=== PATIENT | female | born 1975 | race African-American/Black ===

== ENCOUNTER 2019-07-12 19:22 | Inpatient (IN) | payer SELFPAY ==
[~2019-07-12] VITALS: Ht 172.7 cm; Wt 76.9 kg
[2019-07-12 19:59] LABS: BILIRUBIN,URINE SMALL (NEG); CLARITY,URINE CLOUDY; COLOR,URINE YELLOW; NITRITE,URINE NEGATIVE (NEG); PROTEIN,URINE 30 mg/dL (NEG-TRACE); UROBILINOGEN,URINE 0.2 mg/dL (0.2 mg/dL)
[2019-07-12] MEDS ORDERED: IV NORMAL SALINE 1000ML BAG 1,000 ML IV ONE ×3 (20:00→23:30)
[2019-07-12] MEDS ORDERED: CONTRAST GIVEN. MC PRN (20:00)
[2019-07-12 20:04] LABS: SQUAMOUS EPITHELIAL CELL,UR MOD /LPF
[2019-07-12 20:05] LABS: AMORPHOUS SEDIMENT,UR PRESENT /HPF; BACTERIA,URINE MOD /HPF (0-FEW); HYALINE CASTS, URINE FEW /HPF; RBC,URINE 0 /HPF (0-2)
[2019-07-12 20:11] LABS: BARBITURATES NEG (NEG); BENZODIAZEPINES NEG (NEG); CANNABINOIDS POS (NEG); COCAINE NEG (NEG); METHADONE NEG (NEG); OPIATES NEG (NEG); PHENCYCLIDINE NEG (NEG)
[2019-07-12] MEDS ORDERED: HALOPERIDOL LACTATE 5 MG/ML VIAL. IVP ONE (20:15)
[2019-07-12] MEDS ORDERED: PROCHLORPERAZINE 10 MG/2 ML VIAL. IV ONE (20:15)
[2019-07-12] MEDS ORDERED: DICYCLOMINE HCL 10 MG CAPSULE PO ONE (20:15)
[2019-07-12 20:20] LABS: AMPHETAMINE/METHAMPHETAMINE NEG (NEG)
[2019-07-12] MEDS ORDERED: DICYCLOMINE 20 MG/2 ML AMPUL. IM ONE (20:30)
[2019-07-12] MEDS ORDERED: IOHEXOL 300 MG/ML 100ML VIAL. IV ONE (20:30)
[2019-07-12 20:37] LABS: BASO % 0 % (0-3); EOS % 0 % (0-3); HEMATOCRIT 45.3 % (36.0-47.0); HEMOGLOBIN 14.4 g/dL (12.0-15.5); LYMPH # 0.9 x10^3/uL (1.0-4.8); LYMPH % 9 % (24-48); MEAN CORPUSCULAR HEMOGLOBIN 23 pg (25-35); MEAN CORPUSCULAR HGB CONC 32 g/dL (31-37); MEAN CORPUSCULAR VOLUME 73 fL (79-100); MONO # 0.4 x10^3/uL (0.0-1.1); MONO % 4 % (0-9); NEUT # 8.8 x10^3/uL (1.8-7.7); NEUT % 87 % (31-73); PLATELET COUNT 322 x10^3/uL (140-400); RED BLOOD COUNT 6.18 x10^6/uL (3.50-5.40); RED CELL DISTRIBUTION WIDTH 16.1 % (11.5-14.5); WHITE BLOOD COUNT 10.1 x10^3/uL (4.0-11.0)
[2019-07-12 20:45] LABS: CALCIUM 11.2 mg/dL (8.5-10.1); CREATININE 2.9 mg/dL (0.6-1.0); GFR 17.8; POTASSIUM 3.7 mmol/L (3.5-5.1)
[2019-07-12 20:53] LABS: ALBUMIN 5.4 g/dL (3.4-5.0); ALBUMIN/GLOBULIN RATIO 0.9 (1.0-1.7); TOTAL BILIRUBIN 0.4 mg/dL (0.2-1.0); TOTAL PROTEIN 11.2 g/dL (6.4-8.2)
[2019-07-12 21:27] LABS: % BANDS 3 % (0-9); % LYMPHS 13 % (24-48); % MONOS 1 % (0-10); % SEGS 83 % (35-66); ANISOCYTOSIS SLIGHT; HYPOCHROMIA SLIGHT; MICROCYTOSIS SLIGHT; PLT ESTIMATE ADEQUATE (ADEQUATE); TOXIC GRANULATION SLIGHT; TOXIC VACUOLATION SLIGHT
--- NOTE | 2019-07-12 21:29 | RAD ---
Exam: CT abdomen and pelvis without contrast INDICATION: Generalized abdominal pain TECHNIQUE: Sequential axial images through the abdomen and pelvis obtained without IV contrast. Sagittal and coronal reformatted images were reconstructed from the axial data and reviewed. Comparisons: None FINDINGS: Heart size is normal. No pericardial effusion. Visualized lung bases are clear. No pleural effusion. Evaluation of the solid organs is limited secondary to noncontrast technique. Liver, spleen, pancreas, gallbladder and adrenals are unremarkable. No perinephric inflammation or hydronephrosis. No renal or ureteral calculi are identified. Bladder is decompressed not well evaluated. Uterus is not enlarged. No abnormal adnexal mass. Large and small bowel are unremarkable. Appendix is normal. No obstruction. No free intra-abdominal air or fluid. Abdominal aorta has a normal course and caliber. No enlarged intra-abdominal lymph nodes are identified. No suspicious osseous lesions or acute fractures. IMPRESSION: No acute process identified within the abdomen or pelvis. Exposure: One or more of the following in the visualized dose reduction techniques were utilized for this examination: 1. Automated exposure control 2. Adjustment of the MA and/or KV according to patient size 3. Use of iterative of reconstructive technique Electronically signed by: Su Juarez MD (07/12/2019 9:27 PM) [facility]
[2019-07-12] MEDS ORDERED: ONDANSETRON PF 4 MG/2 ML VIAL. IV PRN (23:15)
[2019-07-12] MEDS ORDERED: MORPHINE SULFATE 4 MG/ML VIAL. IV PRN (23:15)
--- NOTE | 2019-07-12 23:29 | PHYS DOC ---
Past Medical History Past Medical History: Other Additional Past Medical Histor: NEUROPATHY Past Surgical History: Hysterectomy, Tonsillectomy, Other Additional Past Surgical Histo: HERNIA REPAIR Additional Information: 09/22-09/20 Alcohol Use: None Drug Use: Marijuana Adult General Chief Complaint Chief Complaint: ABDOMINAL PAIN HPI HPI Patient is a 43 year old female with hx of neuropathy, B12 deficiency, HPV who presents to the ED today complaining of 10 out of 10 abdominal pain with nausea vomiting and diarrhea that began 3 weeks ago. Patient states the pain feels like spasms in her abdomen. She states she was admitted at [facility] in [place] 2 weeks ago and was discharged 7 days later, she states they could not find any acute cause for her symptoms but they instructed her to stop using marijuana. She states the last time she used marijuana was yesterday. Patient states marijuana is the only thing that helps her eat. Denies any fever. Denies any hematemesis or melena. She resides in the ED screaming asking for pain medicine. Review of Systems Review of Systems Constitutional: Denies fever or chills [] Eyes: Denies change in visual acuity, redness, or eye pain [] HENT: Denies nasal congestion or sore throat [] Respiratory: Denies cough or shortness of breath [] Cardiovascular: No additional information not addressed in HPI [] GI: Reports abdominal pain, nausea vomiting and diarrhea : Denies dysuria or hematuria [] Musculoskeletal: Denies back pain or joint pain [] Integument: Denies rash or skin lesions [] Neurologic: Denies headache, focal weakness or sensory changes [] All other systems were reviewed and found to be within normal limits, except as documented in this note. Current Medications Current Medications Current Medications Medications (Trade) Dose Ordered Sig/Campos Start Time Stop Time Status Last Admin Dose Admin Dicyclomine HCl (Bentyl) 20 mg 1X ONCE 07/12/19 20:30 07/12/19 20:31 DC 07/12/19 20:22 20 MG Haloperidol Lactate (Haldol Inj) 5 mg 1X ONCE 07/12/19 20:15 07/12/19 20:16 DC 07/12/19 20:11 5 MG Info (CONTRAST GIVEN -- Rx MONITORING) 1 each PRN DAILY PRN 07/12/19 20:00 07/12/19 21:27 DC Iohexol (Omnipaque 300 Mg/ml) 75 ml 1X ONCE 07/12/19 20:30 07/12/19 21:27 DC Prochlorperazine Edisylate (Compazine) 10 mg 1X ONCE 07/12/19 20:15 07/12/19 20:16 DC 07/12/19 20:12 10 MG Sodium Chloride 1,000 ml @ 1,000 mls/hr 1X ONCE 07/12/19 20:00 07/12/19 20:59 DC 07/12/19 20:10 1,000 MLS/HR Allergies Allergies Allergies Coded Allergies Type Severity Reaction Last Updated Verified sulfamethoxazole Allergy Intermediate 07/12/19 Yes trimethoprim Allergy Intermediate 07/12/19 Yes Physical Exam Physical Exam Constitutional: Well developed, well nourished, no acute distress, non-toxic appearance. [] HENT: Normocephalic, atraumatic, bilateral external ears normal, oropharynx moist, no oral exudates, nose normal. [] Eyes: PERRLA, EOMI, conjunctiva normal, no discharge. [] Neck: Normal range of motion, no tenderness, supple, no stridor. [] Cardiovascular:Heart rate regular rhythm, no murmur [] Lungs & Thorax: Bilateral breath sounds clear to auscultation [] Abdomen: Bowel sounds normal, soft, diffuse abdominal tenderness, exam difficult, patient will not let anyone touch her abdomen no masses, no pulsatile masses. [] Skin: Warm, dry, no erythema, no rash. [] Back: No tenderness, no CVA tenderness. [] Extremities: No tenderness, no cyanosis, no clubbing, ROM intact, no edema. [] Neurologic: Alert and oriented X 3, normal motor function, normal sensory function, no focal deficits noted. [] Psychologic: Flat affect, screaming intermittently in pain and asking for pain medicine Current Patient Data Vital Signs Vital Signs Date Time Temp Pulse Resp B/P (MAP) Pulse Ox O2 Delivery O2 Flow Rate FiO2 07/12/19 22:00 109 113/76 (88) Room Air 07/12/19 21:00 18 98 07/12/19 19:45 98.0 98.0 Lab Values Laboratory Tests Test 07/12/19 19:30 07/12/19 19:35 07/12/19 20:20 Urine Collection Type Unknown Urine Color Yellow Urine Clarity Cloudy Urine pH 5.0 Urine Specific [place] 1.025 Urine Protein 30 mg/dL (NEG-TRACE) Urine Glucose (UA) 100 mg/dL (NEG) Urine Ketones (Stick) Trace mg/dL (NEG) Urine Blood Negative (NEG) Urine Nitrite Negative (NEG) Urine Bilirubin Small (NEG) Urine Urobilinogen Dipstick 0.2 mg/dL (0.2 mg/dL) Urine Leukocyte Esterase Small (NEG) Urine RBC 0 /HPF (0-2) Urine WBC 5-10 /HPF (0-4) Urine Squamous Epithelial Cells Mod /LPF Urine Amorphous Sediment Present /HPF Urine Bacteria Mod /HPF (0-FEW) Urine Hyaline Casts Few /HPF Urine Mucus Slight /LPF Urine Opiates Screen Neg (NEG) Urine Methadone Screen Neg (NEG) Urine Barbiturates Neg (NEG) Urine Phencyclidine Screen Neg (NEG) Urine Amphetamine/Methamphetamine Neg (NEG) Urine Benzodiazepines Screen Neg (NEG) Urine Cocaine Screen Neg (NEG) Urine Cannabinoids Screen Pos (NEG) Urine Ethyl Alcohol Neg (NEG) POC Urine HCG, Qualitative Hcg negative (Negative) White Blood Count 10.1 x10^3/uL (4.0-11.0) Red Blood Count 6.18 x10^6/uL (3.50-5.40) H Hemoglobin 14.4 g/dL (12.0-15.5) Hematocrit 45.3 % (36.0-47.0) Mean Corpuscular Volume 73 fL (79-100) L Mean Corpuscular Hemoglobin 23 pg (25-35) L Mean Corpuscular Hemoglobin Concent 32 g/dL (31-37) Red Cell Distribution Width 16.1 % (11.5-14.5) H Platelet Count 322 x10^3/uL (140-400) Neutrophils (%) (Auto) 87 % (31-73) H Lymphocytes (%) (Auto) 9 % (24-48) L Monocytes (%) (Auto) 4 % (0-9) Eosinophils (%) (Auto) 0 % (0-3) Basophils (%) (Auto) 0 % (0-3) Neutrophils # (Auto) 8.8 x10^3/uL (1.8-7.7) H Lymphocytes # (Auto) 0.9 x10^3/uL (1.0-4.8) L Monocytes # (Auto) 0.4 x10^3/uL (0.0-1.1) Eosinophils # (Auto) 0.0 x10^3/uL (0.0-0.7) Basophils # (Auto) 0.0 x10^3/uL (0.0-0.2) Segmented Neutrophils % 83 % (35-66) H Band Neutrophils % 3 % (0-9) Lymphocytes % 13 % (24-48) L Monocytes % 1 % (0-10) Toxic Granulation Slight Toxic Vacuolation Slight Platelet Estimate Adequate (ADEQUATE) Hypochromasia Slight Anisocytosis Slight Microcytosis Slight Sodium Level 147 mmol/L (136-145) H Potassium Level 3.7 mmol/L (3.5-5.1) Chloride Level 101 mmol/L (98-107) Carbon Dioxide Level 24 mmol/L (21-32) Anion Gap 22 (6-14) H Blood Urea Nitrogen 30 mg/dL (7-20) H Creatinine 2.9 mg/dL (0.6-1.0) H Estimated GFR (Cockcroft-Gault) 17.8 BUN/Creatinine Ratio 10 (6-20) Glucose Level 167 mg/dL (70-99) H Calcium Level 11.2 mg/dL (8.5-10.1) H Total Bilirubin 0.4 mg/dL (0.2-1.0) Aspartate Amino Transferase (AST) 15 U/L (15-37) Alanine Aminotransferase (ALT) 28 U/L (14-59) Alkaline Phosphatase 126 U/L (46-116) H Total Protein 11.2 g/dL (6.4-8.2) H Albumin 5.4 g/dL (3.4-5.0) H Albumin/Globulin Ratio 0.9 (1.0-1.7) L Lipase 104 U/L (73-393) Ethyl Alcohol Level < 10 mg/dL (0-10) Laboratory Tests 07/12/19 20:20 Laboratory Tests 07/12/19 20:20 EKG EKG [] Radiology/Procedures Radiology/Procedures []PROCEDURE: CT ABDOMEN PELVIS WO CONTRAST Exam: CT abdomen and pelvis without contrast INDICATION: Generalized abdominal pain TECHNIQUE: Sequential axial images through the abdomen and pelvis obtained without IV contrast. Sagittal and coronal reformatted images were reconstructed from the axial data and reviewed. Comparisons: None FINDINGS: Heart size is normal. No pericardial effusion. Visualized lung bases are clear. No pleural effusion. Evaluation of the solid organs is limited secondary to noncontrast technique. Liver, spleen, pancreas, gallbladder and adrenals are unremarkable. No perinephric inflammation or hydronephrosis. No renal or ureteral calculi are identified. Bladder is decompressed not well evaluated. Uterus is not enlarged. No abnormal adnexal mass. Large and small bowel are unremarkable. Appendix is normal. No obstruction. No free intra-abdominal air or fluid. Abdominal aorta has a normal course and caliber. No enlarged intra-abdominal lymph nodes are identified. No suspicious osseous lesions or acute fractures. IMPRESSION: No acute process identified within the abdomen or pelvis. Exposure: One or more of the following in the visualized dose reduction techniques were utilized for this examination: 1. Automated exposure control 2. Adjustment of the MA and/or KV according to patient size 3. Use of iterative of reconstructive technique Electronically signed by: Pankaj Nicholson MD (07/12/2019 9:27 PM) [facility] DICTATED and SIGNED BY: PANKAJ NICHOLSON MD DATE: 07/12/192126 Course & Med Decision Making Course & Med Decision Making Pertinent Labs and Imaging studies reviewed. (See chart for details) This is a 43-year-old female patient presenting to the ED today complaining of abdominal pain with nausea vomiting and diarrhea that began 3 weeks ago. Patient was admitted at [facility] 2 weeks ago for some complaints for 7 days. She arrives in the ED crying and asking for pain medicine. We did order records from [facility]. CBC with normal WBC, normal hemoglobin and hematocrit, CMP with creatinine of 2.9 and BUN of 30. Records from [facility] shows creatinine on 06/13/2019 was 1.4 with BUN of 26 Urine analysis appears contaminated. Patient was given a bolus of IV fluids in the ED and started on normal saline continuous information. Renal duplex was ordered Spoke with - who will follow-up with the patient Spoke with Dr. Mchugh who accepted patient for admission Dragon Disclaimer Dragon Disclaimer This electronic medical record was generated, in whole or in part, using a voice recognition dictation system. Departure Departure Impression: Primary Impression: Acute renal failure Additional Impressions: Intractable nausea and vomiting Intractable abdominal pain Diarrhea Disposition: ADMITTED INPATIENT Condition: STABLE Referrals: NO PCP (PCP) Problem Qualifiers Primary Impression: Acute renal failure Acute renal failure type: unspecified Qualified Codes: N17.9 - Acute kidney failure, unspecified Additional Impressions: Diarrhea Diarrhea type: unspecified type Qualified Codes: R19.7 - Diarrhea, unspecified LINDSEY SILVER RESPOOLER Jul 12, 2019 23:29
--- NOTE | 2019-07-12 23:32 | RAD ---
Indication:Elevated creatinine. TECHNIQUE: Grayscale, color Doppler and spectral waveform is of the kidneys and bladder obtained. COMPARISON:None FINDINGS: Right kidney measures 9.3 x 3.6 x 3.3 cm without hydronephrosis. IVC and aorta are within normal limits. Left kidney measures 9.7 x 5.2 x 3.0 cm without hydronephrosis. There is a partially exophytic hypoechoic lesion in the left kidney measuring 2.5 x 2.4 x 3.2 cm without internal vascularity without corresponding abnormality seen on the CT. Single focus of echogenicity seen in the center of this lesion. Urinary bladder is decompressed limiting evaluation. IMPRESSION: 1. No hydronephrosis. 2. 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 Although underlying mass not ruled out. Follow-up ultrasound in 3 months recommended. Electronically signed by: Mirza Mcfarland DO (07/12/2019 11:28 PM) [facility]
[2019-07-12 23:45] VITALS: BP 121/88
[2019-07-13 03:00] VITALS: BP 109/68
[2019-07-13] MEDS ORDERED: CHOL10003 PO (03:41)
[2019-07-13] MEDS ORDERED: PREG150C PO (03:41)
[2019-07-13] MEDS ORDERED: NORT25CA3 PO (03:41)
[2019-07-13 05:47] LABS: BASO % 0 % (0-3); EOS % 0 % (0-3); HEMATOCRIT 37.5 % (36.0-47.0); HEMOGLOBIN 11.9 g/dL (12.0-15.5); LYMPH # 1.4 x10^3/uL (1.0-4.8); LYMPH % 15 % (24-48); MEAN CORPUSCULAR HEMOGLOBIN 23 pg (25-35); MEAN CORPUSCULAR HGB CONC 32 g/dL (31-37); MEAN CORPUSCULAR VOLUME 72 fL (79-100); MONO # 0.8 x10^3/uL (0.0-1.1); MONO % 8 % (0-9); NEUT # 7.4 x10^3/uL (1.8-7.7); NEUT % 77 % (31-73); PLATELET COUNT 308 x10^3/uL (140-400); RED BLOOD COUNT 5.18 x10^6/uL (3.50-5.40); RED CELL DISTRIBUTION WIDTH 15.7 % (11.5-14.5); WHITE BLOOD COUNT 9.6 x10^3/uL (4.0-11.0)
[2019-07-13 06:21] LABS: CALCIUM 9.6 mg/dL (8.5-10.1); CREATININE 1.6 mg/dL (0.6-1.0); GFR 42.8; POTASSIUM 3.4 mmol/L (3.5-5.1)
[2019-07-13 07:00] VITALS: BP 112/72
[2019-07-13] MEDS ORDERED: ONDANSETRON PF 4 MG/2 ML VIAL. IVP PRN (09:15)
[2019-07-13] MEDS ORDERED: PANTOPRAZOLE IV PUSH 40 MG VIAL. IVP ONE (09:15)
--- NOTE | 2019-07-13 09:26 | PDOC2 ---
GI CONSULT Reason For Consult: n/v/d/abd pain HPI: HPI: 43 y/o female admitted through ER. Reports 3 days of n/v, diffuse abd pain "like a jamel horse" that radiates around to her back sometimes, diarrhea (which has resolved). Feeling better this morning. Records from [facility] (admitted 06/14 - 06/23/19): 2 - 4 weeks of n/v/d, daily marijuana use. Labs unrevealing - iron profile WNL, A1c 5.3. CT A/P unremarkable. RUQ US unremarkable. EGD 06/13/[address] Red: mildly severe reflux esophagitis (biopsy w/ reflux esophagitis and possible fungal organisms), normal stomach, normal duodenum. DC dx: cannabis hyperemesis, UTI, chest discomfort (stress test negative for ischemia), QUITA, hyperglycemia, hypokalemia, constipation, "functional issues/gastroparesis." GI-bullock, treated w/ PP, Nystatin, fiber, and Colace. She says she stopped marijuana and didn't have recurrence of n/v or abd pain but was unable to sleep and her appetite was poor, so she restarted and symptoms recurred. No h/o these symptoms prior to admission at [facility]. Denies heartburn/reflux, early satiety, bloating, dysphagia, hematemesis, constipation, hematochezia, and melena. Has gained weight. No previous colonoscopy, HIDA, or GES. Was told she had a liver cyst once. No pancreas or PUD history. No NSAIDs. Stopped PPI because she ran out. Says she has health insurance and is on disability due to neuropathy. PMH: PMH: B12 deficiency, peripheral neuropathy, HPV, GERD umbilical hernia repair, tonsillectomy, right lumpectomy (benign), hysterectomy FH: Family History: No pertinent hx (denies GI cancers, IBD, and GB disease) Social History: Smoke: No ALCOHOL: none Drugs: Marijuana ROS: GEN: Denies fevers, chills, sweats HEENT: Denies blurred vision, sore throat CV: Denies chest pain RESP: Denies shortness of air, cough GI: Per HPI : Denies hematuria, dysuria ENDO: +weight gain NEURO: +neuropathy MSK: Denies weakness, joint pain/swelling SKIN: Denies jaundice, pruritus Vitals: Vitals: Vital Signs Date Time Temp Pulse Resp B/P (MAP) Pulse Ox O2 Delivery O2 Flow Rate FiO2 07/13/19 07:00 98.1 87 14 112/72 (85) 96 Room Air 98.1 Labs: Labs: Laboratory Tests Test 07/12/19 19:30 07/12/19 19:35 07/12/19 20:20 07/13/19 04:32 Urine Collection Type Unknown Urine Color Yellow Urine Clarity Cloudy Urine pH 5.0 Urine Specific [place] 1.025 Urine Protein 30 mg/dL (NEG-TRACE) Urine Glucose (UA) 100 mg/dL (NEG) Urine Ketones (Stick) Trace mg/dL (NEG) Urine Blood Negative (NEG) Urine Nitrite Negative (NEG) Urine Bilirubin Small (NEG) Urine Urobilinogen Dipstick 0.2 mg/dL (0.2 mg/dL) Urine Leukocyte Esterase Small (NEG) Urine RBC 0 /HPF (0-2) Urine WBC 5-10 /HPF (0-4) Urine Squamous Epithelial Cells Mod /LPF Urine Amorphous Sediment Present /HPF Urine Bacteria Mod /HPF (0-FEW) Urine Hyaline Casts Few /HPF Urine Mucus Slight /LPF Urine Opiates Screen Neg (NEG) Urine Methadone Screen Neg (NEG) Urine Barbiturates Neg (NEG) Urine Phencyclidine Screen Neg (NEG) Urine Amphetamine/Methamphetamine Neg (NEG) Urine Benzodiazepines Screen Neg (NEG) Urine Cocaine Screen Neg (NEG) Urine Cannabinoids Screen Pos (NEG) Urine Ethyl Alcohol Neg (NEG) Bedside Urine HCG, Qualitative Hcg negative (Negative) White Blood Count 10.1 x10^3/uL (4.0-11.0) 9.6 x10^3/uL (4.0-11.0) Red Blood Count 6.18 x10^6/uL (3.50-5.40) 5.18 x10^6/uL (3.50-5.40) Hemoglobin 14.4 g/dL (12.0-15.5) 11.9 g/dL (12.0-15.5) Hematocrit 45.3 % (36.0-47.0) 37.5 % (36.0-47.0) Mean Corpuscular Volume 73 fL (79-100) 72 fL (79-100) Mean Corpuscular Hemoglobin 23 pg (25-35) 23 pg (25-35) Mean Corpuscular Hemoglobin Concent 32 g/dL (31-37) 32 g/dL (31-37) Red Cell Distribution Width 16.1 % (11.5-14.5) 15.7 % (11.5-14.5) Platelet Count 322 x10^3/uL (140-400) 308 x10^3/uL (140-400) Neutrophils (%) (Auto) 87 % (31-73) 77 % (31-73) Lymphocytes (%) (Auto) 9 % (24-48) 15 % (24-48) Monocytes (%) (Auto) 4 % (0-9) 8 % (0-9) Eosinophils (%) (Auto) 0 % (0-3) 0 % (0-3) Basophils (%) (Auto) 0 % (0-3) 0 % (0-3) Neutrophils # (Auto) 8.8 x10^3/uL (1.8-7.7) 7.4 x10^3/uL (1.8-7.7) Lymphocytes # (Auto) 0.9 x10^3/uL (1.0-4.8) 1.4 x10^3/uL (1.0-4.8) Monocytes # (Auto) 0.4 x10^3/uL (0.0-1.1) 0.8 x10^3/uL (0.0-1.1) Eosinophils # (Auto) 0.0 x10^3/uL (0.0-0.7) 0.0 x10^3/uL (0.0-0.7) Basophils # (Auto) 0.0 x10^3/uL (0.0-0.2) 0.0 x10^3/uL (0.0-0.2) Segmented Neutrophils % 83 % (35-66) Band Neutrophils % 3 % (0-9) Lymphocytes % 13 % (24-48) Monocytes % 1 % (0-10) Toxic Granulation Slight Toxic Vacuolation Slight Platelet Estimate Adequate (ADEQUATE) Hypochromasia Slight Anisocytosis Slight Microcytosis Slight Sodium Level 147 mmol/L (136-145) 148 mmol/L (136-145) Potassium Level 3.7 mmol/L (3.5-5.1) 3.4 mmol/L (3.5-5.1) Chloride Level 101 mmol/L (98-107) 107 mmol/L (98-107) Carbon Dioxide Level 24 mmol/L (21-32) 28 mmol/L (21-32) Anion Gap 22 (6-14) 13 (6-14) Blood Urea Nitrogen 30 mg/dL (7-20) 33 mg/dL (7-20) Creatinine 2.9 mg/dL (0.6-1.0) 1.6 mg/dL (0.6-1.0) Estimated GFR (Cockcroft-Gault) 17.8 42.8 BUN/Creatinine Ratio 10 (6-20) Glucose Level 167 mg/dL (70-99) 106 mg/dL (70-99) Calcium Level 11.2 mg/dL (8.5-10.1) 9.6 mg/dL (8.5-10.1) Total Bilirubin 0.4 mg/dL (0.2-1.0) Aspartate Amino Transf (AST/SGOT) 15 U/L (15-37) Alanine Aminotransferase (ALT/SGPT) 28 U/L (14-59) Alkaline Phosphatase 126 U/L (46-116) Total Protein 11.2 g/dL (6.4-8.2) Albumin 5.4 g/dL (3.4-5.0) Albumin/Globulin Ratio 0.9 (1.0-1.7) Lipase 104 U/L (73-393) Ethyl Alcohol Level < 10 mg/dL (0-10) Allergies: Coded Allergies: sulfamethoxazole (Verified Allergy, Intermediate, 07/12/19) trimethoprim (Verified Allergy, Intermediate, 07/12/19) Medications: Current Medications Medications (Trade) Dose Ordered Sig/Campos Route PRN Reason Start Time Stop Time Status Last Admin Dose Admin Haloperidol Lactate (Haldol Inj) 5 mg 1X ONCE IVP 07/12/19 20:15 07/12/19 20:16 DC 07/12/19 20:11 Prochlorperazine Edisylate (Compazine) 10 mg 1X ONCE IV 07/12/19 20:15 07/12/19 20:16 DC 07/12/19 20:12 Sodium Chloride 1,000 ml @ 1,000 mls/hr 1X ONCE IV 07/12/19 20:00 07/12/19 20:59 DC 07/12/19 20:10 Dicyclomine HCl (Bentyl) 20 mg 1X ONCE IM 07/12/19 20:30 07/12/19 20:31 DC 07/12/19 20:22 Sodium Chloride 1,000 ml @ 100 mls/hr 1X ONCE IV 07/12/19 23:00 07/13/19 08:59 DC 07/12/19 22:32 Imaging: Imaging: CT A/P 07/12 IMPRESSION: No acute process identified within the abdomen or pelvis. Renal US 07/12 IMPRESSION: 1. No hydronephrosis. 2. 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 Although underlying mass not ruled out. Follow-up ultrasound in 3 months recommended. PE: GEN: NAD HEENT: Atraumatic, PERRL LUNGS: CTAB HEART: RRR ABD: NABS, S/ND/NT EXTREMITY: No edema SKIN: No rashes, no jaundice NEURO/PSYCH: A & O 3 A/P: A/P: Recurrent n/v, abd pain, diarrhea QUITA, dysproteinemia GERD - recent EGD, stopped PPI Microcytic anemia - iron studies WNL @ [facility] CRC screen - average risk +marijuana -- Check HIDA. If unrevealing, consider GES. Add PPI - IV for now, change to PO when tolerating diet. If diarrhea recurs, check stool studies. Abnormal protein studies - recheck tomorrow w/ hydration, consider SPEP. Try clears, ADAT after HIDA. HAILY ALBERTS Jul 13, 2019 09:25
[2019-07-13] MEDS ORDERED: POTASSIUM CL 30MEQ D5-0.45NACL 1,000 ML IV SCH (09:30)
[2019-07-13] MEDS ORDERED: SINCALIDE 1.5 MCG in IV NORMAL SALINE 50ML 30 ML IV ONE (10:45)
[2019-07-13 11:00] VITALS: BP 115/66
--- NOTE | 2019-07-13 11:53 | PDOC1 ---
History and Physical Date of Admission Date of Admission DATE: 07/13/19 TIME: 11:49 Identification/Chief Complaint Chief Complaint diffuse abd pain x 3 weeks with emesis Source Source: Caregiver, Chart review History of Present Illness History of Present Illness 43 female, she came in for the above CC namely, diffuse abd pain and emesis x 3 weeks, no fevers, maybe some diarrhea? She was actually at [facility] x 7 days for the same, COmes to our er with reassuring US and CT abd, GI consulted, HIDA scan ordered and she is there now LAbs some mild hypokalemia3.4, hypernatremia 148, CREat 1,6. LActate now normalized after IVF and ER mx,. TAkes only 3 meds at home, ssri, lexapro and vit D 3 UDS positive for marijuana Past Medical History Cardiovascular: Hyperlipidemia Psych: Anxiety Past Surgical History Past Surgical History: No pertinent history Family History Family History: Family History Unknown Social History Smoke: No ALCOHOL: none Drugs: Marijuana Current Problem List Problem List Problems Medical Problems: (1) Acute renal failure Status: Acute (2) Diarrhea Status: Acute (3) Intractable nausea and vomiting Status: Acute Current Medications Current Medications Current Medications Haloperidol Lactate (Haldol Inj) 5 mg 1X ONCE IVP Last administered on 07/12/19at 20:11; Start 07/12/19 at 20:15; Stop 07/12/19 at 20:16; Status DC Dicyclomine HCl (Bentyl) 20 mg 1X ONCE PO ; Start 07/12/19 at 20:15; Stop 07/12/19 at 20:16; Status Cancel Prochlorperazine Edisylate (Compazine) 10 mg 1X ONCE IV Last administered on 07/12/19at 20:12; Start 07/12/19 at 20:15; Stop 07/12/19 at 20:16; Status DC Sodium Chloride 1,000 ml @ 1,000 mls/hr 1X ONCE IV Last administered on 07/12/19at 20:10; Start 07/12/19 at 20:00; Stop 07/12/19 at 20:59; Status DC Iohexol (Omnipaque 300 Mg/ml) 75 ml 1X ONCE IV ; Start 07/12/19 at 20:30; Stop 07/12/19 at 21:27; Status DC Info (CONTRAST GIVEN -- Rx MONITORING) 1 each PRN DAILY PRN MC SEE COMMENTS; Start 07/12/19 at 20:00; Stop 07/12/19 at 21:27; Status DC Dicyclomine HCl (Bentyl) 20 mg 1X ONCE IM Last administered on 07/12/19at 20:22; Start 07/12/19 at 20:30; Stop 07/12/19 at 20:31; Status DC Sodium Chloride 1,000 ml @ 100 mls/hr 1X ONCE IV Last administered on 07/12/19at 22:32; Start 07/12/19 at 23:00; Stop 07/13/19 at 08:59; Status DC Ondansetron HCl (Zofran) 4 mg PRN Q8HRS PRN IV NAUSEA/VOMITING 1ST CHOICE; Start 07/12/19 at 23:15; Stop 07/13/19 at 23:14 Morphine Sulfate (Morphine Sulfate) 4 mg PRN Q2HR PRN IV SEVERE PAIN 7-10; Start 07/12/19 at 23:15; Stop 07/13/19 at 23:14 Sodium Chloride 1,000 ml @ 100 mls/hr 1X ONCE IV ; Start 07/12/19 at 23:30; Stop 07/13/19 at 07:48; Status DC Ondansetron HCl (Zofran) 4 mg PRN Q6HRS PRN IVP NAUSEA/VOMITING; Start 07/13/19 at 09:15 Potassium Chloride/Dextrose/ Sod Cl 1,000 ml @ 80 mls/hr [id number] IV ; Start 07/13/19 at 09:30 Pantoprazole Sodium (PROTONIX VIAL for IV PUSH) 40 mg DAILYAC IVP ; Start 07/14/19 at 07:30 Pantoprazole Sodium (PROTONIX VIAL for IV PUSH) 40 mg 1X ONCE IVP ; Start 07/13/19 at 09:15; Stop 07/13/19 at 09:24; Status DC Oxycodone/ Acetaminophen (Percocet 5/325) 1 tab PRN Q4HRS PRN PO PAIN; Start 07/13/19 at 09:15 Vitamin D (Vitamin D3) 1,000 unit DAILY PO ; Start 07/14/19 at 09:00 Nortriptyline HCl (Pamelor) 20 mg QHS PO ; Start 07/13/19 at 21:00 Pregabalin (Lyrica) 150 mg TID PO ; Start 07/13/19 at 10:00 Pantoprazole Sodium (PROTONIX VIAL for IV PUSH) 40 mg DAILYAC IVP ; Start 07/14/19 at 07:30; Status UNV Sincalide 1.5 mcg/ Sodium Chloride 30 ml @ 120 mls/hr 1X ONCE IV Last administered on 07/13/19at 11:38; Start 07/13/19 at 10:45; Stop 07/13/19 at 10:59; Status DC Active Scripts Active Reported Vitamin D3 (Cholecalciferol (Vitamin D3)) 1,000 Unit Tablet 1,000 Unit PO UD Pamelor (Nortriptyline Hcl) 25 Mg Capsule 20 Mg PO QHS Lyrica (Pregabalin) 150 Mg Capsule 1 Cap PO TID Allergies Allergies: Coded Allergies: sulfamethoxazole (Verified Allergy, Intermediate, 07/12/19) trimethoprim (Verified Allergy, Intermediate, 07/12/19) ROS Review of System as per HPI, rest 14 pt neg Physical Exam General: Alert, Oriented X3, Cooperative, No acute distress HEENT: Atraumatic, PERRLA Lungs: Clear to auscultation, Normal air movement Heart: S1S2, RRR, no thrills, no rubs Cardiovascular: S1, S2 Breasts: Normal, Rt breast nml w/o mass, Lt breast nml w/o mass, Nipples normal Abdomen: Normal bowel sounds, Soft, No tenderness, No hepatosplenomegaly, No masses Rectal Exam: not examined PELVIC: Nml ext genitalia Extremities: No clubbing, No cyanosis, No edema, Normal pulses, No tenderness/swelling Skin: No rashes, No breakdown, No significant lesion Neuro: Normal gait, Normal speech, Strength at 5/5 X4 ext, Normal tone, Sensation intact, Cranial nerves 3-12 NL, Reflexes 2+ Psych/Mental Status: Mental status NL, Mood NL Vitals Vitals Vital Signs Date Time Temp Pulse Resp B/P (MAP) Pulse Ox O2 Delivery O2 Flow Rate FiO2 07/13/19 08:00 Room Air 07/13/19 07:00 98.1 87 14 112/72 (85) 96 98.1 Labs Labs Laboratory Tests Test 07/12/19 19:30 07/12/19 19:35 07/12/19 20:20 07/13/19 04:32 Urine Collection Type Unknown Urine Color Yellow Urine Clarity Cloudy Urine pH 5.0 Urine Specific [place] 1.025 Urine Protein 30 mg/dL (NEG-TRACE) Urine Glucose (UA) 100 mg/dL (NEG) Urine Ketones (Stick) Trace mg/dL (NEG) Urine Blood Negative (NEG) Urine Nitrite Negative (NEG) Urine Bilirubin Small (NEG) Urine Urobilinogen Dipstick 0.2 mg/dL (0.2 mg/dL) Urine Leukocyte Esterase Small (NEG) Urine RBC 0 /HPF (0-2) Urine WBC 5-10 /HPF (0-4) Urine Squamous Epithelial Cells Mod /LPF Urine Amorphous Sediment Present /HPF Urine Bacteria Mod /HPF (0-FEW) Urine Hyaline Casts Few /HPF Urine Mucus Slight /LPF Urine Opiates Screen Neg (NEG) Urine Methadone Screen Neg (NEG) Urine Barbiturates Neg (NEG) Urine Phencyclidine Screen Neg (NEG) Urine Amphetamine/Methamphetamine Neg (NEG) Urine Benzodiazepines Screen Neg (NEG) Urine Cocaine Screen Neg (NEG) Urine Cannabinoids Screen Pos (NEG) Urine Ethyl Alcohol Neg (NEG) Bedside Urine HCG, Qualitative Hcg negative (Negative) White Blood Count 10.1 x10^3/uL (4.0-11.0) 9.6 x10^3/uL (4.0-11.0) Red Blood Count 6.18 x10^6/uL (3.50-5.40) 5.18 x10^6/uL (3.50-5.40) Hemoglobin 14.4 g/dL (12.0-15.5) 11.9 g/dL (12.0-15.5) Hematocrit 45.3 % (36.0-47.0) 37.5 % (36.0-47.0) Mean Corpuscular Volume 73 fL (79-100) 72 fL (79-100) Mean Corpuscular Hemoglobin 23 pg (25-35) 23 pg (25-35) Mean Corpuscular Hemoglobin Concent 32 g/dL (31-37) 32 g/dL (31-37) Red Cell Distribution Width 16.1 % (11.5-14.5) 15.7 % (11.5-14.5) Platelet Count 322 x10^3/uL (140-400) 308 x10^3/uL (140-400) Neutrophils (%) (Auto) 87 % (31-73) 77 % (31-73) Lymphocytes (%) (Auto) 9 % (24-48) 15 % (24-48) Monocytes (%) (Auto) 4 % (0-9) 8 % (0-9) Eosinophils (%) (Auto) 0 % (0-3) 0 % (0-3) Basophils (%) (Auto) 0 % (0-3) 0 % (0-3) Neutrophils # (Auto) 8.8 x10^3/uL (1.8-7.7) 7.4 x10^3/uL (1.8-7.7) Lymphocytes # (Auto) 0.9 x10^3/uL (1.0-4.8) 1.4 x10^3/uL (1.0-4.8) Monocytes # (Auto) 0.4 x10^3/uL (0.0-1.1) 0.8 x10^3/uL (0.0-1.1) Eosinophils # (Auto) 0.0 x10^3/uL (0.0-0.7) 0.0 x10^3/uL (0.0-0.7) Basophils # (Auto) 0.0 x10^3/uL (0.0-0.2) 0.0 x10^3/uL (0.0-0.2) Segmented Neutrophils % 83 % (35-66) Band Neutrophils % 3 % (0-9) Lymphocytes % 13 % (24-48) Monocytes % 1 % (0-10) Toxic Granulation Slight Toxic Vacuolation Slight Platelet Estimate Adequate (ADEQUATE) Hypochromasia Slight Anisocytosis Slight Microcytosis Slight Sodium Level 147 mmol/L (136-145) 148 mmol/L (136-145) Potassium Level 3.7 mmol/L (3.5-5.1) 3.4 mmol/L (3.5-5.1) Chloride Level 101 mmol/L (98-107) 107 mmol/L (98-107) Carbon Dioxide Level 24 mmol/L (21-32) 28 mmol/L (21-32) Anion Gap 22 (6-14) 13 (6-14) Blood Urea Nitrogen 30 mg/dL (7-20) 33 mg/dL (7-20) Creatinine 2.9 mg/dL (0.6-1.0) 1.6 mg/dL (0.6-1.0) Estimated GFR (Cockcroft-Gault) 17.8 42.8 BUN/Creatinine Ratio 10 (6-20) Glucose Level 167 mg/dL (70-99) 106 mg/dL (70-99) Calcium Level 11.2 mg/dL (8.5-10.1) 9.6 mg/dL (8.5-10.1) Total Bilirubin 0.4 mg/dL (0.2-1.0) Aspartate Amino Transf (AST/SGOT) 15 U/L (15-37) Alanine Aminotransferase (ALT/SGPT) 28 U/L (14-59) Alkaline Phosphatase 126 U/L (46-116) Total Protein 11.2 g/dL (6.4-8.2) Albumin 5.4 g/dL (3.4-5.0) Albumin/Globulin Ratio 0.9 (1.0-1.7) Lipase 104 U/L (73-393) Ethyl Alcohol Level < 10 mg/dL (0-10) Laboratory Tests Test 07/12/19 19:30 07/12/19 19:35 07/12/19 20:20 07/13/19 04:32 Urine Collection Type Unknown Urine Color Yellow Urine Clarity Cloudy Urine pH 5.0 Urine Specific [place] 1.025 Urine Protein 30 mg/dL (NEG-TRACE) Urine Glucose (UA) 100 mg/dL (NEG) Urine Ketones (Stick) Trace mg/dL (NEG) Urine Blood Negative (NEG) Urine Nitrite Negative (NEG) Urine Bilirubin Small (NEG) Urine Urobilinogen Dipstick 0.2 mg/dL (0.2 mg/dL) Urine Leukocyte Esterase Small (NEG) Urine RBC 0 /HPF (0-2) Urine WBC 5-10 /HPF (0-4) Urine Squamous Epithelial Cells Mod /LPF Urine Amorphous Sediment Present /HPF Urine Bacteria Mod /HPF (0-FEW) Urine Hyaline Casts Few /HPF Urine Mucus Slight /LPF Urine Opiates Screen Neg (NEG) Urine Methadone Screen Neg (NEG) Urine Barbiturates Neg (NEG) Urine Phencyclidine Screen Neg (NEG) Urine Amphetamine/Methamphetamine Neg (NEG) Urine Benzodiazepines Screen Neg (NEG) Urine Cocaine Screen Neg (NEG) Urine Cannabinoids Screen Pos (NEG) Urine Ethyl Alcohol Neg (NEG) Bedside Urine HCG, Qualitative Hcg negative (Negative) White Blood Count 10.1 x10^3/uL (4.0-11.0) 9.6 x10^3/uL (4.0-11.0) Red Blood Count 6.18 x10^6/uL (3.50-5.40) 5.18 x10^6/uL (3.50-5.40) Hemoglobin 14.4 g/dL (12.0-15.5) 11.9 g/dL (12.0-15.5) Hematocrit 45.3 % (36.0-47.0) 37.5 % (36.0-47.0) Mean Corpuscular Volume 73 fL (79-100) 72 fL (79-100) Mean Corpuscular Hemoglobin 23 pg (25-35) 23 pg (25-35) Mean Corpuscular Hemoglobin Concent 32 g/dL (31-37) 32 g/dL (31-37) Red Cell Distribution Width 16.1 % (11.5-14.5) 15.7 % (11.5-14.5) Platelet Count 322 x10^3/uL (140-400) 308 x10^3/uL (140-400) Neutrophils (%) (Auto) 87 % (31-73) 77 % (31-73) Lymphocytes (%) (Auto) 9 % (24-48) 15 % (24-48) Monocytes (%) (Auto) 4 % (0-9) 8 % (0-9) Eosinophils (%) (Auto) 0 % (0-3) 0 % (0-3) Basophils (%) (Auto) 0 % (0-3) 0 % (0-3) Neutrophils # (Auto) 8.8 x10^3/uL (1.8-7.7) 7.4 x10^3/uL (1.8-7.7) Lymphocytes # (Auto) 0.9 x10^3/uL (1.0-4.8) 1.4 x10^3/uL (1.0-4.8) Monocytes # (Auto) 0.4 x10^3/uL (0.0-1.1) 0.8 x10^3/uL (0.0-1.1) Eosinophils # (Auto) 0.0 x10^3/uL (0.0-0.7) 0.0 x10^3/uL (0.0-0.7) Basophils # (Auto) 0.0 x10^3/uL (0.0-0.2) 0.0 x10^3/uL (0.0-0.2) Segmented Neutrophils % 83 % (35-66) Band Neutrophils % 3 % (0-9) Lymphocytes % 13 % (24-48) Monocytes % 1 % (0-10) Toxic Granulation Slight Toxic Vacuolation Slight Platelet Estimate Adequate (ADEQUATE) Hypochromasia Slight Anisocytosis Slight Microcytosis Slight Sodium Level 147 mmol/L (136-145) 148 mmol/L (136-145) Potassium Level 3.7 mmol/L (3.5-5.1) 3.4 mmol/L (3.5-5.1) Chloride Level 101 mmol/L (98-107) 107 mmol/L (98-107) Carbon Dioxide Level 24 mmol/L (21-32) 28 mmol/L (21-32) Anion Gap 22 (6-14) 13 (6-14) Blood Urea Nitrogen 30 mg/dL (7-20) 33 mg/dL (7-20) Creatinine 2.9 mg/dL (0.6-1.0) 1.6 mg/dL (0.6-1.0) Estimated GFR (Cockcroft-Gault) 17.8 42.8 BUN/Creatinine Ratio 10 (6-20) Glucose Level 167 mg/dL (70-99) 106 mg/dL (70-99) Calcium Level 11.2 mg/dL (8.5-10.1) 9.6 mg/dL (8.5-10.1) Total Bilirubin 0.4 mg/dL (0.2-1.0) Aspartate Amino Transf (AST/SGOT) 15 U/L (15-37) Alanine Aminotransferase (ALT/SGPT) 28 U/L (14-59) Alkaline Phosphatase 126 U/L (46-116) Total Protein 11.2 g/dL (6.4-8.2) Albumin 5.4 g/dL (3.4-5.0) Albumin/Globulin Ratio 0.9 (1.0-1.7) Lipase 104 U/L (73-393) Ethyl Alcohol Level < 10 mg/dL (0-10) VTE Prophylaxis Ordered VTE Prophylaxis Devices: Yes VTE Pharmacological Prophylaxi: Yes Assessment/Plan Assessment/Plan Diffuse abd pain and emesis x 3 weeks Anxiety NOS on meds Vit D insuff on meds REcent CEnterhowes admission x 7 days for the same PLAN: NPO per GI Await HIDA IVF while NPO, PPI IV, pain control MAy get records from [place] I have reconciled home meds, can take sips meds since US and CT reassuring FULL CODE NICOLE MEDINA MD Jul 13, 2019 11:53
[2019-07-13] MEDS: PREGABALIN 75 MG CAPSULE PO SCH ×3 (12:06→21:49)
--- NOTE | 2019-07-13 12:14 | RAD ---
EXAM: Nuclear hepatobiliary scan. HISTORY: Nausea and vomiting. TECHNIQUE: Following intravenous administration of 5.5 mCi Tc 99m Choletec, anterior images of the abdomen were obtained at five minute intervals through one hour. Subsequently, 1.5 mcg CCK was administered and additional images to assess gallbladder ejection fraction were obtained. FINDINGS: There is prompt radiotracer uptake by the liver. No focal defect is seen. There is normal excretion into the biliary tree. The gallbladder is visualized within 15 minutes and there is free flow into the duodenum. The gallbladder ejection fraction is 16%. IMPRESSION: Decrease in gallbladder ejection fraction of 16%. Electronically signed by: Ivania Perez MD (07/13/2019 12:11 PM) [id number]
--- NOTE | 2019-07-13 12:38 | NUR ---
SW following for discharge planning. Discussed with RN, pt is from home with . Pt is listed as self pay, will be seen by TITO Calvo. Diet advancing today, pt had a HIDA scan. RN advised no SW needs at this time. SW will continue to follow.
--- NOTE | 2019-07-13 13:21 | PDOC2 ---
CONSULT Date of Consult Date of Consult DATE: 07/13/19 TIME: 13:03 Reason for Consult Reason for Consult: QUITA Identification/Chief Complaint Chief Complaint Denies any complaints at present Source Source: Chart review, Patient History of Present Illness Reason for Visit: Pt is 43 AA female, she came in for diffuse abd pain and emesis x 3 weeks, no fevers, maybe some diarrhea? She was at [facility] x 7 days for the same, No Hx of HTN , DM . Denies any urinary complaints . She denies any NSAID use, takes on Lyrica and Vit D (?500 Units ) Denies any Hx of Renal issues in the past Past Medical History Past Medical History Cardiovascular: Hyperlipidemia Psych: Anxiety Cardiovascular: Hyperlipidemia Psych: Anxiety Past Surgical History Past Surgical History: No pertinent history Family History Family History Family History: Family History Unknown Family History: Family History Unknown Social History Social History Smoke: No ALCOHOL: none Drugs: Marijuana No ALCOHOL: none Drugs: Marijuana Current Problem List Problem List Problems Medical Problems: (1) Acute renal failure Status: Acute (2) Diarrhea Status: Acute (3) Intractable nausea and vomiting Status: Acute Current Medications Current Medications Current Medications Haloperidol Lactate (Haldol Inj) 5 mg 1X ONCE IVP Last administered on 07/12/19at 20:11; Start 07/12/19 at 20:15; Stop 07/12/19 at 20:16; Status DC Dicyclomine HCl (Bentyl) 20 mg 1X ONCE PO ; Start 07/12/19 at 20:15; Stop 07/12/19 at 20:16; Status Cancel Prochlorperazine Edisylate (Compazine) 10 mg 1X ONCE IV Last administered on 07/12/19at 20:12; Start 07/12/19 at 20:15; Stop 07/12/19 at 20:16; Status DC Sodium Chloride 1,000 ml @ 1,000 mls/hr 1X ONCE IV Last administered on 07/12/19at 20:10; Start 07/12/19 at 20:00; Stop 07/12/19 at 20:59; Status DC Iohexol (Omnipaque 300 Mg/ml) 75 ml 1X ONCE IV ; Start 07/12/19 at 20:30; Stop 07/12/19 at 21:27; Status DC Info (CONTRAST GIVEN -- Rx MONITORING) 1 each PRN DAILY PRN MC SEE COMMENTS; Start 07/12/19 at 20:00; Stop 07/12/19 at 21:27; Status DC Dicyclomine HCl (Bentyl) 20 mg 1X ONCE IM Last administered on 07/12/19at 20:22; Start 07/12/19 at 20:30; Stop 07/12/19 at 20:31; Status DC Sodium Chloride 1,000 ml @ 100 mls/hr 1X ONCE IV Last administered on 07/12/19at 22:32; Start 07/12/19 at 23:00; Stop 07/13/19 at 08:59; Status DC Ondansetron HCl (Zofran) 4 mg PRN Q8HRS PRN IV NAUSEA/VOMITING 1ST CHOICE; Start 07/12/19 at 23:15; Stop 07/13/19 at 23:14 Morphine Sulfate (Morphine Sulfate) 4 mg PRN Q2HR PRN IV SEVERE PAIN 7-10; Start 07/12/19 at 23:15; Stop 07/13/19 at 23:14 Sodium Chloride 1,000 ml @ 100 mls/hr 1X ONCE IV ; Start 07/12/19 at 23:30; Stop 07/13/19 at 07:48; Status DC Ondansetron HCl (Zofran) 4 mg PRN Q6HRS PRN IVP NAUSEA/VOMITING; Start 07/13/19 at 09:15 Potassium Chloride/Dextrose/ Sod Cl 1,000 ml @ 80 mls/hr [id number] IV Last ad ministered on 07/13/19at 12:05; Start 07/13/19 at 09:30 Pantoprazole Sodium (PROTONIX VIAL for IV PUSH) 40 mg DAILYAC IVP ; Start 07/14/19 at 07:30; Stop 07/13/19 at 11:55; Status DC Pantoprazole Sodium (PROTONIX VIAL for IV PUSH) 40 mg 1X ONCE IVP Last administered on 07/13/19at 12:06; Start 07/13/19 at 09:15; Stop 07/13/19 at 09:24; Status DC Oxycodone/ Acetaminophen (Percocet 5/325) 1 tab PRN Q4HRS PRN PO PAIN; Start 07/13/19 at 09:15 Vitamin D (Vitamin D3) 1,000 unit DAILY PO ; Start 10/26/19 at 09:00 Nortriptyline HCl (Pamelor) 20 mg QHS PO ; Start 07/13/19 at 21:00 Pregabalin (Lyrica) 150 mg TID PO Last administered on 07/13/19at 12:06; Start 07/13/19 at 10:00 Pantoprazole Sodium (PROTONIX VIAL for IV PUSH) 40 mg DAILYAC IVP ; Start at 07:30; Status UNV Sincalide 1.5 mcg/ Sodium Chloride 30 ml @ 120 mls/hr 1X ONCE IV Last administered on 07/13/19at 11:38; Start 07/13/19 at 10:45; Stop 07/13/19 at 10:59; Status DC Pantoprazole Sodium (Protonix) 40 mg DAILYAC PO ; Start 07/14/19 at 07:30 Active Scripts Active Reported Vitamin D3 (Cholecalciferol (Vitamin D3)) 1,000 Unit Tablet 1,000 Unit PO UD Pamelor (Nortriptyline Hcl) 25 Mg Capsule 20 Mg PO QHS Lyrica (Pregabalin) 150 Mg Capsule 1 Cap PO TID Allergies Allergies: Coded Allergies: sulfamethoxazole (Verified Allergy, Intermediate, 07/12/19) trimethoprim (Verified Allergy, Intermediate, 07/12/19) ROS Review of System Per HPI Physical Exam Physical Exam General: No acute distress HEENT:OM moist Neck Supple Lungs: Clear to auscultation, Heart: S1S2, RRR, no thrills, no rubs Cardiovascular: S1, S2 Abdomen: Normal bowel sounds, Soft, No tenderness, Extremities: No clubbing, No cyanosis, No edema, Skin: No rashes, Neuro: Normal gait, Normal speech, Strength at 5/5 X4 ext, Normal tone, Sensation intact, Cranial nerves 3-12 NL, Reflexes 2+ Psych/Mental Status: Mental status NL, Mood NL NO wallace Vital Signs Vital Signs Date Time Temp Pulse Resp B/P (MAP) Pulse Ox O2 Delivery O2 Flow Rate FiO2 07/13/19 11:00 98.3 95 16 115/66 (82) 96 Room Air 98.3 Assessment & Plan QUITA Vasomotor/Pre-renal US and CT unremarkable ,Baseline unknown No micr hematuria , E-Lytes acid base stable Supportive care, I/O, Monitor, avoid nephrotoxins Hypercalcemia- resolved with IVF On Vit D at home Hypernatremia- monitor HypoKalemia- On replacement UA- some WBC's, Small LE, defer to primary Diffuse abd pain and emesis x 3 weeks GI consulted, HIDA pending UDS positive for Cannabinoids Labs Labs Laboratory Tests Test 07/12/19 19:30 07/12/19 19:35 07/12/19 20:20 07/13/19 04:32 Urine Collection Type Unknown Urine Color Yellow Urine Clarity Cloudy Urine pH 5.0 Urine Specific [place]gett 1.025 Urine Protein 30 mg/dL (NEG-TRACE) Urine Glucose (UA) 100 mg/dL (NEG) Urine Ketones (Stick) Trace mg/dL (NEG) Urine Blood Negative (NEG) Urine Nitrite Negative (NEG) Urine Bilirubin Small (NEG) Urine Urobilinogen Dipstick 0.2 mg/dL (0.2 mg/dL) Urine Leukocyte Esterase Small (NEG) Urine RBC 0 /HPF (0-2) Urine WBC 5-10 /HPF (0-4) Urine Squamous Epithelial Cells Mod /LPF Urine Amorphous Sediment Present /HPF Urine Bacteria Mod /HPF (0-FEW) Urine Hyaline Casts Few /HPF Urine Mucus Slight /LPF Urine Opiates Screen Neg (NEG) Urine Methadone Screen Neg (NEG) Urine Barbiturates Neg (NEG) Urine Phencyclidine Screen Neg (NEG) Urine Amphetamine/Methamphetamine Neg (NEG) Urine Benzodiazepines Screen Neg (NEG) Urine Cocaine Screen Neg (NEG) Urine Cannabinoids Screen Pos (NEG) Urine Ethyl Alcohol Neg (NEG) Bedside Urine HCG, Qualitative Hcg negative (Negative) White Blood Count 10.1 x10^3/uL (4.0-11.0) 9.6 x10^3/uL (4.0-11.0) Red Blood Count 6.18 x10^6/uL (3.50-5.40) 5.18 x10^6/uL (3.50-5.40) Hemoglobin 14.4 g/dL (12.0-15.5) 11.9 g/dL (12.0-15.5) Hematocrit 45.3 % (36.0-47.0) 37.5 % (36.0-47.0) Mean Corpuscular Volume 73 fL (79-100) 72 fL (79-100) Mean Corpuscular Hemoglobin 23 pg (25-35) 23 pg (25-35) Mean Corpuscular Hemoglobin Concent 32 g/dL (31-37) 32 g/dL (31-37) Red Cell Distribution Width 16.1 % (11.5-14.5) 15.7 % (11.5-14.5) Platelet Count 322 x10^3/uL (140-400) 308 x10^3/uL (140-400) Neutrophils (%) (Auto) 87 % (31-73) 77 % (31-73) Lymphocytes (%) (Auto) 9 % (24-48) 15 % (24-48) Monocytes (%) (Auto) 4 % (0-9) 8 % (0-9) Eosinophils (%) (Auto) 0 % (0-3) 0 % (0-3) Basophils (%) (Auto) 0 % (0-3) 0 % (0-3) Neutrophils # (Auto) 8.8 x10^3/uL (1.8-7.7) 7.4 x10^3/uL (1.8-7.7) Lymphocytes # (Auto) 0.9 x10^3/uL (1.0-4.8) 1.4 x10^3/uL (1.0-4.8) Monocytes # (Auto) 0.4 x10^3/uL (0.0-1.1) 0.8 x10^3/uL (0.0-1.1) Eosinophils # (Auto) 0.0 x10^3/uL (0.0-0.7) 0.0 x10^3/uL (0.0-0.7) Basophils # (Auto) 0.0 x10^3/uL (0.0-0.2) 0.0 x10^3/uL (0.0-0.2) Segmented Neutrophils % 83 % (35-66) Band Neutrophils % 3 % (0-9) Lymphocytes % 13 % (24-48) Monocytes % 1 % (0-10) Toxic Granulation Slight Toxic Vacuolation Slight Platelet Estimate Adequate (ADEQUATE) Hypochromasia Slight Anisocytosis Slight Microcytosis Slight Sodium Level 147 mmol/L (136-145) 148 mmol/L (136-145) Potassium Level 3.7 mmol/L (3.5-5.1) 3.4 mmol/L (3.5-5.1) Chloride Level 101 mmol/L (98-107) 107 mmol/L (98-107) Carbon Dioxide Level 24 mmol/L (21-32) 28 mmol/L (21-32) Anion Gap 22 (6-14) 13 (6-14) Blood Urea Nitrogen 30 mg/dL (7-20) 33 mg/dL (7-20) Creatinine 2.9 mg/dL (0.6-1.0) 1.6 mg/dL (0.6-1.0) Estimated GFR (Cockcroft-Gault) 17.8 42.8 BUN/Creatinine Ratio 10 (6-20) Glucose Level 167 mg/dL (70-99) 106 mg/dL (70-99) Calcium Level 11.2 mg/dL (8.5-10.1) 9.6 mg/dL (8.5-10.1) Total Bilirubin 0.4 mg/dL (0.2-1.0) Aspartate Amino Transf (AST/SGOT) 15 U/L (15-37) Alanine Aminotransferase (ALT/SGPT) 28 U/L (14-59) Alkaline Phosphatase 126 U/L (46-116) Total Protein 11.2 g/dL (6.4-8.2) Albumin 5.4 g/dL (3.4-5.0) Albumin/Globulin Ratio 0.9 (1.0-1.7) Lipase 104 U/L (73-393) Ethyl Alcohol Level < 10 mg/dL (0-10) Laboratory Tests Test 07/12/19 19:30 07/12/19 19:35 07/12/19 20:20 07/13/19 04:32 Urine Collection Type Unknown Urine Color Yellow Urine Clarity Cloudy Urine pH 5.0 Urine Specific [place]gett 1.025 Urine Protein 30 mg/dL (NEG-TRACE) Urine Glucose (UA) 100 mg/dL (NEG) Urine Ketones (Stick) Trace mg/dL (NEG) Urine Blood Negative (NEG) Urine Nitrite Negative (NEG) Urine Bilirubin Small (NEG) Urine Urobilinogen Dipstick 0.2 mg/dL (0.2 mg/dL) Urine Leukocyte Esterase Small (NEG) Urine RBC 0 /HPF (0-2) Urine WBC 5-10 /HPF (0-4) Urine Squamous Epithelial Cells Mod /LPF Urine Amorphous Sediment Present /HPF Urine Bacteria Mod /HPF (0-FEW) Urine Hyaline Casts Few /HPF Urine Mucus Slight /LPF Urine Opiates Screen Neg (NEG) Urine Methadone Screen Neg (NEG) Urine Barbiturates Neg (NEG) Urine Phencyclidine Screen Neg (NEG) Urine Amphetamine/Methamphetamine Neg (NEG) Urine Benzodiazepines Screen Neg (NEG) Urine Cocaine Screen Neg (NEG) Urine Cannabinoids Screen Pos (NEG) Urine Ethyl Alcohol Neg (NEG) Bedside Urine HCG, Qualitative Hcg negative (Negative) White Blood Count 10.1 x10^3/uL (4.0-11.0) 9.6 x10^3/uL (4.0-11.0) Red Blood Count 6.18 x10^6/uL (3.50-5.40) 5.18 x10^6/uL (3.50-5.40) Hemoglobin 14.4 g/dL (12.0-15.5) 11.9 g/dL (12.0-15.5) Hematocrit 45.3 % (36.0-47.0) 37.5 % (36.0-47.0) Mean Corpuscular Volume 73 fL (79-100) 72 fL (79-100) Mean Corpuscular Hemoglobin 23 pg (25-35) 23 pg (25-35) Mean Corpuscular Hemoglobin Concent 32 g/dL (31-37) 32 g/dL (31-37) Red Cell Distribution Width 16.1 % (11.5-14.5) 15.7 % (11.5-14.5) Platelet Count 322 x10^3/uL (140-400) 308 x10^3/uL (140-400) Neutrophils (%) (Auto) 87 % (31-73) 77 % (31-73) Lymphocytes (%) (Auto) 9 % (24-48) 15 % (24-48) Monocytes (%) (Auto) 4 % (0-9) 8 % (0-9) Eosinophils (%) (Auto) 0 % (0-3) 0 % (0-3) Basophils (%) (Auto) 0 % (0-3) 0 % (0-3) Neutrophils # (Auto) 8.8 x10^3/uL (1.8-7.7) 7.4 x10^3/uL (1.8-7.7) Lymphocytes # (Auto) 0.9 x10^3/uL (1.0-4.8) 1.4 x10^3/uL (1.0-4.8) Monocytes # (Auto) 0.4 x10^3/uL (0.0-1.1) 0.8 x10^3/uL (0.0-1.1) Eosinophils # (Auto) 0.0 x10^3/uL (0.0-0.7) 0.0 x10^3/uL (0.0-0.7) Basophils # (Auto) 0.0 x10^3/uL (0.0-0.2) 0.0 x10^3/uL (0.0-0.2) Segmented Neutrophils % 83 % (35-66) Band Neutrophils % 3 % (0-9) Lymphocytes % 13 % (24-48) Monocytes % 1 % (0-10) Toxic Granulation Slight Toxic Vacuolation Slight Platelet Estimate Adequate (ADEQUATE) Hypochromasia Slight Anisocytosis Slight Microcytosis Slight Sodium Level 147 mmol/L (136-145) 148 mmol/L (136-145) Potassium Level 3.7 mmol/L (3.5-5.1) 3.4 mmol/L (3.5-5.1) Chloride Level 101 mmol/L (98-107) 107 mmol/L (98-107) Carbon Dioxide Level 24 mmol/L (21-32) 28 mmol/L (21-32) Anion Gap 22 (6-14) 13 (6-14) Blood Urea Nitrogen 30 mg/dL (7-20) 33 mg/dL (7-20) Creatinine 2.9 mg/dL (0.6-1.0) 1.6 mg/dL (0.6-1.0) Estimated GFR (Cockcroft-Gault) 17.8 42.8 BUN/Creatinine Ratio 10 (6-20) Glucose Level 167 mg/dL (70-99) 106 mg/dL (70-99) Calcium Level 11.2 mg/dL (8.5-10.1) 9.6 mg/dL (8.5-10.1) Total Bilirubin 0.4 mg/dL (0.2-1.0) Aspartate Amino Transf (AST/SGOT) 15 U/L (15-37) Alanine Aminotransferase (ALT/SGPT) 28 U/L (14-59) Alkaline Phosphatase 126 U/L (46-116) Total Protein 11.2 g/dL (6.4-8.2) Albumin 5.4 g/dL (3.4-5.0) Albumin/Globulin Ratio 0.9 (1.0-1.7) Lipase 104 U/L (73-393) Ethyl Alcohol Level < 10 mg/dL (0-10) Review All relevant outside records, renal labs, imaging studies, telemetry/EKG's were reviewed. Images Images Renal US- 1. No hydronephrosis. 2. 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 Although underlying mass not ruled out. Follow-up ultrasound in [address] abdomen w/o Liver, spleen, pancreas, gallbladder and adrenals are unremarkable. No perinephric inflammation or hydronephrosis. No renal or ureteral calculi are identified. Bladder is decompressed not well evaluated. Uterus is not enlarged. No abnormal adnexal mass. Large and small bowel are unremarkable. Appendix is normal. No obstruction. No free intra-abdominal air or fluid. Abdominal aorta has a normal course and caliber. No enlarged intra-abdominal lymph nodes are identified. No suspicious osseous lesions or acute fractures. IMPRESSION: No acute process identified within the abdomen or pelvis. TYREL MATTHEWS MD Jul 13, 2019 13:21
[2019-07-13 15:00] VITALS: BP 114/67
--- NOTE | 2019-07-13 16:15 | PDOC2 ---
CONSULT Date of Consult Date of Consult DATE: 07/13/19 TIME: 16:10 Reason for Consult Reason for Consult: biliary dyskinesia Referring Physician Referring Physician: Dr. Rizzo Identification/Chief Complaint Chief Complaint RUQ pain Source Source: Chart review, Patient History of Present Illness Reason for Visit: 43 yo F with several day history of diffuse abd pain. Pt with recent admission at [place] with similar c/o. Imaging unremarkable, however PIPPDA with evidence of low ejection fraction. Past Medical History Cardiovascular: Hyperlipidemia Psych: Anxiety Past Surgical History Past Surgical History: No pertinent history Family History Family History: Family History Unknown Social History No ALCOHOL: none Drugs: Marijuana Current Problem List Problem List Problems Medical Problems: (1) Acute renal failure Status: Acute (2) Diarrhea Status: Acute (3) Intractable nausea and vomiting Status: Acute Current Medications Current Medications Current Medications Haloperidol Lactate (Haldol Inj) 5 mg 1X ONCE IVP Last administered on 07/12/19at 20:11; Start 07/12/19 at 20:15; Stop 07/12/19 at 20:16; Status DC Dicyclomine HCl (Bentyl) 20 mg 1X ONCE PO ; Start 07/12/19 at 20:15; Stop 07/12/19 at 20:16; Status Cancel Prochlorperazine Edisylate (Compazine) 10 mg 1X ONCE IV Last administered on 07/12/19at 20:12; Start 07/12/19 at 20:15; Stop 07/12/19 at 20:16; Status DC Sodium Chloride 1,000 ml @ 1,000 mls/hr 1X ONCE IV Last administered on 07/12/19at 20:10; Start 07/12/19 at 20:00; Stop 07/12/19 at 20:59; Status DC Iohexol (Omnipaque 300 Mg/ml) 75 ml 1X ONCE IV ; Start 07/12/19 at 20:30; Stop 07/12/19 at 21:27; Status DC Info (CONTRAST GIVEN -- Rx MONITORING) 1 each PRN DAILY PRN MC SEE COMMENTS; Start 07/12/19 at 20:00; Stop 07/12/19 at 21:27; Status DC Dicyclomine HCl (Bentyl) 20 mg 1X ONCE IM Last administered on 07/12/19at 20:22; Start 07/12/19 at 20:30; Stop 07/12/19 at 20:31; Status DC Sodium Chloride 1,000 ml @ 100 mls/hr 1X ONCE IV Last administered on at 22:32; Start 07/12/19 at 23:00; Stop 07/13/19 at 08:59; Status DC Ondansetron HCl (Zofran) 4 mg PRN Q8HRS PRN IV NAUSEA/VOMITING 1ST CHOICE; Start 07/12/19 at 23:15; Stop 07/13/19 at 23:14 Morphine Sulfate (Morphine Sulfate) 4 mg PRN Q2HR PRN IV SEVERE PAIN 7-10; Start 07/12/19 at 23:15; Stop 07/13/19 at 23:14 Sodium Chloride 1,000 ml @ 100 mls/hr 1X ONCE IV ; Start 07/12/19 at 23:30; Stop 07/13/19 at 07:48; Status DC Ondansetron HCl (Zofran) 4 mg PRN Q6HRS PRN IVP NAUSEA/VOMITING; Start 07/13/19 at 09:15 Potassium Chloride/Dextrose/ Sod Cl 1,000 ml @ 80 mls/hr [id number] IV Last administered on 07/13/19at 12:05; Start 07/13/19 at 09:30 Pantoprazole Sodium (PROTONIX VIAL for IV PUSH) 40 mg DAILYAC IVP ; Start 07/14/19 at 07:30; Stop 07/13/19 at 11:55; Status DC Pantoprazole Sodium (PROTONIX VIAL for IV PUSH) 40 mg 1X ONCE IVP Last administered on 07/13/19at 12:06; Start 07/13/19 at 09:15; Stop 07/13/19 at 09:24; Status DC Oxycodone/ Acetaminophen (Percocet 5/325) 1 tab PRN Q4HRS PRN PO PAIN; Start 07/13/19 at 09:15 Vitamin D (Vitamin D3) 1,000 unit DAILY PO ; Start 07/14/19 at 09:00 Nortriptyline HCl (Pamelor) 20 mg QHS PO ; Start 07/13/19 at 21:00 Pregabalin (Lyrica) 150 mg TID PO Last administered on 07/13/19at 15:06; Start 07/13/19 at 10:00 Pantoprazole Sodium (PROTONIX VIAL for IV PUSH) 40 mg DAILYAC IVP ; Start 07/14/19 at 07:30; Status UNV Sincalide 1.5 mcg/ Sodium Chloride 30 ml @ 120 mls/hr 1X ONCE IV Last administered on 07/13/19at 11:38; Start 07/13/19 at 10:45; Stop 07/13/19 at 10:59; Status DC Pantoprazole Sodium (Protonix) 40 mg DAILYAC PO ; Start 07/14/19 at 07:30 Cefazolin Sodium/ Dextrose 50 ml @ 100 mls/hr ONCE ONCE IV ; Start 07/13/19 at 15:15; Stop 07/13/19 at 15:44; Status DC Ondansetron HCl (Zofran) 4 mg PRN Q6HRS PRN IV NAUSEA/VOMITING; Start 07/14/19 at 07:00; Stop 07/15/19 at 06:59 Fentanyl Citrate (Fentanyl 2ml Vial) 25 mcg PRN Q5MIN PRN IV MILD PAIN 1-3; Start 07/14/19 at 07:00; Stop 07/15/19 at 06:59 Fentanyl Citrate (Fentanyl 2ml Vial) 50 mcg PRN Q5MIN PRN IV MODERATE TO SEVERE PAIN; Start 07/14/19 at 07:00; Stop 07/15/19 at 06:59 Morphine Sulfate (Morphine Sulfate) 1 mg PRN Q10MIN PRN IV SEVERE PAIN 7-10; Start 07/14/19 at 07:00; Stop 07/15/19 at 06:59 Ringer's Solution 1,000 ml @ 30 mls/hr Q24H IV ; Start 07/14/19 at 07:00; Stop 07/14/19 at 18:59 Lidocaine HCl (Xylocaine-Mpf 1% 2ml Vial) 2 ml PRN 1X PRN ID PRIOR TO IV START; Start 07/14/19 at 07:00; Stop 07/15/19 at 06:59 Hydromorphone HCl (Dilaudid) 0.5 mg PRN Q10MIN PRN IV SEV PAIN, Second choice; Start 07/14/19 at 07:00; Stop 07/15/19 at 06:59 Prochlorperazine Edisylate (Compazine) 5 mg PACU PRN PRN IV NAUSEA, MRX1; Start 07/14/19 at 07:00; Stop 07/15/19 at 06:59 Active Scripts Active Reported Vitamin D3 (Cholecalciferol (Vitamin D3)) 1,000 Unit Tablet 1,000 Unit PO UD Pamelor (Nortriptyline Hcl) 25 Mg Capsule 20 Mg PO QHS Lyrica (Pregabalin) 150 Mg Capsule 1 Cap PO TID Allergies Allergies: Coded Allergies: sulfamethoxazole (Verified Allergy, Intermediate, 07/12/19) trimethoprim (Verified Allergy, Intermediate, 07/12/19) ROS Gastrointestinal: Yes Nausea, Yes Vomiting, Yes Abdominal Pain, Yes Diarrhea Physical Exam General: Alert, Oriented X3, Cooperative, mild distress HEENT: Atraumatic Lungs: Normal air movement Abdomen: Soft, Other (diffuse TTP, mild) Extremities: No clubbing, No cyanosis Skin: No rashes, No breakdown Neuro: Normal speech, Sensation intact Psych/Mental Status: Mental status NL, Mood NL Vitals VITALS Vital Signs Date Time Temp Pulse Resp B/P (MAP) Pulse Ox O2 Delivery O2 Flow Rate FiO2 07/13/19 15:00 98.3 103 16 114/67 (83) 95 Room Air 98.3 Labs Labs Laboratory Tests Test 07/12/19 19:30 07/12/19 19:35 07/12/19 20:20 07/13/19 04:32 Urine Collection Type Unknown Urine Color Yellow Urine Clarity Cloudy Urine pH 5.0 Urine Specific [place] 1.025 Urine Protein 30 mg/dL (NEG-TRACE) Urine Glucose (UA) 100 mg/dL (NEG) Urine Ketones (Stick) Trace mg/dL (NEG) Urine Blood Negative (NEG) Urine Nitrite Negative (NEG) Urine Bilirubin Small (NEG) Urine Urobilinogen Dipstick 0.2 mg/dL (0.2 mg/dL) Urine Leukocyte Esterase Small (NEG) Urine RBC 0 /HPF (0-2) Urine WBC 5-10 /HPF (0-4) Urine Squamous Epithelial Cells Mod /LPF Urine Amorphous Sediment Present /HPF Urine Bacteria Mod /HPF (0-FEW) Urine Hyaline Casts Few /HPF Urine Mucus Slight /LPF Urine Opiates Screen Neg (NEG) Urine Methadone Screen Neg (NEG) Urine Barbiturates Neg (NEG) Urine Phencyclidine Screen Neg (NEG) Urine Amphetamine/Methamphetamine Neg (NEG) Urine Benzodiazepines Screen Neg (NEG) Urine Cocaine Screen Neg (NEG) Urine Cannabinoids Screen Pos (NEG) Urine Ethyl Alcohol Neg (NEG) Bedside Urine HCG, Qualitative Hcg negative (Negative) White Blood Count 10.1 x10^3/uL (4.0-11.0) 9.6 x10^3/uL (4.0-11.0) Red Blood Count 6.18 x10^6/uL (3.50-5.40) 5.18 x10^6/uL (3.50-5.40) Hemoglobin 14.4 g/dL (12.0-15.5) 11.9 g/dL (12.0-15.5) Hematocrit 45.3 % (36.0-47.0) 37.5 % (36.0-47.0) Mean Corpuscular Volume 73 fL (79-100) 72 fL (79-100) Mean Corpuscular Hemoglobin 23 pg (25-35) 23 pg (25-35) Mean Corpuscular Hemoglobin Concent 32 g/dL (31-37) 32 g/dL (31-37) Red Cell Distribution Width 16.1 % (11.5-14.5) 15.7 % (11.5-14.5) Platelet Count 322 x10^3/uL (140-400) 308 x10^3/uL (140-400) Neutrophils (%) (Auto) 87 % (31-73) 77 % (31-73) Lymphocytes (%) (Auto) 9 % (24-48) 15 % (24-48) Monocytes (%) (Auto) 4 % (0-9) 8 % (0-9) Eosinophils (%) (Auto) 0 % (0-3) 0 % (0-3) Basophils (%) (Auto) 0 % (0-3) 0 % (0-3) Neutrophils # (Auto) 8.8 x10^3/uL (1.8-7.7) 7.4 x10^3/uL (1.8-7.7) Lymphocytes # (Auto) 0.9 x10^3/uL (1.0-4.8) 1.4 x10^3/uL (1.0-4.8) Monocytes # (Auto) 0.4 x10^3/uL (0.0-1.1) 0.8 x10^3/uL (0.0-1.1) Eosinophils # (Auto) 0.0 x10^3/uL (0.0-0.7) 0.0 x10^3/uL (0.0-0.7) Basophils # (Auto) 0.0 x10^3/uL (0.0-0.2) 0.0 x10^3/uL (0.0-0.2) Segmented Neutrophils % 83 % (35-66) Band Neutrophils % 3 % (0-9) Lymphocytes % 13 % (24-48) Monocytes % 1 % (0-10) Toxic Granulation Slight Toxic Vacuolation Slight Platelet Estimate Adequate (ADEQUATE) Hypochromasia Slight Anisocytosis Slight Microcytosis Slight Sodium Level 147 mmol/L (136-145) 148 mmol/L (136-145) Potassium Level 3.7 mmol/L (3.5-5.1) 3.4 mmol/L (3.5-5.1) Chloride Level 101 mmol/L (98-107) 107 mmol/L (98-107) Carbon Dioxide Level 24 mmol/L (21-32) 28 mmol/L (21-32) Anion Gap 22 (6-14) 13 (6-14) Blood Urea Nitrogen 30 mg/dL (7-20) 33 mg/dL (7-20) Creatinine 2.9 mg/dL (0.6-1.0) 1.6 mg/dL (0.6-1.0) Estimated GFR (Cockcroft-Gault) 17.8 42.8 BUN/Creatinine Ratio 10 (6-20) Glucose Level 167 mg/dL (70-99) 106 mg/dL (70-99) Calcium Level 11.2 mg/dL (8.5-10.1) 9.6 mg/dL (8.5-10.1) Total Bilirubin 0.4 mg/dL (0.2-1.0) Aspartate Amino Transf (AST/SGOT) 15 U/L (15-37) Alanine Aminotransferase (ALT/SGPT) 28 U/L (14-59) Alkaline Phosphatase 126 U/L (46-116) Total Protein 11.2 g/dL (6.4-8.2) Albumin 5.4 g/dL (3.4-5.0) Albumin/Globulin Ratio 0.9 (1.0-1.7) Lipase 104 U/L (73-393) Ethyl Alcohol Level < 10 mg/dL (0-10) Laboratory Tests Test 07/12/19 19:30 07/12/19 19:35 07/12/19 20:20 07/13/19 04:32 Urine Collection Type Unknown Urine Color Yellow Urine Clarity Cloudy Urine pH 5.0 Urine Specific [place] 1.025 Urine Protein 30 mg/dL (NEG-TRACE) Urine Glucose (UA) 100 mg/dL (NEG) Urine Ketones (Stick) Trace mg/dL (NEG) Urine Blood Negative (NEG) Urine Nitrite Negative (NEG) Urine Bilirubin Small (NEG) Urine Urobilinogen Dipstick 0.2 mg/dL (0.2 mg/dL) Urine Leukocyte Esterase Small (NEG) Urine RBC 0 /HPF (0-2) Urine WBC 5-10 /HPF (0-4) Urine Squamous Epithelial Cells Mod /LPF Urine Amorphous Sediment Present /HPF Urine Bacteria Mod /HPF (0-FEW) Urine Hyaline Casts Few /HPF Urine Mucus Slight /LPF Urine Opiates Screen Neg (NEG) Urine Methadone Screen Neg (NEG) Urine Barbiturates Neg (NEG) Urine Phencyclidine Screen Neg (NEG) Urine Amphetamine/Methamphetamine Neg (NEG) Urine Benzodiazepines Screen Neg (NEG) Urine Cocaine Screen Neg (NEG) Urine Cannabinoids Screen Pos (NEG) Urine Ethyl Alcohol Neg (NEG) Bedside Urine HCG, Qualitative Hcg negative (Negative) White Blood Count 10.1 x10^3/uL (4.0-11.0) 9.6 x10^3/uL (4.0-11.0) Red Blood Count 6.18 x10^6/uL (3.50-5.40) 5.18 x10^6/uL (3.50-5.40) Hemoglobin 14.4 g/dL (12.0-15.5) 11.9 g/dL (12.0-15.5) Hematocrit 45.3 % (36.0-47.0) 37.5 % (36.0-47.0) Mean Corpuscular Volume 73 fL (79-100) 72 fL (79-100) Mean Corpuscular Hemoglobin 23 pg (25-35) 23 pg (25-35) Mean Corpuscular Hemoglobin Concent 32 g/dL (31-37) 32 g/dL (31-37) Red Cell Distribution Width 16.1 % (11.5-14.5) 15.7 % (11.5-14.5) Platelet Count 322 x10^3/uL (140-400) 308 x10^3/uL (140-400) Neutrophils (%) (Auto) 87 % (31-73) 77 % (31-73) Lymphocytes (%) (Auto) 9 % (24-48) 15 % (24-48) Monocytes (%) (Auto) 4 % (0-9) 8 % (0-9) Eosinophils (%) (Auto) 0 % (0-3) 0 % (0-3) Basophils (%) (Auto) 0 % (0-3) 0 % (0-3) Neutrophils # (Auto) 8.8 x10^3/uL (1.8-7.7) 7.4 x10^3/uL (1.8-7.7) Lymphocytes # (Auto) 0.9 x10^3/uL (1.0-4.8) 1.4 x10^3/uL (1.0-4.8) Monocytes # (Auto) 0.4 x10^3/uL (0.0-1.1) 0.8 x10^3/uL (0.0-1.1) Eosinophils # (Auto) 0.0 x10^3/uL (0.0-0.7) 0.0 x10^3/uL (0.0-0.7) Basophils # (Auto) 0.0 x10^3/uL (0.0-0.2) 0.0 x10^3/uL (0.0-0.2) Segmented Neutrophils % 83 % (35-66) Band Neutrophils % 3 % (0-9) Lymphocytes % 13 % (24-48) Monocytes % 1 % (0-10) Toxic Granulation Slight Toxic Vacuolation Slight Platelet Estimate Adequate (ADEQUATE) Hypochromasia Slight Anisocytosis Slight Microcytosis Slight Sodium Level 147 mmol/L (136-145) 148 mmol/L (136-145) Potassium Level 3.7 mmol/L (3.5-5.1) 3.4 mmol/L (3.5-5.1) Chloride Level 101 mmol/L (98-107) 107 mmol/L (98-107) Carbon Dioxide Level 24 mmol/L (21-32) 28 mmol/L (21-32) Anion Gap 22 (6-14) 13 (6-14) Blood Urea Nitrogen 30 mg/dL (7-20) 33 mg/dL (7-20) Creatinine 2.9 mg/dL (0.6-1.0) 1.6 mg/dL (0.6-1.0) Estimated GFR (Cockcroft-Gault) 17.8 42.8 BUN/Creatinine Ratio 10 (6-20) Glucose Level 167 mg/dL (70-99) 106 mg/dL (70-99) Calcium Level 11.2 mg/dL (8.5-10.1) 9.6 mg/dL (8.5-10.1) Total Bilirubin 0.4 mg/dL (0.2-1.0) Aspartate Amino Transf (AST/SGOT) 15 U/L (15-37) Alanine Aminotransferase (ALT/SGPT) 28 U/L (14-59) Alkaline Phosphatase 126 U/L (46-116) Total Protein 11.2 g/dL (6.4-8.2) Albumin 5.4 g/dL (3.4-5.0) Albumin/Globulin Ratio 0.9 (1.0-1.7) Lipase 104 U/L (73-393) Ethyl Alcohol Level < 10 mg/dL (0-10) Images Images PIPPDA with low ejection fraction of 15%, other imaging unremarkable Assessment/Plan Assessment/Plan Biliary dyskinesia Given LFTs abnormals and PIPPDA, biliary disease most likely TO OR for in AM for laparoscopic versus open cholecystectomy with cholangiogram. R/R/B/A d/w pt. Risks, including, but not limited to: bleeding, infection, damage to surrounding structures, risk of anesthesia, risk of open, risk of anesthesia, risk of and the risk that this would not resolve her pain. She appear to understand, her questions are answered and she elects to proceed. Thanks for consult! BARRETT DARDEN MD Jul 13, 2019 16:15
[2019-07-13 19:00] VITALS: BP 120/73
[2019-07-13] MEDS: NORTRIPTYLINE 10 MG CAPSULE PO SCH (21:49)
[2019-07-13] MEDS: oxyCODONE/APAP 5/325 1 TAB TABLET PO PRN (21:53)
[2019-07-13 23:00] VITALS: BP 117/68
[2019-07-14] VITALS (12 sets, daily range): BP systolic 97–150; BP diastolic 61–95
[2019-07-14 04:34] LABS: BASO % 1 % (0-3); EOS % 0 % (0-3); HEMOGLOBIN 10.7 g/dL (12.0-15.5); LYMPH # 2.1 x10^3/uL (1.0-4.8); LYMPH % 42 % (24-48); MEAN CORPUSCULAR HEMOGLOBIN 23 pg (25-35); MEAN CORPUSCULAR HGB CONC 31 g/dL (31-37); MEAN CORPUSCULAR VOLUME 73 fL (79-100); MONO # 0.3 x10^3/uL (0.0-1.1); MONO % 7 % (0-9); NEUT # 2.5 x10^3/uL (1.8-7.7); NEUT % 51 % (31-73); PLATELET COUNT 231 x10^3/uL (140-400); RED BLOOD COUNT 4.66 x10^6/uL (3.50-5.40); RED CELL DISTRIBUTION WIDTH 15.4 % (11.5-14.5); WHITE BLOOD COUNT 4.9 x10^3/uL (4.0-11.0)
[2019-07-14 05:02] LABS: ALBUMIN 3.5 g/dL (3.4-5.0); ALBUMIN/GLOBULIN RATIO 0.9 (1.0-1.7); CALCIUM 8.9 mg/dL (8.5-10.1); GFR 73.6; POTASSIUM 3.4 mmol/L (3.5-5.1); TOTAL BILIRUBIN 0.6 mg/dL (0.2-1.0); TOTAL PROTEIN 7.3 g/dL (6.4-8.2)
[2019-07-14] MEDS ORDERED: PROPOFOL 20 ML IV ONE (05:41)
[2019-07-14] MEDS ORDERED: LIDOCAINE 2% PF 5 ML VIAL. ONE (05:41)
[2019-07-14] MEDS ORDERED: ROCURONIUM 50 MG/5 ML VIAL. ONE (05:41)
[2019-07-14] MEDS ORDERED: ONDANSETRON PF 4 MG/2 ML VIAL. IV PRN ×2 (07:00→12:45)
[2019-07-14] MEDS ORDERED: PROCHLORPERAZINE 10 MG/2 ML VIAL. IV PRN (07:00)
[2019-07-14] MEDS ORDERED: fentaNYL PF VIAL 100 MCG/2 ML VIAL IV PRN (07:00)
[2019-07-14] MEDS ORDERED: LIDOCAINE 1% PF 2 ML VIAL. ID PRN (07:00)
[2019-07-14] MEDS ORDERED: MORPHINE SULFATE 2 MG/ML VIAL. IV PRN (07:00)
[2019-07-14] MEDS ORDERED: HYDROmorphone 2 MG/ML VIAL IV PRN (07:00)
[2019-07-14] MEDS ORDERED: IV RINGERS,LACTATED 1000ML 1,000 ML IV SCH (07:00)
[2019-07-14] MEDS ORDERED: PANTOPRAZOLE IV PUSH 40 MG VIAL. IVP SCH ×2 (07:30)
[2019-07-14] MEDS: PANTOPRAZOLE 40 MG TABLET.DR. PO SCH (07:30)
[2019-07-14] MEDS: CHOLECALCIFEROL (VITAMIN D3) 1,000 UNIT TABLET PO SCH (09:00)
[2019-07-14] MEDS: PREGABALIN 75 MG CAPSULE PO SCH ×3 (09:00→21:10)
[2019-07-14] MEDS ORDERED: ONDANSETRON PF 4 MG/2 ML VIAL. ONE (10:38)
[2019-07-14] MEDS ORDERED: DEXAMETHASONE SOD PHOS 4 MG/ML VIAL ONE (10:38)
[2019-07-14] MEDS ORDERED: MIDAZOLAM HCL/PF 2 MG/2 ML VIAL. ONE (10:39)
[2019-07-14] MEDS ORDERED: fentaNYL PF VIAL 100 MCG/2 ML VIAL ONE ×2 (10:39→11:51)
[2019-07-14] MEDS ORDERED: SURGICEL HEMOSTAT 4X8 EACH. ONE (10:44)
[2019-07-14] MEDS ORDERED: IOHEXOL 300 MG/ML 50 ML VIAL. ONE (10:44)
[2019-07-14] MEDS ORDERED: BISACODYL 10 MG SUPP.RECT. ONE (10:44)
[2019-07-14] MEDS ORDERED: HEPARIN for IV BOLUS 10,000 UNIT/10 ML VIAL. ONE (10:44)
[2019-07-14] MEDS ORDERED: BUPIVACAINE MPF 0.5% 30 ML VIAL. ONE (10:45)
--- NOTE | 2019-07-14 11:33 | PDOC ---
SURGICAL PROGRESS NOTE Subjective 43 yo F with biliary dyskinesia TO OR for laparoscopic versus open cholecystectomy with cholangiogram R/R/B/A d/w pt and pt's supportive . Risks, including, but not limited to: bleeding, infection, damage to surrounding structures, risk of anesthesia, risk of open, risk of , risk of not resolving her pain. They appear to understand, their questions are answered and they elect to proceed. Vital Signs Vital Signs Date Time Temp Pulse Resp B/P (MAP) Pulse Ox O2 Delivery O2 Flow Rate FiO2 07/14/19 10:16 97.3 84 20 116/77 98 Room Air 97.3 I&O Intake and Output 07/14/19 07:00 Intake Total 2480 ml Balance 2480 ml Intake Oral 480 ml IV Total 2000 ml # Voids 1 Labs Laboratory Tests Test 07/12/19 19:30 07/12/19 19:35 07/12/19 20:20 07/13/19 04:32 Urine Collection Type Unknown Urine Color Yellow Urine Clarity Cloudy Urine pH 5.0 Urine Specific [place] 1.025 Urine Protein 30 mg/dL (NEG-TRACE) Urine Glucose (UA) 100 mg/dL (NEG) Urine Ketones (Stick) Trace mg/dL (NEG) Urine Blood Negative (NEG) Urine Nitrite Negative (NEG) Urine Bilirubin Small (NEG) Urine Urobilinogen Dipstick 0.2 mg/dL (0.2 mg/dL) Urine Leukocyte Esterase Small (NEG) Urine RBC 0 /HPF (0-2) Urine WBC 5-10 /HPF (0-4) Urine Squamous Epithelial Cells Mod /LPF Urine Amorphous Sediment Present /HPF Urine Bacteria Mod /HPF (0-FEW) Urine Hyaline Casts Few /HPF Urine Mucus Slight /LPF Urine Opiates Screen Neg (NEG) Urine Methadone Screen Neg (NEG) Urine Barbiturates Neg (NEG) Urine Phencyclidine Screen Neg (NEG) Urine Amphetamine/Methamphetamine Neg (NEG) Urine Benzodiazepines Screen Neg (NEG) Urine Cocaine Screen Neg (NEG) Urine Cannabinoids Screen Pos (NEG) Urine Ethyl Alcohol Neg (NEG) Bedside Urine HCG, Qualitative Hcg negative (Negative) White Blood Count 10.1 x10^3/uL (4.0-11.0) 9.6 x10^3/uL (4.0-11.0) Red Blood Count 6.18 x10^6/uL (3.50-5.40) 5.18 x10^6/uL (3.50-5.40) Hemoglobin 14.4 g/dL (12.0-15.5) 11.9 g/dL (12.0-15.5) Hematocrit 45.3 % (36.0-47.0) 37.5 % (36.0-47.0) Mean Corpuscular Volume 73 fL (79-100) 72 fL (79-100) Mean Corpuscular Hemoglobin 23 pg (25-35) 23 pg (25-35) Mean Corpuscular Hemoglobin Concent 32 g/dL (31-37) 32 g/dL (31-37) Red Cell Distribution Width 16.1 % (11.5-14.5) 15.7 % (11.5-14.5) Platelet Count 322 x10^3/uL (140-400) 308 x10^3/uL (140-400) Neutrophils (%) (Auto) 87 % (31-73) 77 % (31-73) Lymphocytes (%) (Auto) 9 % (24-48) 15 % (24-48) Monocytes (%) (Auto) 4 % (0-9) 8 % (0-9) Eosinophils (%) (Auto) 0 % (0-3) 0 % (0-3) Basophils (%) (Auto) 0 % (0-3) 0 % (0-3) Neutrophils # (Auto) 8.8 x10^3/uL (1.8-7.7) 7.4 x10^3/uL (1.8-7.7) Lymphocytes # (Auto) 0.9 x10^3/uL (1.0-4.8) 1.4 x10^3/uL (1.0-4.8) Monocytes # (Auto) 0.4 x10^3/uL (0.0-1.1) 0.8 x10^3/uL (0.0-1.1) Eosinophils # (Auto) 0.0 x10^3/uL (0.0-0.7) 0.0 x10^3/uL (0.0-0.7) Basophils # (Auto) 0.0 x10^3/uL (0.0-0.2) 0.0 x10^3/uL (0.0-0.2) Segmented Neutrophils % 83 % (35-66) Band Neutrophils % 3 % (0-9) Lymphocytes % 13 % (24-48) Monocytes % 1 % (0-10) Toxic Granulation Slight Toxic Vacuolation Slight Platelet Estimate Adequate (ADEQUATE) Hypochromasia Slight Anisocytosis Slight Microcytosis Slight Sodium Level 147 mmol/L (136-145) 148 mmol/L (136-145) Potassium Level 3.7 mmol/L (3.5-5.1) 3.4 mmol/L (3.5-5.1) Chloride Level 101 mmol/L (98-107) 107 mmol/L (98-107) Carbon Dioxide Level 24 mmol/L (21-32) 28 mmol/L (21-32) Anion Gap 22 (6-14) 13 (6-14) Blood Urea Nitrogen 30 mg/dL (7-20) 33 mg/dL (7-20) Creatinine 2.9 mg/dL (0.6-1.0) 1.6 mg/dL (0.6-1.0) Estimated GFR (Cockcroft-Gault) 17.8 42.8 BUN/Creatinine Ratio 10 (6-20) Glucose Level 167 mg/dL (70-99) 106 mg/dL (70-99) Calcium Level 11.2 mg/dL (8.5-10.1) 9.6 mg/dL (8.5-10.1) Total Bilirubin 0.4 mg/dL (0.2-1.0) Aspartate Amino Transf (AST/SGOT) 15 U/L (15-37) Alanine Aminotransferase (ALT/SGPT) 28 U/L (14-59) Alkaline Phosphatase 126 U/L (46-116) Total Protein 11.2 g/dL (6.4-8.2) Albumin 5.4 g/dL (3.4-5.0) Albumin/Globulin Ratio 0.9 (1.0-1.7) Lipase 104 U/L (73-393) Ethyl Alcohol Level < 10 mg/dL (0-10) Test 07/14/19 03:30 White Blood Count 4.9 x10^3/uL (4.0-11.0) Red Blood Count 4.66 x10^6/uL (3.50-5.40) Hemoglobin 10.7 g/dL (12.0-15.5) Hematocrit 34.0 % (36.0-47.0) Mean Corpuscular Volume 73 fL (79-100) Mean Corpuscular Hemoglobin 23 pg (25-35) Mean Corpuscular Hemoglobin Concent 31 g/dL (31-37) Red Cell Distribution Width 15.4 % (11.5-14.5) Platelet Count 231 x10^3/uL (140-400) Neutrophils (%) (Auto) 51 % (31-73) Lymphocytes (%) (Auto) 42 % (24-48) Monocytes (%) (Auto) 7 % (0-9) Eosinophils (%) (Auto) 0 % (0-3) Basophils (%) (Auto) 1 % (0-3) Neutrophils # (Auto) 2.5 x10^3/uL (1.8-7.7) Lymphocytes # (Auto) 2.1 x10^3/uL (1.0-4.8) Monocytes # (Auto) 0.3 x10^3/uL (0.0-1.1) Eosinophils # (Auto) 0.0 x10^3/uL (0.0-0.7) Basophils # (Auto) 0.0 x10^3/uL (0.0-0.2) Sodium Level 144 mmol/L (136-145) Potassium Level 3.4 mmol/L (3.5-5.1) Chloride Level 106 mmol/L (98-107) Carbon Dioxide Level 29 mmol/L (21-32) Anion Gap 9 (6-14) Blood Urea Nitrogen 19 mg/dL (7-20) Creatinine 1.0 mg/dL (0.6-1.0) Estimated GFR (Cockcroft-Gault) 73.6 BUN/Creatinine Ratio 19 (6-20) Glucose Level 84 mg/dL (70-99) Calcium Level 8.9 mg/dL (8.5-10.1) Total Bilirubin 0.6 mg/dL (0.2-1.0) Aspartate Amino Transf (AST/SGOT) 71 U/L (15-37) Alanine Aminotransferase (ALT/SGPT) 44 U/L (14-59) Alkaline Phosphatase 76 U/L (46-116) Total Protein 7.3 g/dL (6.4-8.2) Albumin 3.5 g/dL (3.4-5.0) Albumin/Globulin Ratio 0.9 (1.0-1.7) Laboratory Tests Test 07/14/19 03:30 White Blood Count 4.9 x10^3/uL (4.0-11.0) Red Blood Count 4.66 x10^6/uL (3.50-5.40) Hemoglobin 10.7 g/dL (12.0-15.5) Hematocrit 34.0 % (36.0-47.0) Mean Corpuscular Volume 73 fL (79-100) Mean Corpuscular Hemoglobin 23 pg (25-35) Mean Corpuscular Hemoglobin Concent 31 g/dL (31-37) Red Cell Distribution Width 15.4 % (11.5-14.5) Platelet Count 231 x10^3/uL (140-400) Neutrophils (%) (Auto) 51 % (31-73) Lymphocytes (%) (Auto) 42 % (24-48) Monocytes (%) (Auto) 7 % (0-9) Eosinophils (%) (Auto) 0 % (0-3) Basophils (%) (Auto) 1 % (0-3) Neutrophils # (Auto) 2.5 x10^3/uL (1.8-7.7) Lymphocytes # (Auto) 2.1 x10^3/uL (1.0-4.8) Monocytes # (Auto) 0.3 x10^3/uL (0.0-1.1) Eosinophils # (Auto) 0.0 x10^3/uL (0.0-0.7) Basophils # (Auto) 0.0 x10^3/uL (0.0-0.2) Sodium Level 144 mmol/L (136-145) Potassium Level 3.4 mmol/L (3.5-5.1) Chloride Level 106 mmol/L (98-107) Carbon Dioxide Level 29 mmol/L (21-32) Anion Gap 9 (6-14) Blood Urea Nitrogen 19 mg/dL (7-20) Creatinine 1.0 mg/dL (0.6-1.0) Estimated GFR (Cockcroft-Gault) 73.6 BUN/Creatinine Ratio 19 (6-20) Glucose Level 84 mg/dL (70-99) Calcium Level 8.9 mg/dL (8.5-10.1) Total Bilirubin 0.6 mg/dL (0.2-1.0) Aspartate Amino Transf (AST/SGOT) 71 U/L (15-37) Alanine Aminotransferase (ALT/SGPT) 44 U/L (14-59) Alkaline Phosphatase 76 U/L (46-116) Total Protein 7.3 g/dL (6.4-8.2) Albumin 3.5 g/dL (3.4-5.0) Albumin/Globulin Ratio 0.9 (1.0-1.7) Problem List Problems Medical Problems: (1) Acute renal failure Status: Acute (2) Diarrhea Status: Acute (3) Intractable nausea and vomiting Status: Acute BARRETT DARDEN MD Jul 14, 2019 11:33
[2019-07-14] MEDS ORDERED: KETOROLAC 30 MG/ML VIAL. ONE (11:43)
[2019-07-14] MEDS ORDERED: SEVOFLURANE 31 TO 60 MINUTES. IH ONE (11:44)
[2019-07-14] MEDS ORDERED: NEOSTIGMINE METHYLSULFATE 5 MG/5 ML SYRINGE. ONE (12:03)
[2019-07-14] MEDS ORDERED: GLYCOPYRROLATE 1 MG/5 ML VIAL. ONE (12:04)
--- NOTE | 2019-07-14 12:40 | PDOC4 ---
OPERATIVE NOTE Date: Date: Jul 14, 2019 Pre-Op Diagnosis: Biliary dyskinesia Post-Op Diagnosis: same Procedure Performed: laparoscopic cholecystectomy with cholangiogram Surgeon: aCrroll Darden Anesthesia Type: GETA plus local Blood Loss: 50 Specimans Obtained: gallbladder Findings: normal anatomy, normal cholangiogram Complications: none Operative Note: After obtaining informed consent, patient was taken to OR, induced under GETA and prepped in the usual fashion. 5 mm port placed umbilical and RUQ, 11 port placed epigastric, all under laparoscopic guidance. Abdominal cavity was explored and essentially unremarkable. Omentum adherent to umbilicus, but no obvious hernia, wide shallow umbilicus. Liver normal. Gallbladder was somewhat flaccid. Gallbladder taken off fossa sharply in dome down fashion using cautery. Cystic artery ligated with clips. Cholangiogram obtained via cystic duct and was normal. Cystic duct ligated with clips and hemolok. Gallbladder placed in bag, delivered and sent to pathology for evaluation. Copious irrigation. No evidence of bleeding or other pathology. Ports removed without bleeding. Fascia repaired with 0 vicryl. Skin repaired with 4 0 monocryl. Dressing placed. Patient tolerated procedure well and sent to PACU in stable condition. All counts correct. Wound class is 2. BARRETT DARDEN MD Jul 14, 2019 12:40
[2019-07-14] MEDS ORDERED: NALOXONE 0.4 MG/ML VIAL. IV PRN (12:45)
[2019-07-14] MEDS ORDERED: DEXTROSE 50% 25 GM / 50ML DISP.SYRIN. IV PRN (12:45)
[2019-07-14] MEDS ORDERED: 0.9 % SODIUM CHLORIDE 10 ML DISP.SYRIN. IV PRN (12:45)
--- NOTE | 2019-07-14 12:47 | RAD ---
EXAM: INTRAOPERATIVE CHOLANGIOGRAM. HISTORY: Intraoperative cholangiogram with cholecystectomy. COMPARISON: None. FINDINGS: One fluoroscopic image is obtained intraoperatively during injection of the cystic duct remnant after cholecystectomy. There are no filling defects to suggest retained stones. The common duct is not dilated. Fluoroscopy time 0.2 minutes. IMPRESSION: 1. No evidence of retained stones. Electronically signed by: Aldair Lyman MD (07/14/2019 12:44 PM) [facility]
[2019-07-14] MEDS ORDERED: IV NORMAL SALINE 1000ML BAG 1,000 ML IV SCH (13:00)
[2019-07-14] MEDS: fentaNYL PF VIAL 100 MCG/2 ML VIAL IV PRN ×2 (13:10→13:27)
[2019-07-14] MEDS: IV RINGERS,LACTATED 1000ML 1,000 ML IV SCH (14:00)
[2019-07-14] MEDS: HYDROcodone/APAP 5/325MG 1 TAB TABLET PO PRN (16:56)
[2019-07-14] MEDS: NORTRIPTYLINE 10 MG CAPSULE PO SCH (21:10)
[2019-07-14] MEDS: oxyCODONE/APAP 5/325 1 TAB TABLET PO PRN (21:10)
[2019-07-14] MEDS: DOCUSATE SODIUM 100 MG CAPSULE. PO SCH (21:10)
[2019-07-15] MEDS: IV RINGERS,LACTATED 1000ML 1,000 ML IV SCH ×4 (00:12→23:47)
[2019-07-15 03:00] VITALS: BP 102/56
[2019-07-15] MEDS: oxyCODONE/APAP 5/325 1 TAB TABLET PO PRN ×4 (03:05→18:01)
[2019-07-15 04:40] LABS: BASO % 0 % (0-3); EOS % 0 % (0-3); HEMATOCRIT 31.2 % (36.0-47.0); HEMOGLOBIN 9.9 g/dL (12.0-15.5); LYMPH # 0.8 x10^3/uL (1.0-4.8); LYMPH % 17 % (24-48); MEAN CORPUSCULAR HEMOGLOBIN 23 pg (25-35); MEAN CORPUSCULAR HGB CONC 32 g/dL (31-37); MEAN CORPUSCULAR VOLUME 73 fL (79-100); MONO # 0.3 x10^3/uL (0.0-1.1); MONO % 6 % (0-9); NEUT # 3.8 x10^3/uL (1.8-7.7); NEUT % 77 % (31-73); PLATELET COUNT 217 x10^3/uL (140-400); RED BLOOD COUNT 4.26 x10^6/uL (3.50-5.40); RED CELL DISTRIBUTION WIDTH 15.1 % (11.5-14.5)
[2019-07-15 05:11] LABS: ALBUMIN 3.2 g/dL (3.4-5.0); ALBUMIN/GLOBULIN RATIO 0.9 (1.0-1.7); CALCIUM 8.9 mg/dL (8.5-10.1); GFR 73.6; POTASSIUM 4.1 mmol/L (3.5-5.1); TOTAL BILIRUBIN 0.7 mg/dL (0.2-1.0); TOTAL PROTEIN 6.9 g/dL (6.4-8.2)
[2019-07-15] MEDS ORDERED: fentaNYL PF VIAL 100 MCG/2 ML VIAL IVP PRN (07:45)
[2019-07-15 07:59] VITALS: BP 101/56
[2019-07-15] MEDS: CHOLECALCIFEROL (VITAMIN D3) 1,000 UNIT TABLET PO SCH (08:02)
[2019-07-15] MEDS: PANTOPRAZOLE 40 MG TABLET.DR. PO SCH (08:02)
[2019-07-15] MEDS: PREGABALIN 75 MG CAPSULE PO SCH ×3 (08:03→20:53)
[2019-07-15] MEDS: DOCUSATE SODIUM 100 MG CAPSULE. PO SCH ×2 (08:03→20:53)
--- NOTE | 2019-07-15 08:50 | PDOC ---
PROGRESS NOTES Chief Complaint Chief Complaint s/p lap jace 07/14 Anxiety NOS on meds Vit D insuff on meds History of Present Illness History of Present Illness HEr HIDA was < 16% so underwent lap jace tuesday And she is doing very well post op Flatulence , ambulating, eating reg tray with no probs Post op labs UR PLAN: CPM, likely dc tuesday Dw RN at bedside CUrrent IVF to consume Await GS rounds post jace Vitals Vitals Vital Signs Date Time Temp Pulse Resp B/P (MAP) Pulse Ox O2 Delivery O2 Flow Rate FiO2 07/15/19 08:04 16 Room Air 07/15/19 03:00 98.5 71 102/56 (71) 98 98.5 07/14/19 13:10 10.0 Physical Exam General: Alert, Oriented X3, Cooperative, mild distress Abdomen: Soft, Other (diffuse TTP, mild) Extremities: No clubbing, No cyanosis Skin: No rashes, No breakdown Labs LABS Laboratory Tests Test 07/15/19 03:58 White Blood Count 5.0 x10^3/uL (4.0-11.0) Red Blood Count 4.26 x10^6/uL (3.50-5.40) Hemoglobin 9.9 g/dL (12.0-15.5) Hematocrit 31.2 % (36.0-47.0) Mean Corpuscular Volume 73 fL (79-100) Mean Corpuscular Hemoglobin 23 pg (25-35) Mean Corpuscular Hemoglobin Concent 32 g/dL (31-37) Red Cell Distribution Width 15.1 % (11.5-14.5) Platelet Count 217 x10^3/uL (140-400) Neutrophils (%) (Auto) 77 % (31-73) Lymphocytes (%) (Auto) 17 % (24-48) Monocytes (%) (Auto) 6 % (0-9) Eosinophils (%) (Auto) 0 % (0-3) Basophils (%) (Auto) 0 % (0-3) Neutrophils # (Auto) 3.8 x10^3/uL (1.8-7.7) Lymphocytes # (Auto) 0.8 x10^3/uL (1.0-4.8) Monocytes # (Auto) 0.3 x10^3/uL (0.0-1.1) Eosinophils # (Auto) 0.0 x10^3/uL (0.0-0.7) Basophils # (Auto) 0.0 x10^3/uL (0.0-0.2) Sodium Level 142 mmol/L (136-145) Potassium Level 4.1 mmol/L (3.5-5.1) Chloride Level 105 mmol/L (98-107) Carbon Dioxide Level 28 mmol/L (21-32) Anion Gap 9 (6-14) Blood Urea Nitrogen 12 mg/dL (7-20) Creatinine 1.0 mg/dL (0.6-1.0) Estimated GFR (Cockcroft-Gault) 73.6 BUN/Creatinine Ratio 12 (6-20) Glucose Level 109 mg/dL (70-99) Calcium Level 8.9 mg/dL (8.5-10.1) Total Bilirubin 0.7 mg/dL (0.2-1.0) Aspartate Amino Transf (AST/SGOT) 166 U/L (15-37) Alanine Aminotransferase (ALT/SGPT) 133 U/L (14-59) Alkaline Phosphatase 78 U/L (46-116) Total Protein 6.9 g/dL (6.4-8.2) Albumin 3.2 g/dL (3.4-5.0) Albumin/Globulin Ratio 0.9 (1.0-1.7) Review of Systems Review of Systems post op soreness, all else 14 pt neg Assessment and Plan Assessmemt and Plan Problems Medical Problems: (1) Acute renal failure Status: Acute (2) Diarrhea Status: Acute (3) Intractable nausea and vomiting Status: Acute Comment Review of Relevant I have reviewed the following items leroy (where applicable) has been applied. Labs Laboratory Tests Test 07/14/19 03:30 07/15/19 03:58 White Blood Count 4.9 x10^3/uL (4.0-11.0) 5.0 x10^3/uL (4.0-11.0) Red Blood Count 4.66 x10^6/uL (3.50-5.40) 4.26 x10^6/uL (3.50-5.40) Hemoglobin 10.7 g/dL (12.0-15.5) 9.9 g/dL (12.0-15.5) Hematocrit 34.0 % (36.0-47.0) 31.2 % (36.0-47.0) Mean Corpuscular Volume 73 fL (79-100) 73 fL (79-100) Mean Corpuscular Hemoglobin 23 pg (25-35) 23 pg (25-35) Mean Corpuscular Hemoglobin Concent 31 g/dL (31-37) 32 g/dL (31-37) Red Cell Distribution Width 15.4 % (11.5-14.5) 15.1 % (11.5-14.5) Platelet Count 231 x10^3/uL (140-400) 217 x10^3/uL (140-400) Neutrophils (%) (Auto) 51 % (31-73) 77 % (31-73) Lymphocytes (%) (Auto) 42 % (24-48) 17 % (24-48) Monocytes (%) (Auto) 7 % (0-9) 6 % (0-9) Eosinophils (%) (Auto) 0 % (0-3) 0 % (0-3) Basophils (%) (Auto) 1 % (0-3) 0 % (0-3) Neutrophils # (Auto) 2.5 x10^3/uL (1.8-7.7) 3.8 x10^3/uL (1.8-7.7) Lymphocytes # (Auto) 2.1 x10^3/uL (1.0-4.8) 0.8 x10^3/uL (1.0-4.8) Monocytes # (Auto) 0.3 x10^3/uL (0.0-1.1) 0.3 x10^3/uL (0.0-1.1) Eosinophils # (Auto) 0.0 x10^3/uL (0.0-0.7) 0.0 x10^3/uL (0.0-0.7) Basophils # (Auto) 0.0 x10^3/uL (0.0-0.2) 0.0 x10^3/uL (0.0-0.2) Sodium Level 144 mmol/L (136-145) 142 mmol/L (136-145) Potassium Level 3.4 mmol/L (3.5-5.1) 4.1 mmol/L (3.5-5.1) Chloride Level 106 mmol/L (98-107) 105 mmol/L (98-107) Carbon Dioxide Level 29 mmol/L (21-32) 28 mmol/L (21-32) Anion Gap 9 (6-14) 9 (6-14) Blood Urea Nitrogen 19 mg/dL (7-20) 12 mg/dL (7-20) Creatinine 1.0 mg/dL (0.6-1.0) 1.0 mg/dL (0.6-1.0) Estimated GFR (Cockcroft-Gault) 73.6 73.6 BUN/Creatinine Ratio 19 (6-20) 12 (6-20) Glucose Level 84 mg/dL (70-99) 109 mg/dL (70-99) Calcium Level 8.9 mg/dL (8.5-10.1) 8.9 mg/dL (8.5-10.1) Total Bilirubin 0.6 mg/dL (0.2-1.0) 0.7 mg/dL (0.2-1.0) Aspartate Amino Transf (AST/SGOT) 71 U/L (15-37) 166 U/L (15-37) Alanine Aminotransferase (ALT/SGPT) 44 U/L (14-59) 133 U/L (14-59) Alkaline Phosphatase 76 U/L (46-116) 78 U/L (46-116) Total Protein 7.3 g/dL (6.4-8.2) 6.9 g/dL (6.4-8.2) Albumin 3.5 g/dL (3.4-5.0) 3.2 g/dL (3.4-5.0) Albumin/Globulin Ratio 0.9 (1.0-1.7) 0.9 (1.0-1.7) Laboratory Tests Test 07/15/19 03:58 White Blood Count 5.0 x10^3/uL (4.0-11.0) Red Blood Count 4.26 x10^6/uL (3.50-5.40) Hemoglobin 9.9 g/dL (12.0-15.5) Hematocrit 31.2 % (36.0-47.0) Mean Corpuscular Volume 73 fL (79-100) Mean Corpuscular Hemoglobin 23 pg (25-35) Mean Corpuscular Hemoglobin Concent 32 g/dL (31-37) Red Cell Distribution Width 15.1 % (11.5-14.5) Platelet Count 217 x10^3/uL (140-400) Neutrophils (%) (Auto) 77 % (31-73) Lymphocytes (%) (Auto) 17 % (24-48) Monocytes (%) (Auto) 6 % (0-9) Eosinophils (%) (Auto) 0 % (0-3) Basophils (%) (Auto) 0 % (0-3) Neutrophils # (Auto) 3.8 x10^3/uL (1.8-7.7) Lymphocytes # (Auto) 0.8 x10^3/uL (1.0-4.8) Monocytes # (Auto) 0.3 x10^3/uL (0.0-1.1) Eosinophils # (Auto) 0.0 x10^3/uL (0.0-0.7) Basophils # (Auto) 0.0 x10^3/uL (0.0-0.2) Sodium Level 142 mmol/L (136-145) Potassium Level 4.1 mmol/L (3.5-5.1) Chloride Level 105 mmol/L (98-107) Carbon Dioxide Level 28 mmol/L (21-32) Anion Gap 9 (6-14) Blood Urea Nitrogen 12 mg/dL (7-20) Creatinine 1.0 mg/dL (0.6-1.0) Estimated GFR (Cockcroft-Gault) 73.6 BUN/Creatinine Ratio 12 (6-20) Glucose Level 109 mg/dL (70-99) Calcium Level 8.9 mg/dL (8.5-10.1) Total Bilirubin 0.7 mg/dL (0.2-1.0) Aspartate Amino Transf (AST/SGOT) 166 U/L (15-37) Alanine Aminotransferase (ALT/SGPT) 133 U/L (14-59) Alkaline Phosphatase 78 U/L (46-116) Total Protein 6.9 g/dL (6.4-8.2) Albumin 3.2 g/dL (3.4-5.0) Albumin/Globulin Ratio 0.9 (1.0-1.7) Medications Current Medications Haloperidol Lactate (Haldol Inj) 5 mg 1X ONCE IVP Last administered on 07/12/19at 20:11; Start 07/12/19 at 20:15; Stop 07/12/19 at 20:16; Status DC Dicyclomine HCl (Bentyl) 20 mg 1X ONCE PO ; Start 07/12/19 at 20:15; Stop 07/12/19 at 20:16; Status Cancel Prochlorperazine Edisylate (Compazine) 10 mg 1X ONCE IV Last administered on 07/12/19at 20:12; Start 07/12/19 at 20:15; Stop 07/12/19 at 20:16; Status DC Sodium Chloride 1,000 ml @ 1,000 mls/hr 1X ONCE IV Last administered on 07/12/19at 20:10; Start 07/12/19 at 20:00; Stop 07/12/19 at 20:59; Status DC Iohexol (Omnipaque 300 Mg/ml) 75 ml 1X ONCE IV ; Start 07/12/19 at 20:30; Stop 07/12/19 at 21:27; Status DC Info (CONTRAST GIVEN -- Rx MONITORING) 1 each PRN DAILY PRN MC SEE COMMENTS; Start 07/12/19 at 20:00; Stop 07/12/19 at 21:27; Status DC Dicyclomine HCl (Bentyl) 20 mg 1X ONCE IM Last administered on 07/12/19at 20:22; Start 07/12/19 at 20:30; Stop 07/12/19 at 20:31; Status DC Sodium Chloride 1,000 ml @ 100 mls/hr 1X ONCE IV Last administered on 07/12/19at 22:32; Start 07/12/19 at 23:00; Stop 07/13/19 at 08:59; Status DC Ondansetron HCl (Zofran) 4 mg PRN Q8HRS PRN IV NAUSEA/VOMITING 1ST CHOICE; Start 07/12/19 at 23:15; Stop 07/13/19 at 16:17; Status DC Morphine Sulfate (Morphine Sulfate) 4 mg PRN Q2HR PRN IV SEVERE PAIN 7-10; Start 07/12/19 at 23:15; Stop 07/13/19 at 23:14; Status DC Sodium Chloride 1,000 ml @ 100 mls/hr 1X ONCE IV ; Start 07/12/19 at 23:30; Stop 07/13/19 at 07:48; Status DC Ondansetron HCl (Zofran) 4 mg PRN Q6HRS PRN IVP NAUSEA/VOMITING; Start 07/13/19 at 09:15 Potassium Chloride/Dextrose/ Sod Cl 1,000 ml @ 80 mls/hr [id number] IV Last administered on 07/13/19at 12:05; Start 07/13/19 at 09:30; Stop 07/14/19 at 13:56; Status DC Pantoprazole Sodium (PROTONIX VIAL for IV PUSH) 40 mg DAILYAC IVP ; Start 07/14/19 at 07:30; Stop 07/13/19 at 11:55; Status DC Pantoprazole Sodium (PROTONIX VIAL for IV PUSH) 40 mg 1X ONCE IVP Last administered on 07/13/19at 12:06; Start 07/13/19 at 09:15; Stop 07/13/19 at 09:24; Status DC Oxycodone/ Acetaminophen (Percocet 5/325) 1 tab PRN Q4HRS PRN PO MODERATE- SEVERE PAIN Last administered on 07/15/19 08:04; Start 07/13/19 at 09:15 Vitamin D (Vitamin D3) 1,000 unit DAILY PO Last administered on 07/15/19at 08:02; Start 07/14/19 at 09:00 Nortriptyline HCl (Pamelor) 20 mg QHS PO Last administered on 07/14/19at 21:10; Start 07/13/19 at 21:00 Pregabalin (Lyrica) 150 mg TID PO Last administered on 07/15/19at 08:03; Start 07/13/19 at 10:00 Pantoprazole Sodium (PROTONIX VIAL for IV PUSH) 40 mg DAILYAC IVP ; Start 07/14/19 at 07:30; Status UNV Sincalide 1.5 mcg/ Sodium Chloride 30 ml @ 120 mls/hr 1X ONCE IV Last administered on 07/13/19at 11:38; Start 07/13/19 at 10:45; Stop 07/13/19 at 10:59; Status DC Pantoprazole Sodium (Protonix) 40 mg DAILYAC PO Last administered on 07/15/19at 08:02; Start 07/14/19 at 07:30 Cefazolin Sodium/ Dextrose 50 ml @ 100 mls/hr ONCE ONCE IV ; Start 07/13/19 at 15:15; Stop 07/13/19 at 15:44; Status Cancel Ondansetron HCl (Zofran) 4 mg PRN Q6HRS PRN IV NAUSEA/VOMITING; Start 07/14/19 at 07:00; Stop 07/14/19 at 19:53; Status DC Fentanyl Citrate (Fentanyl 2ml Vial) 25 mcg PRN Q5MIN PRN IV MILD PAIN 1-3; Start 07/14/19 at 07:00; Stop 07/14/19 at 19:53; Status DC Fentanyl Citrate (Fentanyl 2ml Vial) 50 mcg PRN Q5MIN PRN IV MODERATE TO SEVERE PAIN Last administered on 07/14/19at 13:27; Start 07/14/19 at 07:00; Stop 07/14/19 at 19:53; Status DC Morphine Sulfate (Morphine Sulfate) 1 mg PRN Q10MIN PRN IV SEVERE PAIN 7-10; Start 07/14/19 at 07:00; Stop 07/14/19 at 19:53; Status DC Ringer's Solution 1,000 ml @ 30 mls/hr Q24H IV Last administered on 07/14/19at 10:14; Start 07/14/19 at 07:00; Stop 07/14/19 at 18:59; Status DC Lidocaine HCl (Xylocaine-Mpf 1% 2ml Vial) 2 ml PRN 1X PRN ID PRIOR TO IV START; Start 07/14/19 at 07:00; Stop 07/14/19 at 19:53; Status DC Hydromorphone HCl (Dilaudid) 0.5 mg PRN Q10MIN PRN IV SEV PAIN, Second choice; Start 07/14/19 at 07:00; Stop 07/14/19 at 19:53; Status DC Prochlorperazine Edisylate (Compazine) 5 mg PACU PRN PRN IV NAUSEA, MRX1; Star t 07/14/19 at 07:00; Stop 07/14/19 at 19:53; Status DC Cefazolin Sodium/ Dextrose 50 ml @ 100 mls/hr 1X PREOP PRN IV PRIOR TO PROCEDURE Last administered on 07/14/19at 11:23; Start 07/14/19 at 08:00 Propofol 20 ml @ As Directed STK-MED ONCE IV ; Start 07/14/19 at 05:41; Stop 07/14/19 at 05:42; Status DC Lidocaine HCl (Lidocaine Pf 2% Vial) 5 ml STK-MED ONCE .ROUTE ; Start 07/14/19 at 05:41; Stop 07/14/19 at 05:42; Status DC Rocuronium [place] (Zemuron) 50 mg STK-MED ONCE .ROUTE ; Start 07/14/19 at 05:41; Stop 07/14/19 at 05:42; Status DC Dexamethasone Sodium Phosphate (Decadron) 4 mg STK-MED ONCE .ROUTE ; Start 07/14/19 at 10:38; Stop 07/14/19 at 10:38; Status DC Ondansetron HCl (Zofran) 4 mg STK-MED ONCE .ROUTE ; Start 07/14/19 at 10:38; Stop 07/14/19 at 10:38; Status DC Midazolam HCl (Versed) 2 mg STK-MED ONCE .ROUTE ; Start 07/14/19 at 10:39; Stop 07/14/19 at 10:39; Status DC Fentanyl Citrate (Fentanyl 2ml Vial) 100 mcg STK-MED ONCE .ROUTE ; Start 07/14/19 at 10:39; Stop 07/14/19 at 10:40; Status DC Heparin Sodium (Porcine) (Heparin Sodium) 10,000 unit STK-MED ONCE .ROUTE Last administered on 07/14/19at 11:53; Start 07/14/19 at 10:44; Stop 07/14/19 at 10:45; Status DC Iohexol (Omnipaque 300 Mg/ml) 50 ml STK-MED ONCE .ROUTE Last administered on 07/14/19at 11:53; Start 07/14/19 at 10:44; Stop 07/14/19 at 10:45; Status DC Cellulose (Surgicel Hemostat 4x8) 1 each STK-MED ONCE .ROUTE ; Start 07/14/19 at 10:44; Stop 07/14/19 at 10:45; Status DC Bisacodyl (Dulcolax Supp) 10 mg STK-MED ONCE .ROUTE Last administered on 07/14/19at 11:53; Start 07/14/19 at 10:44; Stop 07/14/19 at 10:45; Status DC Bupivacaine HCl (Sensorcaine Mpf 0.5%) 30 ml STK-MED ONCE .ROUTE Last administered on 07/14/19at 11:53; Start 07/14/19 at 10:45; Stop 07/14/19 at 10:45; Status DC Ketorolac Tromethamine (Toradol 30mg Vial) 30 mg STK-MED ONCE .ROUTE ; Start 07/14/19 at 11:43; Stop 07/14/19 at 11:43; Status DC Sevoflurane (Ultane) 30 ml STK-MED ONCE IH ; Start 07/14/19 at 11:44; Stop 07/14/19 at 11:44; Status DC Fentanyl Citrate (Fentanyl 2ml Vial) 100 mcg STK-MED ONCE .ROUTE ; Start 07/14/19 at 11:51; Stop 07/14/19 at 11:52; Status DC Neostigmine Methylsulfate (Neostigmine Methylsulfate) 5 mg STK-MED ONCE .ROUTE ; Start 07/14/19 at 12:03; Stop 07/14/19 at 12:04; Status DC Glycopyrrolate (Robinul) 1 mg STK-MED ONCE .ROUTE ; Start 07/14/19 at 12:04; Stop 07/14/19 at 12:04; Status DC Sodium Chloride (Normal Saline Flush) 3 ml QSHIFT PRN IV AFTER MEDS AND BLOOD DRAWS; Start 07/14/19 at 12:45 Ringer's Solution 1,000 ml @ 100 mls/hr Q10H IV Last administered on 07/15/19at 00:12; Start 07/14/19 at 13:00 Dextrose (Dextrose 50%-Water Syringe) 12.5 gm PRN Q15MIN PRN IV SEE COMMENTS; Start 07/14/19 at 12:45 Acetaminophen/ Hydrocodone Bitart (Lortab 5/325) 1 tab PRN Q4HRS PRN PO MILD PAIN 1-3 Last administered on 07/14/19at 16:56; Start 07/14/19 at 12:45 Naloxone HCl (Narcan) 0.4 mg PRN Q2MIN PRN IV SEE INSTRUCTIONS; Start 07/14/19 at 12:45 Sodium Chloride 1,000 ml @ 25 mls/hr Q24H IV ; Start 07/14/19 at 13:00; Stop 07/14/19 at 15:37; Status DC Docusate Sodium (Colace) 100 mg BID PO Last administered on 07/15/19at 08:03; Start 07/14/19 at 21:00 Ondansetron HCl (Zofran) 4 mg PRN Q6HRS PRN IV NAUESA, 1ST CHOICE; Start 07/14/19 at 12:45; Status UNV Fentanyl Citrate (Fentanyl 2ml Vial) 50 mcg PRN Q2HR PRN IVP PAIN; Start 07/15/19 at 07:45 Active Scripts Active Reported Vitamin D3 (Cholecalciferol (Vitamin D3)) 1,000 Unit Tablet 1,000 Unit PO UD Pamelor (Nortriptyline Hcl) 25 Mg Capsule 20 Mg PO QHS Lyrica (Pregabalin) 150 Mg Capsule 1 Cap PO TID Vitals/I & O Vital Sign - Last 24 Hours 07/14/19 07/14/19 07/14/19 07/14/19 10:16 12:44 12:44 12:59 Temp 97.3 98.2 97.3 98.2 Pulse 84 75 Resp 20 20 20 B/P (MAP) 116/77 147/97 165/102 Pulse Ox 98 100 100 O2 Delivery Room Air Simple Mask Mask Simple Mask O2 Flow Rate 10 10 10 07/14/19 07/14/19 07/14/19 07/14/19 13:10 13:14 13:23 13:27 Temp 97.5 97.5 Pulse 84 Resp 18 20 20 B/P (MAP) 138/59 Pulse Ox 100 98 99 O2 Delivery Simple Mask Room Air Room Air Room Air O2 Flow Rate 10.0 07/14/19 07/14/19 07/14/19 07/14/19 13:45 14:00 14:15 14:30 Temp 97.9 98.1 98.1 97.8 97.9 98.1 98.1 97.8 Pulse 68 68 72 74 Resp 10 10 12 12 B/P (MAP) 150/91 (110) 142/94 (110) 131/92 (105) 126/95 (105) Pulse Ox 97 96 96 95 O2 Delivery Room Air Room Air Room Air Room Air 07/14/19 07/14/19 07/14/1919 15:00 15:30 16:30 16:56 Temp 98.0 98.2 98.4 98.0 98.2 98.4 Pulse 71 72 73 Resp 14 14 16 B/P (MAP) 133/91 (105) 123/85 (98) 120/87 (98) Pulse Ox 95 95 97 O2 Delivery Room Air Room Air Room Air Room Air 07/14/19 07/14/19 07/14/19 07/14/19 17:30 17:56 19:00 23:00 Temp 98.4 98.3 98.5 98.4 98.3 98.5 Pulse 74 72 72 Resp 16 18 18 B/P (MAP) 116/81 (93) 117/75 (89) 119/85 (96) Pulse Ox 100 99 100 O2 Delivery Room Air Room Air Room Air Room Air 07/15/19 07/15/19 03:00 08:04 Temp 98.5 98.5 Pulse 71 Resp 18 16 B/P (MAP) 102/56 (71) Pulse Ox 98 O2 Delivery Room Air Room Air Intake and Output 07/14/19 07/14/19 07/15/19 15:00 23:00 07:00 Intake Total 660 ml 440 ml 1480 ml Output Total 120 ml 1000 ml Balance 540 ml 440 ml 480 ml NICOLE MEDINA MD Jul 15, 2019 08:50
[2019-07-15] MEDS ORDERED: PANT40TA77 PO (08:51)
[2019-07-15] MEDS ORDERED: OXYC1TAB15 PO (08:51)
[2019-07-15 11:59] VITALS: BP 109/64
--- NOTE | 2019-07-15 13:49 | PDOC ---
SURGICAL PROGRESS NOTE Subjective Pt with c/o incisional soreness, but doing well otherwise Vital Signs Vital Signs Date Time Temp Pulse Resp B/P (MAP) Pulse Ox O2 Delivery O2 Flow Rate FiO2 07/15/19 13:01 18 Room Air 07/15/19 11:59 97.9 80 109/64 (79) 100 97.9 07/14/19 13:10 10.0 I&O Intake and Output 07/15/19 07:00 Intake Total 2580 ml Output Total 1120 ml Balance 1460 ml Intake Oral 930 ml IV Total 1650 ml Output Urine Total 1100 ml Estimated Blood Loss 20 ml # Voids 1 General: Alert, Oriented X3, Cooperative, No acute distress Abdomen: Soft, No tenderness Labs Laboratory Tests Test 07/14/19 03:30 07/15/19 03:58 White Blood Count 4.9 x10^3/uL (4.0-11.0) 5.0 x10^3/uL (4.0-11.0) Red Blood Count 4.66 x10^6/uL (3.50-5.40) 4.26 x10^6/uL (3.50-5.40) Hemoglobin 10.7 g/dL (12.0-15.5) 9.9 g/dL (12.0-15.5) Hematocrit 34.0 % (36.0-47.0) 31.2 % (36.0-47.0) Mean Corpuscular Volume 73 fL (79-100) 73 fL (79-100) Mean Corpuscular Hemoglobin 23 pg (25-35) 23 pg (25-35) Mean Corpuscular Hemoglobin Concent 31 g/dL (31-37) 32 g/dL (31-37) Red Cell Distribution Width 15.4 % (11.5-14.5) 15.1 % (11.5-14.5) Platelet Count 231 x10^3/uL (140-400) 217 x10^3/uL (140-400) Neutrophils (%) (Auto) 51 % (31-73) 77 % (31-73) Lymphocytes (%) (Auto) 42 % (24-48) 17 % (24-48) Monocytes (%) (Auto) 7 % (0-9) 6 % (0-9) Eosinophils (%) (Auto) 0 % (0-3) 0 % (0-3) Basophils (%) (Auto) 1 % (0-3) 0 % (0-3) Neutrophils # (Auto) 2.5 x10^3/uL (1.8-7.7) 3.8 x10^3/uL (1.8-7.7) Lymphocytes # (Auto) 2.1 x10^3/uL (1.0-4.8) 0.8 x10^3/uL (1.0-4.8) Monocytes # (Auto) 0.3 x10^3/uL (0.0-1.1) 0.3 x10^3/uL (0.0-1.1) Eosinophils # (Auto) 0.0 x10^3/uL (0.0-0.7) 0.0 x10^3/uL (0.0-0.7) Basophils # (Auto) 0.0 x10^3/uL (0.0-0.2) 0.0 x10^3/uL (0.0-0.2) Sodium Level 144 mmol/L (136-145) 142 mmol/L (136-145) Potassium Level 3.4 mmol/L (3.5-5.1) 4.1 mmol/L (3.5-5.1) Chloride Level 106 mmol/L (98-107) 105 mmol/L (98-107) Carbon Dioxide Level 29 mmol/L (21-32) 28 mmol/L (21-32) Anion Gap 9 (6-14) 9 (6-14) Blood Urea Nitrogen 19 mg/dL (7-20) 12 mg/dL (7-20) Creatinine 1.0 mg/dL (0.6-1.0) 1.0 mg/dL (0.6-1.0) Estimated GFR (Cockcroft-Gault) 73.6 73.6 BUN/Creatinine Ratio 19 (6-20) 12 (6-20) Glucose Level 84 mg/dL (70-99) 109 mg/dL (70-99) Calcium Level 8.9 mg/dL (8.5-10.1) 8.9 mg/dL (8.5-10.1) Total Bilirubin 0.6 mg/dL (0.2-1.0) 0.7 mg/dL (0.2-1.0) Aspartate Amino Transf (AST/SGOT) 71 U/L (15-37) 166 U/L (15-37) Alanine Aminotransferase (ALT/SGPT) 44 U/L (14-59) 133 U/L (14-59) Alkaline Phosphatase 76 U/L (46-116) 78 U/L (46-116) Total Protein 7.3 g/dL (6.4-8.2) 6.9 g/dL (6.4-8.2) Albumin 3.5 g/dL (3.4-5.0) 3.2 g/dL (3.4-5.0) Albumin/Globulin Ratio 0.9 (1.0-1.7) 0.9 (1.0-1.7) Laboratory Tests Test 07/15/19 03:58 White Blood Count 5.0 x10^3/uL (4.0-11.0) Red Blood Count 4.26 x10^6/uL (3.50-5.40) Hemoglobin 9.9 g/dL (12.0-15.5) Hematocrit 31.2 % (36.0-47.0) Mean Corpuscular Volume 73 fL (79-100) Mean Corpuscular Hemoglobin 23 pg (25-35) Mean Corpuscular Hemoglobin Concent 32 g/dL (31-37) Red Cell Distribution Width 15.1 % (11.5-14.5) Platelet Count 217 x10^3/uL (140-400) Neutrophils (%) (Auto) 77 % (31-73) Lymphocytes (%) (Auto) 17 % (24-48) Monocytes (%) (Auto) 6 % (0-9) Eosinophils (%) (Auto) 0 % (0-3) Basophils (%) (Auto) 0 % (0-3) Neutrophils # (Auto) 3.8 x10^3/uL (1.8-7.7) Lymphocytes # (Auto) 0.8 x10^3/uL (1.0-4.8) Monocytes # (Auto) 0.3 x10^3/uL (0.0-1.1) Eosinophils # (Auto) 0.0 x10^3/uL (0.0-0.7) Basophils # (Auto) 0.0 x10^3/uL (0.0-0.2) Sodium Level 142 mmol/L (136-145) Potassium Level 4.1 mmol/L (3.5-5.1) Chloride Level 105 mmol/L (98-107) Carbon Dioxide Level 28 mmol/L (21-32) Anion Gap 9 (6-14) Blood Urea Nitrogen 12 mg/dL (7-20) Creatinine 1.0 mg/dL (0.6-1.0) Estimated GFR (Cockcroft-Gault) 73.6 BUN/Creatinine Ratio 12 (6-20) Glucose Level 109 mg/dL (70-99) Calcium Level 8.9 mg/dL (8.5-10.1) Total Bilirubin 0.7 mg/dL (0.2-1.0) Aspartate Amino Transf (AST/SGOT) 166 U/L (15-37) Alanine Aminotransferase (ALT/SGPT) 133 U/L (14-59) Alkaline Phosphatase 78 U/L (46-116) Total Protein 6.9 g/dL (6.4-8.2) Albumin 3.2 g/dL (3.4-5.0) Albumin/Globulin Ratio 0.9 (1.0-1.7) Problem List Problems Medical Problems: (1) Acute renal failure Status: Acute (2) Diarrhea Status: Acute (3) Intractable nausea and vomiting Status: Acute Assessment/Plan s/p harsh jace doing well OK to d/c home when cleared by primary f/u in two weeks. BARRETT DARDEN MD Jul 15, 2019 13:49
[2019-07-15 15:00] VITALS: BP 98/66
[2019-07-15 19:00] VITALS: BP 108/68
[2019-07-15] MEDS: NORTRIPTYLINE 10 MG CAPSULE PO SCH (20:53)
[2019-07-15 23:02] VITALS: BP 111/76
[2019-07-16] MEDS: oxyCODONE/APAP 5/325 1 TAB TABLET PO PRN (00:53)
[2019-07-16 03:04] VITALS: BP 110/66
[2019-07-16 04:21] LABS: BASO % 0 % (0-3); EOS % 1 % (0-3); HEMATOCRIT 32.2 % (36.0-47.0); LYMPH # 1.8 x10^3/uL (1.0-4.8); LYMPH % 43 % (24-48); MEAN CORPUSCULAR HEMOGLOBIN 23 pg (25-35); MEAN CORPUSCULAR HGB CONC 31 g/dL (31-37); MEAN CORPUSCULAR VOLUME 73 fL (79-100); MONO # 0.2 x10^3/uL (0.0-1.1); MONO % 6 % (0-9); NEUT # 2.1 x10^3/uL (1.8-7.7); NEUT % 50 % (31-73); PLATELET COUNT 214 x10^3/uL (140-400); RED BLOOD COUNT 4.39 x10^6/uL (3.50-5.40); RED CELL DISTRIBUTION WIDTH 15.2 % (11.5-14.5); WHITE BLOOD COUNT 4.2 x10^3/uL (4.0-11.0)
[2019-07-16 05:08] LABS: ALBUMIN 3.3 g/dL (3.4-5.0); ALBUMIN/GLOBULIN RATIO 0.9 (1.0-1.7); CALCIUM 8.7 mg/dL (8.5-10.1); GFR 73.6; POTASSIUM 3.5 mmol/L (3.5-5.1); TOTAL BILIRUBIN 0.2 mg/dL (0.2-1.0); TOTAL PROTEIN 6.8 g/dL (6.4-8.2)
[2019-07-16 07:00] VITALS: BP 115/73
[2019-07-16] MEDS: PANTOPRAZOLE 40 MG TABLET.DR. PO SCH (07:58)
[2019-07-16] MEDS: CHOLECALCIFEROL (VITAMIN D3) 1,000 UNIT TABLET PO SCH (08:48)
[2019-07-16] MEDS: DOCUSATE SODIUM 100 MG CAPSULE. PO SCH (08:49)
[2019-07-16] MEDS: HYDROcodone/APAP 5/325MG 1 TAB TABLET PO PRN (08:50)
[2019-07-16] MEDS: PREGABALIN 75 MG CAPSULE PO SCH (08:50)
--- NOTE | 2019-07-16 08:57 | PDOC ---
SURGICAL PROGRESS NOTE Subjective tolerating diet walking improving pain Vital Signs Vital Signs Date Time Temp Pulse Resp B/P (MAP) Pulse Ox O2 Delivery O2 Flow Rate FiO2 07/16/19 07:00 97.8 68 16 115/73 (87) 95 Room Air 97.8 I&O Intake and Output 07/16/19 07:00 Intake Total 350 ml Balance 350 ml Intake Oral 350 ml # Voids 2 General: Alert, Oriented X3, Cooperative, No acute distress Abdomen: Soft, Other (lap dressings dry) Labs Laboratory Tests Test 07/15/19 03:58 07/16/19 03:40 White Blood Count 5.0 x10^3/uL (4.0-11.0) 4.2 x10^3/uL (4.0-11.0) Red Blood Count 4.26 x10^6/uL (3.50-5.40) 4.39 x10^6/uL (3.50-5.40) Hemoglobin 9.9 g/dL (12.0-15.5) 10.0 g/dL (12.0-15.5) Hematocrit 31.2 % (36.0-47.0) 32.2 % (36.0-47.0) Mean Corpuscular Volume 73 fL (79-100) 73 fL (79-100) Mean Corpuscular Hemoglobin 23 pg (25-35) 23 pg (25-35) Mean Corpuscular Hemoglobin Concent 32 g/dL (31-37) 31 g/dL (31-37) Red Cell Distribution Width 15.1 % (11.5-14.5) 15.2 % (11.5-14.5) Platelet Count 217 x10^3/uL (140-400) 214 x10^3/uL (140-400) Neutrophils (%) (Auto) 77 % (31-73) 50 % (31-73) Lymphocytes (%) (Auto) 17 % (24-48) 43 % (24-48) Monocytes (%) (Auto) 6 % (0-9) 6 % (0-9) Eosinophils (%) (Auto) 0 % (0-3) 1 % (0-3) Basophils (%) (Auto) 0 % (0-3) 0 % (0-3) Neutrophils # (Auto) 3.8 x10^3/uL (1.8-7.7) 2.1 x10^3/uL (1.8-7.7) Lymphocytes # (Auto) 0.8 x10^3/uL (1.0-4.8) 1.8 x10^3/uL (1.0-4.8) Monocytes # (Auto) 0.3 x10^3/uL (0.0-1.1) 0.2 x10^3/uL (0.0-1.1) Eosinophils # (Auto) 0.0 x10^3/uL (0.0-0.7) 0.0 x10^3/uL (0.0-0.7) Basophils # (Auto) 0.0 x10^3/uL (0.0-0.2) 0.0 x10^3/uL (0.0-0.2) Sodium Level 142 mmol/L (136-145) 145 mmol/L (136-145) Potassium Level 4.1 mmol/L (3.5-5.1) 3.5 mmol/L (3.5-5.1) Chloride Level 105 mmol/L (98-107) 107 mmol/L (98-107) Carbon Dioxide Level 28 mmol/L (21-32) 31 mmol/L (21-32) Anion Gap 9 (6-14) 7 (6-14) Blood Urea Nitrogen 12 mg/dL (7-20) 7 mg/dL (7-20) Creatinine 1.0 mg/dL (0.6-1.0) 1.0 mg/dL (0.6-1.0) Estimated GFR (Cockcroft-Gault) 73.6 73.6 BUN/Creatinine Ratio 12 (6-20) 7 (6-20) Glucose Level 109 mg/dL (70-99) 92 mg/dL (70-99) Calcium Level 8.9 mg/dL (8.5-10.1) 8.7 mg/dL (8.5-10.1) Total Bilirubin 0.7 mg/dL (0.2-1.0) 0.2 mg/dL (0.2-1.0) Aspartate Amino Transf (AST/SGOT) 166 U/L (15-37) 59 U/L (15-37) Alanine Aminotransferase (ALT/SGPT) 133 U/L (14-59) 90 U/L (14-59) Alkaline Phosphatase 78 U/L (46-116) 79 U/L (46-116) Total Protein 6.9 g/dL (6.4-8.2) 6.8 g/dL (6.4-8.2) Albumin 3.2 g/dL (3.4-5.0) 3.3 g/dL (3.4-5.0) Albumin/Globulin Ratio 0.9 (1.0-1.7) 0.9 (1.0-1.7) Laboratory Tests Test 07/16/19 03:40 White Blood Count 4.2 x10^3/uL (4.0-11.0) Red Blood Count 4.39 x10^6/uL (3.50-5.40) Hemoglobin 10.0 g/dL (12.0-15.5) Hematocrit 32.2 % (36.0-47.0) Mean Corpuscular Volume 73 fL (79-100) Mean Corpuscular Hemoglobin 23 pg (25-35) Mean Corpuscular Hemoglobin Concent 31 g/dL (31-37) Red Cell Distribution Width 15.2 % (11.5-14.5) Platelet Count 214 x10^3/uL (140-400) Neutrophils (%) (Auto) 50 % (31-73) Lymphocytes (%) (Auto) 43 % (24-48) Monocytes (%) (Auto) 6 % (0-9) Eosinophils (%) (Auto) 1 % (0-3) Basophils (%) (Auto) 0 % (0-3) Neutrophils # (Auto) 2.1 x10^3/uL (1.8-7.7) Lymphocytes # (Auto) 1.8 x10^3/uL (1.0-4.8) Monocytes # (Auto) 0.2 x10^3/uL (0.0-1.1) Eosinophils # (Auto) 0.0 x10^3/uL (0.0-0.7) Basophils # (Auto) 0.0 x10^3/uL (0.0-0.2) Sodium Level 145 mmol/L (136-145) Potassium Level 3.5 mmol/L (3.5-5.1) Chloride Level 107 mmol/L (98-107) Carbon Dioxide Level 31 mmol/L (21-32) Anion Gap 7 (6-14) Blood Urea Nitrogen 7 mg/dL (7-20) Creatinine 1.0 mg/dL (0.6-1.0) Estimated GFR (Cockcroft-Gault) 73.6 BUN/Creatinine Ratio 7 (6-20) Glucose Level 92 mg/dL (70-99) Calcium Level 8.7 mg/dL (8.5-10.1) Total Bilirubin 0.2 mg/dL (0.2-1.0) Aspartate Amino Transf (AST/SGOT) 59 U/L (15-37) Alanine Aminotransferase (ALT/SGPT) 90 U/L (14-59) Alkaline Phosphatase 79 U/L (46-116) Total Protein 6.8 g/dL (6.4-8.2) Albumin 3.3 g/dL (3.4-5.0) Albumin/Globulin Ratio 0.9 (1.0-1.7) Problem List Problems Medical Problems: (1) Acute renal failure Status: Acute (2) Diarrhea Status: Acute (3) Intractable nausea and vomiting Status: Acute Assessment/Plan s/p jace ok to [facility] STEF LANIER [employer] Jul 16, 2019 08:57
--- NOTE | 2019-07-16 09:17 | PDOC3 ---
Discharge Summary Visit Information Date of Admission: Jul 13, 2019 Date of Discharge: Jul 16, 2019 Admitting Diagnosis Comment: s/p lap jace 07/14 Anxiety NOS on meds Vit D insuff on meds Final Diagnosis Problems Medical Problems: (1) Acute renal failure Status: Acute (2) Diarrhea Status: Acute (3) Intractable nausea and vomiting Status: Acute Brief Hospital Course Allergies Allergies Coded Allergies Type Severity Reaction Last Updated Verified sulfamethoxazole Allergy Intermediate 07/14/19 Yes trimethoprim Allergy Intermediate 07/14/19 Yes Vital Signs Vital Signs Date Time Temp Pulse Resp B/P (MAP) Pulse Ox O2 Delivery O2 Flow Rate FiO2 07/16/19 07:00 97.8 68 16 115/73 (87) 95 Room Air 97.8 Lab Results Laboratory Tests Test 07/15/19 03:58 07/16/19 03:40 White Blood Count 5.0 x10^3/uL (4.0-11.0) 4.2 x10^3/uL (4.0-11.0) Red Blood Count 4.26 x10^6/uL (3.50-5.40) 4.39 x10^6/uL (3.50-5.40) Hemoglobin 9.9 g/dL (12.0-15.5) 10.0 g/dL (12.0-15.5) Hematocrit 31.2 % (36.0-47.0) 32.2 % (36.0-47.0) Mean Corpuscular Volume 73 fL (79-100) 73 fL (79-100) Mean Corpuscular Hemoglobin 23 pg (25-35) 23 pg (25-35) Mean Corpuscular Hemoglobin Concent 32 g/dL (31-37) 31 g/dL (31-37) Red Cell Distribution Width 15.1 % (11.5-14.5) 15.2 % (11.5-14.5) Platelet Count 217 x10^3/uL (140-400) 214 x10^3/uL (140-400) Neutrophils (%) (Auto) 77 % (31-73) 50 % (31-73) Lymphocytes (%) (Auto) 17 % (24-48) 43 % (24-48) Monocytes (%) (Auto) 6 % (0-9) 6 % (0-9) Eosinophils (%) (Auto) 0 % (0-3) 1 % (0-3) Basophils (%) (Auto) 0 % (0-3) 0 % (0-3) Neutrophils # (Auto) 3.8 x10^3/uL (1.8-7.7) 2.1 x10^3/uL (1.8-7.7) Lymphocytes # (Auto) 0.8 x10^3/uL (1.0-4.8) 1.8 x10^3/uL (1.0-4.8) Monocytes # (Auto) 0.3 x10^3/uL (0.0-1.1) 0.2 x10^3/uL (0.0-1.1) Eosinophils # (Auto) 0.0 x10^3/uL (0.0-0.7) 0.0 x10^3/uL (0.0-0.7) Basophils # (Auto) 0.0 x10^3/uL (0.0-0.2) 0.0 x10^3/uL (0.0-0.2) Sodium Level 142 mmol/L (136-145) 145 mmol/L (136-145) Potassium Level 4.1 mmol/L (3.5-5.1) 3.5 mmol/L (3.5-5.1) Chloride Level 105 mmol/L (98-107) 107 mmol/L (98-107) Carbon Dioxide Level 28 mmol/L (21-32) 31 mmol/L (21-32) Anion Gap 9 (6-14) 7 (6-14) Blood Urea Nitrogen 12 mg/dL (7-20) 7 mg/dL (7-20) Creatinine 1.0 mg/dL (0.6-1.0) 1.0 mg/dL (0.6-1.0) Estimated GFR (Cockcroft-Gault) 73.6 73.6 BUN/Creatinine Ratio 12 (6-20) 7 (6-20) Glucose Level 109 mg/dL (70-99) 92 mg/dL (70-99) Calcium Level 8.9 mg/dL (8.5-10.1) 8.7 mg/dL (8.5-10.1) Total Bilirubin 0.7 mg/dL (0.2-1.0) 0.2 mg/dL (0.2-1.0) Aspartate Amino Transf (AST/SGOT) 166 U/L (15-37) 59 U/L (15-37) Alanine Aminotransferase (ALT/SGPT) 133 U/L (14-59) 90 U/L (14-59) Alkaline Phosphatase 78 U/L (46-116) 79 U/L (46-116) Total Protein 6.9 g/dL (6.4-8.2) 6.8 g/dL (6.4-8.2) Albumin 3.2 g/dL (3.4-5.0) 3.3 g/dL (3.4-5.0) Albumin/Globulin Ratio 0.9 (1.0-1.7) 0.9 (1.0-1.7) Laboratory Tests Test 07/16/19 03:40 White Blood Count 4.2 x10^3/uL (4.0-11.0) Red Blood Count 4.39 x10^6/uL (3.50-5.40) Hemoglobin 10.0 g/dL (12.0-15.5) Hematocrit 32.2 % (36.0-47.0) Mean Corpuscular Volume 73 fL (79-100) Mean Corpuscular Hemoglobin 23 pg (25-35) Mean Corpuscular Hemoglobin Concent 31 g/dL (31-37) Red Cell Distribution Width 15.2 % (11.5-14.5) Platelet Count 214 x10^3/uL (140-400) Neutrophils (%) (Auto) 50 % (31-73) Lymphocytes (%) (Auto) 43 % (24-48) Monocytes (%) (Auto) 6 % (0-9) Eosinophils (%) (Auto) 1 % (0-3) Basophils (%) (Auto) 0 % (0-3) Neutrophils # (Auto) 2.1 x10^3/uL (1.8-7.7) Lymphocytes # (Auto) 1.8 x10^3/uL (1.0-4.8) Monocytes # (Auto) 0.2 x10^3/uL (0.0-1.1) Eosinophils # (Auto) 0.0 x10^3/uL (0.0-0.7) Basophils # (Auto) 0.0 x10^3/uL (0.0-0.2) Sodium Level 145 mmol/L (136-145) Potassium Level 3.5 mmol/L (3.5-5.1) Chloride Level 107 mmol/L (98-107) Carbon Dioxide Level 31 mmol/L (21-32) Anion Gap 7 (6-14) Blood Urea Nitrogen 7 mg/dL (7-20) Creatinine 1.0 mg/dL (0.6-1.0) Estimated GFR (Cockcroft-Gault) 73.6 BUN/Creatinine Ratio 7 (6-20) Glucose Level 92 mg/dL (70-99) Calcium Level 8.7 mg/dL (8.5-10.1) Total Bilirubin 0.2 mg/dL (0.2-1.0) Aspartate Amino Transf (AST/SGOT) 59 U/L (15-37) Alanine Aminotransferase (ALT/SGPT) 90 U/L (14-59) Alkaline Phosphatase 79 U/L (46-116) Total Protein 6.8 g/dL (6.4-8.2) Albumin 3.3 g/dL (3.4-5.0) Albumin/Globulin Ratio 0.9 (1.0-1.7) Brief Hospital Course Ms. Hernandez is a 43 old [sex] who presented with recurrent abd pain despite admission at [facility] for a week, THis time, we did a HIDA which showed EF < 16 so underwent lap jace and her abd pain is gone, No yana op complications, Home today with no PT needs, ff up GS 2 weeks COnsults: Proc: lap jace dc < 30 Discharge Information Condition at Discharge: Improved, Stable Follow Up: Weeks (2 weeks GS) Disposition/Orders: D/C to Home Scheduled Cholecalciferol (Vitamin D3) (Vitamin D3) 1,000 Unit Tablet, 1,000 UNIT PO UD for supplement, (Reported) Entered as Reported by: LISA SAMUELS RN on 07/13/19340 Last Action: Continued on 07/13/19911 by NICOLE MEDINA Nortriptyline Hcl (Pamelor) 25 Mg Capsule, 20 MG PO QHS for neuropathy, (Reported) Entered as Reported by: LISA SAMUELS RN on 07/13/19340 Last Action: Continued on 07/13/19911 by NICOLE MEDINA Pantoprazole Sodium (Pantoprazole Sodium ) 40 Mg Tablet.dr, 40 MG PO DAILYAC for gerd, #30 Prescribed by: NICOLE MEDINA on 07/15/19850 Pregabalin (Lyrica) 150 Mg Capsule, 1 CAP PO TID for neuropathy, #60 Ref 5 (Reported) Entered as Reported by: LISA SAMUELS RN on 07/13/19340 Last Action: Converted on 07/13/19911 by NICOLE MEDINA Scheduled PRN Oxycodone/Apap 5-325 (Percocet 5-325 Mg Tablet ) 1 Each Tablet, 1 TAB PO PRN Q4HRS PRN for MODERATE-SEVERE PAIN, #20 Prescribed by: NICOLE MEDINA on 07/15/19850 NICOLE MEDINA MD Jul 16, 2019 09:17
--- NOTE | 2019-07-16 10:01 | PDOC ---
Objective: Vital Signs: Vital Signs Date Time Temp Pulse Resp B/P (MAP) Pulse Ox O2 Delivery O2 Flow Rate FiO2 07/16/19 08:00 Room Air 07/16/19 07:00 97.8 68 16 115/73 (87) 95 97.8 Labs: Laboratory Tests Test 07/16/19 03:40 White Blood Count 4.2 x10^3/uL Red Blood Count 4.39 x10^6/uL Hemoglobin 10.0 g/dL Hematocrit 32.2 % Mean Corpuscular Volume 73 fL Mean Corpuscular Hemoglobin 23 pg Mean Corpuscular Hemoglobin Concent 31 g/dL Red Cell Distribution Width 15.2 % Platelet Count 214 x10^3/uL Neutrophils (%) (Auto) 50 % Lymphocytes (%) (Auto) 43 % Monocytes (%) (Auto) 6 % Eosinophils (%) (Auto) 1 % Basophils (%) (Auto) 0 % Neutrophils # (Auto) 2.1 x10^3/uL Lymphocytes # (Auto) 1.8 x10^3/uL Monocytes # (Auto) 0.2 x10^3/uL Eosinophils # (Auto) 0.0 x10^3/uL Basophils # (Auto) 0.0 x10^3/uL Sodium Level 145 mmol/L Potassium Level 3.5 mmol/L Chloride Level 107 mmol/L Carbon Dioxide Level 31 mmol/L Anion Gap 7 Blood Urea Nitrogen 7 mg/dL Creatinine 1.0 mg/dL Estimated GFR (Cockcroft-Gault) 73.6 BUN/Creatinine Ratio 7 Glucose Level 92 mg/dL Calcium Level 8.7 mg/dL Total Bilirubin 0.2 mg/dL Aspartate Amino Transf (AST/SGOT) 59 U/L Alanine Aminotransferase (ALT/SGPT) 90 U/L Alkaline Phosphatase 79 U/L Total Protein 6.8 g/dL Albumin 3.3 g/dL Albumin/Globulin Ratio 0.9 PE: GEN: in restroom just out of shower - says she feels better and is eating w/o issue and is ready to go home A/P: Recurrent n/v, abd pain - resolved Biliary dyskinesia s/p cholecystectomy w/ normal IOC Elevated AST and ALT - improved QUITA, dysproteinemia - resolved GERD - recent EGD, stopped PPI Microcytic anemia - iron studies WNL @ [facility] +marijuana -- DC per primary/surgery on PPI w/ GERD on recent EGD. HAILY ALBERTS Jul 16, 2019 10:01
[2019-07-16 10:50] VITALS: BP 121/83
--- NOTE | 2019-07-16 11:42 | NUR ---
Discharge Note: [facility] Discharge instructions and discharge home medications reviewed with Patient and a copy given. All questions have been answered and understanding verbalized. The following instructions and handouts were given: lap cholly Discontinued lines and drains: Peripheral IV intact. Patient discharged to Home or Self Care with Family Member via Wheelchair
--- NOTE | 2019-07-16 12:47 | NUR ---
SW following. Discussed with RN, pt discharged home with self care. RN advised no SW needs.
--- NOTE | 2019-07-16 14:52 | PDOC ---
SUBJECTIVE ROS No complaints, anticipating dc today OBJECTIVE Vital Signs Vital Signs Date Time Temp Pulse Resp B/P (MAP) Pulse Ox O2 Delivery O2 Flow Rate FiO2 07/16/19 10:50 97.8 81 16 121/83 (96) 97 Room Air 97.8 I & 0 Intake and Output0 07/16/19 07:00 Intake Total 350 ml Balance 350 ml Intake Oral 350 ml # Voids 2 PHYSICAL EXAM Physical Exam General: No acute distress HEENT:OM moist Neck Supple Lungs: Clear to auscultation, Heart: S1S2, RRR, no thrills, no rubs Cardiovascular: S1, S2 Abdomen: Normal bowel sounds, Soft, No tenderness, Extremities: No clubbing, No cyanosis, No edema, Skin: No rashes, Neuro: Normal gait, Normal speech, Strength at 5/5 X4 ext, Normal tone, Sensation intact, Cranial nerves 3-12 NL, Reflexes 2+ Psych/Mental Status: Mental status NL, Mood NL NO wallace DIAGNOSIS/ASSESSMENT Assessment & Plan QUITA Vasomotor/Pre-renal- resolved US and CT unremarkable ,Baseline unknown No micr hematuria , E-Lytes acid base stable Avoid Nephrotoxins and NSAID's Hypercalcemia- resolved with IVF Hypernatremia- resolved HypoKalemia- resolved Recurrent n/v, abd pain - resolved Biliary dyskinesia s/p cholecystectomy UDS positive for Cannabinoids COMMENT/RELEVANT DATA Meds Current Medications Medications (Trade) Dose Ordered Sig/Campos Start Time Stop Time Status Last Admin Dose Admin Acetaminophen/ Hydrocodone Bitart (Lortab 5/325) 1 tab PRN Q4HRS PRN 07/14/19 12:45 07/16/19 11:45 DC 07/16/19 08:50 1 TAB Bisacodyl (Dulcolax Supp) 10 mg STK-MED ONCE 07/14/19 10:44 07/14/19 10:45 DC 07/14/19 11:53 10 MG Bupivacaine HCl (Sensorcaine Mpf 0.5%) 30 ml STK-MED ONCE 07/14/19 10:45 07/14/19 10:45 DC 07/14/19 11:53 10 ML Cefazolin Sodium/ Dextrose 50 ml @ 100 mls/hr 1X PREOP PRN 07/14/19 08:00 07/16/19 11:45 DC 07/14/19 11:23 100 MLS/HR Cellulose (Surgicel Hemostat 4x8) 1 each STK-MED ONCE 07/14/19 10:44 07/14/19 10:45 DC Dexamethasone Sodium Phosphate (Decadron) 4 mg STK-MED ONCE 07/14/19 10:38 07/14/19 10:38 DC Dextrose (Dextrose 50%-Water Syringe) 12.5 gm PRN Q15MIN PRN 07/14/19 12:45 07/16/19 11:45 DC Dicyclomine HCl (Bentyl) 20 mg 1X ONCE 07/12/19 20:30 07/12/19 20:31 DC 07/12/19 20:22 20 MG Docusate Sodium (Colace) 100 mg BID 07/14/19 21:00 07/16/19 11:45 DC 07/16/19 08:49 100 MG Fentanyl Citrate (Fentanyl 2ml Vial) 50 mcg PRN Q2HR PRN 07/15/19 07:45 07/16/19 11:45 DC Glycopyrrolate (Robinul) 1 mg STK-MED ONCE 07/14/19 12:04 07/14/19 12:04 DC Haloperidol Lactate (Haldol Inj) 5 mg 1X ONCE 07/12/19 20:15 07/12/19 20:16 DC 07/12/19 20:11 5 MG Heparin Sodium (Porcine) (Heparin Sodium) 10,000 unit STK-MED ONCE 07/14/19 10:44 07/14/19 10:45 DC 07/14/19 11:53 1,000 UNIT Hydromorphone HCl (Dilaudid) 0.5 mg PRN Q10MIN PRN 07/14/19 07:00 07/14/19 19:53 DC Info (CONTRAST GIVEN -- Rx MONITORING) 1 each PRN DAILY PRN 07/12/19 20:00 07/12/19 21:27 DC Iohexol (Omnipaque 300 Mg/ml) 50 ml STK-MED ONCE 07/14/19 10:44 07/14/19 10:45 DC 07/14/19 11:53 10 ML Ketorolac Tromethamine (Toradol 30mg Vial) 30 mg STK-MED ONCE 07/14/19 11:43 07/14/19 11:43 DC Lidocaine HCl (Lidocaine Pf 2% Vial) 5 ml STK-MED ONCE 07/14/19 05:41 07/14/19 05:42 DC Lidocaine HCl (Xylocaine-Mpf 1% 2ml Vial) 2 ml PRN 1X PRN 07/14/19 07:00 07/14/19 19:53 DC Midazolam HCl (Versed) 2 mg STK-MED ONCE 07/14/19 10:39 07/14/19 10:39 DC Morphine Sulfate (Morphine Sulfate) 1 mg PRN Q10MIN PRN 07/14/19 07:00 07/14/19 19:53 DC Naloxone HCl (Narcan) 0.4 mg PRN Q2MIN PRN 07/14/19 12:45 07/16/19 11:45 DC Neostigmine Methylsulfate (Neostigmine Methylsulfate) 5 mg STK-MED ONCE 07/14/19 12:03 07/14/19 12:04 DC Nortriptyline HCl (Pamelor) 20 mg QHS 07/13/19 21:00 07/16/19 11:45 DC 07/15/19 20:53 20 MG Ondansetron HCl (Zofran) 4 mg PRN Q6HRS PRN 07/14/19 12:45 UNV Oxycodone/ Acetaminophen (Percocet 5/325) 1 tab PRN Q4HRS PRN 07/13/19 09:15 07/16/19 11:45 DC 07/16/19 00:53 1 TAB Pantoprazole Sodium (PROTONIX VIAL for IV PUSH) 40 mg DAILYAC 07/14/19 07:30 UNV Pantoprazole Sodium (Protonix) 40 mg DAILYAC 07/14/19 07:30 07/16/19 11:45 DC 07/16/19 07:58 40 MG Potassium Chloride/Dextrose/ Sod Cl 1,000 ml @ 80 mls/hr [id number] 07/13/19 09:30 07/14/19 13:56 DC 07/13/19 12:05 80 MLS/HR Pregabalin (Lyrica) 150 mg TID 07/13/19 10:00 07/16/19 11:45 DC 07/16/19 08:50 150 MG Prochlorperazine Edisylate (Compazine) 5 mg PACU PRN PRN 07/14/19 07:00 07/14/19 19:53 DC Propofol 20 ml @ As Directed STK-MED ONCE 07/14/19 05:41 07/14/19 05:42 DC Ringer's Solution 1,000 ml @ 100 mls/hr Q10H 07/14/19 13:00 07/16/19 11:45 DC 07/15/19 00:12 100 MLS/HR Rocuronium [place] (Zemuron) 50 mg STK-MED ONCE 07/14/19 05:41 07/14/19 05:42 DC Sevoflurane (Ultane) 30 ml STK-MED ONCE 07/14/19 11:44 07/14/19 11:44 DC Sincalide 1.5 mcg/ Sodium Chloride 30 ml @ 120 mls/hr 1X ONCE 07/13/19 10:45 07/13/19 10:59 DC 07/13/19 11:38 120 MLS/HR Sodium Chloride 1,000 ml @ 25 mls/hr Q24H 07/14/19 13:00 07/14/19 15:37 DC Sodium Chloride (Normal Saline Flush) 3 ml QSHIFT PRN 07/14/19 12:45 07/16/19 11:45 DC Vitamin D (Vitamin D3) 1,000 unit DAILY 07/14/19 09:00 07/16/19 11:45 DC 07/16/19 08:48 1,000 UNIT Lab Laboratory Tests Test 07/16/19 03:40 White Blood Count 4.2 x10^3/uL (4.0-11.0) Red Blood Count 4.39 x10^6/uL (3.50-5.40) Hemoglobin 10.0 g/dL (12.0-15.5) Hematocrit 32.2 % (36.0-47.0) Mean Corpuscular Volume 73 fL (79-100) Mean Corpuscular Hemoglobin 23 pg (25-35) Mean Corpuscular Hemoglobin Concent 31 g/dL (31-37) Red Cell Distribution Width 15.2 % (11.5-14.5) Platelet Count 214 x10^3/uL (140-400) Neutrophils (%) (Auto) 50 % (31-73) Lymphocytes (%) (Auto) 43 % (24-48) Monocytes (%) (Auto) 6 % (0-9) Eosinophils (%) (Auto) 1 % (0-3) Basophils (%) (Auto) 0 % (0-3) Neutrophils # (Auto) 2.1 x10^3/uL (1.8-7.7) Lymphocytes # (Auto) 1.8 x10^3/uL (1.0-4.8) Monocytes # (Auto) 0.2 x10^3/uL (0.0-1.1) Eosinophils # (Auto) 0.0 x10^3/uL (0.0-0.7) Basophils # (Auto) 0.0 x10^3/uL (0.0-0.2) Sodium Level 145 mmol/L (136-145) Potassium Level 3.5 mmol/L (3.5-5.1) Chloride Level 107 mmol/L (98-107) Carbon Dioxide Level 31 mmol/L (21-32) Anion Gap 7 (6-14) Blood Urea Nitrogen 7 mg/dL (7-20) Creatinine 1.0 mg/dL (0.6-1.0) Estimated GFR (Cockcroft-Gault) 73.6 BUN/Creatinine Ratio 7 (6-20) Glucose Level 92 mg/dL (70-99) Calcium Level 8.7 mg/dL (8.5-10.1) Total Bilirubin 0.2 mg/dL (0.2-1.0) Aspartate Amino Transf (AST/SGOT) 59 U/L (15-37) Alanine Aminotransferase (ALT/SGPT) 90 U/L (14-59) Alkaline Phosphatase 79 U/L (46-116) Total Protein 6.8 g/dL (6.4-8.2) Albumin 3.3 g/dL (3.4-5.0) Albumin/Globulin Ratio 0.9 (1.0-1.7) Results All relevant outside records, renal labs, imaging studies, telemetry/EKG's were reviewed. TYREL MATTHEWS MD Jul 16, 2019 14:52
--- NOTE | 2019-07-18 09:07 | PATHOLOGY ---
[facility] Accession Number: [id number] . 01 Material submitted: . gallbladder - GALLBLADDER . 02 Diagnosis: Gallbladder, laparoscopic cholecystectomy: - Chronic cholecystitis. . (JP:mm; 07/17/2019) FORMERLY [facility], 1928–1983 07/17/2019 1618 Local . 02 Comment: There are no calculi identified within the gallbladder lumen or specimen container. Sections of the gallbladder show patchy chronic inflammation. There is no evidence of malignancy. . (JPM:mm; 07/17/2019) . 02 Electronically signed: . Pritesh Quintanilla MD, Pathologist NPI- [id number] . 01 Gross description: . The specimen is received in formalin, labeled "Corine Hernandez, gallbladder", is intact, distended gallbladder measuring 8.7 cm in length and 2.4 cm in maximum diameter with a smooth, glistening and dark green serosa. The cystic duct is patent. The gallbladder lumen contains dark green, viscous bile and no discrete calculi. The mucosa is dark green and granular and with no recognizable cholesterolosis. The wall is 0.1 cm in average thickness. Representatively submitted in A1. ([facility]; 07/16/2019) [facility] 07/16/2019 1910 Local . 02 Pathologist provided ICD-10: K81.1 . 02 CPT . 189124 Specimen Comment: A courtesy copy of this report has been sent to [phone], [phone] Specimen Comment: [phone], Specimen Comment: Report sent to , and Performed at: 01 [facility] [address] [place] [id number] MD Daniele Bryan MD Phone: [phone] Performed at: [address] [id number] MD Pritesh Quintanilla MD Phone: [phone]
== END 2019-07-16 11:45 | disposition home or self-care (01) | DRG 418 ==
LOC: ER 19:22 → 5 SOUTH 22:59
PROVIDERS: ADMIT Family Medicine; ATTEND Family Medicine
PROC: BF101ZZ Fluoroscopy of Bile Ducts using Low Osmolar Contrast (ICD-10-PCS; 2019-07-14)
PROC: 0FT44ZZ Resection of Gallbladder, Percutaneous Endoscopic Approach (ICD-10-PCS; principal; 2019-07-14 08:00)
DX: K82.8 Other specified diseases of gallbladder (principal); E87.0 Hyperosmolality and hypernatremia; N17.9 Acute kidney failure, unspecified; K21.9 Gastro-esophageal reflux disease without esophagitis; R07.89 Other chest pain; G62.9 Polyneuropathy, unspecified; E78.5 Hyperlipidemia, unspecified; F41.9 Anxiety disorder, unspecified; F12.90 Cannabis use, unspecified, uncomplicated; D50.9 Iron deficiency anemia, unspecified; K76.89 Other specified diseases of liver; E87.6 Hypokalemia; E83.52 Hypercalcemia; Z90.710 Acquired absence of both cervix and uterus; Z88.2 Allergy status to sulfonamides; Z88.8 Allergy status to other drugs, medicaments and biological substances; Z79.899 Other long term (current) drug therapy
CPT/HCPCS: 36415; 74176; 74300; 76770; 78227; 80048; 80053; 80307; 81001; 81025; 83690; 85007; 85025; 88304; 96361; 96372; 96374; 96375; A7015; A9537; C9113; G0480; J0500; J0696; J0780; J1100; J1630; J1644; J1885; J2001; J2250; J2405; J2704; J2710; J2805; J3010; J3490; J7030; J7120; Q9967; 99285-25; G0378

== ENCOUNTER 2019-07-26 19:22 | Emergency (ER) | payer SELFPAY ==
[~2019-07-26] VITALS: Ht 172.7 cm; Wt 77.1 kg
[~2019-07-26 19:22] MED LIST: CHOL10003 PO; NORT25CA3 PO; OXYC1TAB15 PO; PANT40TA77 PO; PREG150C PO
[2019-07-26] MEDS ORDERED: fentaNYL PF VIAL 100 MCG/2 ML VIAL IVP ONE (19:45)
[2019-07-26] MEDS ORDERED: IV NORMAL SALINE 1000ML BAG 1,000 ML IV ONE (19:45)
[2019-07-26] MEDS ORDERED: ONDANSETRON PF 4 MG/2 ML VIAL. IV ONE (19:45)
--- NOTE | 2019-07-26 19:45 | PHYS DOC ---
Past Medical History Past Medical History: Other Additional Past Medical Histor: NEUROPATHY (MONIKA WILD APRN) Past Surgical History: Hysterectomy, Tonsillectomy, Other Additional Past Surgical Histo: HERNIA REPAIR (MONIKA WILD APRN) Alcohol Use: None Drug Use: Marijuana (MONIKA WILD APRN) Attending Signature I have participated in the care of this patient and I have reviewed and agree w ith all pertinent clinical information above including history, exam, and recommendations. (SANDRA COOPER MD) Adult General Chief Complaint Chief Complaint: ABDOMINAL PAIN HPI HPI Patient is a 43 year old female who presents with a cholecystectomy on July 14. Patient states also she began with generalized abdominal pain and cramping with nausea and vomiting this morning. Patient states that she had chicken noodle soup for dinner. Patient rates her pain a 9 out of 10. (MONIKA WILD APRN) Review of Systems Review of Systems GI: abdominal pain, nausea, vomiting, denies bloody stools or +diarrhea [] All other systems were reviewed and found to be within normal limits, except as documented in this note. (MONIKA WILD APRN) Current Medications Current Medications Current Medications Medications (Trade) Dose Ordered Sig/Campos Start Time Stop Time Status Last Admin Dose Admin Fentanyl Citrate (Fentanyl 2ml Vial) 50 mcg 1X ONCE 07/26/19 19:45 07/26/19 19:51 DC 07/26/19 19:59 50 MCG Info (CONTRAST GIVEN -- Rx MONITORING) 1 each PRN DAILY PRN 07/26/19 20:45 07/26/19 22:20 DC Iohexol (Omnipaque 300 Mg/ml) 75 ml 1X ONCE 07/26/19 20:45 07/26/19 20:46 DC Ondansetron HCl (Zofran) 4 mg 1X ONCE 07/26/19 19:45 07/26/19 19:51 DC 07/26/19 19:59 4 MG Sodium Chloride 1,000 ml @ 1,000 mls/hr 1X ONCE 07/26/19 19:45 07/26/19 20:44 DC 07/26/19 19:59 1,000 MLS/HR (SANDRA COOPER MD) Allergies Allergies Allergies Coded Allergies Type Severity Reaction Last Updated Verified sulfamethoxazole Allergy Intermediate 07/14/19 Yes trimethoprim Allergy Intermediate 07/14/19 Yes (SANDRA COOPER MD) Physical Exam Physical Exam Constitutional: Well developed, well nourished, no acute distress, non-toxic appearance. [] HENT: Normocephalic, atraumatic, bilateral external ears normal, oropharynx moist, no oral exudates, nose normal. [] Eyes: PERRLA, EOMI, conjunctiva normal, no discharge. [] Neck: Normal range of motion, no tenderness, supple, no stridor. [] Cardiovascular:Heart rate regular rhythm, no murmur [] Lungs & Thorax: Bilateral breath sounds clear to auscultation [] Abdomen: Bowel sounds normal, soft, generalized tenderness, no masses, no pulsatile masses. [] Skin: Warm, dry, no erythema, no rash. [] Back: No tenderness, no CVA tenderness. [] Extremities: No tenderness, no cyanosis, no clubbing, ROM intact, no edema. [] Neurologic: Alert and oriented X 3, normal motor function, normal sensory function, no focal deficits noted. [] Psychologic: Affect normal, judgement normal, mood normal. [] (MONIKA WILD APRN) Current Patient Data Vital Signs Vital Signs Date Time Temp Pulse Resp B/P (MAP) Pulse Ox O2 Delivery O2 Flow Rate FiO2 07/26/19 22:02 93 12 115/71 (86) 96 Room Air 07/26/19 19:32 98.6 98.6 (SANDRA COOPER MD) Lab Values Laboratory Tests Test 07/26/19 19:38 07/26/19 19:48 Urine Collection Type Void Urine Color Tatyana Urine Clarity Turbid Urine pH 6.0 Urine Specific Bussey 1.025 Urine Protein 30 mg/dL (NEG-TRACE) Urine Glucose (UA) Negative mg/dL (NEG) Urine Ketones (Stick) Negative mg/dL (NEG) Urine Blood Negative (NEG) Urine Nitrite Negative (NEG) Urine Bilirubin Small (NEG) Urine Urobilinogen Dipstick 0.2 mg/dL (0.2 mg/dL) Urine Leukocyte Esterase Small (NEG) Urine RBC 0 /HPF (0-2) Urine WBC Occ /HPF (0-4) Urine Squamous Epithelial Cells Mod /LPF Urine Amorphous Sediment Present /HPF Urine Bacteria 0 /HPF (0-FEW) Urine Mucus Mod /LPF Urine Opiates Screen Neg (NEG) Urine Methadone Screen Neg (NEG) Urine Barbiturates Neg (NEG) Urine Phencyclidine Screen Neg (NEG) Urine Amphetamine/Methamphetamine Neg (NEG) Urine Benzodiazepines Screen Neg (NEG) Urine Cocaine Screen Neg (NEG) Urine Cannabinoids Screen Pos (NEG) Urine Ethyl Alcohol Neg (NEG) White Blood Count 8.0 x10^3/uL (4.0-11.0) Red Blood Count 5.01 x10^6/uL (3.50-5.40) Hemoglobin 11.6 g/dL (12.0-15.5) L Hematocrit 35.9 % (36.0-47.0) L Mean Corpuscular Volume 72 fL (79-100) L Mean Corpuscular Hemoglobin 23 pg (25-35) L Mean Corpuscular Hemoglobin Concent 32 g/dL (31-37) Red Cell Distribution Width 14.8 % (11.5-14.5) H Platelet Count 348 x10^3/uL (140-400) Neutrophils (%) (Auto) 79 % (31-73) H Lymphocytes (%) (Auto) 16 % (24-48) L Monocytes (%) (Auto) 4 % (0-9) Eosinophils (%) (Auto) 0 % (0-3) Basophils (%) (Auto) 1 % (0-3) Neutrophils # (Auto) 6.3 x10^3/uL (1.8-7.7) Lymphocytes # (Auto) 1.3 x10^3/uL (1.0-4.8) Monocytes # (Auto) 0.3 x10^3/uL (0.0-1.1) Eosinophils # (Auto) 0.0 x10^3/uL (0.0-0.7) Basophils # (Auto) 0.1 x10^3/uL (0.0-0.2) Platelet Estimate Adequate (ADEQUATE) Hypochromasia Slight Anisocytosis Slight Microcytosis Mod Sodium Level 143 mmol/L (136-145) Potassium Level 3.6 mmol/L (3.5-5.1) Chloride Level 103 mmol/L (98-107) Carbon Dioxide Level 24 mmol/L (21-32) Anion Gap 16 (6-14) H Blood Urea Nitrogen 7 mg/dL (7-20) Creatinine 1.0 mg/dL (0.6-1.0) Estimated GFR (Cockcroft-Gault) 73.6 BUN/Creatinine Ratio 7 (6-20) Glucose Level 134 mg/dL (70-99) H Calcium Level 10.1 mg/dL (8.5-10.1) Total Bilirubin 0.4 mg/dL (0.2-1.0) Aspartate Amino Transferase (AST) 15 U/L (15-37) Alanine Aminotransferase (ALT) 24 U/L (14-59) Alkaline Phosphatase 127 U/L (46-116) H Total Protein 9.0 g/dL (6.4-8.2) H Albumin 4.2 g/dL (3.4-5.0) Albumin/Globulin Ratio 0.9 (1.0-1.7) L Lipase 227 U/L (73-393) Laboratory Tests 07/26/19 19:48 Laboratory Tests 07/26/19 19:48 (SANDRA COOPER MD) Lab Values Laboratory Tests Test 07/26/19 19:38 07/26/19 19:48 Urine Collection Type Void Urine Color Tatyana Urine Clarity Turbid Urine pH 6.0 Urine Specific Bussey 1.025 Urine Protein 30 mg/dL (NEG-TRACE) Urine Glucose (UA) Negative mg/dL (NEG) Urine Ketones (Stick) Negative mg/dL (NEG) Urine Blood Negative (NEG) Urine Nitrite Negative (NEG) Urine Bilirubin Small (NEG) Urine Urobilinogen Dipstick 0.2 mg/dL (0.2 mg/dL) Urine Leukocyte Esterase Small (NEG) Urine RBC 0 /HPF (0-2) Urine WBC Occ /HPF (0-4) Urine Squamous Epithelial Cells Mod /LPF Urine Amorphous Sediment Present /HPF Urine Bacteria 0 /HPF (0-FEW) Urine Mucus Mod /LPF Urine Opiates Screen Neg (NEG) Urine Methadone Screen Neg (NEG) Urine Barbiturates Neg (NEG) Urine Phencyclidine Screen Neg (NEG) Urine Amphetamine/Methamphetamine Neg (NEG) Urine Benzodiazepines Screen Neg (NEG) Urine Cocaine Screen Neg (NEG) Urine Cannabinoids Screen Pos (NEG) Urine Ethyl Alcohol Neg (NEG) White Blood Count 8.0 x10^3/uL (4.0-11.0) Red Blood Count 5.01 x10^6/uL (3.50-5.40) Hemoglobin 11.6 g/dL (12.0-15.5) L Hematocrit 35.9 % (36.0-47.0) L Mean Corpuscular Volume 72 fL (79-100) L Mean Corpuscular Hemoglobin 23 pg (25-35) L Mean Corpuscular Hemoglobin Concent 32 g/dL (31-37) Red Cell Distribution Width 14.8 % (11.5-14.5) H Platelet Count 348 x10^3/uL (140-400) Neutrophils (%) (Auto) 79 % (31-73) H Lymphocytes (%) (Auto) 16 % (24-48) L Monocytes (%) (Auto) 4 % (0-9) Eosinophils (%) (Auto) 0 % (0-3) Basophils (%) (Auto) 1 % (0-3) Neutrophils # (Auto) 6.3 x10^3/uL (1.8-7.7) Lymphocytes # (Auto) 1.3 x10^3/uL (1.0-4.8) Monocytes # (Auto) 0.3 x10^3/uL (0.0-1.1) Eosinophils # (Auto) 0.0 x10^3/uL (0.0-0.7) Basophils # (Auto) 0.1 x10^3/uL (0.0-0.2) Platelet Estimate Adequate (ADEQUATE) Hypochromasia Slight Anisocytosis Slight Microcytosis Mod Sodium Level 143 mmol/L (136-145) Potassium Level 3.6 mmol/L (3.5-5.1) Chloride Level 103 mmol/L (98-107) Carbon Dioxide Level 24 mmol/L (21-32) Anion Gap 16 (6-14) H Blood Urea Nitrogen 7 mg/dL (7-20) Creatinine 1.0 mg/dL (0.6-1.0) Estimated GFR (Cockcroft-Gault) 73.6 BUN/Creatinine Ratio 7 (6-20) Glucose Level 134 mg/dL (70-99) H Calcium Level 10.1 mg/dL (8.5-10.1) Total Bilirubin 0.4 mg/dL (0.2-1.0) Aspartate Amino Transferase (AST) 15 U/L (15-37) Alanine Aminotransferase (ALT) 24 U/L (14-59) Alkaline Phosphatase 127 U/L (46-116) H Total Protein 9.0 g/dL (6.4-8.2) H Albumin 4.2 g/dL (3.4-5.0) Albumin/Globulin Ratio 0.9 (1.0-1.7) L Lipase 227 U/L (73-393) Laboratory Tests 07/26/19 19:48 Laboratory Tests 07/26/19 19:48 (MONIKA WILD APRN) EKG EKG [] (MONIKA WILD APRN) Radiology/Procedures Radiology/Procedures [] (MONIKA WILD APRN) Impressions: [facility] [address] [place] [address] IMAGING REPORT Signed PATIENT: SACHA ARMENTA ACCOUNT: [id number] : 1975 LOCATION: ER AGE: 43 SEX: F EXAM STATUS: REG ER ORD. PHYSICIAN: MONIKA WILD APRN REASON: abd pain, vomiting post op jace PROCEDURE: CT ABDOMEN PELVIS WO CONTRAST CT abdomen pelvis with contrast dated 07/26/2019. Comparison made to 07/12/2019. CLINICAL INDICATION: Abdominal pain and vomiting postop cholecystectomy. TECHNIQUE: Contiguous axial imaging the abdomen and pelvis performed without the administration of intravenous contrast. One or more of the following individualized dose reduction techniques were utilized for this examination: 1. Automated exposure control 2. Adjustment of the mA and/or kV according to patient size 3. Use of iterative reconstruction technique. FINDINGS: Limited images of the lung bases show patchy increased density in the left lower lobe, likely atelectasis. Heart size upper limits of normal. No pleural or pericardial effusion. Gallbladder surgically absent. No fluid collection at the gallbladder fossa. There is a small low-density focus within the medial segment left lobe liver anteriorly on image 18 that measures 1.3 cm in size. Liver is otherwise homogeneous. Spleen is normal in size. Pancreas, adrenal glands and kidneys are unremarkable. There is contrast material in the bilateral renal collecting systems. No hydronephrosis. Unopacified GI tract normal in caliber and contour. No focal bowel wall thickening. No inflammatory stranding in the mesentery. The appendix is normal in caliber. No ascites or lymphadenopathy. Abdominal aorta normal in caliber. Images of pelvis show nondistended urinary bladder. There is a small amount of contrast material in the lumen. Uterus is surgically absent. No free fluid or pelvic lymphadenopathy. Windows show no acute findings. IMPRESSION: 1. No acute abnormality of abdomen or pelvis. Normal appendix. 2. Interval cholecystectomy. No acute complication. 3. Low-density lesion within the anterior left lobe liver, nonspecific but unchanged from prior exam. Electronically signed by: Marty Franks MD (07/26/2019 9:45 PM) [facility] DICTATED and SIGNED BY: MARTY FRANKS MD DATE: 07/26/192144 (MONIKA WILD APRN) Course & Med Decision Making Course & Med Decision Making Alert and oriented. Speaks in full sentences. Ambulatory with steady gait. Skin pink warm and dry. Vital signs within normal limits. Abdomen has generalized tenderness. Laparoscopic surgical sites are healed and there is no signs of infection. Lungs are clear to auscultation in all lobes. Patient denies blood in her vomit or diarrhea. PERRLA. Patient denies chest pain, shortness of air, fever, dizziness, headache or visual changes, weakness, numbness or tingling. No CVA tenderness and denies back pain. No extremity swelling. 2100: CT called and states that the IV blew. SIENA Oleary is trying to start another IV. If she is unable to start another IV after several tries, the patient is a hard stick, the CT will have to be done without contrast. CT ABD PELV shows no acute findings. Patient states she just feels sore and rates her pain at a 6/10. The patient has not vomited. Patient is given nausea medication and pain medications. She is to follow up with the surgeon next week as scheduled. Patient is told to slowly advance her diet. Patient is to return to the ED if she is unable to keep any fluids down. Patient agrees to this plan. I have discussed the care plan of this patient with Dr Cooper. (MONIKA WILD APRN) Dragon Disclaimer Dragon Disclaimer This electronic medical record was generated, in whole or in part, using a voice recognition dictation system. (MONIKA WILD APRN) Departure Departure Impression: Primary Impression: Nausea and vomiting Disposition: HOME, SELF-CARE Condition: STABLE Referrals: UNKNOWN PCP NAME (PCP) Patient Instructions: Nausea and Vomiting Additional Instructions: Follow-up with the surgeon as scheduled. Slowly advance her diet. Take medication as prescribed. If you are unable to keep down fluids return to the emergency room. Scripts Hydrocodone/Apap 5-325 (NORCO 5-325 TABLET) 1 Each Tablet 1 TAB PO PRN Q6HRS PRN for PAIN, #8 TAB 0 Refills Prov: MONIKA WILD APRN 07/26/19 Ondansetron (ONDANSETRON ODT) 4 Mg Tab.rapdis 1 TAB PO PRN Q6-8HRS, #30 TAB Prov: MONIKA WILD APRN 07/26/19 Problem Qualifiers Primary Impression: Nausea and vomiting Vomiting type: unspecified Vomiting Intractability: non-intractable Qualified Codes: R11.2 - Nausea with vomiting, unspecified MONIKA WILD APRN Jul 26, 2019 19:45 SANDRA COOPER MD Jul 26, 2019 23:02
[2019-07-26 19:48] LABS: BILIRUBIN,URINE SMALL (NEG); CLARITY,URINE TURBID; COLOR,URINE AMBER; NITRITE,URINE NEGATIVE (NEG); PROTEIN,URINE 30 mg/dL (NEG-TRACE); UROBILINOGEN,URINE 0.2 mg/dL (0.2 mg/dL)
[2019-07-26 19:55] LABS: BASO # 0.1 x10^3/uL (0.0-0.2); BASO % 1 % (0-3); EOS % 0 % (0-3); HEMATOCRIT 35.9 % (36.0-47.0); HEMOGLOBIN 11.6 g/dL (12.0-15.5); LYMPH # 1.3 x10^3/uL (1.0-4.8); LYMPH % 16 % (24-48); MEAN CORPUSCULAR HEMOGLOBIN 23 pg (25-35); MEAN CORPUSCULAR HGB CONC 32 g/dL (31-37); MEAN CORPUSCULAR VOLUME 72 fL (79-100); MONO # 0.3 x10^3/uL (0.0-1.1); MONO % 4 % (0-9); NEUT # 6.3 x10^3/uL (1.8-7.7); NEUT % 79 % (31-73); PLATELET COUNT 348 x10^3/uL (140-400); RED BLOOD COUNT 5.01 x10^6/uL (3.50-5.40); RED CELL DISTRIBUTION WIDTH 14.8 % (11.5-14.5)
[2019-07-26 19:57] LABS: BACTERIA,URINE 0 /HPF (0-FEW); RBC,URINE 0 /HPF (0-2); SQUAMOUS EPITHELIAL CELL,UR MOD /LPF; WBC,URINE OCC /HPF (0-4)
[2019-07-26 19:58] LABS: AMORPHOUS SEDIMENT,UR PRESENT /HPF
[2019-07-26 20:02] LABS: BARBITURATES NEG (NEG); BENZODIAZEPINES NEG (NEG); CANNABINOIDS POS (NEG); COCAINE NEG (NEG); METHADONE NEG (NEG); OPIATES NEG (NEG); PHENCYCLIDINE NEG (NEG)
[2019-07-26 20:04] LABS: AMPHETAMINE/METHAMPHETAMINE NEG (NEG)
[2019-07-26 20:05] LABS: CALCIUM 10.1 mg/dL (8.5-10.1); GFR 73.6; POTASSIUM 3.6 mmol/L (3.5-5.1)
[2019-07-26 20:11] LABS: ALBUMIN 4.2 g/dL (3.4-5.0); ALBUMIN/GLOBULIN RATIO 0.9 (1.0-1.7); TOTAL BILIRUBIN 0.4 mg/dL (0.2-1.0)
[2019-07-26 20:23] LABS: ANISOCYTOSIS SLIGHT; MICROCYTOSIS MOD; PLT ESTIMATE ADEQUATE (ADEQUATE)
[2019-07-26 20:24] LABS: HYPOCHROMIA SLIGHT
[2019-07-26] MEDS ORDERED: IOHEXOL 300 MG/ML 100ML VIAL. IV ONE (20:45)
[2019-07-26] MEDS ORDERED: CONTRAST GIVEN. MC PRN (20:45)
--- NOTE | 2019-07-26 21:48 | RAD ---
CT abdomen pelvis with contrast dated 07/26/2019. Comparison made to 07/12/2019. CLINICAL INDICATION: Abdominal pain and vomiting postop cholecystectomy. TECHNIQUE: Contiguous axial imaging the abdomen and pelvis performed without the administration of intravenous contrast. One or more of the following individualized dose reduction techniques were utilized for this examination: 1. Automated exposure control 2. Adjustment of the mA and/or kV according to patient size 3. Use of iterative reconstruction technique. FINDINGS: Limited images of the lung bases show patchy increased density in the left lower lobe, likely atelectasis. Heart size upper limits of normal. No pleural or pericardial effusion. Gallbladder surgically absent. No fluid collection at the gallbladder fossa. There is a small low-density focus within the medial segment left lobe liver anteriorly on image 18 that measures 1.3 cm in size. Liver is otherwise homogeneous. Spleen is normal in size. Pancreas, adrenal glands and kidneys are unremarkable. There is contrast material in the bilateral renal collecting systems. No hydronephrosis. Unopacified GI tract normal in caliber and contour. No focal bowel wall thickening. No inflammatory stranding in the mesentery. The appendix is normal in caliber. No ascites or lymphadenopathy. Abdominal aorta normal in caliber. Images of pelvis show nondistended urinary bladder. There is a small amount of contrast material in the lumen. Uterus is surgically absent. No free fluid or pelvic lymphadenopathy. Windows show no acute findings. IMPRESSION: 1. No acute abnormality of abdomen or pelvis. Normal appendix. 2. Interval cholecystectomy. No acute complication. 3. Low-density lesion within the anterior left lobe liver, nonspecific but unchanged from prior exam. Electronically signed by: Marty Franks MD (07/26/2019 9:45 PM) [facility]
[2019-07-26] MEDS ORDERED: ONDA4TAB12 PO (22:01)
[2019-07-26] MEDS ORDERED: HYDR-3164 PO (22:01)
[2019-07-26 22:02] VITALS: BP 115/71
== END 2019-07-26 22:12 | disposition home or self-care (01) ==
LOC: ER 19:22
DX: R11.2 Nausea with vomiting, unspecified (principal); R10.84 Generalized abdominal pain; G62.9 Polyneuropathy, unspecified; Z90.710 Acquired absence of both cervix and uterus; Z90.89 Acquired absence of other organs; F12.90 Cannabis use, unspecified, uncomplicated; Z88.2 Allergy status to sulfonamides; Z88.8 Allergy status to other drugs, medicaments and biological substances; Z90.49 Acquired absence of other specified parts of digestive tract
CPT/HCPCS: 36415; 74176; 80053; 80307; 81001; 83690; 85025; 87086; 96361; 96374; 96375; 99285; J2405; J3010; J7030

== ENCOUNTER 2019-12-23 14:01 | Emergency (ER) | payer SELFPAY ==
[~2019-12-23] VITALS: Ht 172.7 cm; Wt 77.2 kg
[~2019-12-23 14:01] MED LIST changes: +HYDR-3164 PO; +ONDA4TAB12 PO
[2019-12-23] MEDS ORDERED: ONDANSETRON ODT 4 MG TAB.RAPDIS. ONE (14:30)
[2019-12-23] MEDS: ONDANSETRON ODT 4 MG TAB.RAPDIS. PO ONE (14:32)
[2019-12-23] MEDS: IV NORMAL SALINE 1000ML BAG 1,000 ML IV ONE (14:45)
[2019-12-23] MEDS: METOCLOPRAMIDE HCL 10 MG/2 ML VIAL. IVP ONE (14:45)
[2019-12-23 15:02] LABS: BASO % 1 % (0-3); EOS % 1 % (0-3); HEMATOCRIT 37.6 % (36.0-47.0); HEMOGLOBIN 11.8 g/dL (12.0-15.5); LYMPH # 0.8 x10^3/uL (1.0-4.8); LYMPH % 15 % (24-48); MEAN CORPUSCULAR HEMOGLOBIN 22 pg (25-35); MEAN CORPUSCULAR HGB CONC 31 g/dL (31-37); MEAN CORPUSCULAR VOLUME 71 fL (79-100); MONO # 0.2 x10^3/uL (0.0-1.1); MONO % 3 % (0-9); NEUT # 4.3 x10^3/uL (1.8-7.7); NEUT % 80 % (31-73); PLATELET COUNT 265 x10^3/uL (140-400); RED BLOOD COUNT 5.31 x10^6/uL (3.50-5.40); RED CELL DISTRIBUTION WIDTH 16.1 % (11.5-14.5); WHITE BLOOD COUNT 5.3 x10^3/uL (4.0-11.0)
[2019-12-23 15:11] LABS: CALCIUM 9.4 mg/dL (8.5-10.1); CREATININE 0.8 mg/dL (0.6-1.0); GFR 94.7; POTASSIUM 3.6 mmol/L (3.5-5.1)
[2019-12-23 15:15] LABS: ALBUMIN 3.6 g/dL (3.4-5.0); ALBUMIN/GLOBULIN RATIO 0.9 (1.0-1.7); TOTAL BILIRUBIN 0.3 mg/dL (0.2-1.0); TOTAL PROTEIN 7.8 g/dL (6.4-8.2)
[2019-12-23] MEDS: MORPHINE SULFATE 4 MG/ML VIAL. IV ONE (15:15)
[2019-12-23 15:45] LABS: HYPOCHROMIA SLIGHT; MICROCYTOSIS MARKED; PLT ESTIMATE ADEQUATE (ADEQUATE); POLYCHROMASIA SLIGHT
[2019-12-23] MEDS ORDERED: CONTRAST GIVEN. MC PRN (15:45)
--- NOTE | 2019-12-23 16:10 | PHYS DOC ---
Past Medical History Past Medical History: Other Additional Past Medical Histor: NEUROPATHY Past Surgical History: Cholecystectomy, Hysterectomy, Tonsillectomy, Other Additional Past Surgical Histo: HERNIA REPAIR Smoking Status: Current Every Day Smoker Alcohol Use: None Drug Use: Marijuana Adult General Chief Complaint Chief Complaint: ABDOMINAL PAIN HPI HPI Patient is a 44 year old female presented to ER today for evaluation of nausea, vomiting, diarrhea and abdominal pain since this morning. Patient denies any fever, no blood in her stool. Patient denies any recent travel or operation, no recent exposure to anybody who has COVID-19. Patient said nobody sick at home. Patient denies any chest pain, no cough, no fever. Review of Systems Review of Systems Constitutional: Denies fever or chills [] Eyes: Denies change in visual acuity, redness, or eye pain [] HENT: Denies nasal congestion or sore throat [] Respiratory: Denies cough or shortness of breath [] Cardiovascular: No additional information not addressed in HPI [] GI: POSITIVE FOR abdominal pain, nausea, vomiting, and diarrhea [] : Denies dysuria or hematuria [] Musculoskeletal: Denies back pain or joint pain [] Integument: Denies rash or skin lesions [] Neurologic: Denies headache, focal weakness or sensory changes [] Endocrine: Denies polyuria or polydipsia [] All other systems were reviewed and found to be within normal limits, except as documented in this note. Current Medications Current Medications Current Medications Medications (Trade) Dose Ordered Sig/Campos Start Time Stop Time Status Last Admin Dose Admin Info (CONTRAST GIVEN -- Rx MONITORING) 1 each PRN DAILY PRN 12/23/19 15:45 12/25/19 15:44 Iohexol (Omnipaque 300 Mg/ml) 75 ml 1X ONCE 12/23/19 15:45 12/23/19 15:46 DC 12/23/19 16:13 75 ML Metoclopramide HCl (Reglan Vial) 10 mg 1X ONCE 12/23/19 14:45 12/23/19 14:46 DC 12/23/19 14:45 10 MG Morphine Sulfate (Morphine Sulfate) 4 mg 1X ONCE 12/23/19 15:15 12/23/19 15:16 DC 12/23/19 15:15 4 MG Ondansetron HCl (Zofran Odt) 4 mg STK-MED ONCE 12/23/19 14:30 12/23/19 14:31 DC Sodium Chloride 1,000 ml @ 1,000 mls/hr 1X ONCE 12/23/19 14:45 12/23/19 15:44 DC 12/23/19 14:45 1,000 MLS/HR Allergies Allergies Allergies Coded Allergies Type Severity Reaction Last Updated Verified sulfamethoxazole Allergy Intermediate 07/14/19 Yes trimethoprim Allergy Intermediate 07/14/19 Yes Physical Exam Physical Exam Constitutional: Well developed, well nourished, in mild acute distress due to pain, non-toxic appearance. [] HENT: Normocephalic, atraumatic, bilateral external ears normal, oropharynx moist, no oral exudates, nose normal. [] Eyes: PERRLA, EOMI, conjunctiva normal, no discharge. [] Neck: Normal range of motion, no tenderness, supple, no stridor. [] Cardiovascular:Heart rate regular rhythm, no murmur [] Lungs & Thorax: Bilateral breath sounds clear to auscultation [] Abdomen: Bowel sounds normal, soft, There is tenderness diffusedly, no guarding, no rebound, no masses, no pulsatile masses. [] Skin: Warm, dry, no erythema, no rash. [] Back: No tenderness, no CVA tenderness. [] Extremities: No tenderness, no cyanosis, no clubbing, ROM intact, no edema. [] Neurologic: Alert and oriented X 3, normal motor function, normal sensory function, no focal deficits noted. [] Psychologic: Affect normal, judgement normal, mood normal. [] Current Patient Data Vital Signs Vital Signs Date Time Temp Pulse Resp B/P (MAP) Pulse Ox O2 Delivery O2 Flow Rate FiO2 12/23/19 15:15 18 96 12/23/19 14:10 97.8 66 127/88 (101) Room Air 97.8 Lab Values Laboratory Tests Test 12/23/19 14:57 White Blood Count 5.3 x10^3/uL (4.0-11.0) Red Blood Count 5.31 x10^6/uL (3.50-5.40) Hemoglobin 11.8 g/dL (12.0-15.5) L Hematocrit 37.6 % (36.0-47.0) Mean Corpuscular Volume 71 fL (79-100) L Mean Corpuscular Hemoglobin 22 pg (25-35) L Mean Corpuscular Hemoglobin Concent 31 g/dL (31-37) Red Cell Distribution Width 16.1 % (11.5-14.5) H Platelet Count 265 x10^3/uL (140-400) Neutrophils (%) (Auto) 80 % (31-73) H Lymphocytes (%) (Auto) 15 % (24-48) L Monocytes (%) (Auto) 3 % (0-9) Eosinophils (%) (Auto) 1 % (0-3) Basophils (%) (Auto) 1 % (0-3) Neutrophils # (Auto) 4.3 x10^3/uL (1.8-7.7) Lymphocytes # (Auto) 0.8 x10^3/uL (1.0-4.8) L Monocytes # (Auto) 0.2 x10^3/uL (0.0-1.1) Eosinophils # (Auto) 0.0 x10^3/uL (0.0-0.7) Basophils # (Auto) 0.0 x10^3/uL (0.0-0.2) Platelet Estimate Adequate (ADEQUATE) Polychromasia Slight Hypochromasia Slight Microcytosis Marked Sodium Level 142 mmol/L (136-145) Potassium Level 3.6 mmol/L (3.5-5.1) Chloride Level 105 mmol/L (98-107) Carbon Dioxide Level 25 mmol/L (21-32) Anion Gap 12 (6-14) Blood Urea Nitrogen 8 mg/dL (7-20) Creatinine 0.8 mg/dL (0.6-1.0) Estimated GFR (Cockcroft-Gault) 94.7 BUN/Creatinine Ratio 10 (6-20) Glucose Level 112 mg/dL (70-99) H Calcium Level 9.4 mg/dL (8.5-10.1) Total Bilirubin 0.3 mg/dL (0.2-1.0) Aspartate Amino Transferase (AST) 28 U/L (15-37) Alanine Aminotransferase (ALT) 53 U/L (14-59) Alkaline Phosphatase 134 U/L (46-116) H Total Protein 7.8 g/dL (6.4-8.2) Albumin 3.6 g/dL (3.4-5.0) Albumin/Globulin Ratio 0.9 (1.0-1.7) L Lipase 76 U/L (73-393) Laboratory Tests 12/23/19 14:57 Laboratory Tests 12/23/19 14:57 EKG EKG [] Radiology/Procedures Radiology/Procedures [][facility] [address] [place] [address] IMAGING REPORT Signed PATIENT: SACHA ARMENTA ACCOUNT: [id number] : 1975 LOCATION: ER AGE: 44 SEX: F EXAM STATUS: REG ER ORD. PHYSICIAN: PAT WIGGINS DO REASON: LOWER ABDOMINAL PAIN, NAUSEA, VOMITING PROCEDURE: CT ABD PELV W/ IV CONTRST ONLY PQRS Compliance Statement: One or more of the following individualized dose reduction techniques were utilized for this examination: 1. Automated exposure control 2. Adjustment of the mA and/or kV according to patient size 3. Use of iterative reconstruction technique CT ABD PELV W/ IV CONTRST ONLY Clinical Indication: Lower abdominal pain, nausea and vomiting. Comparison: CT abdomen and pelvis with contrast 07/26/2019. Technique: Helical CT imaging of the abdomen and pelvis is performed after 75 cc of Omnipaque 300 IV contrast. Oral contrast not administered. Findings: There is minimal atelectasis in the bilateral lung bases. The cardiac size is normal. Cholecystectomy. Stable small hypodensity in the left hepatic lobe may be focal fatty infiltration versus a cyst versus hemangioma. Finding is stable. Liver otherwise homogeneous. The spleen, pancreas, adrenal glands, abdominal aorta, and kidneys are normal. Stomach unremarkable. There is no dilated small bowel. The appendix is normal. No colon wall thickening is seen. There is no abdominal adenopathy or free fluid. The urinary bladder is normal. Hysterectomy. No pelvic free fluid is seen. No acute bone abnormality. IMPRESSION: No acute abdominal or pelvic abnormality. Electronically signed by: Remigio Duff MD (12/23/2019 4:39 PM) [id number] DICTATED and SIGNED BY: REMIGIO DUFF MD DATE: 12/23/19 163 Course & Med Decision Making Course & Med Decision Making Pertinent Labs and Imaging studies reviewed. (See chart for details) [] Dragon Disclaimer Dragon Disclaimer This electronic medical record was generated, in whole or in part, using a voice recognition dictation system. Departure Departure Impression: Primary Impression: Gastroenteritis Disposition: 01 HOME, SELF-CARE Condition: IMPROVED Referrals: UNKNOWN PCP NAME (PCP) FOLLOW UP WITH YOUR DOCTOR NEEDED IN A FEW DAY. Patient Instructions: Viral Gastroenteritis Additional Instructions: Thank you for visiting our Emergency Department. We appreciate you trusting us with your care. If any additional problems come up don't hesitate to return to visit us. Please follow up with your primary care provider so they can plan additional care if needed and know about the problem that you had. If symptoms worsen come back to the Emergency Department. Any concerning symptoms that start such as chest pain, shortness of air, weakness or numbness on one side of the body, running high fevers or any other concerning symptoms return to the ER. Scripts Ondansetron Hcl (ZOFRAN) 4 Mg Tablet 1 TAB PO Q6HRS, #20 TAB Prov: PAT WIGGINS DO 12/23/19 PAT WIGGINS DO Dec 23, 2019 16:10
[2019-12-23] MEDS: IOHEXOL 300 MG/ML 100ML VIAL. IV ONE (16:13)
--- NOTE | 2019-12-23 16:42 | RAD ---
PQRS Compliance Statement: One or more of the following individualized dose reduction techniques were utilized for this examination: 1. Automated exposure control 2. Adjustment of the mA and/or kV according to patient size 3. Use of iterative reconstruction technique CT ABD PELV W/ IV CONTRST ONLY Clinical Indication: Lower abdominal pain, nausea and vomiting. Comparison: CT abdomen and pelvis with contrast 07/26/2019. Technique: Helical CT imaging of the abdomen and pelvis is performed after 75 cc of Omnipaque 300 IV contrast. Oral contrast not administered. Findings: There is minimal atelectasis in the bilateral lung bases. The cardiac size is normal. Cholecystectomy. Stable small hypodensity in the left hepatic lobe may be focal fatty infiltration versus a cyst versus hemangioma. Finding is stable. Liver otherwise homogeneous. The spleen, pancreas, adrenal glands, abdominal aorta, and kidneys are normal. Stomach unremarkable. There is no dilated small bowel. The appendix is normal. No colon wall thickening is seen. There is no abdominal adenopathy or free fluid. The urinary bladder is normal. Hysterectomy. No pelvic free fluid is seen. No acute bone abnormality. IMPRESSION: No acute abdominal or pelvic abnormality. Electronically signed by: Remigio Duff MD (12/23/2019 4:39 PM) [id number]
[2019-12-23] MEDS ORDERED: ONDA4TAB7 PO (17:23)
[2019-12-23 17:35] VITALS: BP 125/56
== END 2019-12-23 17:50 | disposition home or self-care (01) ==
LOC: ER 14:01
DX: K52.9 Noninfective gastroenteritis and colitis, unspecified (principal); R11.2 Nausea with vomiting, unspecified; R10.9 Unspecified abdominal pain; G62.9 Polyneuropathy, unspecified; F17.200 Nicotine dependence, unspecified, uncomplicated; F12.90 Cannabis use, unspecified, uncomplicated; Z90.49 Acquired absence of other specified parts of digestive tract; Z90.710 Acquired absence of both cervix and uterus; Z98.890 Other specified postprocedural states; Z88.2 Allergy status to sulfonamides
CPT/HCPCS: 36415; 74177; 80053; 83690; 85025; 96361; 96374; 96375; 99285; J2270; J2765; J7030; Q0162; Q9967

== ENCOUNTER 2020-01-15 19:31 | Emergency (ER) | payer SELFPAY ==
[~2020-01-15] VITALS: Ht 172.7 cm; Wt 77.2 kg
[~2020-01-15 19:31] MED LIST changes: +ONDA4TAB7 PO
[2020-01-15] MEDS ORDERED: HALOPERIDOL LACTATE 5 MG/ML VIAL. IVP ONE (20:00)
[2020-01-15] MEDS ORDERED: IV NORMAL SALINE 1000ML BAG 1,000 ML IV ONE (20:00)
[2020-01-15 20:04] LABS: BILIRUBIN,URINE SMALL (NEG); CLARITY,URINE TURBID; COLOR,URINE AMBER; NITRITE,URINE NEGATIVE (NEG); PH,URINE 5.5 (<5.0-8.0); PROTEIN,URINE 30 mg/dL (NEG-TRACE); UROBILINOGEN,URINE 0.2 mg/dL (0.2 mg/dL)
[2020-01-15 20:14] LABS: AMORPHOUS SEDIMENT,UR PRESENT /HPF; BACTERIA,URINE FEW /HPF (0-FEW); SQUAMOUS EPITHELIAL CELL,UR FEW /LPF; WBC,URINE 0 /HPF (0-4)
[2020-01-15 20:15] LABS: BASO % 1 % (0-3); EOS # 0.1 x10^3/uL (0.0-0.7); EOS % 1 % (0-3); HEMATOCRIT 38.6 % (36.0-47.0); HEMOGLOBIN 12.2 g/dL (12.0-15.5); LYMPH % 13 % (24-48); MEAN CORPUSCULAR HEMOGLOBIN 22 pg (25-35); MEAN CORPUSCULAR HGB CONC 32 g/dL (31-37); MEAN CORPUSCULAR VOLUME 70 fL (79-100); MONO # 0.2 x10^3/uL (0.0-1.1); MONO % 3 % (0-9); NEUT # 6.1 x10^3/uL (1.8-7.7); NEUT % 83 % (31-73); PLATELET COUNT 299 x10^3/uL (140-400); RED CELL DISTRIBUTION WIDTH 15.9 % (11.5-14.5); WHITE BLOOD COUNT 7.3 x10^3/uL (4.0-11.0)
[2020-01-15 20:21] LABS: AMPHETAMINE/METHAMPHETAMINE NEG (NEG); BARBITURATES NEG (NEG); BENZODIAZEPINES NEG (NEG); CANNABINOIDS POS (NEG); COCAINE NEG (NEG); METHADONE NEG (NEG); OPIATES NEG (NEG); PHENCYCLIDINE NEG (NEG)
[2020-01-15 20:22] LABS: CALCIUM 9.6 mg/dL (8.5-10.1); CREATININE 0.9 mg/dL (0.6-1.0); GFR 82.7
[2020-01-15 20:28] LABS: ALBUMIN 3.9 g/dL (3.4-5.0); ALBUMIN/GLOBULIN RATIO 0.9 (1.0-1.7); TOTAL BILIRUBIN 0.3 mg/dL (0.2-1.0); TOTAL PROTEIN 8.2 g/dL (6.4-8.2)
[2020-01-15 20:51] LABS: MICROCYTOSIS SLIGHT; PLT ESTIMATE ADEQUATE (ADEQUATE); POIKILOCYTOSIS SLIGHT
[2020-01-15 21:01] LABS: OVALOCYTES OCC
[2020-01-15 21:25] VITALS: BP 99/65
[2020-01-15] MEDS ORDERED: PROM25SU33 RC (21:56)
[2020-01-15] MEDS ORDERED: ONDA4TAB7 PO (21:56)
--- NOTE | 2020-01-15 21:57 | PHYS DOC ---
Past Medical History Past Medical History: Other Additional Past Medical Histor: NEUROPATHY Past Surgical History: Cholecystectomy, Hysterectomy, Tonsillectomy, Other Additional Past Surgical Histo: HERNIA REPAIR Smoking Status: Current Every Day Smoker Alcohol Use: None Drug Use: Marijuana Adult General Chief Complaint Chief Complaint: ABDOMINAL PAIN HPI HPI Patient is a 44 year old female with history of recent cholecystectomy and chronic nausea and vomiting who presents with nausea vomiting and diarrhea. Patient was last evaluated emergency department 2 weeks ago for the same. She is taken nausea medication and has continued to vomit. She is able to tolerate some foods quit intake. She reports midepigastric pain. Pain is described sharp, no nradiating. Vomitus is nonbilious, nonbloody. No flank pain. No urinary frequency urgency or burning. No other acute symptoms or complaints. Previous hysterectomy. [] Review of Systems Review of Systems He is symptoms as per history of present illness. All other review symptoms are negative. All other systems were reviewed and found to be within normal limits, except as documented in this note. Current Medications Current Medications Current Medications Medications (Trade) Dose Ordered Sig/Campos Start Time Stop Time Status Last Admin Dose Admin Haloperidol Lactate (Haldol Inj) 2.5 mg 1X ONCE 01/15/20 20:00 01/15/20 20:01 DC 01/15/20 20:00 2.5 MG Sodium Chloride 1,000 ml @ 1,000 mls/hr 1X ONCE 01/15/20 20:00 01/15/20 20:59 DC 01/15/20 20:00 1,000 MLS/HR Allergies Allergies Allergies Coded Allergies Type Severity Reaction Last Updated Verified sulfamethoxazole Allergy Intermediate 07/14/19 Yes trimethoprim Allergy Intermediate 07/14/19 Yes Physical Exam Physical Exam Constitutional: Well developed, well nourished, no acute distress, non-toxic appearance. [] HENT: Normocephalic, atraumatic, bilateral external ears normal, oropharynx moist, no oral exudates, nose normal. [] Eyes: PERRLA, EOMI, conjunctiva normal, no discharge. [] Neck: Normal range of motion, no tenderness, supple, no stridor. [] Cardiovascular:Heart rate regular rhythm, no murmur [] Lungs & Thorax: Bilateral breath sounds clear to auscultation [] Abdomen: Bowel sounds normal, soft, mild diffuse epigastric pain, tenderness. [] Skin: Warm, dry. [] Back: No tenderness. [] Extremities: No tenderness, no edema. [] Neurologic: Alert and oriented X 3, normal motor function, normal sensory function, no focal deficits noted. [] Psychologic: Affect anxious, judgement normal, mood normal. [] Current Patient Data Vital Signs Vital Signs Date Time Temp Pulse Resp B/P (MAP) Pulse Ox O2 Delivery O2 Flow Rate FiO2 01/15/20 19:53 98.4 99 22 144/99 (114) 96 Room Air 98.4 Lab Values Laboratory Tests Test 01/15/20 19:48 01/15/20 19:56 01/15/20 20:05 Urine Collection Type Unknown Urine Color Tatyana Urine Clarity Turbid Urine pH 5.5 (<5.0-8.0) Urine Specific Sandy 1.025 (1.000-1.030) Urine Protein 30 mg/dL (NEG-TRACE) Urine Glucose (UA) Negative mg/dL (NEG) Urine Ketones (Stick) Negative mg/dL (NEG) Urine Blood Small (NEG) Urine Nitrite Negative (NEG) Urine Bilirubin Small (NEG) Urine Urobilinogen Dipstick 0.2 mg/dL (0.2 mg/dL) Urine Leukocyte Esterase Negative (NEG) Urine RBC 1-2 /HPF (0-2) Urine WBC 0 /HPF (0-4) Urine Squamous Epithelial Cells Few /LPF Urine Amorphous Sediment Present /HPF Urine Bacteria Few /HPF (0-FEW) Urine Mucus Slight /LPF Urine Opiates Screen Neg (NEG) Urine Methadone Screen Neg (NEG) Urine Barbiturates Neg (NEG) Urine Phencyclidine Screen Neg (NEG) Urine Amphetamine/Methamphetamine Neg (NEG) Urine Benzodiazepines Screen Neg (NEG) Urine Cocaine Screen Neg (NEG) Urine Cannabinoids Screen Pos (NEG) Urine Ethyl Alcohol Neg (NEG) POC Urine HCG, Qualitative Hcg positive (Negative) White Blood Count 7.3 x10^3/uL (4.0-11.0) Red Blood Count 5.50 x10^6/uL (3.50-5.40) H Hemoglobin 12.2 g/dL (12.0-15.5) Hematocrit 38.6 % (36.0-47.0) Mean Corpuscular Volume 70 fL (79-100) L Mean Corpuscular Hemoglobin 22 pg (25-35) L Mean Corpuscular Hemoglobin Concent 32 g/dL (31-37) Red Cell Distribution Width 15.9 % (11.5-14.5) H Platelet Count 299 x10^3/uL (140-400) Neutrophils (%) (Auto) 83 % (31-73) H Lymphocytes (%) (Auto) 13 % (24-48) L Monocytes (%) (Auto) 3 % (0-9) Eosinophils (%) (Auto) 1 % (0-3) Basophils (%) (Auto) 1 % (0-3) Neutrophils # (Auto) 6.1 x10^3/uL (1.8-7.7) Lymphocytes # (Auto) 1.0 x10^3/uL (1.0-4.8) Monocytes # (Auto) 0.2 x10^3/uL (0.0-1.1) Eosinophils # (Auto) 0.1 x10^3/uL (0.0-0.7) Basophils # (Auto) 0.0 x10^3/uL (0.0-0.2) Platelet Estimate Adequate (ADEQUATE) Poikilocytosis Slight Microcytosis Slight Macrocytosis Slight Ovalocytes Occ Maternal Serum HCG Beta Subunit 9 mIU/mL (0-5) H Sodium Level 140 mmol/L (136-145) Potassium Level 4.0 mmol/L (3.5-5.1) Chloride Level 104 mmol/L (98-107) Carbon Dioxide Level 24 mmol/L (21-32) Anion Gap 12 (6-14) Blood Urea Nitrogen 7 mg/dL (7-20) Creatinine 0.9 mg/dL (0.6-1.0) Estimated GFR (Cockcroft-Gault) 82.7 BUN/Creatinine Ratio 8 (6-20) Glucose Level 123 mg/dL (70-99) H Calcium Level 9.6 mg/dL (8.5-10.1) Total Bilirubin 0.3 mg/dL (0.2-1.0) Aspartate Amino Transferase (AST) 23 U/L (15-37) Alanine Aminotransferase (ALT) 37 U/L (14-59) Alkaline Phosphatase 138 U/L (46-116) H Total Protein 8.2 g/dL (6.4-8.2) Albumin 3.9 g/dL (3.4-5.0) Albumin/Globulin Ratio 0.9 (1.0-1.7) L Lipase 84 U/L (73-393) Ethyl Alcohol Level < 10 mg/dL (0-10) Laboratory Tests 01/15/20 20:05 Laboratory Tests 01/15/20 20:05 EKG EKG [] Radiology/Procedures Radiology/Procedures [] Course & Med Decision Making Course & Med Decision Making Pertinent Labs and Imaging studies reviewed. (See chart for details) [Chronic abdominal pain with nausea and vomiting. Symptoms significant improvement with treatment. Elevated HCG? Will continue her care with follow-up with senior rd engineer. Patient instructed to avoid all marijuana and alcohol use. Return precautions reviewed. Patient verbalizes understanding agreement discharge instructions prior to department ] Dragon Disclaimer Dragon Disclaimer This electronic medical record was generated, in whole or in part, using a voice recognition dictation system. Departure Departure Impression: Primary Impression: Nausea & vomiting Additional Impressions: Abdominal pain Abnormal laboratory test result Disposition: HOME, SELF-CARE Condition: STABLE Referrals: UNKNOWN PCP NAME (PCP) Patient Instructions: Abdominal Pain (Nonspecific), Nausea and Vomiting, [id number] Additional Instructions: You were evaluated in the emergency department for abdominal pain nausea vomiting and diarrhea. Please avoid any alcohol and marijuana use. Take oral nausea medication as directed and suppository as needed for additional relief. Follow up with your PCP in 2-3 days for reevaluation and your BUILDING RIGGER to review abnormal labwork. Return to the ED if new or worsening symptoms Scripts Promethazine Hcl (PROMETHAZINE HCL) 25 Mg Supp.rect -Sep SUPP RC QID for 3 Days, #20 SUPP 0 Refills Prov: CHANEL DA SILVA DO 01/15/20 Ondansetron Hcl (ZOFRAN) 4 Mg Tablet 1 TAB PO Q6HRS, #10 TAB 0 Refills Prov: CHANEL DA SILVA DO 01/15/20 Problem Qualifiers CHANEL DA SILVA DO Jan 15, 2020 21:57
== END 2020-01-15 22:00 | disposition home or self-care (01) ==
LOC: ER 19:31
DX: O21.9 Vomiting of pregnancy, unspecified (principal); R10.13 Epigastric pain; G62.9 Polyneuropathy, unspecified; F17.200 Nicotine dependence, unspecified, uncomplicated; F12.90 Cannabis use, unspecified, uncomplicated; Z90.49 Acquired absence of other specified parts of digestive tract; Z90.710 Acquired absence of both cervix and uterus; Z98.890 Other specified postprocedural states; Z88.2 Allergy status to sulfonamides; Z88.8 Allergy status to other drugs, medicaments and biological substances
CPT/HCPCS: 36415; 80053; 80307; 81001; 81025; 83690; 84702; 85025; 96361; 96374; 99283; G0480; J1630; J7030

== ENCOUNTER 2020-02-06 07:33 | Emergency (ER) | payer SELFPAY ==
[~2020-02-06] VITALS: Ht 172.7 cm; Wt 72.0 kg
[~2020-02-06 07:33] MED LIST changes: +PROM25SU33 RC
[2020-02-06 08:12] LABS: BASO # 0.1 x10^3/uL (0.0-0.2); BASO % 1 % (0-3); EOS % 0 % (0-3); HEMATOCRIT 42.7 % (36.0-47.0); HEMOGLOBIN 13.6 g/dL (12.0-15.5); LYMPH # 0.7 x10^3/uL (1.0-4.8); LYMPH % 7 % (24-48); MEAN CORPUSCULAR HEMOGLOBIN 23 pg (25-35); MEAN CORPUSCULAR HGB CONC 32 g/dL (31-37); MEAN CORPUSCULAR VOLUME 70 fL (79-100); MONO # 0.3 x10^3/uL (0.0-1.1); MONO % 3 % (0-9); NEUT # 8.9 x10^3/uL (1.8-7.7); NEUT % 89 % (31-73); PLATELET COUNT 371 x10^3/uL (140-400); RED BLOOD COUNT 6.06 x10^6/uL (3.50-5.40); RED CELL DISTRIBUTION WIDTH 16.2 % (11.5-14.5)
[2020-02-06 08:13] LABS: CLARITY,URINE CLEAR; COLOR,URINE ORANGE
[2020-02-06 08:18] LABS: CALCIUM 10.3 mg/dL (8.5-10.1); CREATININE 1.3 mg/dL (0.6-1.0); GFR 54.1; POTASSIUM 3.7 mmol/L (3.5-5.1)
--- NOTE | 2020-02-06 08:22 | PHYS DOC ---
Past Medical History Past Medical History: Other Additional Past Medical Histor: NEUROPATHY Past Surgical History: Cholecystectomy, Hysterectomy, Tonsillectomy, Other Additional Past Surgical Histo: HERNIA REPAIR Smoking Status: Current Every Day Smoker Alcohol Use: None Drug Use: Marijuana Adult General Chief Complaint Chief Complaint: ABDOMINAL PAIN HPI HPI Patient is a 44 year old female who presents with diffuse abdominal pain nausea vomiting and diarrhea. Symptom onset 3 days ago. Pain is described as dull, cramping is migratory. No fevers chills, sweats. Denies dizziness lightheadedness. No hematemesis coffee-ground emesis, melena or hematochezia. No urinary frequency urgency or burning. Denies history of kidney stones. [] Review of Systems Review of Systems ROS as per HPI All other systems were reviewed and found to be within normal limits, except as documented in this note. Current Medications Current Medications Current Medications Medications (Trade) Dose Ordered Sig/Campos Start Time Stop Time Status Last Admin Dose Admin Info (CONTRAST GIVEN -- Rx MONITORING) 1 each PRN DAILY PRN 02/06/20 10:30 02/08/20 10:29 Iohexol (Omnipaque 300 Mg/ml) 60 ml 1X ONCE 02/06/20 10:30 02/06/20 10:31 DC 02/06/20 10:16 60 ML Morphine Sulfate (Morphine Sulfate) 4 mg 1X ONCE 02/06/20 10:00 02/06/20 10:01 DC 02/06/20 09:57 4 MG Ondansetron HCl (Zofran) 4 mg 1X ONCE 02/06/20 08:30 02/06/20 08:31 DC 02/06/20 08:25 4 MG Prochlorperazine Edisylate (Compazine) 10 mg 1X ONCE 02/06/20 10:00 02/06/20 10:01 DC 02/06/20 09:56 10 MG Allergies Allergies Allergies Coded Allergies Type Severity Reaction Last Updated Verified sulfamethoxazole Allergy Intermediate 07/14/19 Yes trimethoprim Allergy Intermediate 07/14/19 Yes Physical Exam Physical Exam Constitutional: Well developed, well nourished, no acute distress, non-toxic appearance. [] HENT: Normocephalic, atraumatic, bilateral external ears normal, oropharynx moist, nose normal. [] Eyes: PERRLA, EOMI, conjunctiva normal. [] Neck: Normal range of motion, no tenderness. [] Cardiovascular:Heart rate regular rhythm, no murmur [] Lungs & Thorax: Bilateral breath sounds clear to auscultation [] Abdomen: Bowel sounds normal, soft, mild distension, increased bowel sounds. [] Skin: Warm, dry, no erythema, no rash. [] Back: No tenderness. [] Extremities: No tenderness, no edema. [] Neurologic: Alert and oriented X 3, normal motor function, normal sensory function, no focal deficits noted. [] Psychologic: Affect normal, judgement normal, mood normal. [] Current Patient Data Vital Signs Vital Signs Date Time Temp Pulse Resp B/P (MAP) Pulse Ox O2 Delivery O2 Flow Rate FiO2 02/06/20 09:41 86 109/79 (89) 99 02/06/20 07:43 98.7 16 98.7 Lab Values Laboratory Tests Test 02/06/20 07:40 02/06/20 07:58 02/06/20 08:03 Urine Collection Type Unknown Urine Color Stanton Urine Clarity Clear Urine pH (<5.0-8.0) Urine Specific Groom (1.000-1.030) Urine Protein mg/dL (NEG-TRACE) Urine Glucose (UA) mg/dL (NEG) Urine Ketones (Stick) mg/dL (NEG) Urine Blood (NEG) Urine Nitrite (NEG) Urine Bilirubin (NEG) Urine Urobilinogen Dipstick mg/dL (0.2 mg/dL) Urine Leukocyte Esterase (NEG) Urine RBC 6-10 /HPF (0-2) Urine WBC 5-10 /HPF (0-4) Urine Squamous Epithelial Cells Occ /LPF Urine Bacteria Moderate /HPF (0-FEW) White Blood Count 10.0 x10^3/uL (4.0-11.0) Red Blood Count 6.06 x10^6/uL (3.50-5.40) H Hemoglobin 13.6 g/dL (12.0-15.5) Hematocrit 42.7 % (36.0-47.0) Mean Corpuscular Volume 70 fL (79-100) L Mean Corpuscular Hemoglobin 23 pg (25-35) L Mean Corpuscular Hemoglobin Concent 32 g/dL (31-37) Red Cell Distribution Width 16.2 % (11.5-14.5) H Platelet Count 371 x10^3/uL (140-400) Neutrophils (%) (Auto) 89 % (31-73) H Lymphocytes (%) (Auto) 7 % (24-48) L Monocytes (%) (Auto) 3 % (0-9) Eosinophils (%) (Auto) 0 % (0-3) Basophils (%) (Auto) 1 % (0-3) Neutrophils # (Auto) 8.9 x10^3/uL (1.8-7.7) H Lymphocytes # (Auto) 0.7 x10^3/uL (1.0-4.8) L Monocytes # (Auto) 0.3 x10^3/uL (0.0-1.1) Eosinophils # (Auto) 0.0 x10^3/uL (0.0-0.7) Basophils # (Auto) 0.1 x10^3/uL (0.0-0.2) Segmented Neutrophils % 87 % (35-66) H Band Neutrophils % 1 % (0-9) Lymphocytes % 10 % (24-48) L Monocytes % 2 % (0-10) Platelet Estimate Adequate (ADEQUATE) Hypochromasia Slight Anisocytosis Slight Microcytosis Mod Ovalocytes Occ Sodium Level 141 mmol/L (136-145) Potassium Level 3.7 mmol/L (3.5-5.1) Chloride Level 100 mmol/L (98-107) Carbon Dioxide Level 27 mmol/L (21-32) Anion Gap 14 (6-14) Blood Urea Nitrogen 13 mg/dL (7-20) Creatinine 1.3 mg/dL (0.6-1.0) H Estimated GFR (Cockcroft-Gault) 54.1 BUN/Creatinine Ratio 10 (6-20) Glucose Level 221 mg/dL (70-99) H Calcium Level 10.3 mg/dL (8.5-10.1) H Total Bilirubin 0.5 mg/dL (0.2-1.0) Aspartate Amino Transferase (AST) 14 U/L (15-37) L Alanine Aminotransferase (ALT) 19 U/L (14-59) Alkaline Phosphatase 150 U/L (46-116) H Total Protein 9.5 g/dL (6.4-8.2) H Albumin 4.5 g/dL (3.4-5.0) Albumin/Globulin Ratio 0.9 (1.0-1.7) L Lipase 82 U/L (73-393) POC Urine HCG, Qualitative Hcg negative (Negative) Laboratory Tests 02/06/20 07:58 Laboratory Tests 02/06/20 07:58 EKG EKG [] Radiology/Procedures Radiology/Procedures [CT abdomen pelvis: No acute findings per radiology report] Course & Med Decision Making Course & Med Decision Making Pertinent Labs and Imaging studies reviewed. (See chart for details) [Symptoms improved with treatment., Lab and imaging studies reviewed. No acute surgical findings noted to be present. Recommend supportive care, watchful waiting and PCP follow-up. Return precautions reviewed. Patient verbalizes understanding agreement with discharge instructions prior to departure.] Dragon Disclaimer Dragon Disclaimer This electronic medical record was generated, in whole or in part, using a voice recognition dictation system. Departure Departure Impression: Primary Impression: Nausea vomiting and diarrhea Additional Impression: Abdominal pain Disposition: HOME, SELF-CARE Condition: STABLE Referrals: UNKNOWN PCP NAME (PCP) Patient Instructions: Abdominal Pain, Nausea and Vomiting, [id number] Additional Instructions: You were evaluated in the emergency department for abdominal pain nausea and vomiting. Lab and imaging studies were performed and are nondiagnostic. The exact cause of your symptoms not been determined but may related to a viral illness, and community. Please take nausea and pain medications as directed. Drink clear liquids only for the next 12 to 24 hours then gradually increase to bland diet as tolerated. Scripts Dicyclomine Hcl (DICYCLOMINE HCL) 20 Mg Tablet 1 TAB PO TID, #10 TAB 1 Refill Prov: CHANEL DA SILVA DO 02/06/20 Ondansetron Hcl (ZOFRAN) 4 Mg Tablet 1 TAB PO Q6HRS, #10 TAB 0 Refills Prov: CHANEL DA SILVA DO 02/06/20 Problem Qualifiers CHANEL DA SILVA DO February 06, 2020 08:22
[2020-02-06 08:23] LABS: BACTERIA,URINE MODERATE /HPF (0-FEW)
[2020-02-06 08:24] LABS: ALBUMIN 4.5 g/dL (3.4-5.0); ALBUMIN/GLOBULIN RATIO 0.9 (1.0-1.7); TOTAL BILIRUBIN 0.5 mg/dL (0.2-1.0); TOTAL PROTEIN 9.5 g/dL (6.4-8.2)
[2020-02-06 08:24] LABS: SQUAMOUS EPITHELIAL CELL,UR OCC /LPF
[2020-02-06] MEDS ORDERED: MORPHINE SULFATE 4 MG/ML VIAL. IV ONE ×2 (08:30→10:00)
[2020-02-06] MEDS ORDERED: ONDANSETRON PF 4 MG/2 ML VIAL. IVP ONE (08:30)
[2020-02-06 08:32] LABS: % BANDS 1 % (0-9); % LYMPHS 10 % (24-48); % MONOS 2 % (0-10); % SEGS 87 % (35-66); PLT ESTIMATE ADEQUATE (ADEQUATE)
[2020-02-06 08:33] LABS: ANISOCYTOSIS SLIGHT; HYPOCHROMIA SLIGHT; MICROCYTOSIS MOD; OVALOCYTES OCC
[2020-02-06 09:41] VITALS: BP 109/79
[2020-02-06] MEDS ORDERED: PROCHLORPERAZINE 10 MG/2 ML VIAL. IV ONE (10:00)
[2020-02-06] MEDS ORDERED: IOHEXOL 300 MG/ML 100ML VIAL. IV ONE (10:30)
[2020-02-06] MEDS ORDERED: CONTRAST GIVEN. MC PRN (10:30)
--- NOTE | 2020-02-06 10:44 | RAD ---
INDICATION: Abdomen pain COMPARISON: December 23, 2019 TECHNIQUE: Axial CT images obtained through the abdomen and pelvis with contrast. One or more of the following individualized dose reduction techniques were utilized for this examination: 1. Automated exposure control; 2. Adjustment of the mA and/or kV according to patient size; 3. Use of iterative reconstruction technique. FINDINGS: Abdominal aorta is not aneurysmal. Postcholecystectomy changes. 10 mm cystic lesion within segment 4 of the liver. Liver is prominent in size. No peripancreatic fluid collection. Spleen unremarkable. No hydronephrosis. Urinary bladder is decompressed. The appendix measures up to about 6 mm without definite adjacent inflammatory changes. No dilated loops of bowel to suggest obstruction. There are some degenerative changes the spine with disc protrusions. IMPRESSION: * No evidence of bowel obstruction. * The appendix is near the upper limits of normal in size without adjacent inflammatory changes to suggest appendicitis. Electronically signed by: Cali Mc MD (02/06/2020 10:42 AM) [id number]
[2020-02-06] MEDS ORDERED: ONDA4TAB7 PO (11:16)
[2020-02-06] MEDS ORDERED: DICY20TA3 PO (11:16)
== END 2020-02-06 11:30 | disposition home or self-care (01) ==
LOC: ER 07:33
DX: R11.2 Nausea with vomiting, unspecified (principal); R19.7 Diarrhea, unspecified; R10.9 Unspecified abdominal pain; F17.200 Nicotine dependence, unspecified, uncomplicated; F12.90 Cannabis use, unspecified, uncomplicated; Z90.49 Acquired absence of other specified parts of digestive tract; Z90.710 Acquired absence of both cervix and uterus; Z98.890 Other specified postprocedural states; Z88.2 Allergy status to sulfonamides; Z88.8 Allergy status to other drugs, medicaments and biological substances
CPT/HCPCS: 36415; 74177; 80053; 81001; 81025; 83690; 85007; 85025; 87086; 96374; 96375; 96376; 99285; J0780; J2270; J2405; Q9967

== ENCOUNTER 2020-02-24 11:51 | Inpatient (IN) | payer SELFPAY ==
[~2020-02-24] VITALS: Ht 172.7 cm; Wt 85.0 kg
[~2020-02-24 11:51] MED LIST changes: +DICY20TA3 PO
--- NOTE | 2020-02-24 12:18 | PHYS DOC ---
Past Medical History Past Medical History: Other Additional Past Medical Histor: NEUROPATHY Past Surgical History: Cholecystectomy, Hysterectomy, Tonsillectomy, Other Additional Past Surgical Histo: HERNIA REPAIR Smoking Status: Current Every Day Smoker Additional Information: 0.5 PPD Alcohol Use: None Drug Use: Marijuana General Adult EDM: Chief Complaint: CHEST PAIN HPI: HPI: Patient is a 44 year old female who presents with here today with mid chest pain that she states the pressure and at times it is sharp and will radiate to her back. She states that when she is lying flat she can feel it more her back but when she is up and moving is more so in the front. Pain is worse with movement of bilateral arms. Pain is reproducible with palpation over the chest. Rates her pain an 8 out of 10. States she has not taken any aspirin or anything for pain. Patient takes Lyrica and doxycycline for her spinal neuropathic pain. Patient states she smokes a half a pack a day. She denies abdominal pain, nausea, vomiting, diarrhea, fever, cough, dizziness, headache, focal weakness, vision changes, LOC, new numbness or tingling. She states that the pressure will make her feel short of breath. Review of Systems: Review of Systems: Respiratory: Denies cough. + shortness of breath. [] Cardiovascular: chest pain or denies edema. [] Heart Score: HEART Score for Chest Pain: HEART Score for Chest Pain Response (Comments) Value History Slighlty/Non-Suspicious 0 ECG Normal 0 Age < 45 0 Risk Factors 1 or 2 Risk Factors 1 Troponin < Normal Limit 0 Total 1 Risk Factors: Risk Factors: DM, Current or recent (<one month) smoker, HTN, HLP, family history of CAD, obesity. Risk Scores: Score 0 - 3: 2.5% MACE over next 6 weeks - Discharge Home Score 4 - 6: 20.3% MACE over next 6 weeks - Admit for Clinical Observation Score 7 - 10: 72.7% MACE over next 6 weeks - Early Invasive Strategies Allergies: Allergies: Allergies Coded Allergies Type Severity Reaction Last Updated Verified sulfamethoxazole Allergy Intermediate 07/14/19 Yes trimethoprim Allergy Intermediate 07/14/19 Yes Physical Exam: PE: Constitutional: Well developed, well nourished, no acute distress, non-toxic appearance. [] HENT: Normocephalic, atraumatic, bilateral external ears normal, oropharynx moist, no oral exudates, nose normal. [] Eyes: PERRLA, EOMI, conjunctiva normal, no discharge. [] Neck: Normal range of motion, no tenderness, supple, no stridor. [] Cardiovascular:Heart rate regular rhythm, no murmur [] Lungs & Thorax: Bilateral breath sounds clear to auscultation [] Abdomen: Bowel sounds normal, soft, no tenderness, no masses, no pulsatile masses. [] Skin: Warm, dry, no erythema, no rash. [] Back: No tenderness, no CVA tenderness. [] Extremities: No tenderness, no cyanosis, no clubbing, ROM intact, no edema. [] Neurologic: Alert and oriented X 3, normal motor function, normal sensory function, no focal deficits noted. [] Psychologic: Affect normal, judgement normal, mood normal. [] Normal Physical Exam Current Patient Data: Vital Signs: Vital Signs Date Time Temp Pulse Resp B/P (MAP) Pulse Ox O2 Delivery O2 Flow Rate FiO2 02/24/20 11:51 98.7 81 17 136/82 (100) 98 Room Air 98.7 EKG: EK and read by Dr. Carbajal as normal sinus rhythm and no STEMI. [] Radiology/Procedures: Radiology/Procedures: [] Impression: [place] [id number] IMAGING REPORT Signed PATIENT: SACHA ARMENTA ACCOUNT: [id number] : 1975 LOCATION: ER AGE: 44 SEX: F EXAM STATUS: PRE ER ORD. PHYSICIAN: MONIKA WILD APRN REASON: chest pain PROCEDURE: PORTABLE CHEST 1V AP chest x-ray COMPARISON: No priors. HISTORY: Chest pain. FINDINGS: Heart size normal. Mediastinal silhouette is normal. No pneumothorax, pulmonary opacities or pleural effusions. Bones are unremarkable. IMPRESSION: No acute process. Electronically signed by: Bailey Carpenter MD (02/24/2020 12:35 PM) [id number] DICTATED and SIGNED BY: BAILEY CARPENTER MD DATE: 02/24/20 1235 [place] [id number] IMAGING REPORT Signed PATIENT: SACHA ARMENTA ACCOUNT: [id number] : 1975 LOCATION: [facility]TH AGE: 44 SEX: F EXAM STATUS: ADM IN ORD. PHYSICIAN: MONIKA WIDL APRN REASON: LEFT SIDE CHEST PAIN X 2 DAYS. PROCEDURE: CT ANGIOGRAPHY CHEST ABDOMEN PQRS Compliance Statement: One or more of the following individualized dose reduction techniques were utilized for this examination: 1. Automated exposure control 2. Adjustment of the mA and/or kV according to patient size 3. Use of iterative reconstruction technique CT angiography chest and abdomen with contrast 02/24/2020 2:02 PM INDICATION: Left-sided chest pain for 2 days COMPARISON: None available TECHNIQUE: Axial CT images of the chest and abdomen were obtained after the intravenous administration of nonionic contrast. Coronal and sagittal reformats are provided. Maximum intensity projection images of the thoracic vasculature are provided. FINDINGS: The thyroid gland is normal in appearance. There are no pathologically enlarged axillary, mediastinal or hilar lymph nodes. The heart size is within normal limits. No significant pericardial effusion. Thoracic aorta is normal in course and caliber. There are no suspicious solid noncalcified pulmonary nodules. There are no pulmonary infiltrates. There are no pleural effusions. No pulmonary vascular congestion or pneumothorax. Simple cyst is identified in the anterior aspect of the medial left lower lobe (series 4, image 78). No suspicious hepatic lesions. Spleen, bilateral adrenal glands and pancreas. Gallbladder surgically absent. Abdominal aorta is normal in course and caliber. Infrarenal abdominal aortic aneurysm or dissection. Small large bowel are normal in caliber. No bowel obstruction is no mass. No suspicious osseous abnormality is identified. IMPRESSION: There is no evidence for aortic dissection or aneurysm. Electronically signed by: Nasir Moore MD (02/24/2020 3:02 PM) [facility] DICTATED and SIGNED BY: NASIR MOORE MD DATE: 02/24/20 1502 Course & Med Decision Making: Course & Med Decision Making Pertinent Labs and Imaging studies reviewed. (See chart for details) Speaks in full clear sentences. Alert and oriented. Skin pink warm and dry. No peripheral edema. Ambulatory with a steady gait. Pain is reproducible when I have the patient move bilateral arms or I palpate over the chest. Lungs are clear to auscultation in all lobes. Patient has a history of cholecystectomy, hysterectomy, tonsillectomy, hernia repair, smoker. Patient is hemodynamically stable. Troponin is negative. Patient is normal sinus rhythm. Heart score is a 1. I suspect this is musculoskeletal due to the pain is worse with movement. Patient was given aspirin 325, fentanyl and GI cocktail. Patient continues to have pain. Vital signs remain normal. I have spoken to the patient and she is wanting to be admitted. I have spoken to Dr. Mchugh and he states to go ahead and do a CT of the chest and consult cardiology. Patient is admitted to the hospital. [] Earnest Disclaimer: Earnest Disclaimer: This electronic medical record was generated, in whole or in part, using a voice recognition dictation system. Departure Departure Impression: Primary Impression: Chest pain Qualified Codes: R07.9 - Chest pain, unspecified Disposition: ADMITTED INPATIENT Admitting Physician: ROSARIO Condition: STABLE Referrals: UNKNOWN PCP NAME (PCP) Justicifation of Admission Dx: Justifications for Admission: Justification of Admission Dx: Yes Angina: New-Onset MONIKA WILD ECHO VASCULAR TECHNOLOGIST Feb 24, 2020 12:17
[2020-02-24 12:20] LABS: BASO % 1 % (0-3); EOS # 0.1 x10^3/uL (0.0-0.7); EOS % 2 % (0-3); HEMATOCRIT 34.7 % (36.0-47.0); HEMOGLOBIN 11.2 g/dL (12.0-15.5); LYMPH # 1.6 x10^3/uL (1.0-4.8); LYMPH % 38 % (24-48); MEAN CORPUSCULAR HEMOGLOBIN 23 pg (25-35); MEAN CORPUSCULAR HGB CONC 32 g/dL (31-37); MEAN CORPUSCULAR VOLUME 72 fL (79-100); MONO # 0.3 x10^3/uL (0.0-1.1); MONO % 7 % (0-9); NEUT # 2.2 x10^3/uL (1.8-7.7); NEUT % 52 % (31-73); PLATELET COUNT 262 x10^3/uL (140-400); RED BLOOD COUNT 4.82 x10^6/uL (3.50-5.40); RED CELL DISTRIBUTION WIDTH 16.4 % (11.5-14.5); WHITE BLOOD COUNT 4.2 x10^3/uL (4.0-11.0)
[2020-02-24 12:27] LABS: CALCIUM 8.8 mg/dL (8.5-10.1); GFR 73.2; POTASSIUM 3.6 mmol/L (3.5-5.1)
[2020-02-24 12:28] LABS: PROTHROMBIN TIME PATIENT 12.2 SEC (11.7-14.0)
[2020-02-24] MEDS ORDERED: ASPIRIN 325 MG TABLET PO ONE (12:30)
[2020-02-24] MEDS ORDERED: fentaNYL PF VIAL 100 MCG/2 ML VIAL IVP ONE (12:30)
[2020-02-24 12:33] LABS: ALBUMIN 3.6 g/dL (3.4-5.0); ALBUMIN/GLOBULIN RATIO 0.9 (1.0-1.7); TOTAL BILIRUBIN 0.3 mg/dL (0.2-1.0); TOTAL PROTEIN 7.7 g/dL (6.4-8.2)
[2020-02-24 12:33] LABS: BILIRUBIN,URINE NEGATIVE (NEG); CLARITY,URINE CLEAR; COLOR,URINE YELLOW; NITRITE,URINE NEGATIVE (NEG); PROTEIN,URINE NEGATIVE (NEG-TRACE); UROBILINOGEN,URINE 0.2 mg/dL (0.2 mg/dL)
--- NOTE | 2020-02-24 12:38 | RAD ---
AP chest x-ray COMPARISON: No priors. HISTORY: Chest pain. FINDINGS: Heart size normal. Mediastinal silhouette is normal. No pneumothorax, pulmonary opacities or pleural effusions. Bones are unremarkable. IMPRESSION: No acute process. Electronically signed by: Denton Carpenter MD (02/24/2020 12:35 PM) [id number]
[2020-02-24 12:42] LABS: BARBITURATES NEG (NEG); BENZODIAZEPINES NEG (NEG); CANNABINOIDS POS (NEG); COCAINE NEG (NEG); METHADONE NEG (NEG); OPIATES NEG (NEG); PHENCYCLIDINE NEG (NEG)
[2020-02-24 12:44] LABS: BACTERIA,URINE FEW /HPF (0-FEW); SQUAMOUS EPITHELIAL CELL,UR MANY /LPF
[2020-02-24 12:45] LABS: AMPHETAMINE/METHAMPHETAMINE NEG (NEG)
[2020-02-24] MEDS ORDERED: LIDO:MAALOX 1:1 20 ML SINGLE DOSE. SWSW ONE (13:00)
[2020-02-24 13:27] LABS: ANISOCYTOSIS SLIGHT; HYPOCHROMIA SLIGHT; MICROCYTOSIS MOD; OVALOCYTES FEW; PLT ESTIMATE ADEQUATE (ADEQUATE); POLYCHROMASIA SLIGHT; TEAR DROP CELLS OCC
[2020-02-24] MEDS ORDERED: KETOROLAC 30 MG/ML VIAL. IVP ONE (14:00)
[2020-02-24] MEDS ORDERED: IV NORMAL SALINE 1000ML BAG 1,000 ML IV ONE (14:15)
[2020-02-24] MEDS ORDERED: ONDANSETRON PF 4 MG/2 ML VIAL. IV PRN ×2 (14:15→16:45)
--- NOTE | 2020-02-24 14:19 | PDOC1 ---
History and Physical Date of Admission Date of Admission DATE: 02/24/20 TIME: 14:18 Identification/Chief Complaint Chief Complaint SEEN IN ER 44 year old female who presents with here today with mid chest pain that she states the pressure and at times it is sharp and will radiate to her back. She states that when she is lying flat she can feel it more her back but when she is up and moving is more so in the front. Pain is worse with movement of bilateral arms. Pain is reproducible with palpation over the chest. Rates her pain an 8 out of 10. States she has not taken any aspirin or anything for pain. Patient takes Lyrica and doxycycline for her spinal neuropathic pain. PAIN NOT IMPROVED BY conservative means in er Past Medical History Past Medical History Past Medical History Past Medical History Past Medical History: Other Additional Past Medical Histor: NEUROPATHY Past Surgical History: Cholecystectomy, Hysterectomy, Tonsillectomy, Other Additional Past Surgical Histo: HERNIA REPAIR Smoking Status: Current Every Day Smoker Additional Information: 0.5 PPD Alcohol Use: None Drug Use: Marijuana Date: Jul 14, 2019 Pre-Op Diagnosis: Biliary dyskinesia Post-Op Diagnosis: same Procedure Performed: laparoscopic cholecystectomy with cholangiogram Surgeon: Carroll Rivera Anesthesia Type: GETA plus local Blood Loss: 50 Specimans Obtained: gallbladder Findings: normal anatomy, normal cholangiogram FHX COPD Cardiovascular: Hyperlipidemia Psych: Anxiety, Addictions Past Surgical History Past Surgical History: No pertinent history Family History Family History: Hepatitis, High Cholestrol, Hypertension, Family History Unknown Social History Smoke: <1 pack per day ALCOHOL: none Drugs: Marijuana Current Problem List Problem List Problems Medical Problems: (1) Chest pain Status: Acute Current Medications Current Medications Current Medications Aspirin (Olga Aspirin) 325 mg 1X ONCE PO Last administered on 02/24/20at 12:22; Start 02/24/20 at 12:30; Stop 02/24/20 at 12:31; Status DC Fentanyl Citrate (Fentanyl 2ml Vial) 50 mcg 1X ONCE IVP Last administered on 02/24/20at 12:22; Start 02/24/20 at 12:30; Stop 02/24/20 at 12:31; Status DC Multi-Ingredient Mouthwash/Gargle (Gi Cocktail) 20 ml 1X ONCE SWSW Last administered on 02/24/20at 13:28; Start 02/24/20 at 13:00; Stop 02/24/20 at 13:01; Status DC Ketorolac Tromethamine (Toradol 30mg Vial) 30 mg 1X ONCE IVP ; Start 02/24/20 at 14:00; Stop 02/24/20 at 14:03; Status DC Ondansetron HCl (Zofran) 4 mg PRN Q8HRS PRN IV NAUSEA/VOMITING; Start 02/24/20 at 14:15; Stop 02/25/20 at 14:14 Fentanyl Citrate (Fentanyl 2ml Vial) 50 mcg PRN Q1HR PRN IV PAIN; Start 02/24/20 at 14:15; Stop 02/25/20 at 14:14 Sodium Chloride 1,000 ml @ 1,000 mls/hr 1X ONCE IV ; Start 02/24/20 at 14:15; Stop 02/24/20 at 15:14 Iohexol (Omnipaque 350 Mg/ml) 90 ml 1X ONCE IV ; Start 02/24/20 at 14:30; Stop 02/24/20 at 14:31; Status UNV Active Scripts Active Dicyclomine Hcl 20 Mg Tablet 1 Tab PO TID Zofran (Ondansetron Hcl) 4 Mg Tablet 1 Tab PO Q6HRS Promethazine Hcl 25 Mg Supp.rect 2-Sep Supp RC QID 3 Days Zofran (Ondansetron Hcl) 4 Mg Tablet 1 Tab PO Q6HRS Zofran (Ondansetron Hcl) 4 Mg Tablet 1 Tab PO Q6HRS [place] 5-325 Tablet (Acetaminophen/Hydrocodone Bitart) 1 Each Tablet 1 Tab PO PRN Q6HRS PRN Ondansetron Odt (Ondansetron) 4 Mg Tab.rapdis 1 Tab PO PRN Q6-8HRS Pantoprazole Sodium (Pantoprazole Sodium) 40 Mg Tablet.dr 40 Mg PO DAILYAC Percocet 5-325 Mg Tablet (Oxycodone/Acetaminophen) 1 Each Tablet 1 Tab PO PRN Q4HRS PRN Reported Vitamin D3 (Cholecalciferol (Vitamin D3)) 1,000 Unit Tablet 1,000 Unit PO UD Pamelor (Nortriptyline Hcl) 25 Mg Capsule 20 Mg PO QHS Lyrica (Pregabalin) 150 Mg Capsule 1 Cap PO TID Allergies Allergies: Coded Allergies: sulfamethoxazole (Verified Allergy, Intermediate, 07/14/19) trimethoprim (Verified Allergy, Intermediate, 07/14/19) ROS Review of System 14 pt ros otherwise neg General: No: Chills, Night Sweats, Fatigue, Malaise, Appetite, Other PSYCHOLOGICAL ROS: No: Anxiety, Behavioral Disorder, Concentration difficultie, Decreased libido, Depression, Disorientation, Hallucinations, Hostility, Irritablity, Memory difficulties, Mood Swings, Obsessive thoughts, Physical abuse, Sexual abuse, Sleep disturbances, Suicidal ideation, Other HEENT: No: Heacaches, Visual Changes, Hearing change, Nasal congestion, Nasal discharge, Oral lesions, Sinus pain, Sore Throat, Epistaxis, Sneezing, Snoring, Tinnitus, Vertigo, Vocal changes, Other ALLERGY AND IMMUNOLOGY: YES: Hives; No: Insect Bite Sensitivity, Itchy/Watery Eyes, Nasal Congestion, Post Nasal Drip, Seasonal Allergies, Other Hematological and Lymphatic: No: Bleeding Problems, Blood Clots, Blood Transfusions, Brusing, Night Sweats, Pallor, Swollen Lymph Nodes, Other Respiratory: No: Cough, Hemoptysis, Orthopnea, Pleuritic Pain, Shortness of breath, SOB with excertion, Sputum Changes, Stridor, Tachypnea, Wheezing, Other Cardiovascular: yes Chest Pain Gastrointestinal: No Nausea, No Vomiting, No Abdominal Pain, No Diarrhea, No Constipation, No Melena, No Hematochezia, No Other Genitourinary: No Dysuria, No Frequency, No Incontinence, No Hematuria, No Retention, No Discharge, No Urgency, No Pain, No Flank Pain, No Other, No , No , No , No , No , No , No Musculoskeletal: No Gait Disturbance, No Joint Pain, No Joint Stiffness, No Joint Swelling, No Muscle Pain, No Muscular Weakness, No Pain In:, No Swelling In:, No Other Neurological: No Behavorial Changes, No Bowel/Bladder ControlChng, No Confusion, No Dizziness, No Gait Disturbance, No Headaches, No Impaired Coord/balance, No Memory Loss, No Numbness/Tingling, No Seizures, No Speech Problems, No Tremors, No Visual Changes, No Weakness, No Other Skin: No Dry Skin, No Eczema, No Hair Changes, No Lumps, No Mole Changes, No Mottling, No Nail Changes, No Pruritus, No Rash, No Skin Lesion Changes, No Other, No Acne Physical Exam Physical Exam Constitutional: Well developed, well nourished, mild acute distress, non-toxic appearance. [] HENT: Normocephalic, atraumatic, bilateral external ears normal, oropharynx moist, no oral exudates, nose normal. [] Eyes: PERRLA, EOMI, conjunctiva normal, no discharge. [] Neck: Normal range of motion, no tenderness, supple, no stridor. [] Cardiovascular:Heart rate regular rhythm, no murmur [] Lungs & Thorax: Bilateral breath sounds clear to auscultation [] Abdomen: Bowel sounds normal, soft, no tenderness, no masses, no pulsatile masses. [] Skin: Warm, dry, no erythema, no rash. [] Back: No tenderness, no CVA tenderness. [] Extremities: No tenderness, no cyanosis, no clubbing, ROM intact, no edema. [] Neurologic: Alert and oriented X 3, normal motor function, normal sensory function, no focal deficits noted. [] Psychologic: Affect normal, judgment normal, mood normal. [] General: Alert, Oriented X3, Cooperative, mild distress HEENT: EOMI, Mucous membr. moist/pink Lungs: Clear to auscultation, Normal air movement Heart: RRR, no thrills Breasts: Not examined Abdomen: Normal bowel sounds, Soft, No tenderness, No masses Rectal Exam: not examined PELVIC: Examination not indicated Extremities: No clubbing, No cyanosis, No edema Skin: No significant lesion Neuro: Normal speech, Cranial nerves 3-12 NL Psych/Mental Status: Mental status NL, Mood NL Vitals Vitals Vital Signs Date Time Temp Pulse Resp B/P (MAP) Pulse Ox O2 Delivery O2 Flow Rate FiO2 02/24/20 13:26 52 25 136/71 (92) 97 Room Air 02/24/20 11:51 98.7 98.7 Labs Labs Laboratory Tests Test 02/24/20 12:05 02/24/20 12:19 White Blood Count 4.2 x10^3/uL (4.0-11.0) Red Blood Count 4.82 x10^6/uL (3.50-5.40) Hemoglobin 11.2 g/dL (12.0-15.5) Hematocrit 34.7 % (36.0-47.0) Mean Corpuscular Volume 72 fL (79-100) Mean Corpuscular Hemoglobin 23 pg (25-35) Mean Corpuscular Hemoglobin Concent 32 g/dL (31-37) Red Cell Distribution Width 16.4 % (11.5-14.5) Platelet Count 262 x10^3/uL (140-400) Neutrophils (%) (Auto) 52 % (31-73) Lymphocytes (%) (Auto) 38 % (24-48) Monocytes (%) (Auto) 7 % (0-9) Eosinophils (%) (Auto) 2 % (0-3) Basophils (%) (Auto) 1 % (0-3) Neutrophils # (Auto) 2.2 x10^3/uL (1.8-7.7) Lymphocytes # (Auto) 1.6 x10^3/uL (1.0-4.8) Monocytes # (Auto) 0.3 x10^3/uL (0.0-1.1) Eosinophils # (Auto) 0.1 x10^3/uL (0.0-0.7) Basophils # (Auto) 0.0 x10^3/uL (0.0-0.2) Platelet Estimate Adequate (ADEQUATE) Polychromasia Slight Hypochromasia Slight Anisocytosis Slight Microcytosis Mod Tear Drop Cells Occ Ovalocytes Few Prothrombin Time 12.2 SEC (11.7-14.0) Prothromb Time International Ratio 0.9 (0.8-1.1) Sodium Level 141 mmol/L (136-145) Potassium Level 3.6 mmol/L (3.5-5.1) Chloride Level 105 mmol/L (98-107) Carbon Dioxide Level 28 mmol/L (21-32) Anion Gap 8 (6-14) Blood Urea Nitrogen 7 mg/dL (7-20) Creatinine 1.0 mg/dL (0.6-1.0) Estimated GFR (Cockcroft-Gault) 73.2 BUN/Creatinine Ratio 7 (6-20) Glucose Level 94 mg/dL (70-99) Calcium Level 8.8 mg/dL (8.5-10.1) Total Bilirubin 0.3 mg/dL (0.2-1.0) Aspartate Amino Transf (AST/SGOT) 17 U/L (15-37) Alanine Aminotransferase (ALT/SGPT) 15 U/L (14-59) Alkaline Phosphatase 102 U/L (46-116) Troponin I Quantitative < 0.017 ng/mL (0.000-0.055) ZQ-Cjk-S-Type Natriuretic Peptide 38 pg/mL (0-124) Total Protein 7.7 g/dL (6.4-8.2) Albumin 3.6 g/dL (3.4-5.0) Albumin/Globulin Ratio 0.9 (1.0-1.7) Lipase 98 U/L (73-393) Urine Collection Type Unknown Urine Color Yellow Urine Clarity Clear Urine pH 6.0 (<5.0-8.0) Urine Specific [place] <=1.005 (1.000-1.030) Urine Protein Negative mg/dL (NEG-TRACE) Urine Glucose (UA) Negative mg/dL (NEG) Urine Ketones (Stick) Negative mg/dL (NEG) Urine Blood Negative (NEG) Urine Nitrite Negative (NEG) Urine Bilirubin Negative (NEG) Urine Urobilinogen Dipstick 0.2 mg/dL (0.2 mg/dL) Urine Leukocyte Esterase Negative (NEG) Urine RBC 1-2 /HPF (0-2) Urine WBC 1-4 /HPF (0-4) Urine Squamous Epithelial Cells Many /LPF Urine Bacteria Few /HPF (0-FEW) Urine Opiates Screen Neg (NEG) Urine Methadone Screen Neg (NEG) Urine Barbiturates Neg (NEG) Urine Phencyclidine Screen Neg (NEG) Urine Amphetamine/Methamphetamine Neg (NEG) Urine Benzodiazepines Screen Neg (NEG) Urine Cocaine Screen Neg (NEG) Urine Cannabinoids Screen Pos (NEG) Urine Ethyl Alcohol Neg (NEG) Laboratory Tests Test 02/24/20 12:05 02/24/20 12:19 White Blood Count 4.2 x10^3/uL (4.0-11.0) Red Blood Count 4.82 x10^6/uL (3.50-5.40) Hemoglobin 11.2 g/dL (12.0-15.5) Hematocrit 34.7 % (36.0-47.0) Mean Corpuscular Volume 72 fL (79-100) Mean Corpuscular Hemoglobin 23 pg (25-35) Mean Corpuscular Hemoglobin Concent 32 g/dL (31-37) Red Cell Distribution Width 16.4 % (11.5-14.5) Platelet Count 262 x10^3/uL (140-400) Neutrophils (%) (Auto) 52 % (31-73) Lymphocytes (%) (Auto) 38 % (24-48) Monocytes (%) (Auto) 7 % (0-9) Eosinophils (%) (Auto) 2 % (0-3) Basophils (%) (Auto) 1 % (0-3) Neutrophils # (Auto) 2.2 x10^3/uL (1.8-7.7) Lymphocytes # (Auto) 1.6 x10^3/uL (1.0-4.8) Monocytes # (Auto) 0.3 x10^3/uL (0.0-1.1) Eosinophils # (Auto) 0.1 x10^3/uL (0.0-0.7) Basophils # (Auto) 0.0 x10^3/uL (0.0-0.2) Platelet Estimate Adequate (ADEQUATE) Polychromasia Slight Hypochromasia Slight Anisocytosis Slight Microcytosis Mod Tear Drop Cells Occ Ovalocytes Few Prothrombin Time 12.2 SEC (11.7-14.0) Prothromb Time International Ratio 0.9 (0.8-1.1) Sodium Level 141 mmol/L (136-145) Potassium Level 3.6 mmol/L (3.5-5.1) Chloride Level 105 mmol/L (98-107) Carbon Dioxide Level 28 mmol/L (21-32) Anion Gap 8 (6-14) Blood Urea Nitrogen 7 mg/dL (7-20) Creatinine 1.0 mg/dL (0.6-1.0) Estimated GFR (Cockcroft-Gault) 73.2 BUN/Creatinine Ratio 7 (6-20) Glucose Level 94 mg/dL (70-99) Calcium Level 8.8 mg/dL (8.5-10.1) Total Bilirubin 0.3 mg/dL (0.2-1.0) Aspartate Amino Transf (AST/SGOT) 17 U/L (15-37) Alanine Aminotransferase (ALT/SGPT) 15 U/L (14-59) Alkaline Phosphatase 102 U/L (46-116) Troponin I Quantitative < 0.017 ng/mL (0.000-0.055) UB-Hdj-X-Type Natriuretic Peptide 38 pg/mL (0-124) Total Protein 7.7 g/dL (6.4-8.2) Albumin 3.6 g/dL (3.4-5.0) Albumin/Globulin Ratio 0.9 (1.0-1.7) Lipase 98 U/L (73-393) Urine Collection Type Unknown Urine Color Yellow Urine Clarity Clear Urine pH 6.0 (<5.0-8.0) Urine Specific [place] <=1.005 (1.000-1.030) Urine Protein Negative mg/dL (NEG-TRACE) Urine Glucose (UA) Negative mg/dL (NEG) Urine Ketones (Stick) Negative mg/dL (NEG) Urine Blood Negative (NEG) Urine Nitrite Negative (NEG) Urine Bilirubin Negative (NEG) Urine Urobilinogen Dipstick 0.2 mg/dL (0.2 mg/dL) Urine Leukocyte Esterase Negative (NEG) Urine RBC 1-2 /HPF (0-2) Urine WBC 1-4 /HPF (0-4) Urine Squamous Epithelial Cells Many /LPF Urine Bacteria Few /HPF (0-FEW) Urine Opiates Screen Neg (NEG) Urine Methadone Screen Neg (NEG) Urine Barbiturates Neg (NEG) Urine Phencyclidine Screen Neg (NEG) Urine Amphetamine/Methamphetamine Neg (NEG) Urine Benzodiazepines Screen Neg (NEG) Urine Cocaine Screen Neg (NEG) Urine Cannabinoids Screen Pos (NEG) Urine Ethyl Alcohol Neg (NEG) Images Images PQRS Compliance Statement: One or more of the following individualized dose reduction techniques were utilized for this examination: 1. Automated exposure control 2. Adjustment of the mA and/or kV according to patient size 3. Use of iterative reconstruction technique CT angiography chest and abdomen with contrast 02/24/2020 2:02 PM INDICATION: Left-sided chest pain for 2 days COMPARISON: None available TECHNIQUE: Axial CT images of the chest and abdomen were obtained after the intravenous administration of nonionic contrast. Coronal and sagittal reformats are provided. Maximum intensity projection images of the thoracic vasculature are provided. FINDINGS: The thyroid gland is normal in appearance. There are no pathologically enlarged axillary, mediastinal or hilar lymph nodes. The heart size is within normal limits. No significant pericardial effusion. Thoracic aorta is normal in course and caliber. There are no suspicious solid noncalcified pulmonary nodules. There are no pulmonary infiltrates. There are no pleural effusions. No pulmonary vascular congestion or pneumothorax. Simple cyst is identified in the anterior aspect of the medial left lower lobe (series 4, image 78). No suspicious hepatic lesions. Spleen, bilateral adrenal glands and pancreas. Gallbladder surgically absent. Abdominal aorta is normal in course and caliber. Infrarenal abdominal aortic aneurysm or dissection. Small large bowel are normal in caliber. No bowel obstruction is no mass. No suspicious osseous abnormality is identified. IMPRESSION: There is no evidence for aortic dissection or aneurysm. Electronically signed by: Nasir Moore MD (02/24/2020 3:02 PM) [facility] DICTATED and SIGNED BY: NASIR MOORE MD DATE: 02/24/20 1502 AP chest x-ray COMPARISON: No priors. HISTORY: Chest pain. FINDINGS: Heart size normal. Mediastinal silhouette is normal. No pneumothorax, pulmonary opacities or pleural effusions. Bones are unremarkable. IMPRESSION: No acute process. Electronically signed by: Bailey Carpenter MD (02/24/2020 12:35 PM) [id number] DICTATED and SIGNED BY: BAILEY CARPENTER MD DATE: 02/24/20 1235 VTE Prophylaxis Ordered VTE Prophylaxis Devices: Yes VTE Pharmacological Prophylaxi: Yes Assessment/Plan Assessment/Plan IMPRESSION: no evidence for aortic dissection or aneurysm. by CTA CHEST Chest pain tobacco abuse disorder thc abuse GERD ADMITTED CTA CHEST CVC BED Serial troponin i consult cardiology PO PROTONIX D/W ED DR Sepulveda of Admission Dx: Justifications for Admission: Justification of Admission Dx: Yes Angina: [facility] DELFIN DAVIS MD Feb 24, 2020 14:19
[2020-02-24] MEDS ORDERED: IOHEXOL 350 MG/ML 100 ML VIAL. IV ONE (14:30)
[2020-02-24] MEDS ORDERED: CONTRAST GIVEN. MC PRN (14:30)
[2020-02-24] MEDS: fentaNYL PF VIAL 100 MCG/2 ML VIAL IV PRN ×3 (14:44→21:57)
--- NOTE | 2020-02-24 15:05 | RAD ---
PQRS Compliance Statement: One or more of the following individualized dose reduction techniques were utilized for this examination: 1. Automated exposure control 2. Adjustment of the mA and/or kV according to patient size 3. Use of iterative reconstruction technique CT angiography chest and abdomen with contrast 02/24/2020 2:02 PM INDICATION: Left-sided chest pain for 2 days COMPARISON: None available TECHNIQUE: Axial CT images of the chest and abdomen were obtained after the intravenous administration of nonionic contrast. Coronal and sagittal reformats are provided. Maximum intensity projection images of the thoracic vasculature are provided. FINDINGS: The thyroid gland is normal in appearance. There are no pathologically enlarged axillary, mediastinal or hilar lymph nodes. The heart size is within normal limits. No significant pericardial effusion. Thoracic aorta is normal in course and caliber. There are no suspicious solid noncalcified pulmonary nodules. There are no pulmonary infiltrates. There are no pleural effusions. No pulmonary vascular congestion or pneumothorax. Simple cyst is identified in the anterior aspect of the medial left lower lobe (series 4, image 78). No suspicious hepatic lesions. Spleen, bilateral adrenal glands and pancreas. Gallbladder surgically absent. Abdominal aorta is normal in course and caliber. Infrarenal abdominal aortic aneurysm or dissection. Small large bowel are normal in caliber. No bowel obstruction is no mass. No suspicious osseous abnormality is identified. IMPRESSION: There is no evidence for aortic dissection or aneurysm. Electronically signed by: Margarita Montoya MD (02/24/2020 3:02 PM) [facility]
[2020-02-24 15:23] VITALS: BP 124/76
--- NOTE | 2020-02-24 16:00 | NUR ---
The patient, SACHA ARMENTA, 44 y/o, F admitted by DELFIN DAVIS MD, was given written information regarding hospital policies, unit procedures and contact persons. Valuables were checked and and left in room with patient. Educated patient on chest pain protocol i.e. serial troponin, ECHO, etc. Patient verbalized understanding. Patient requested pain medicine stating she is still 10/10 pain. Patient stated that pain medicine given in ER did not manage her pain. I advised there was only 1 pain medication ordered and available. Patient agreeable.
[2020-02-24] MEDS ORDERED: CYAN50TA PO (16:39)
[2020-02-24] MEDS ORDERED: cloNIDine HCL 0.1 MG TABLET PO PRN (16:45)
[2020-02-24] MEDS ORDERED: guaiFENesin ORAL 200 MG/10 ML LIQUID. PO PRN (16:45)
[2020-02-24] MEDS ORDERED: DOCUSATE SODIUM 100 MG CAPSULE. PO PRN (16:45)
[2020-02-24] MEDS: DICYCLOMINE HCL 10 MG CAPSULE PO SCH ×2 (16:45→21:55)
[2020-02-24] MEDS ORDERED: MAG HYDROX/ALUMINUM HYD/SIMETH 30 ML ORAL.SUSP PO PRN (16:45)
[2020-02-24] MEDS ORDERED: ACETAMINOPHEN 325 MG TABLET. PO PRN (16:45)
[2020-02-24] MEDS ORDERED: ALBUTEROL SULFATE 2.5 MG/3 ML NEBU. NEB PRN (16:45)
[2020-02-24] MEDS ORDERED: SODIUM PHOSPHATES 19/7GM 133 ML ENEMA. PR PRN (16:45)
[2020-02-24] MEDS ORDERED: 0.9 % SODIUM CHLORIDE 10 ML DISP.SYRIN. IV PRN (16:45)
[2020-02-24] MEDS ORDERED: ENOXAPARIN 40 MG/0.4 ML SYRINGE. SQ SCH (17:00)
[2020-02-24] MEDS: PANTOPRAZOLE 40 MG TABLET.DR. PO SCH (17:28)
[2020-02-24] MEDS: PREGABALIN 75 MG CAPSULE PO SCH ×2 (17:28→21:55)
[2020-02-24] MEDS: IV NORMAL SALINE 1000ML BAG 1,000 ML IV SCH (17:31)
[2020-02-24 19:02] VITALS: BP 108/67
[2020-02-24 22:59] VITALS: BP 125/84
[2020-02-25] MEDS: IV NORMAL SALINE 1000ML BAG 1,000 ML IV SCH ×2 (02:36→12:33)
[2020-02-25 03:49] VITALS: BP 98/58
[2020-02-25 07:00] VITALS: BP 124/73
[2020-02-25] MEDS: PANTOPRAZOLE 40 MG TABLET.DR. PO SCH (07:30)
--- NOTE | 2020-02-25 08:43 | EKG ---
[facility] [address] [place] [address] Test Date: 2020-02-24 Test Time: 11:54:54 Pat Name: SACHA ARMENTA Department: Room: 263 1 Gender: F [employer] Agent: : [id number] Requested By: MONIKA WILD Order Number: [id number] Reading MD: Mik Mercedes MD Measurements Intervals [place] Rate: 73 P: 28 UT: 148 QRS: 13 QRSD: 72 T: -16 QT: 356 QTc: 396 Interpretive Statements SINUS RHYTHM Electronically Signed On 02-28-2020 11:50:56 CDT by Mik Mercedes MD
[2020-02-25] MEDS: DICYCLOMINE HCL 10 MG CAPSULE PO SCH ×2 (08:55→13:53)
[2020-02-25] MEDS: PREGABALIN 75 MG CAPSULE PO SCH ×2 (08:55→13:53)
[2020-02-25] MEDS ORDERED: oxyCODONE/APAP 5/325 1 TAB TABLET PO PRN (11:00)
--- NOTE | 2020-02-25 11:02 | CARD ---
MR#: [id number] Date of Study: 02/25/2020 Ordering Physician: MINNA CLINE, Referring Physician: MINNA CLINE, Tech: Marta Andrews [facility] APPROVED REPORT EXAM: Two-dimensional and M-mode echocardiogram with Doppler and color Doppler. Other Information Quality : Good INDICATION Chest Pain 2D DIMENSIONS RVDd2.3 (2.9-3.5cm)Left Atrium(2D)2.9 (1.6-4.0cm) IVSd0.9 (0.7-1.1cm)Aortic Root(2D)2.5 (2.0-3.7cm) LVDd4.9 (3.9-5.9cm)LVOT Diameter2.0 (1.8-2.4cm) PWd1.0 (0.7-1.1cm)LVDs3.1 (2.5-4.0cm) FS (%) 35.7 %SV71.9 ml LVEF(%)60.0 (>50%) Aortic Valve AoV Peak Miquel.114.3cm/sAoV VTI22.0cm AO Peak GR.5.2mmHgLVOT Peak Miquel.107.6cm/s AO Mean GR.3mmHgAVA (VMAX)2.82cm2 BRIANNA (VTI)2.80cm2 Mitral Valve MV E Srvrjvvo29.5cm/sMV DECEL [id number] MV A Utacvhsn22.1cm/sE/A Ratio1.6 Tricuspid Valve TR P. [id number]/sRAP [id number] TR Peak Gr.33cmIsYZSZ38hqLt Pulmonary Vein S1 Dwyezlbf25.6cm/sD2 Qnncokju71.9cm/s LEFT VENTRICLE The left ventricle is normal size. There is normal left ventricular wall thickness. The left ventricu lar systolic function is normal and the ejection fraction is within normal range. The Ejection Fracti on is 55-60%. There is normal LV segmental wall motion. The left ventricular diastolic function and f illing is normal for age. RIGHT VENTRICLE The right ventricle is normal size. The right ventricular systolic function is normal. ATRIA The left atrium size is normal. The right atrium size is normal. The interatrial septum is intact wit h no evidence for an atrial septal defect or patent foramen ovale as noted on 2-D or Doppler imaging. AORTIC VALVE The aortic valve is normal in structure and function. Doppler and Color Flow revealed no significant aortic regurgitation. There is no significant aortic valvular stenosis. MITRAL VALVE The mitral valve is calcified but opens well. There is no evidence of mitral valve prolapse. There is no mitral valve stenosis. Doppler and Color Flow revealed no mitral valve regurgitation noted. TRICUSPID VALVE The tricuspid valve is normal in structure and function. Doppler and Color Flow revealed trace to mil d tricuspid regurgitation. The PA pressure was estimated at 29 mmHg. There is no tricuspid valve sten osis. PULMONIC VALVE The pulmonic valve is not well visualized. Doppler and Color Flow revealed trace pulmonic valvular re gurgitation. There is no pulmonic valvular stenosis. GREAT VESSELS The aortic root is normal in size. The ascending aorta is normal in size. The IVC is normal in size a nd collapses >50% with inspiration. PERICARDIAL EFFUSION There is no evidence of significant pericardial effusion. Critical Notification Critical Value: No <Conclusion> The left ventricle is normal size. The left ventricular systolic function is normal and the ejection fraction is within normal range. The Ejection Fraction is 55-60%. Doppler and Color Flow revealed no significant aortic regurgitation. There is no significant aortic valvular stenosis. Doppler and Color Flow revealed no mitral valve regurgitation noted. Doppler and Color Flow revealed trace to mild tricuspid regurgitation. The PA pressure was estimated at 29 mmHg. Signed by : Minna Cline MD Electronically Approved : 02/25/2020 11:01:32
[2020-02-25 11:15] VITALS: BP 104/70
[2020-02-25] MEDS ORDERED: LIDOCAINE (700MG/PATCH) PATCH. TD SCH (11:15)
--- NOTE | 2020-02-25 12:33 | PDOC2 ---
LISA OLMEDO APRN 02/25/20 1233: CARDIAC CONSULT DATE OF CONSULT Date of Consult DATE: 02/25/20 TIME: 12:29 REASON FOR CONSULT Reason for Consult: Chest pain REFERRING PHYSICIAN Referring Physician: Paulette Herrera APRN SOURCE Source: Chart review, Patient HISTORY OF PRESENT ILLNESS HISTORY OF PRESENT ILLNESS This is a 44 yo female who presented secondary to chest pain. Reports constant pain in her left chest for the last 3 days. Worse with deep breathing and with applying pressure to left chest. No dizziness, diaphoresis, palpitations, SOA, or nausea/vomiting. No h/o CAD. PAST MEDICAL HISTORY CENTRAL NERVOUS SYSTEM: Periperal neuropathy PAST SURGICAL HISTORY Past Surgical History: Cholecystectomy, Tonsillectomy, Hysterectomy FAMILY HISTORY Family History: Hypertension SOCIAL HISTORY Smoke: <1 pack per day ALCOHOL: none Drugs: Marijuana Lives: with Family CURRENT MEDICATIONS CURRENT MEDICATIONS Current Medications Medications (Trade) Dose Ordered Sig/Campos Route PRN Reason Start Time Stop Time Status Last Admin Dose Admin Aspirin (Olga Aspirin) 325 mg 1X ONCE PO 02/24/20 12:30 02/24/20 12:31 DC 02/24/20 12:22 Fentanyl Citrate (Fentanyl 2ml Vial) 50 mcg 1X ONCE IVP 02/24/20 12:30 02/24/20 12:31 DC 02/24/20 12:22 Multi-Ingredient Mouthwash/Gargle (Gi Cocktail) 20 ml 1X ONCE SWSW 02/24/20 13:00 02/24/20 13:01 DC 02/24/20 13:28 Ketorolac Tromethamine (Toradol 30mg Vial) 30 mg 1X ONCE IVP 02/24/20 14:00 02/24/20 14:03 DC 02/24/20 14:44 Fentanyl Citrate (Fentanyl 2ml Vial) 50 mcg PRN Q1HR PRN IV PAIN 02/24/20 14:15 02/25/20 14:14 02/24/20 21:57 Sodium Chloride 1,000 ml @ 1,000 mls/hr 1X ONCE IV 02/24/20 14:15 02/24/20 15:14 DC 02/24/20 14:43 Iohexol (Omnipaque 350 Mg/ml) 90 ml 1X ONCE IV 02/24/20 14:30 02/24/20 14:31 DC 02/24/20 14:48 Dicyclomine HCl (Bentyl) 20 mg TID PO 02/24/20 16:45 02/25/20 08:55 Pregabalin (Lyrica) 150 mg TID PO 02/24/20 16:45 02/25/20 08:55 Sodium Chloride 1,000 ml @ 100 mls/hr Q10H IV 02/24/20 16:33 02/25/20 02:36 Acetaminophen (Tylenol) 650 mg PRN Q4HRS PRN PO TEMP OVER 100.4F OR MILD PAIN 02/24/20 16:45 02/25/20 08:55 Enoxaparin Sodium (Lovenox 40mg Syringe) 40 mg Q24H SQ 02/24/20 17:00 02/24/20 17:29 Pantoprazole Sodium (Protonix) 40 mg DAILYAC PO 02/24/20 17:00 02/25/20 07:30 Oxycodone/ Acetaminophen (Percocet 5/325) 1 tab PRN Q4HRS PRN PO PAIN 02/25/20 11:00 02/25/20 11:03 Lidocaine (Lidoderm) 1 patch DAILY TD 02/25/20 11:15 02/25/20 11:17 ALLERGIES ALLERGIES: Coded Allergies: sulfamethoxazole (Verified Allergy, Intermediate, 07/14/19) trimethoprim (Verified Allergy, Intermediate, 07/14/19) ROS Review of System 14 point ROS conducted with pertinent positives noted above in HPI PHYSICAL EXAM General: Alert, Oriented X3, Cooperative, No acute distress HEENT: Atraumatic, Mucous membr. moist/pink Lungs: Clear to auscultation, Normal air movement Heart: Regular rate, Other (right chest tenderness upon palpitation) Abdomen: Soft Extremities: No edema, Normal pulses Skin: No significant lesion Neuro: Normal speech, Sensation intact Psych/Mental Status: Mental status NL, Mood NL MUSCULOSKELETAL: No joint tenderness VITALS/I&O VITALS/I&O: Vital Signs Date Time Temp Pulse Resp B/P (MAP) Pulse Ox O2 Delivery O2 Flow Rate FiO2 02/25/20 12:03 20 98 Room Air 02/25/20 11:15 97.4 60 104/70 (81) 97.4 I & O 02/24/20 02/24/20 02/25/20 15:00 23:00 07:00 Intake Total 200 ml 1400 ml Balance 200 ml 1400 ml LABS Lab: Laboratory Tests Test 02/24/20 17:20 02/24/20 19:40 Troponin I Quantitative < 0.017 ng/mL (0.000-0.055) < 0.017 ng/mL (0.000-0.055) ECHOCARDIOGRAM ECHOCARDIOGRAM <Conclusion> The left ventricle is normal size. The left ventricular systolic function is normal and the ejection fraction is within normal range. The Ejection Fraction is 55-60%. Doppler and Color Flow revealed no significant aortic regurgitation. There is no significant aortic valvular stenosis. Doppler and Color Flow revealed no mitral valve regurgitation noted. Doppler and Color Flow revealed trace to mild tricuspid regurgitation. The PA pressure was estimated at 29 mmHg. DATE: 02/25/20 1008 ASSESSMENT/PLAN ASSESSMENT/PLAN 1. Chest pain, atypical. AMI ruled out. Echo with preserved LV systolic function. CTA without dissection. Most probably MSK in origin. Has Lidoderm patch 2. Tobaccoism; discussed/encouraged cessation 3. Marijuana use. 4. Chronic neuropathic pain; on Lyrica Recommendations Lipids Echo WNL No further cardiac workup at this time If pain recurrent, could consider outpatient ischemic evaluation Supportive care Okay to discharge from a CV standpoint. JIHAN JOE MD 02/25/20 0959: CARDIAC CONSULT ASSESSMENT/PLAN ASSESSMENT/PLAN Patient seen and examined. Agree with NETWORK ANNOUNCER's assessment and plan. CP with atypical features and most probably musculoskeletal [place] ruled out 2D echo showed normal LVF without any WMA No further workup is indicated at this time Thank you for your consultation LISA OLMEDO APRN Feb 25, 2020 12:33 JIHAN JOE MD Feb 25, 2020 18:39
--- NOTE | 2020-02-25 12:42 | NUR ---
SS following for discharge planning. SS reviewed pt chart and discussed with pt RN. Pt is from home and is currently on room air. Pt is self pay pt. SS will continue to follow for discharge planning.
[2020-02-25] MEDS ORDERED: DOCU-153 PO (13:28)
[2020-02-25] MEDS ORDERED: LIDO700A21 TD (13:28)
[2020-02-25] MEDS ORDERED: OXYC1TAB15 PO (13:28)
--- NOTE | 2020-02-25 13:32 | PDOC3 ---
Discharge Summary Visit Information Date of Admission: Feb 24, 2020 Date of Discharge: Feb 25, 2020 Final Diagnosis acute chest pain, costochondritis, chronic neuropathic pain no evidence for aortic dissection or aneurysm. by CTA CHEST tobacco abuse disorder thc abuse GERD Problems Medical Problems: (1) Chest pain Status: Acute Brief Hospital Course Allergies Allergies Coded Allergies Type Severity Reaction Last Updated Verified sulfamethoxazole Allergy Intermediate 07/14/19 Yes trimethoprim Allergy Intermediate 07/14/19 Yes Vital Signs Vital Signs Date Time Temp Pulse Resp B/P (MAP) Pulse Ox O2 Delivery O2 Flow Rate FiO2 02/25/20 12:03 20 98 Room Air 02/25/20 11:15 97.4 60 104/70 (81) 97.4 Lab Results Laboratory Tests Test 02/24/20 12:05 02/24/20 12:19 02/24/20 17:20 02/24/20 19:40 White Blood Count 4.2 x10^3/uL (4.0-11.0) Red Blood Count 4.82 x10^6/uL (3.50-5.40) Hemoglobin 11.2 g/dL (12.0-15.5) Hematocrit 34.7 % (36.0-47.0) Mean Corpuscular Volume 72 fL (79-100) Mean Corpuscular Hemoglobin 23 pg (25-35) Mean Corpuscular Hemoglobin Concent 32 g/dL (31-37) Red Cell Distribution Width 16.4 % (11.5-14.5) Platelet Count 262 x10^3/uL (140-400) Neutrophils (%) (Auto) 52 % (31-73) Lymphocytes (%) (Auto) 38 % (24-48) Monocytes (%) (Auto) 7 % (0-9) Eosinophils (%) (Auto) 2 % (0-3) Basophils (%) (Auto) 1 % (0-3) Neutrophils # (Auto) 2.2 x10^3/uL (1.8-7.7) Lymphocytes # (Auto) 1.6 x10^3/uL (1.0-4.8) Monocytes # (Auto) 0.3 x10^3/uL (0.0-1.1) Eosinophils # (Auto) 0.1 x10^3/uL (0.0-0.7) Basophils # (Auto) 0.0 x10^3/uL (0.0-0.2) Platelet Estimate Adequate (ADEQUATE) Polychromasia Slight Hypochromasia Slight Anisocytosis Slight Microcytosis Mod Tear Drop Cells Occ Ovalocytes Few Prothrombin Time 12.2 SEC (11.7-14.0) Prothromb Time International Ratio 0.9 (0.8-1.1) Sodium Level 141 mmol/L (136-145) Potassium Level 3.6 mmol/L (3.5-5.1) Chloride Level 105 mmol/L (98-107) Carbon Dioxide Level 28 mmol/L (21-32) Anion Gap 8 (6-14) Blood Urea Nitrogen 7 mg/dL (7-20) Creatinine 1.0 mg/dL (0.6-1.0) Estimated GFR (Cockcroft-Gault) 73.2 BUN/Creatinine Ratio 7 (6-20) Glucose Level 94 mg/dL (70-99) Calcium Level 8.8 mg/dL (8.5-10.1) Total Bilirubin 0.3 mg/dL (0.2-1.0) Aspartate Amino Transf (AST/SGOT) 17 U/L (15-37) Alanine Aminotransferase (ALT/SGPT) 15 U/L (14-59) Alkaline Phosphatase 102 U/L (46-116) Troponin I Quantitative < 0.017 ng/mL (0.000-0.055) < 0.017 ng/mL (0.000-0.055) < 0.017 ng/mL (0.000-0.055) AU-Ojr-Q-Type Natriuretic Peptide 38 pg/mL (0-124) Total Protein 7.7 g/dL (6.4-8.2) Albumin 3.6 g/dL (3.4-5.0) Albumin/Globulin Ratio 0.9 (1.0-1.7) Lipase 98 U/L (73-393) Urine Collection Type Unknown Urine Color Yellow Urine Clarity Clear Urine pH 6.0 (<5.0-8.0) Urine Specific [place] <=1.005 (1.000-1.030) Urine Protein Negative mg/dL (NEG-TRACE) Urine Glucose (UA) Negative mg/dL (NEG) Urine Ketones (Stick) Negative mg/dL (NEG) Urine Blood Negative (NEG) Urine Nitrite Negative (NEG) Urine Bilirubin Negative (NEG) Urine Urobilinogen Dipstick 0.2 mg/dL (0.2 mg/dL) Urine Leukocyte Esterase Negative (NEG) Urine RBC 1-2 /HPF (0-2) Urine WBC 1-4 /HPF (0-4) Urine Squamous Epithelial Cells Many /LPF Urine Bacteria Few /HPF (0-FEW) Urine Opiates Screen Neg (NEG) Urine Methadone Screen Neg (NEG) Urine Barbiturates Neg (NEG) Urine Phencyclidine Screen Neg (NEG) Urine Amphetamine/Methamphetamine Neg (NEG) Urine Benzodiazepines Screen Neg (NEG) Urine Cocaine Screen Neg (NEG) Urine Cannabinoids Screen Pos (NEG) Urine Ethyl Alcohol Neg (NEG) Laboratory Tests Test 02/24/20 17:20 02/24/20 19:40 Troponin I Quantitative < 0.017 ng/mL (0.000-0.055) < 0.017 ng/mL (0.000-0.055) Brief Hospital Course Ms. Hernandez is a 44 old female, admit with acute chest pain, she described pain from check to back, CT angio ordered to r/o dissection, for me, pain to right chest and reproductible, still severe, try lidoderm and ice and PRN pain meds Dc home Discharge Information Condition at Discharge: Improved Follow Up: Weeks Disposition/Orders: D/C to Home, D/C to Another Facility Scheduled Cyanocobalamin (Vitamin B-12) (Vitamin B-12) 50 Mcg Tablet, 50 MCG PO DAILY for , (Reported) Entered as Reported by: Hawa Frost on 02/24/201638 Last Taken: 50 on Unknown Date & Time Last Action: New Order on 02/24/201638 by Hawa Frost Dicyclomine Hcl (Dicyclomine Hcl) 20 Mg Tablet, 1 TAB PO TID, #10 Ref 1 Prescribed by: CHANEL DA SILVA on 02/06/20 1116 Last Action: Converted on 02/24/201628 by DELFIN DAVIS MD Lidocaine (Lidocaine PATCH ) 1 Each Adh..patch, 1 PATCH TD DAILY for pain, #7 Prescribed by: BEN PARR on 02/25/20 1328 Pregabalin (Lyrica) 150 Mg Capsule, 1 CAP PO TID for neuropathy, #60 Ref 5 (Reported) Entered as Reported by: LISA SAMUELS, RN on 07/13/19 0341 Last Action: Converted on 02/24/20 1629 by DELFIN DAVIS MD Scheduled PRN Docusate Sodium (Dok) 100 Mg Capsule, 100 MG PO PRN BID PRN for HARD STOOLS, #30 Prescribed by: BEN PARR on 02/25/20 1328 Oxycodone/Apap 5-325 (Percocet 5-325 Mg Tablet ) 1 Each Tablet, 1 TAB PO PRN Q4HRS PRN for PAIN, #15 Prescribed by: BEN PARR on 02/25/20 1328 Patient Instructions Patient Instructions > 30min 2 visits face to face Justicifation of Admission Dx: Justifications for Admission: Justification of Admission Dx: Yes Angina: Symp at Rest BEN PARR MD Feb 25, 2020 13:32
[2020-02-25 15:15] VITALS: BP 105/69
[2020-02-25] MEDS ORDERED: PATCH REMOVAL. MC SCH (21:00)
[2020-02-26] MEDS ORDERED: ASPIRIN ENTERIC COATED 81 MG TABLET.DR. PO SCH (08:00)
== END 2020-02-25 15:51 | disposition home or self-care (01) | DRG 206 ==
LOC: ER 11:51 → 2 SOUTH 14:05
PROVIDERS: ADMIT Family Medicine; ATTEND Family Medicine
DX: M94.0 Chondrocostal junction syndrome [Tietze] (principal); F12.10 Cannabis abuse, uncomplicated; F17.210 Nicotine dependence, cigarettes, uncomplicated; I20.9 Angina pectoris, unspecified; K21.9 Gastro-esophageal reflux disease without esophagitis; G62.9 Polyneuropathy, unspecified; Z82.49 Family history of ischemic heart disease and other diseases of the circulatory system; Z90.710 Acquired absence of both cervix and uterus; Z79.899 Other long term (current) drug therapy; Z88.8 Allergy status to other drugs, medicaments and biological substances; Z90.49 Acquired absence of other specified parts of digestive tract; Z71.6 Tobacco abuse counseling
CPT/HCPCS: 36415; 71045; 71275; 74175; 80053; 80307; 81001; 83690; 83880; 84484; 85025; 85610; 93005; 93306; 96361; 96374; 96375; 99285; J1650; J1885; J3010; J7030; Q9967; G0378

== ENCOUNTER 2020-03-29 04:05 | Emergency (ER) | payer SELFPAY ==
[~2020-03-29] VITALS: Ht 170.2 cm; Wt 72.7 kg
[~2020-03-29 04:05] MED LIST changes: +CYAN50TA PO; +DOCU-153 PO; +LIDO700A21 TD
[2020-03-29] MEDS ORDERED: ONDANSETRON PF 4 MG/2 ML VIAL. IVP ONE (04:45)
[2020-03-29] MEDS ORDERED: KETOROLAC 30 MG/ML VIAL. IVP ONE (04:45)
--- NOTE | 2020-03-29 04:48 | PHYS DOC ---
Past Medical History Past Medical History: Other Additional Past Medical Histor: NEUROPATHY (LINDA FOX DO) Past Surgical History: Cholecystectomy, Hysterectomy, Tonsillectomy, Other Additional Past Surgical Histo: HERNIA REPAIR (LINDA FOX DO) Smoking Status: Current Every Day Smoker Alcohol Use: None Drug Use: Marijuana (LINDA FOX DO) General Adult EDM: Chief Complaint: NAUSEA/VOMITING/DIARRHA HPI: HPI: Patient is a 44-year-old female with a past medical history of neuropathy presents with a 3-day history of nausea vomiting diarrhea and abdominal discomfort. Patient states she is unable to keep any food down. She complains of diffuse abdominal discomfort. She denies any fevers chills cough congestion or shortness of breath. (LINDA FOX DO) Review of Systems: Review of Systems: Constitutional: Denies fever or chills. [] Eyes: Denies change in visual acuity. [] HENT: Denies nasal congestion or sore throat. [] Respiratory: Denies cough or shortness of breath. [] Cardiovascular: Denies chest pain or edema. [] GI: Positive abdominal pain positive nausea positive vomiting positive diarrhea : Denies dysuria. [] Musculoskeletal: Denies back pain or joint pain. [] Integument: Denies rash. [] Neurologic: Denies headache, focal weakness or sensory changes. [] Endocrine: Denies polyuria or polydipsia. [] Lymphatic: Denies swollen glands. [] Psychiatric: Denies depression or anxiety. [] (LINDA FOX DO) Heart Score: Risk Factors: Risk Factors: DM, Current or recent (<one month) smoker, HTN, HLP, family history of CAD, obesity. Risk Scores: Score 0 - 3: 2.5% MACE over next 6 weeks - Discharge Home Score 4 - 6: 20.3% MACE over next 6 weeks - Admit for Clinical Observation Score 7 - 10: 72.7% MACE over next 6 weeks - Early Invasive Strategies (LINDA FOX DO) Current Medications: Current Medications Medications (Trade) Dose Ordered Sig/Campos Start Time Stop Time Status Last Admin Dose Admin Ketorolac Tromethamine (Toradol 30mg Vial) 30 mg 1X ONCE 03/29/20 04:45 03/29/20 04:46 UNV 03/29/20 04:42 30 MG Ondansetron HCl (Zofran) 4 mg 1X ONCE 03/29/20 04:45 03/29/20 04:46 UNV 03/29/20 04:40 4 MG (LINDA FOX DO) Allergies: Allergies: Allergies Coded Allergies Type Severity Reaction Last Updated Verified sulfamethoxazole Allergy Intermediate 07/14/19 Yes trimethoprim Allergy Intermediate 07/14/19 Yes (LINDA FOX DO) Physical Exam: PE: Constitutional: Well developed, well nourished, no acute distress, non-toxic appearance. [] HENT: Normocephalic, atraumatic, bilateral external ears normal, oropharynx moist, no oral exudates, nose normal. [] Eyes: PERRLA, EOMI, conjunctiva normal, no discharge. [] Neck: Normal range of motion, no tenderness, supple, no stridor. [] Cardiovascular:Heart rate regular rhythm, no murmur [] Lungs & Thorax: Bilateral breath sounds clear to auscultation [] Abdomen: Diffuse abdominal discomfort no rebound no guarding Skin: Warm, dry, no erythema, no rash. [] Back: No tenderness, no CVA tenderness. [] Extremities: No tenderness, no cyanosis, no clubbing, ROM intact, no edema. [] Neurologic: Alert and oriented X 3, normal motor function, normal sensory function, no focal deficits noted. [] Psychologic: Affect normal, judgement normal, mood normal. [] (LINDA FOX DO) PE: Constitutional: Well developed, well nourished, no acute distress, non-toxic appearance HENT: Normocephalic, atraumatic Eyes: Conjunctiva normal, no discharge Neck: Normal range of motion, no tenderness, supple Lungs & Thorax: No respiratory distress, equal chest rise and fall Abdomen: Soft, diffuse tenderness, no guarding/rebound tenderness/distention Skin: Warm, dry, no erythema, no rash Back: No tenderness, no CVA tenderness Extremities: No tenderness, ROM intact, no edema Neurologic: Alert and oriented X 3, no focal deficits noted Psychologic: Affect normal, judgment normal (MARAH SAMUEL DO) EKG: EKG: [] (LINDA FOX DO) Radiology/Procedures: Radiology/Procedures: [] (LINDA FOX DO) Radiology/Procedures: PROCEDURE: CT ABDOMEN PELVIS WO CONTRAST CT abdomen and pelvis without contrast 03/29/2020. Reason for exam: Pain with nausea and vomiting for 3 days. Helical noncontrast images were performed through the abdomen and pelvis. Exposure: One or more of the following individualized dose reduction techniques were utilized for this examination: 1. Automated exposure control 2. Adjustment of the mA and/or kV according to patient size 3. Use of iterative reconstruction technique. Comparison is made with a prior exam of 02/06/2020. FINDINGS: The lung bases are clear. Small cyst is again seen anteriorly in the left lobe of the liver. No new liver parenchymal abnormality is seen. Evaluation of the solid organs is limited without IV contrast. The spleen appears normal. The kidneys show no mass, calcification or obstruction. The adrenal glands are not enlarged. The pancreas appears normal. No retroperitoneal or mesenteric adenopathy is seen. There is no apparent abdominal mass or inflammatory process. There is no evidence of bowel obstruction. Images through the pelvis show no apparent abnormality of the distal ureters or bladder. No pelvic or inguinal adenopathy is seen. There is no apparent pelvic mass or clearcut inflammatory process. Her may be a small amount of free fluid in the pelvis. The appendix is not clearly discerned. There is evidence of previous hysterectomy. IMPRESSION: No definite acute findings. There may be a small amount of free pelvic fluid of uncertain origin. Electronically signed by: Kahlil Moya Jr., MD (03/29/2020 7:14 AM) [id number] (MARAH SAMUEL DO) Course & Med Decision Making: Course & Med Decision Making Pertinent Labs and Imaging studies reviewed. (See chart for details) [] (LINDA FOX DO) Course & Med Decision Making [id number]-signout received from Dr. Fox for patient with report of N/V/D. Awaiting labs and radiological imaging. COVID precautions in place. COVID testing pending. Labs noted patient with elevated Creatnine to 1.8. Concern for dehydration. IVF hydration previously ordered. CT abd/pelvis without acute process. Patient seen and evaluated by myself. Patient stable for discharge with outpatient follow-up with PCP. Discussed findings and plan with patient, who acknowledges understanding and agreement. COVID-19 CRITERIA: The patient was evaluated during the global COVID-19 pandemic, and that diagnosis was suspected/considered upon their initial presentation. Their evaluation, treatment and testing was consistent with current guidelines for patients who present with complaints or symptoms that may be related to COVID-19. (MARAH SAMUEL DO) Earnest Disclaimer: Earnest Disclaimer: This electronic medical record was generated, in whole or in part, using a voice recognition dictation system. (LINDA FOX DO) Departure Departure Impression: Primary Impression: Nausea vomiting and diarrhea Additional Impressions: Acute renal insufficiency Suspected 2019 novel coronavirus infection Disposition: HOME, SELF-CARE Condition: STABLE Referrals: NO PCP (PCP) Patient Instructions: Clear Liquid Diet, [id number], Diarrhea, [id number], Diet for Diarrhea, Adult, Nausea and Vomiting, [id number] Additional Instructions: Your kidney function was abdomal today. This is likely due to dehydration. Please follow with your family care physician to have your kidney function rechecked. You have been tested for or diagnosed with COVID-19. It is an infection caused b y a new type of coronavirus. COVID-19 will cause cold-like or mild flu symptoms in most. It can cause more severe symptoms like problems breathing in some. There is no treatment for COVID-19. The body will clear the infection over time. Self-care will help to ease discomfort. Steps to Take: Self-Care Rest as needed. Healthy habits may help you feel better. Steps include: Choose healthy foods including fruits and vegetables. Drink water throughout the day. Get plenty of sleep each night. If you smoke, try to quit. It may ease breathing. Avoid alcohol. Keep Others Healthy The virus can spread to others. Droplets are released every time you sneeze or cough. The droplets can get into the mouth, nose, or eyes of people near you and lead to infection. To lower the chances of spreading COVID-19 to others: Stay at home until your doctor has said it is safe to leave. If you tested po sitive this will mean staying isolated until both of the following are true: At least 7 days have passed since the start of illness. You are free of fever for at least 72 hours without the use of medicine. During this time: - Avoid public areas, events, or transportation. Do not return to work or school until your doctor has said it is safe to do so. - Call ahead if you need to go to a medical center. Let them know you may have COVID-19. It will help them guide you where to go. They may also ask you to wear a facemask when you come to the office. - If you call for emergency medical services, let them know you may have COVID- 19. While at home: - Try to avoid close contact with others. Stay about 6 feet away. - If possible, spend most of your time in a separate room from others. - Use a face mask if you will be in close contact with others such as sharing a room or vehicle. - Have someone wipe down common surfaces in the home. Use household weight and test bar clerk every day on areas like doorknobs, counters, or sinks. - Cough or sneeze into a tissue. Throw the tissue away right after use. If a tissue is not available, cough or sneeze into your elbow. - Wash your hands often. Wash them after sneezing or coughing. Use soap and water and wash for at least 20 seconds. Alcohol based hand window cleaner can be used if soap and water is not available. - Do not prepare food for others. Avoid sharing personal items like forks, spoons, or toothbrushes. - Avoid close contact with pets while you are sick. There is no evidence of the virus passing to pets. This is a safety step until more is known about this virus. Isolation can be frustrating. Social interaction can help. Keep in touch with friends and family through phone and tech options. You can still interact with others in your home, just keep a safe distance of about 6 feet. Follow-up: Your doctors office will check in with you to see if there are any changes in your health. You may be asked to keep track of symptoms to share with them. They will also let you know when you are clear to be in public again. Problems to Look Out For: Contact your doctor if your recovery is not going as you expect. Get emergency care if you have problems such as: - Trouble breathing - Nonstop chest pain or pressure - Changes in awareness, confusion, or problems waking - Lips or face have bluish color - Worsening of symptoms If you think you have an emergency, call for emergency medical services right away. As taken from [facility] Hyoscyamine Sulfate (LEVSIN-SL) 0.125 Mg Tab.subl 0.125 MG SL Q4-6HRS PRN for PAIN, #14 TAB Prov: MARAH SAMUEL DO 03/29/20 Famotidine (PEPCID) 20 Mg Tablet 20 MG PO BID, #10 TAB Prov: MARAH SAMUEL DO 03/29/20 Ondansetron (ONDANSETRON ODT) 4 Mg Tab.rapdis 1 TAB PO PRN Q6-8HRS PRN for NAUSEA, #16 TAB Prov: MARAH SAMUEL DO 03/29/20 Justicifation of Admission Dx: Justifications for Admission: Justification of Admission Dx: Yes Angina: Symp at Rest (LINDA FOX DO) Justification of Admission Dx: N/A (MARAH SAMUEL DO) COVID-19 Assessment: COVID-19 Patient Risks: Age 65 or older: No Sign of co-morbidity: No Exp to person + for COVID: No Exp to PUI: No Travel from affected area: No Lower respiratory symptoms: No Fever: No (MARAH SAMUEL DO) PPE Use: Full PPE with N95 mask or PAPR: Yes (MARAH SAMUEL DO) LINDA FOX DO Mar 29, 2020 04:48 MARAH SAMUEL DO Mar 29, 2020 06:37
[2020-03-29] MEDS ORDERED: MORPHINE SULFATE 2 MG/ML VIAL. IV ONE (05:15)
[2020-03-29] MEDS ORDERED: IV NORMAL SALINE 1000ML BAG 1,000 ML IV ONE ×2 (05:15→05:45)
[2020-03-29 06:19] LABS: CALCIUM 10.7 mg/dL (8.5-10.1); CREATININE 1.8 mg/dL (0.6-1.0); GFR 37.2; POTASSIUM 4.6 mmol/L (3.5-5.1)
[2020-03-29 06:24] LABS: TOTAL BILIRUBIN 0.4 mg/dL (0.2-1.0); TOTAL PROTEIN 10.2 g/dL (6.4-8.2)
[2020-03-29] MEDS ORDERED: IOHEXOL 300 MG/ML 100ML VIAL. IV ONE (06:30)
[2020-03-29] MEDS ORDERED: CONTRAST GIVEN. MC PRN (06:30)
[2020-03-29 06:42] LABS: BILIRUBIN,URINE MODERATE (NEG); CLARITY,URINE CLOUDY; COLOR,URINE AMBER; NITRITE,URINE NEGATIVE (NEG); PROTEIN,URINE NEGATIVE (NEG-TRACE); UROBILINOGEN,URINE 0.2 mg/dL (0.2 mg/dL)
[2020-03-29 07:06] LABS: BASO % 0 % (0-3); EOS % 0 % (0-3); HEMATOCRIT 40.2 % (36.0-47.0); HEMOGLOBIN 12.5 g/dL (12.0-15.5); LYMPH # 0.7 x10^3/uL (1.0-4.8); LYMPH % 6 % (24-48); MEAN CORPUSCULAR HEMOGLOBIN 23 pg (25-35); MEAN CORPUSCULAR HGB CONC 31 g/dL (31-37); MEAN CORPUSCULAR VOLUME 72 fL (79-100); MONO # 0.4 x10^3/uL (0.0-1.1); MONO % 3 % (0-9); NEUT # 10.6 x10^3/uL (1.8-7.7); NEUT % 90 % (31-73); PLATELET COUNT 234 x10^3/uL (140-400); RED BLOOD COUNT 5.57 x10^6/uL (3.50-5.40); RED CELL DISTRIBUTION WIDTH 15.8 % (11.5-14.5); WHITE BLOOD COUNT 11.7 x10^3/uL (4.0-11.0)
[2020-03-29 07:08] LABS: AMORPHOUS SEDIMENT,UR PRESENT /HPF; BACTERIA,URINE 0 /HPF (0-FEW); HYALINE CASTS, URINE MANY /HPF; RBC,URINE 0 /HPF (0-2); WBC,URINE 0 /HPF (0-4)
[2020-03-29] MEDS ORDERED: fentaNYL PF VIAL 100 MCG/2 ML VIAL IV ONE (07:15)
--- NOTE | 2020-03-29 07:17 | RAD ---
CT abdomen and pelvis without contrast 03/29/2020. Reason for exam: Pain with nausea and vomiting for 3 days. Helical noncontrast images were performed through the abdomen and pelvis. Exposure: One or more of the following individualized dose reduction techniques were utilized for this examination: 1. Automated exposure control 2. Adjustment of the mA and/or kV according to patient size 3. Use of iterative reconstruction technique. Comparison is made with a prior exam of 02/06/2020. FINDINGS: The lung bases are clear. Small cyst is again seen anteriorly in the left lobe of the liver. No new liver parenchymal abnormality is seen. Evaluation of the solid organs is limited without IV contrast. The spleen appears normal. The kidneys show no mass, calcification or obstruction. The adrenal glands are not enlarged. The pancreas appears normal. No retroperitoneal or mesenteric adenopathy is seen. There is no apparent abdominal mass or inflammatory process. There is no evidence of bowel obstruction. Images through the pelvis show no apparent abnormality of the distal ureters or bladder. No pelvic or inguinal adenopathy is seen. There is no apparent pelvic mass or clearcut inflammatory process. Her may be a small amount of free fluid in the pelvis. The appendix is not clearly discerned. There is evidence of previous hysterectomy. IMPRESSION: No definite acute findings. There may be a small amount of free pelvic fluid of uncertain origin. Electronically signed by: Kahlil Moya Jr., MD (03/29/2020 7:14 AM) [id number]
[2020-03-29] MEDS ORDERED: ONDA4TAB12 PO (07:44)
[2020-03-29] MEDS ORDERED: FAMO-63 PO (07:44)
[2020-03-29] MEDS ORDERED: HYOS0.1265 SL (07:44)
[2020-03-29 08:00] VITALS: BP 98/68
[2020-03-29 13:17] LABS: % BANDS 5 % (0-9); % LYMPHS 6 % (24-48); % MONOS 2 % (0-10); % SEGS 87 % (35-66); PLT ESTIMATE ADEQUATE (ADEQUATE)
[2020-03-29 13:18] LABS: ANISOCYTOSIS SLIGHT; HYPOCHROMIA MOD; MICROCYTOSIS SLIGHT
== END 2020-03-29 08:18 | disposition home or self-care (01) ==
LOC: ER 04:05
DX: R11.2 Nausea with vomiting, unspecified (principal); R19.7 Diarrhea, unspecified; N28.9 Disorder of kidney and ureter, unspecified; Z20.828 Contact with and (suspected) exposure to other viral communicable diseases; F17.200 Nicotine dependence, unspecified, uncomplicated; Z90.49 Acquired absence of other specified parts of digestive tract; Z90.710 Acquired absence of both cervix and uterus; Z88.1 Allergy status to other antibiotic agents; Z88.2 Allergy status to sulfonamides
CPT/HCPCS: 36415; 51702; 74176; 80053; 81001; 83690; 85007; 85025; 96361; 96374; 96375; 99285; J1885; J2270; J2405; J3010; J7030; U0003

== ENCOUNTER 2020-08-28 14:54 | Emergency (ER) | payer SELFPAY ==
[~2020-08-28] VITALS: Ht 172.7 cm; Wt 77.0 kg
[~2020-08-28 14:54] MED LIST changes: +FAMO-63 PO; +HYOS0.1265 SL
--- NOTE | 2020-08-28 15:12 | ED.ADGEN ---
Past Medical History Past Medical History: Other Additional Past Medical Histor: NEUROPATHY Past Surgical History: Cholecystectomy, Hysterectomy, Tonsillectomy, Other Additional Past Surgical Histo: HERNIA REPAIR Smoking Status: Current Every Day Smoker Alcohol Use: None Drug Use: Marijuana General Adult EDM: Chief Complaint: NAUSEA/VOMITING/DIARRHA HPI: HPI: Patient is a 44-year-old female who arrives ambulatory to the emergency department complaining of midepigastric/abdominal pain along with nausea and vomiting for the past 2 days. Patient describes intermittent sharp abdominal pain of the mid abdominal range. Patient states during this time she has had nausea with vomiting as well as diarrhea. Patient states she is unable to keep anything down at this point. Despite this she denies any history of fevers or known sick contacts. She further denies any shortness of air, cough or chest pain. She is awake, alert and uncomfortable appearing. Review of Systems: Review of Systems: Constitutional: Denies fever or chills. [] Eyes: Denies change in visual acuity. [] HENT: Denies nasal congestion or sore throat. [] Respiratory: Denies cough or shortness of breath. [] Cardiovascular: Denies chest pain or edema. [] GI: Reports abdominal pain with nausea, vomiting and diarrhea. Denies any history of bloody stools. : Denies dysuria. [] Musculoskeletal: Denies back pain or joint pain. [] Integument: Denies rash. [] Neurologic: Denies headache, focal weakness or sensory changes. [] Endocrine: Denies polyuria or polydipsia. [] Lymphatic: Denies swollen glands. [] Psychiatric: Denies depression or anxiety. [] Current Medications: Current Medications Medications (Trade) Dose Ordered Sig/Campos Start Time Stop Time Status Last Admin Dose Admin Info (CONTRAST GIVEN -- Rx MONITORING) 1 each PRN DAILY PRN 08/28/20 17:15 08/30/20 17:14 Iohexol (Omnipaque 300 Mg/ml) 75 ml 1X ONCE 08/28/20 17:15 08/28/20 17:16 DC 08/28/20 17:27 75 ML Morphine Sulfate (Morphine Sulfate) 4 mg 1X ONCE 08/28/20 15:15 08/28/20 15:16 DC 08/28/20 15:30 4 MG Ondansetron HCl (Zofran) 4 mg 1X ONCE 08/28/20 15:15 08/28/20 15:16 DC 08/28/20 15:31 4 MG Sodium Chloride 1,000 ml @ 1,000 mls/hr 1X ONCE 08/28/20 15:15 08/28/20 16:14 DC 08/28/20 15:31 1,000 MLS/HR Allergies: Allergies: Allergies Coded Allergies Type Severity Reaction Last Updated Verified sulfamethoxazole Allergy Intermediate 07/14/19 Yes trimethoprim Allergy Intermediate 07/14/19 Yes Physical Exam: PE: Constitutional: Patient is well-developed under appearance however she is visibly uncomfortable and appears to be trying to vomit. HENT: Normocephalic, atraumatic, bilateral external ears normal, oropharynx moist, no oral exudates, nose normal. [] Eyes: PERRLA, EOMI, conjunctiva normal, no discharge. [] Neck: Normal range of motion, no tenderness, supple, no stridor. [] Cardiovascular:Heart rate regular rhythm, no murmur [] Lungs & Thorax: Bilateral breath sounds clear to auscultation [] Abdomen: Patient has generalized tenderness but more so in the periumbilical region. Bowel sounds normal, soft, no masses, no pulsatile masses. There is no guarding or rebound present [] Skin: Warm, dry, no erythema, no rash. [] Back: No tenderness, no CVA tenderness. [] Extremities: No tenderness, no cyanosis, no clubbing, ROM intact, no edema. [] Neurologic: Alert and oriented X 3, normal motor function, normal sensory function, no focal deficits noted. [] Psychologic: Affect normal, judgement normal, mood normal. [] Current Patient Data: Labs: Laboratory Tests Test 08/28/20 13:33 08/28/20 15:00 08/28/20 15:04 08/28/20 15:06 White Blood Count 8.4 x10^3/uL (4.0-11.0) Red Blood Count 4.85 x10^6/uL (3.50-5.40) Hemoglobin 11.4 g/dL (12.0-15.5) L Hematocrit 35.7 % (36.0-47.0) L Mean Corpuscular Volume 74 fL (79-100) L Mean Corpuscular Hemoglobin 23 pg (25-35) L Mean Corpuscular Hemoglobin Concent 32 g/dL (31-37) Red Cell Distribution Width 16.7 % (11.5-14.5) H Platelet Count 238 x10^3/uL (140-400) Neutrophils (%) (Auto) 82 % (31-73) H Lymphocytes (%) (Auto) 13 % (24-48) L Monocytes (%) (Auto) 4 % (0-9) Eosinophils (%) (Auto) 0 % (0-3) Basophils (%) (Auto) 1 % (0-3) Neutrophils # (Auto) 6.9 x10^3/uL (1.8-7.7) Lymphocytes # (Auto) 1.1 x10^3/uL (1.0-4.8) Monocytes # (Auto) 0.4 x10^3/uL (0.0-1.1) Eosinophils # (Auto) 0.0 x10^3/uL (0.0-0.7) Basophils # (Auto) 0.1 x10^3/uL (0.0-0.2) Maternal Serum HCG Beta Subunit 8 mIU/mL (0-5) H Sodium Level 142 mmol/L (136-145) Potassium Level 4.0 mmol/L (3.5-5.1) Chloride Level 105 mmol/L (98-107) Carbon Dioxide Level 26 mmol/L (21-32) Anion Gap 11 (6-14) Blood Urea Nitrogen 8 mg/dL (7-20) Creatinine 1.0 mg/dL (0.6-1.0) Estimated GFR (Cockcroft-Gault) 73.2 BUN/Creatinine Ratio 8 (6-20) Glucose Level 105 mg/dL (70-99) H Calcium Level 9.4 mg/dL (8.5-10.1) Total Bilirubin 0.4 mg/dL (0.2-1.0) Aspartate Amino Transferase (AST) 18 U/L (15-37) Alanine Aminotransferase (ALT) 30 U/L (14-59) Alkaline Phosphatase 128 U/L (46-116) H Total Protein 8.1 g/dL (6.4-8.2) Albumin 4.1 g/dL (3.4-5.0) Albumin/Globulin Ratio 1.0 (1.0-1.7) Urine Collection Type Unknown Urine Color Yellow Urine Clarity Clear Urine pH 7.5 (<5.0-8.0) Urine Specific Ernul 1.025 (1.000-1.030) Urine Protein Negative mg/dL (NEG-TRACE) Urine Glucose (UA) Negative mg/dL (NEG) Urine Ketones (Stick) Negative mg/dL (NEG) Urine Blood Negative (NEG) Urine Nitrite Negative (NEG) Urine Bilirubin Negative (NEG) Urine Urobilinogen Dipstick 0.2 mg/dL (0.2 mg/dL) Urine Leukocyte Esterase Negative (NEG) Urine RBC 1-2 /HPF (0-2) Urine WBC 1-4 /HPF (0-4) Urine Squamous Epithelial Cells Mod /LPF Urine Amorphous Sediment Present /HPF Urine Bacteria Few /HPF (0-FEW) Urine Mucus Marked /LPF Urine Test Negative (NEG) POC Urine HCG, Qualitative Hcg positive (Negative) Laboratory Tests 08/28/20 13:33 Laboratory Tests 08/28/20 15:00 Vital Signs: Vital Signs Date Time Temp Pulse Resp B/P (MAP) Pulse Ox O2 Delivery O2 Flow Rate FiO2 08/28/20 15:30 16 99 Room Air 08/28/20 15:00 98.5 61 166/113 (130) 98.5 EKG: EKG: Exam: CT of abdomen and pelvis with contrast INDICATION: Pain, vomiting, diarrhea TECHNIQUE: Sequential axial images through the abdomen and pelvis obtained following the administration of 75 mL of Isovue-370 IV contrast. Sagittal and coronal reformatted images were reconstructed from the axial data and reviewed. Comparisons: 03/19/2020 FINDINGS: Heart size is normal. Strandy opacities at dependent portion lungs likely cyst. No pleural effusion. Liver, spleen, pancreas, and adrenals are unremarkable. Gallbladder surgically absent. No perinephric inflammation or hydronephrosis. No renal or ureteral calculi are identified. Bladder is decompressed not well evaluated. Uterus is absent. No abnormal adnexal mass. There is wall thickening involving loops of the distal ileum. There is mucosal hyperenhancement involving the descending and sigmoid colon. No free intra-abdominal air or fluid. No obstruction. Abdominal aorta has a normal course and caliber. Abdominal vasculature is patent. No enlarged intra-abdominal lymph nodes are identified. No suspicious osseous lesions or acute fractures. IMPRESSION: Mucosal hyperenhancement involving several of small bowel in the pelvis at the distal/terminal ileum as well as mucosal hyperenhancement of the ascending colon and sigmoid colon. Findings may relate to a enterocolitis. Correlate for inflammatory bowel disease. Exposure: One or more of the following in the visualized dose reduction techniques were utilized for this examination: 1. Automated exposure control 2. Adjustment of the MA and/or KV according to patient size 3. Use of iterative of reconstructive technique Electronically signed by: Su Juarez MD (08/28/2020 5:44 PM) [facility] Heart Score: Risk Factors: Risk Factors: DM, Current or recent (<one month) smoker, HTN, HLP, family history of CAD, obesity. Risk Scores: Score 0 - 3: 2.5% MACE over next 6 weeks - Discharge Home Score 4 - 6: 20.3% MACE over next 6 weeks - Admit for Clinical Observation Score 7 - 10: 72.7% MACE over next 6 weeks - Early Invasive Strategies Radiology/Procedures: Radiology/Procedures: [] Course & Med Decision Making: Course & Med Decision Making Pertinent Labs and Imaging studies reviewed. (See chart for details) Initially patient had episodes of dry heaving and since receiving IV medication for pain and nausea the patient has not had any further episodes of nausea/vomiting. Rather the patient reports that she has had significant improvement from her symptoms. Nonetheless she is concerned that once the medication wears off, she will again be in pain. As such a CT of the abdomen pelvis was ordered in order to exclude any acute pathology. That study is currently pending and the care will be transitioned to Dr. Meléndez. Signout received from off going physician. I reviewed ER work-up so far. I reviewed CT abdomen pelvis that was grossly unremarkable. I reviewed ER work-up with patient at length, I reviewed findings such as enterocolitis versus IBD. No despite likely false positive test on [id number] hCG. Patient feeling better and wanting to go, I feel this is reasonable as she is hemodynamically stable, ambulatory, and tolerating p.o. intake. Ongoing supportive care advised. I will write her a new prescription for Zofran. She has primary care physician, she has good access to care in outpatient setting. I feel comfortable discharging patient with close follow-up in upcoming 1 to 5 days time. Strict return precautions discussed with good understanding, all questions and concerns addressed prior to ER departure in improved condition Earnest Disclaimer: Earnest Disclaimer: This electronic medical record was generated, in whole or in part, using a voice recognition dictation system. Departure Departure Impression: Primary Impression: Nausea vomiting and diarrhea Additional Impression: Nonspecific abdominal pain Disposition: 01 DC HOME SELF CARE/HOMELESS Condition: IMPROVED Referrals: NO PCP (PCP) Additional Instructions: You have been evaluated in the Emergency Department today for abdominal pain. Your evaluation was not suggestive of any emergent condition requiring medical intervention at this time. However, some abdominal problems make take more time to appear. Therefore, it is important for you to watch for any new symptoms or worsening of your current condition. You have been prescribed Zofran, and antinausea pill which can be used for nausea As discussed, please call your primary care physician first thing tomorrow to schedule outpatient follow-up in upcoming 1 to 5 days after ER departure for repeat examination Return to the Emergency Department if you experience worsening pain, persistent fevers greater than 100.4, recurrent vomiting, blood in vomit, blood in stool, dark tarry stool, chest pain, difficulty breathing, or any other concerning symptoms. Scripts Ondansetron Hcl (ZOFRAN) 4 Mg Tablet 4 MG PO PRN TID PRN for NAUSEA for 5 Days, #15 nausea/vomiting Prov: TISH MELÉNDEZ DO 08/28/20 Problem Qualifiers JO ANN MULLINS DO Aug 28, 2020 15:12 TISH MELÉNDEZ DO Aug 28, 2020 18:10
[2020-08-28] MEDS: MORPHINE SULFATE 4 MG/ML VIAL. IV ONE (15:30)
[2020-08-28] MEDS: IV NORMAL SALINE 1000ML BAG 1,000 ML IV ONE (15:31)
[2020-08-28] MEDS: ONDANSETRON PF 4 MG/2 ML VIAL. IVP ONE (15:31)
[2020-08-28 15:38] LABS: BASO # 0.1 x10^3/uL (0.0-0.2); BASO % 1 % (0-3); EOS % 0 % (0-3); HEMATOCRIT 35.7 % (36.0-47.0); HEMOGLOBIN 11.4 g/dL (12.0-15.5); LYMPH # 1.1 x10^3/uL (1.0-4.8); LYMPH % 13 % (24-48); MEAN CORPUSCULAR HEMOGLOBIN 23 pg (25-35); MEAN CORPUSCULAR HGB CONC 32 g/dL (31-37); MEAN CORPUSCULAR VOLUME 74 fL (79-100); MONO # 0.4 x10^3/uL (0.0-1.1); MONO % 4 % (0-9); NEUT # 6.9 x10^3/uL (1.8-7.7); NEUT % 82 % (31-73); PLATELET COUNT 238 x10^3/uL (140-400); RED BLOOD COUNT 4.85 x10^6/uL (3.50-5.40); RED CELL DISTRIBUTION WIDTH 16.7 % (11.5-14.5); WHITE BLOOD COUNT 8.4 x10^3/uL (4.0-11.0)
[2020-08-28 15:51] LABS: CALCIUM 9.4 mg/dL (8.5-10.1); GFR 73.2
[2020-08-28 15:56] LABS: ALBUMIN 4.1 g/dL (3.4-5.0); TOTAL BILIRUBIN 0.4 mg/dL (0.2-1.0); TOTAL PROTEIN 8.1 g/dL (6.4-8.2)
[2020-08-28 16:16] LABS: BILIRUBIN,URINE NEGATIVE (NEG); CLARITY,URINE CLEAR; COLOR,URINE YELLOW; NITRITE,URINE NEGATIVE (NEG); PH,URINE 7.5 (<5.0-8.0); PROTEIN,URINE NEGATIVE (NEG-TRACE); UROBILINOGEN,URINE 0.2 mg/dL (0.2 mg/dL)
[2020-08-28 16:21] LABS: U PREG PATIENT NEGATIVE (NEG)
[2020-08-28 16:32] LABS: AMORPHOUS SEDIMENT,UR PRESENT /HPF; BACTERIA,URINE FEW /HPF (0-FEW)
[2020-08-28] MEDS ORDERED: CONTRAST GIVEN. MC PRN (17:15)
[2020-08-28] MEDS: IOHEXOL 300 MG/ML 100ML VIAL. IV ONE (17:27)
--- NOTE | 2020-08-28 17:47 | RAD ---
Exam: CT of abdomen and pelvis with contrast INDICATION: Pain, vomiting, diarrhea TECHNIQUE: Sequential axial images through the abdomen and pelvis obtained following the administrati on of 75 mL of Isovue-370 IV contrast. Sagittal and coronal reformatted images were reconstructed fro m the axial data and reviewed. Comparisons: 03/19/2020 FINDINGS: Heart size is normal. Strandy opacities at dependent portion lungs likely cyst. No pleural effusion. Liver, spleen, pancreas, and adrenals are unremarkable. Gallbladder surgically absent. No perinephric inflammation or hydronephrosis. No renal or ureteral calculi are identified. Bladder is decompressed not well evaluated. Uterus is absent. No abnormal adnexal mass. There is wall thickening involving loops of the distal ileum. There is mucosal hyperenhancement invol ving the descending and sigmoid colon. No free intra-abdominal air or fluid. No obstruction. Abdominal aorta has a normal course and caliber. Abdominal vasculature is patent. No enlarged intra-abdominal lymph nodes are identified. No suspicious osseous lesions or acute fractures. IMPRESSION: Mucosal hyperenhancement involving several of small bowel in the pelvis at the distal/terminal ileum as well as mucosal hyperenhancement of the ascending colon and sigmoid colon. Findings may relate to a enterocolitis. Correlate for inflammatory bowel disease. Exposure: One or more of the following in the visualized dose reduction techniques were utilized for this examination: 1. Automated exposure control 2. Adjustment of the MA and/or KV according to patient size 3. Use of iterative of reconstructive technique Electronically signed by: Su Juarez MD (08/28/2020 5:44 PM) [facility]
[2020-08-28] MEDS ORDERED: ONDA4TAB7 PO (18:08)
[2020-08-28 18:30] VITALS: BP 118/70
[2020-08-28] MEDS ORDERED: PRED20TA PO (22:11)
[2020-08-30] MEDS ORDERED: DOXY-96 PO (02:00)
[2020-08-30] MEDS ORDERED: GABA-585 PO (02:01)
== END 2020-08-28 18:40 | disposition home or self-care (01) ==
LOC: ER 14:54
DX: O21.9 Vomiting of pregnancy, unspecified (principal); R10.13 Epigastric pain; R19.7 Diarrhea, unspecified; G62.9 Polyneuropathy, unspecified; F17.200 Nicotine dependence, unspecified, uncomplicated; F12.90 Cannabis use, unspecified, uncomplicated; Z90.49 Acquired absence of other specified parts of digestive tract; Z90.710 Acquired absence of both cervix and uterus; Z98.890 Other specified postprocedural states; Z88.2 Allergy status to sulfonamides; Z88.8 Allergy status to other drugs, medicaments and biological substances; Z3A.01 Less than 8 weeks gestation of pregnancy
CPT/HCPCS: 36415; 74177; 80053; 81001; 81025; 84702; 85025; 96361; 96374; 96375; 99285; J2270; J2405; J7030; Q9967

== ENCOUNTER 2020-08-28 19:58 | Emergency (ER) | payer SELFPAY ==
[~2020-08-28] VITALS: Ht 172.7 cm; Wt 80.0 kg
--- NOTE | 2020-08-28 22:01 | PHYS DOC ---
Past Medical History Past Medical History: Other Additional Past Medical Histor: NEUROPATHY Past Surgical History: Cholecystectomy, Hysterectomy, Tonsillectomy, Other Additional Past Surgical Histo: HERNIA REPAIR Smoking Status: Current Every Day Smoker Alcohol Use: None Drug Use: Marijuana Adult General Chief Complaint Chief Complaint: ABDOMINAL PAIN HPI HPI Patient is a 44-year-old female who presents for abdominal pain. She was just discharged from our facility less than 1 hour ago with new diagnosis of enterocolitis versus IBD. At time of departure, patient was sleeping peacefully in her bed and reported great symptomatic improvement from ER intervention. Nonetheless, patient reports after checking out from ER, she ambulated to her car and when she opened her door she had recurrence of abdominal pain. She cites that the pain medication that was given in the ER must of worn off. She reports she was tearful and did not feel safe going home without any pain medication so she came back to our ER to check in for further pain control. Review of Systems Review of Systems Fourteen body systems of review of systems have been reviewed. See HPI for pertinent positives and negative responses, other bullock all other systems are negative, non-pertinent or non-contributory Current Medications Current Medications Current Medications Medications (Trade) Dose Ordered Sig/Campos Start Time Stop Time Status Last Admin Dose Admin Prednisone (Prednisone) 50 mg 1X ONCE 08/28/20 22:00 08/28/20 22:02 DC 08/28/20 22:24 50 MG Allergies Allergies Allergies Coded Allergies Type Severity Reaction Last Updated Verified sulfamethoxazole Allergy Intermediate 07/14/19 Yes trimethoprim Allergy Intermediate 07/14/19 Yes Physical Exam Physical Exam Constitutional: Well developed, well nourished, non-toxic appearance. HENT: Normocephalic, atraumatic, bilateral external ears normal, oropharynx moist, no oral exudates, nose normal. Eyes: PERRLA, EOMI, conjunctiva normal, no discharge. Neck: Normal range of motion, no tenderness, supple, no stridor. Cardiovascular: Heart rate regular, sinus rhythm, no murmurs rubs or gallops Lungs & Thorax: Bilateral breath sounds clear to auscultation Abdomen: Bowel sounds normal, soft, generalized tenderness with mild guarding, no rebound, no masses, no pulsatile masses. Nonsurgical abdomen, no peritoneal signs Skin: Warm, dry, no erythema, no rash. Back: No tenderness, no CVA tenderness. Extremities: No tenderness, no cyanosis, no clubbing, ROM intact, no edema. Neurologic: Alert and oriented X 3, grossly normal motor & sensory function, no focal deficits noted. Psychologic: Tearful affect, judgement normal, anxious mood Current Patient Data Vital Signs Vital Signs Date Time Temp Pulse Resp B/P (MAP) Pulse Ox O2 Delivery O2 Flow Rate FiO2 08/28/20 20:45 99.1 63 16 124/76 (92) 100 Room Air 99.1 EKG EKG [] Radiology/Procedures Radiology/Procedures [] Course & Med Decision Making Course & Med Decision Making Pertinent Labs and Imaging studies reviewed. (See chart for details) No indication for repeat work-up and/or intervention as this was recently performed. I discussed diagnoses of enterocolitis versus IBD. I discussed I would not be prescribing narcotic pain medication on discharge for such a condition which upset patient I discussed pathophysiology/etiology of suspect diagnoses. I offered steroids to treat for potential flare which she was amenable to. I disclosed that I did not think this was infectious in nature and so, joint decision to defer antibiotic use at this time 50 mg prednisone administered, subsequent prescription written Patient has good access to primary care provider. I advised patient to continue NSAIDs and/or Tylenol for pain with other supportive care practices for such diagnoses of enterocolitis/IBD. Strict return precautions were discussed with good understanding by patient, all questions and concerns addressed prior to ER departure in stable condition Dragon Disclaimer Dragon Disclaimer This electronic medical record was generated, in whole or in part, using a voice recognition dictation system. Departure Departure Impression: Primary Impression: Nausea vomiting and diarrhea Additional Impression: Unspecified abdominal pain Disposition: 01 DC HOME SELF CARE/HOMELESS Condition: STABLE Referrals: NO PCP (PCP) Additional Instructions: You have been evaluated in the Emergency Department today for abdominal pain. Your evaluation was not suggestive of any emergent condition requiring medical intervention at this time. However, some abdominal problems make take more time to appear. Therefore, it is important for you to watch for any new symptoms or worsening of your current condition. Please follow up with your primary care physician as needed. If you do not have a primary doctor, you can call your insurance company to find one. If you do not have insurance, you can go to the finance/registration department for more assistance. Return to the Emergency Department if you experience worsening pain, persistent fevers greater than 100.4, recurrent vomiting, blood in vomit, blood in stool, dark tarry stool, chest pain, difficulty breathing, or any other concerning symptoms. Scripts Prednisone (PREDNISONE) 20 Mg Tablet 40 MG PO DAILY for 4 Days, #8 TAB Prov: TISH MELÉNDEZ DO 08/28/20 Problem Qualifiers TISH MELÉNDEZ DO Aug 28, 2020 22:01
[2020-08-28] MEDS ORDERED: PRED20TA PO (22:11)
[2020-08-28 22:15] VITALS: BP 129/82
[2020-08-28] MEDS: predniSONE 10 MG TABLET PO ONE (22:24)
[2020-08-30] MEDS ORDERED: DOXY-96 PO (02:00)
[2020-08-30] MEDS ORDERED: GABA-585 PO (02:01)
== END 2020-08-28 22:28 | disposition home or self-care (01) ==
LOC: ER 19:58
DX: R10.84 Generalized abdominal pain (principal); R11.2 Nausea with vomiting, unspecified; R19.7 Diarrhea, unspecified; G62.9 Polyneuropathy, unspecified; F17.200 Nicotine dependence, unspecified, uncomplicated; F12.90 Cannabis use, unspecified, uncomplicated; Z90.49 Acquired absence of other specified parts of digestive tract; Z90.710 Acquired absence of both cervix and uterus; Z98.890 Other specified postprocedural states; Z88.2 Allergy status to sulfonamides; Z88.8 Allergy status to other drugs, medicaments and biological substances
CPT/HCPCS: 99283; J7512

== ENCOUNTER 2020-09-25 05:26 | Emergency (ER) | payer SELFPAY ==
[~2020-09-25] VITALS: Ht 165.1 cm; Wt 77.7 kg
[~2020-09-25 05:26] MED LIST changes: +DOXY-96 PO; +GABA-585 PO; +LACT1CAP19 PO; +PRED20TA PO
[2020-09-25] MEDS ORDERED: IV NORMAL SALINE 1000ML BAG 1,000 ML IV ONE (06:00)
[2020-09-25] MEDS ORDERED: ONDANSETRON PF 4 MG/2 ML VIAL. IVP ONE (06:00)
--- NOTE | 2020-09-25 06:07 | ED.ADGEN ---
Past Medical History Past Medical History: Other Additional Past Medical Histor: NEUROPATHY Past Surgical History: Cholecystectomy, Hysterectomy, Tonsillectomy, Other Additional Past Surgical Histo: HERNIA REPAIR Smoking Status: Former Smoker Additional Information: REPORTS "QUIT" 09/19/2020 Alcohol Use: None Drug Use: Marijuana Social History Narrative: REPORTS SHE QUIT 09/19/2020 General Adult EDM: Chief Complaint: NAUSEA/VOMITING/DIARRHA HPI: HPI: Patient is a 45 year old female who arrives ambulatory to the emergency department complaining of a 4-day history of generalized abdominal pain. Patient reports over the past 2 days she has had vomiting with diarrhea several times. Patient states within the last day she has been unable to leave her toilet because of the number of time she has had loose stool. Patient describes her pain is cramping in nature. Despite this she denies any known sick contacts. She further states she is not had any chest pain, shortness of air or fevers. Moreover she states she has had a total hysterectomy as well as cholecystectomy. She is awake, alert and uncomfortable appearing Review of Systems: Review of Systems: Constitutional: Denies fever or chills. [] Eyes: Denies change in visual acuity. [] HENT: Denies nasal congestion or sore throat. [] Respiratory: Denies cough or shortness of breath. [] Cardiovascular: Denies chest pain or edema. [] GI: Reports to abdominal pain with nausea, vomiting and diarrhea. Denies bloody stools or diarrhea. [] : Denies dysuria. [] Musculoskeletal: Denies back pain or joint pain. [] Integument: Denies rash. [] Neurologic: Denies headache, focal weakness or sensory changes. [] Endocrine: Denies polyuria or polydipsia. [] Lymphatic: Denies swollen glands. [] Psychiatric: Denies depression or anxiety. [] Family History: Family History: Noncontributory Current Medications: Current Medications Medications (Trade) Dose Ordered Sig/Campos Start Time Stop Time Status Last Admin Dose Admin Iohexol (Omnipaque 300 Mg/ml) 75 ml 1X ONCE 09/25/20 09:45 09/25/20 09:46 DC 09/25/20 09:53 75 ML Morphine Sulfate (Morphine Sulfate) 4 mg 1X ONCE 09/25/20 08:00 09/25/20 08:01 DC 09/25/20 08:20 4 MG Ondansetron HCl (Zofran) 4 mg 1X ONCE 09/25/20 06:00 09/25/20 06:01 DC 09/25/20 06:24 4 MG Sodium Chloride 1,000 ml @ 1,000 mls/hr 1X ONCE 09/25/20 06:00 09/25/20 07:00 DC 09/25/20 06:24 1,000 MLS/HR Allergies: Allergies: Allergies Coded Allergies Type Severity Reaction Last Updated Verified sulfamethoxazole Allergy Intermediate 07/14/19 Yes trimethoprim Allergy Intermediate 07/14/19 Yes Physical Exam: PE: Constitutional: Well developed, well nourished, no acute distress, non-toxic appearance. [] HENT: Normocephalic, atraumatic, bilateral external ears normal, oropharynx moist, no oral exudates, nose normal. [] Eyes: PERRLA, EOMI, conjunctiva normal, no discharge. [] Neck: Normal range of motion, no tenderness, supple, no stridor. [] Cardiovascular:Heart rate regular rhythm, no murmur [] Lungs & Thorax: Bilateral breath sounds clear to auscultation [] Abdomen: Generalized tenderness. Bowel sounds normal, soft, no masses, no pulsatile masses. [] Skin: Warm, dry, no erythema, no rash. [] Back: No tenderness, no CVA tenderness. [] Extremities: No tenderness, no cyanosis, no clubbing, ROM intact, no edema. [] Neurologic: Alert and oriented X 3, normal motor function, normal sensory function, no focal deficits noted. [] Psychologic: Affect normal, judgement normal, mood normal. [] Current Patient Data: Labs: Laboratory Tests Test 09/25/20 06:30 09/25/20 07:50 09/25/20 09:13 White Blood Count 4.2 x10^3/uL (4.0-11.0) Red Blood Count 4.55 x10^6/uL (3.50-5.40) Hemoglobin 10.4 g/dL (12.0-15.5) L Hematocrit 33.6 % (36.0-47.0) L Mean Corpuscular Volume 74 fL (79-100) L Mean Corpuscular Hemoglobin 23 pg (25-35) L Mean Corpuscular Hemoglobin Concent 31 g/dL (31-37) Red Cell Distribution Width 15.8 % (11.5-14.5) H Platelet Count 194 x10^3/uL (140-400) Neutrophils (%) (Auto) 72 % (31-73) Lymphocytes (%) (Auto) 21 % (24-48) L Monocytes (%) (Auto) 6 % (0-9) Eosinophils (%) (Auto) 0 % (0-3) Basophils (%) (Auto) 1 % (0-3) Neutrophils # (Auto) 3.0 x10^3/uL (1.8-7.7) Lymphocytes # (Auto) 0.9 x10^3/uL (1.0-4.8) L Monocytes # (Auto) 0.3 x10^3/uL (0.0-1.1) Eosinophils # (Auto) 0.0 x10^3/uL (0.0-0.7) Basophils # (Auto) 0.0 x10^3/uL (0.0-0.2) Platelet Estimate Pending Urine Collection Type Unknown Urine Color Yellow Urine Clarity Cloudy Urine pH 8.5 (<5.0-8.0) Urine Specific [place] 1.020 (1.000-1.030) Urine Protein 30 mg/dL (NEG-TRACE) Urine Glucose (UA) Negative mg/dL (NEG) Urine Ketones (Stick) Negative mg/dL (NEG) Urine Blood Negative (NEG) Urine Nitrite Negative (NEG) Urine Bilirubin Negative (NEG) Urine Urobilinogen Dipstick 0.2 mg/dL (0.2 mg/dL) Urine Leukocyte Esterase Negative (NEG) Urine RBC 0 /HPF (0-2) Urine WBC 0 /HPF (0-4) Urine Squamous Epithelial Cells Few /LPF Urine Amorphous Sediment Present /HPF Urine Bacteria Few /HPF (0-FEW) Urine Mucus Slight /LPF Urine Opiates Screen Neg (NEG) Urine Methadone Screen Neg (NEG) Urine Barbiturates Neg (NEG) Urine Phencyclidine Screen Neg (NEG) Urine Amphetamine/Methamphetamine Neg (NEG) Urine Benzodiazepines Screen Neg (NEG) Urine Cocaine Screen Neg (NEG) Urine Cannabinoids Screen Pos (NEG) Urine Ethyl Alcohol Neg (NEG) Sodium Level 146 mmol/L (136-145) H Potassium Level 3.8 mmol/L (3.5-5.1) Chloride Level 110 mmol/L (98-107) H Carbon Dioxide Level 27 mmol/L (21-32) Anion Gap 9 (6-14) Blood Urea Nitrogen 7 mg/dL (7-20) Creatinine 0.9 mg/dL (0.6-1.0) Estimated GFR (Cockcroft-Gault) 82.3 BUN/Creatinine Ratio 8 (6-20) Glucose Level 104 mg/dL (70-99) H Calcium Level 8.8 mg/dL (8.5-10.1) Total Bilirubin 0.4 mg/dL (0.2-1.0) Aspartate Amino Transferase (AST) 16 U/L (15-37) Alanine Aminotransferase (ALT) 26 U/L (14-59) Alkaline Phosphatase 99 U/L (46-116) Total Protein 7.0 g/dL (6.4-8.2) Albumin 3.3 g/dL (3.4-5.0) L Albumin/Globulin Ratio 0.9 (1.0-1.7) L Lipase 63 U/L (73-393) L Laboratory Tests 09/25/20 06:30 Laboratory Tests 09/25/20 09:13 Vital Signs: Vital Signs Date Time Temp Pulse Resp B/P (MAP) Pulse Ox O2 Delivery O2 Flow Rate FiO2 09/25/20 09:10 55 18 123/80 (94) 99 Room Air 09/25/20 05:40 98.2 98.2 EKG: EKG: [] Heart Score: HEART Score for Chest Pain: HEART Score for Chest Pain Response (Comments) Value History Slighlty/Non-Suspicious 0 ECG Normal 0 Age < 45 0 Risk Factors No Risk Factors 0 Troponin < Normal Limit 0 Total 0 Risk Factors: Risk Factors: DM, Current or recent (<one month) smoker, HTN, HLP, family hist ory of CAD, obesity. Risk Scores: Score 0 - 3: 2.5% MACE over next 6 weeks - Discharge Home Score 4 - 6: 20.3% MACE over next 6 weeks - Admit for Clinical Observation Score 7 - 10: 72.7% MACE over next 6 weeks - Early Invasive Strategies Radiology/Procedures: Radiology/Procedures: [] Impression: [facility] [address] [place] [address] IMAGING REPORT Signed PATIENT: SACHA ARMENTA ACCOUNT: [id number] : 1975 LOCATION: ER AGE: 45 SEX: F EXAM STATUS: REG ER ORD. PHYSICIAN: JO ANN MULLINS DO REASON: Pain/vomiting PROCEDURE: CT ABD PELV W/ IV CONTRST ONLY EXAM: Abdomen and pelvis CT with intravenous contrast. HISTORY: Pain and vomiting. TECHNIQUE: Computed tomographic images of the abdomen and pelvis were obtained following the administration of intravenous contrast. Multiplanar reformatting was performed. *One or more of the following individualized dose reduction techniques were utilized for this examination: 1. Automated exposure control. 2. Adjustment of the mA and/or kV according to patient size. 3. Use of iterative reconstruction technique. COMPARISON: 09/02/2020. FINDINGS: Evaluation of the lower thorax demonstrates trace bilateral pleural effusions. There is posterior dependent atelectasis. The heart is normal in size. There is a small cyst within the anterior right hepatic lobe. The gallbladder is surgically absent. The pancreas, spleen, adrenal glands and kidneys are unremarkable. There is no appendicitis. There is no bowel obstruction. There has been resolution of previously demonstrated distended small bowel with wall thickening within the abdomen. There is mild wall thickening involving the distal colon and rectum which is likely due to relative underdistention or the sequela of prior inflammation. There is no significant surrounding stranding to suggest acute colitis. There is a stable subcentimeter focus of fatty stranding anterior to the descending sigmoid junction likely due to the sequela of prior inflammation. This is not within limits to suggest acute epiploic appendicitis. There is a trace amount of mesenteric fluid within the pelvis. There is a small amount of pelvic free fluid. The uterus is absent. The urinary bladder is unremarkable. No adnexal lesion is seen. The aorta is normal in caliber. There is no lymphadenopathy. There is no suspicious osseous lesion. There is a transitional lumbosacral segment, a normal variant. IMPRESSION: 1. No convincing acute enteritis or colitis. There is distal colonic and rectal wall thickening without surrounding stranding, favoring changes due to prior inflammation. There is no bowel obstruction. 2. Small amount of mesenteric and pelvic free fluid, slightly decreased compared to the prior study. 3. Trace pleural effusions. Electronically signed by: Ivania Perez MD (09/25/2020 10:02 AM) [id number] DICTATED and SIGNED BY: IVANIA PEREZ MD DATE: 09/25/20 [id number] 0 Course & Med Decision Making: Course & Med Decision Making Pertinent Labs and Imaging studies reviewed. (See chart for details) The patient remains awake, alert and in no acute distress. Upon reevaluation the patient's abdomen is soft, nontender without distention. The patient is not had any further episodes of nausea or vomiting since her initial presentation. I have encouraged her to take a liquid diet over the next 24 hours. Should she develop any new fevers and/or worsening vomiting/diarrhea she has been advised to return. The patient understands and has agreed to do so. She is nontoxic- appearing and resting comfortably. She is stable for discharge. Dragon Disclaimer: Dragon Disclaimer: This electronic medical record was generated, in whole or in part, using a voice recognition dictation system. Departure Departure Impression: Primary Impression: Gastroenteritis Disposition: 01 DC HOME SELF CARE/HOMELESS Condition: STABLE Referrals: NO PCP (PCP) Patient Instructions: Viral Gastroenteritis Scripts Hydrocodone/Acetaminophen (Hydrocodone-Acetamin 5-325 mg) 1 Each Tablet 1 EACH PO x0ngnvl for 3 Days, #12 TAB Prov: JO ANN MULLINS DO 09/25/20 Ondansetron Hcl (ZOFRAN) 4 Mg Tablet 1 TAB PO PRN Q6-8HRS for nausea for 3 Days, #12 TAB Prov: JO ANN MULLINS DO 09/25/20 JO ANN MULLINS DO Sep 25, 2020 06:07
[2020-09-25 06:51] LABS: BASO % 1 % (0-3); EOS % 0 % (0-3); HEMATOCRIT 33.6 % (36.0-47.0); HEMOGLOBIN 10.4 g/dL (12.0-15.5); LYMPH # 0.9 x10^3/uL (1.0-4.8); LYMPH % 21 % (24-48); MEAN CORPUSCULAR HEMOGLOBIN 23 pg (25-35); MEAN CORPUSCULAR HGB CONC 31 g/dL (31-37); MEAN CORPUSCULAR VOLUME 74 fL (79-100); MONO # 0.3 x10^3/uL (0.0-1.1); MONO % 6 % (0-9); NEUT % 72 % (31-73); PLATELET COUNT 194 x10^3/uL (140-400); RED BLOOD COUNT 4.55 x10^6/uL (3.50-5.40); RED CELL DISTRIBUTION WIDTH 15.8 % (11.5-14.5); WHITE BLOOD COUNT 4.2 x10^3/uL (4.0-11.0)
[2020-09-25] MEDS ORDERED: MORPHINE SULFATE 4 MG/ML VIAL. IV ONE (08:00)
[2020-09-25 08:15] LABS: BILIRUBIN,URINE NEGATIVE (NEG); CLARITY,URINE CLOUDY; COLOR,URINE YELLOW; NITRITE,URINE NEGATIVE (NEG); PH,URINE 8.5 (<5.0-8.0); PROTEIN,URINE 30 mg/dL (NEG-TRACE); UROBILINOGEN,URINE 0.2 mg/dL (0.2 mg/dL)
[2020-09-25 08:23] LABS: BARBITURATES NEG (NEG); BENZODIAZEPINES NEG (NEG); CANNABINOIDS POS (NEG); COCAINE NEG (NEG); METHADONE NEG (NEG); OPIATES NEG (NEG); PHENCYCLIDINE NEG (NEG)
[2020-09-25 08:24] LABS: AMORPHOUS SEDIMENT,UR PRESENT /HPF; AMPHETAMINE/METHAMPHETAMINE NEG (NEG); BACTERIA,URINE FEW /HPF (0-FEW); RBC,URINE 0 /HPF (0-2); WBC,URINE 0 /HPF (0-4)
[2020-09-25 09:36] LABS: CALCIUM 8.8 mg/dL (8.5-10.1); CREATININE 0.9 mg/dL (0.6-1.0); GFR 82.3; POTASSIUM 3.8 mmol/L (3.5-5.1)
[2020-09-25 09:43] LABS: ALBUMIN 3.3 g/dL (3.4-5.0); ALBUMIN/GLOBULIN RATIO 0.9 (1.0-1.7); TOTAL BILIRUBIN 0.4 mg/dL (0.2-1.0)
[2020-09-25] MEDS ORDERED: IOHEXOL 300 MG/ML 100ML VIAL. IV ONE (09:45)
--- NOTE | 2020-09-25 10:05 | RAD ---
ADDENDUM #1 Addendum: There is a typographical error within the findings section of the report. The last sentence of the second paragraph should state "This is not within limits to suggest acute epiploic appendagit is." Electronically signed by: Ivania Perez MD (09/25/2020 2:50 PM) [id number] ORIGINAL REPORT EXAM: Abdomen and pelvis CT with intravenous contrast. HISTORY: Pain and vomiting. TECHNIQUE: Computed tomographic images of the abdomen and pelvis were obtained following the administ ration of intravenous contrast. Multiplanar reformatting was performed. *One or more of the following individualized dose reduction techniques were utilized for this examina tion: 1. Automated exposure control. 2. Adjustment of the mA and/or kV according to patient size. 3. Use of iterative reconstruction technique. COMPARISON: 09/02/2020. FINDINGS: Evaluation of the lower thorax demonstrates trace bilateral pleural effusions. There is pos terior dependent atelectasis. The heart is normal in size. There is a small cyst within the anterior right hepatic lobe. The gallbladder is surgically absent. The pancreas, spleen, adrenal glands and ki dneys are unremarkable. There is no appendicitis. There is no bowel obstruction. There has been resolution of previously demo nstrated distended small bowel with wall thickening within the abdomen. There is mild wall thickening involving the distal colon and rectum which is likely due to relative underdistention or the sequela of prior inflammation. There is no significant surrounding stranding to suggest acute colitis. There is a stable subcentimeter focus of fatty stranding anterior to the descending sigmoid junction likel y due to the sequela of prior inflammation. This is not within limits to suggest acute epiploic appen dicitis. There is a trace amount of mesenteric fluid within the pelvis. There is a small amount of pelvic free fluid. The uterus is absent. The urinary bladder is unremarkable. No adnexal lesion is seen. The aor ta is normal in caliber. There is no lymphadenopathy. There is no suspicious osseous lesion. There is a transitional lumbosacral segment, a normal variant. IMPRESSION: 1. No convincing acute enteritis or colitis. There is distal colonic and rectal wall thickening witho ut surrounding stranding, favoring changes due to prior inflammation. There is no bowel obstruction. 2. Small amount of mesenteric and pelvic free fluid, slightly decreased compared to the prior study. 3. Trace pleural effusions. Electronically signed by: Ivania Perez MD (09/25/2020 10:02 AM) [id number]
[2020-09-25] MEDS ORDERED: ONDA4TAB7 PO (10:20)
[2020-09-25] MEDS ORDERED: HYDR-2759 PO (10:20)
[2020-09-25 10:49] LABS: PLT ESTIMATE ADEQUATE (ADEQUATE)
[2020-09-25 10:50] VITALS: BP 140/75
[2020-09-25 10:50] LABS: ANISOCYTOSIS SLIGHT
[2020-09-25 10:51] LABS: HYPOCHROMIA MOD; MICROCYTOSIS PRESENT
[2020-11-20] MEDS ORDERED: ONDA4TAB12 PO (11:44)
[2020-11-20] MEDS ORDERED: LORA-434 PO (11:44)
== END 2020-09-25 11:00 | disposition home or self-care (01) ==
LOC: ER 05:26
DX: K52.9 Noninfective gastroenteritis and colitis, unspecified (principal); R10.84 Generalized abdominal pain; R11.2 Nausea with vomiting, unspecified; G62.9 Polyneuropathy, unspecified; F12.90 Cannabis use, unspecified, uncomplicated; Z90.49 Acquired absence of other specified parts of digestive tract; Z90.710 Acquired absence of both cervix and uterus; Z87.891 Personal history of nicotine dependence; Z98.890 Other specified postprocedural states; Z88.2 Allergy status to sulfonamides; Z88.8 Allergy status to other drugs, medicaments and biological substances
CPT/HCPCS: 36415; 74177; 80053; 80307; 81001; 83690; 85025; 96361; 96374; 96375; 99285; J2270; J2405; J7030; Q9967

== ENCOUNTER 2020-10-07 13:22 | Emergency (ER) | payer SELFPAY ==
[~2020-10-07] VITALS: Ht 172.7 cm; Wt 77.2 kg
[~2020-10-07 13:22] MED LIST changes: +HYDR-2759 PO
[2020-10-07] MEDS ORDERED: IV NORMAL SALINE 1000ML BAG 1,000 ML IV ONE ×2 (13:45→14:45)
[2020-10-07] MEDS ORDERED: METOCLOPRAMIDE HCL 10 MG/2 ML VIAL. IVP ONE (13:45)
[2020-10-07 13:51] LABS: BASO % 0 % (0-3); EOS # 0.1 x10^3/uL (0.0-0.7); EOS % 2 % (0-3); HEMATOCRIT 38.9 % (36.0-47.0); HEMOGLOBIN 12.1 g/dL (12.0-15.5); LYMPH # 1.3 x10^3/uL (1.0-4.8); LYMPH % 19 % (24-48); MEAN CORPUSCULAR HEMOGLOBIN 23 pg (25-35); MEAN CORPUSCULAR HGB CONC 31 g/dL (31-37); MEAN CORPUSCULAR VOLUME 74 fL (79-100); MONO # 0.3 x10^3/uL (0.0-1.1); MONO % 4 % (0-9); NEUT # 5.4 x10^3/uL (1.8-7.7); NEUT % 76 % (31-73); PLATELET COUNT 251 x10^3/uL (140-400); RED BLOOD COUNT 5.26 x10^6/uL (3.50-5.40); RED CELL DISTRIBUTION WIDTH 15.8 % (11.5-14.5); WHITE BLOOD COUNT 7.1 x10^3/uL (4.0-11.0)
[2020-10-07 14:02] LABS: CALCIUM 9.8 mg/dL (8.5-10.1); CREATININE 0.8 mg/dL (0.6-1.0); GFR 94.3; POTASSIUM 3.8 mmol/L (3.5-5.1)
--- NOTE | 2020-10-07 14:08 | ED.ADGEN ---
Past Medical History Past Medical History: Other Additional Past Medical Histor: NEUROPATHY Past Surgical History: Cholecystectomy, Hysterectomy, Tonsillectomy, Other Additional Past Surgical Histo: HERNIA REPAIR Smoking Status: Former Smoker Alcohol Use: None Drug Use: Marijuana General Adult EDM: Chief Complaint: ABDOMINAL PAIN HPI: HPI: Patient is a 45-year-old female who presents to the emergency room complaining of mid abdominal pain. This is very similar to the last several episodes of abdominal pain that she has had. She states that she has had some nausea and vomiting. She does not believe she has had any change in her bowels. She monique es any urinary symptoms. She has been admitted for this problem previously. She is supposed to follow-up with GI but has not rescheduled her appointment with them. She denies taking anything at home to help with her symptoms. She was requesting pain medication. Review of Systems: Review of Systems: Complete ROS is negative unless otherwise documented in HPI Current Medications: Current Medications Medications (Trade) Dose Ordered Sig/Campos Start Time Stop Time Status Last Admin Dose Admin Haloperidol Lactate (Haldol Inj) 5 mg 1X ONCE 10/07/20 14:45 10/07/20 14:46 DC 10/07/20 14:58 5 MG Metoclopramide HCl (Reglan Vial) 10 mg 1X ONCE 10/07/20 13:45 10/07/20 13:46 DC 10/07/20 13:50 10 MG Sodium Chloride 1,000 ml @ 1,000 mls/hr 1X ONCE 10/07/20 14:45 10/07/20 15:44 DC 10/07/20 14:45 1,000 MLS/HR Allergies: Allergies: Allergies Coded Allergies Type Severity Reaction Last Updated Verified sulfamethoxazole Allergy Intermediate 07/14/19 Yes trimethoprim Allergy Intermediate 07/14/19 Yes Physical Exam: PE: General: Awake, alert, mild distress. Well Nourished, well hydrated. Cooperative HEENT: Atraumatic, EOMI, PERRL, airway patent, moist oral mucosa Neck: Supple, trachea midline Respiratory: CTA bilaterally, normal effort, no wheezing/crackles CV: RRR, no murmur, cap refill <2 GI: Soft, nondistended, nontender, no masses MSK: No obvious deformities Skin: Warm, dry, intact Neuro: A&O x3, speech NL, sensory and motor grossly intact, no focal deficits Psych: Normal affect, normal mood, not suicidal or homicidal Current Patient Data: Labs: Laboratory Tests Test 10/07/20 13:30 White Blood Count 7.1 x10^3/uL (4.0-11.0) Red Blood Count 5.26 x10^6/uL (3.50-5.40) Hemoglobin 12.1 g/dL (12.0-15.5) Hematocrit 38.9 % (36.0-47.0) Mean Corpuscular Volume 74 fL (79-100) L Mean Corpuscular Hemoglobin 23 pg (25-35) L Mean Corpuscular Hemoglobin Concent 31 g/dL (31-37) Red Cell Distribution Width 15.8 % (11.5-14.5) H Platelet Count 251 x10^3/uL (140-400) Neutrophils (%) (Auto) 76 % (31-73) H Lymphocytes (%) (Auto) 19 % (24-48) L Monocytes (%) (Auto) 4 % (0-9) Eosinophils (%) (Auto) 2 % (0-3) Basophils (%) (Auto) 0 % (0-3) Neutrophils # (Auto) 5.4 x10^3/uL (1.8-7.7) Lymphocytes # (Auto) 1.3 x10^3/uL (1.0-4.8) Monocytes # (Auto) 0.3 x10^3/uL (0.0-1.1) Eosinophils # (Auto) 0.1 x10^3/uL (0.0-0.7) Basophils # (Auto) 0.0 x10^3/uL (0.0-0.2) Sodium Level 143 mmol/L (136-145) Potassium Level 3.8 mmol/L (3.5-5.1) Chloride Level 104 mmol/L (98-107) Carbon Dioxide Level 27 mmol/L (21-32) Anion Gap 12 (6-14) Blood Urea Nitrogen 6 mg/dL (7-20) L Creatinine 0.8 mg/dL (0.6-1.0) Estimated GFR (Cockcroft-Gault) 94.3 BUN/Creatinine Ratio 8 (6-20) Glucose Level 103 mg/dL (70-99) H Calcium Level 9.8 mg/dL (8.5-10.1) Total Bilirubin 0.4 mg/dL (0.2-1.0) Aspartate Amino Transferase (AST) 34 U/L (15-37) Alanine Aminotransferase (ALT) 47 U/L (14-59) Alkaline Phosphatase 119 U/L (46-116) H Total Protein 8.6 g/dL (6.4-8.2) H Albumin 4.1 g/dL (3.4-5.0) Albumin/Globulin Ratio 0.9 (1.0-1.7) L Lipase 59 U/L (73-393) L Laboratory Tests 10/07/20 13:30 Laboratory Tests 10/07/20 13:30 Vital Signs: Vital Signs Date Time Temp Pulse Resp B/P (MAP) Pulse Ox O2 Delivery O2 Flow Rate FiO2 10/07/20 13:25 98.5 65 20 145/95 (112) 97 Room Air 98.5 EKG: EKG: [] Heart Score: Risk Factors: Risk Factors: DM, Current or recent (<one month) smoker, HTN, HLP, family history of CAD, obesity. Risk Scores: Score 0 - 3: 2.5% MACE over next 6 weeks - Discharge Home Score 4 - 6: 20.3% MACE over next 6 weeks - Admit for Clinical Observation Score 7 - 10: 72.7% MACE over next 6 weeks - Early Invasive Strategies Radiology/Procedures: Radiology/Procedures: [] Course & Med Decision Making: Course & Med Decision Making Pertinent Labs and Imaging studies reviewed. (See chart for details) Patient is a 45-year-old female who presents to the emergency room complaining of mid abdominal pain that that is very similar to the pain she has had previously. Patient initially had a CT that showed some possible enteritis several months ago. She has returned to the emergency room since then and has had a normal CT with similar pain. She has been evaluated by GI who are recommending an outpatient EGD and colonoscopy. They do believe that there may be a component of cyclic vomiting. Abdominal lab work was ordered upon patient's arrival and she was given nausea medicine and fluids. On my initial evaluation patient was crying and upon my reevaluation patient is no longer in any distress but is angry. Patient is requesting narcotic pain medicine. She states that she is in pain and she needs to be admitted to the hospital for her pain. I have discussed with her that at this time her lab work is normal including normal white blood cell count, normal liver enzymes, normal lipase which would all suggest that at this time she does not have any acute reason to be admitted to the hospital. Patient has normal vitals and has had no vomiting while here in the emergency room. I do not feel at this time that narcotic pain medicine is appropriate. I have recommended she makes a follow up appointment with GI. UA was ordered however patient would not give urine. Initially she urinated in her bed and then when she urinated the second time she stated "she missed the cup." She does not have urinary symptoms and has had a hysterectomy. Patient's test results and vitals while in the ED were fully reviewed and discussed with the patient. Patient is stable and at this time does not need admission to the hospital. We have discussed strict return precautions and the importance of following up with their Primary Care Physician. Patient stated understanding and was given an opportunity to ask any questions. Patient is in agreement with plan. Earnest Disclaimer: Earnest Disclaimer: This electronic medical record was generated, in whole or in part, using a voice recognition dictation system. Departure Departure Impression: Primary Impression: Intractable abdominal pain Disposition: 01 DC HOME SELF CARE/HOMELESS Condition: STABLE Referrals: NO PCP (PCP) Patient Instructions: Abdominal Pain MITCHELL SHARP MD Oct 07, 2020 14:07
[2020-10-07 14:14] LABS: ALBUMIN 4.1 g/dL (3.4-5.0); ALBUMIN/GLOBULIN RATIO 0.9 (1.0-1.7); TOTAL BILIRUBIN 0.4 mg/dL (0.2-1.0); TOTAL PROTEIN 8.6 g/dL (6.4-8.2)
[2020-10-07] MEDS ORDERED: HALOPERIDOL LACTATE 5 MG/ML VIAL. IVP ONE (14:45)
[2020-10-07 16:53] VITALS: BP 111/74
== END 2020-10-07 17:20 | disposition home or self-care (01) ==
LOC: ER 13:22
DX: R10.9 Unspecified abdominal pain (principal); R11.2 Nausea with vomiting, unspecified; Z87.891 Personal history of nicotine dependence; Z90.49 Acquired absence of other specified parts of digestive tract; Z90.710 Acquired absence of both cervix and uterus; Z88.1 Allergy status to other antibiotic agents; Z88.2 Allergy status to sulfonamides
CPT/HCPCS: 36415; 80053; 83690; 85025; 96361; 96374; 96375; 99285; J1630; J2765; J7030

== ENCOUNTER 2020-10-09 01:53 | Emergency (ER) | payer SELFPAY ==
[~2020-10-09] VITALS: Ht 172.7 cm; Wt 77.0 kg
[2020-10-09] MEDS ORDERED: IV NORMAL SALINE 1000ML BAG 1,000 ML IV ONE ×2 (02:45→05:00)
[2020-10-09] MEDS ORDERED: HALOPERIDOL LACTATE 5 MG/ML VIAL. IVP ONE (02:45)
[2020-10-09] MEDS ORDERED: ONDANSETRON ODT 4 MG TAB.RAPDIS. PO ONE (02:45)
[2020-10-09] MEDS ORDERED: METOCLOPRAMIDE HCL 10 MG/2 ML VIAL. IVP ONE (03:15)
[2020-10-09 03:21] LABS: BASO % 1 % (0-3); EOS % 0 % (0-3); HEMATOCRIT 30.7 % (36.0-47.0); HEMOGLOBIN 9.7 g/dL (12.0-15.5); LYMPH # 0.8 x10^3/uL (1.0-4.8); LYMPH % 10 % (24-48); MEAN CORPUSCULAR HEMOGLOBIN 23 pg (25-35); MEAN CORPUSCULAR HGB CONC 32 g/dL (31-37); MEAN CORPUSCULAR VOLUME 74 fL (79-100); MONO # 0.2 x10^3/uL (0.0-1.1); MONO % 3 % (0-9); NEUT # 6.7 x10^3/uL (1.8-7.7); NEUT % 87 % (31-73); PLATELET COUNT 221 x10^3/uL (140-400); RED BLOOD COUNT 4.14 x10^6/uL (3.50-5.40); RED CELL DISTRIBUTION WIDTH 15.5 % (11.5-14.5); WHITE BLOOD COUNT 7.7 x10^3/uL (4.0-11.0)
[2020-10-09 05:00] LABS: CALCIUM 9.7 mg/dL (8.5-10.1); CREATININE 2.2 mg/dL (0.6-1.0); GFR 29.3; MAGNESIUM 2.1 mg/dL (1.8-2.4); POTASSIUM 3.9 mmol/L (3.5-5.1)
[2020-10-09] MEDS ORDERED: ONDA4TAB12 PO (05:36)
[2020-10-09] MEDS ORDERED: CAPS42.514 TP (05:36)
--- NOTE | 2020-10-09 05:47 | PHYS DOC ---
Past Medical History Past Medical History: Other Additional Past Medical Histor: NEUROPATHY, gastroenteritis Past Surgical History: Cholecystectomy, Hysterectomy, Tonsillectomy, Other Additional Past Surgical Histo: HERNIA REPAIR Smoking Status: Former Smoker Alcohol Use: None Drug Use: Marijuana General Adult EDM: Chief Complaint: ABDOMINAL PAIN HPI: HPI: 45-year-old female presents the ED as a bounce back, seen 2 days prior, complaining of diffuse abdominal pain, nausea and nonbloody nonbilious vomiting for the past 2 days after she was seen in the ED. Reports she has not seen her primary care physician Dr. Fransisco Mandujano for these symptoms and states they have been chronic, waxing and waning for the past 2 months. Stopped marijuana use 09/22/20-had smoked daily for almost a year. Has "never heard of [facility]." PSH- cholecystectomy and NUVIA-BSO (concern for "hpv"). EMR reviewed -prior ED visit 2 days ago with spontaneous change in presentation when not receiving narcotics. Hospital admission for these symptoms and GI evaluation 08/2020. Prior drug screens did show history of marijuana. Patient again, refusing to provide urine sample. Recent CT abd/pelvis w/contrast on 09/25/20 that showed no convincing acute enteritis or colitis. There is distal colonic and rectal wall thickening without surrounding stranding, favoring changes due to prior inflammation. There is no bowel obstruction. GI consultation 08/30/20 concern for cannabinoid hyperemesis syndrome, consider inflammatory bowel disease, recommended outpatient egd and colonoscopy. Review of Systems: Review of Systems: Constitutional: Denies fever or chills. [] Eyes: Denies change in visual acuity. [] HENT: Denies nasal congestion or sore throat. [] Respiratory: Denies cough or shortness of breath. [] Cardiovascular: Denies chest pain or edema. [] GI: Denies melena, hematochezia, hematemesis : Denies dysuria, hematuria, vaginal bleeding Musculoskeletal: Denies back pain or or CVA tenderness Integument: Denies rash or diaphoresis Neurologic: Denies headache, focal weakness or sensory changes. [] Endocrine: Denies polyuria or polydipsia. [] Lymphatic: Denies swollen glands. [] Psychiatric: Denies depression or anxiety. [] Heart Score: Risk Factors: Risk Factors: DM, Current or recent (<one month) smoker, HTN, HLP, family history of CAD, obesity. Risk Scores: Score 0 - 3: 2.5% MACE over next 6 weeks - Discharge Home Score 4 - 6: 20.3% MACE over next 6 weeks - Admit for Clinical Observation Score 7 - 10: 72.7% MACE over next 6 weeks - Early Invasive Strategies Current Medications: Current Medications Medications (Trade) Dose Ordered Sig/Campos Start Time Stop Time Status Last Admin Dose Admin Haloperidol Lactate (Haldol Inj) 5 mg 1X ONCE 10/09/20 02:45 10/09/20 02:46 DC 10/09/20 03:01 5 MG Metoclopramide HCl (Reglan Vial) 10 mg 1X ONCE 10/09/20 03:15 10/09/20 03:16 DC 10/09/20 03:03 10 MG Ondansetron HCl (Zofran Odt) 8 mg 1X ONCE 10/09/20 02:45 10/09/20 02:46 DC 10/09/20 02:41 8 MG Sodium Chloride 1,000 ml @ 1,000 mls/hr 1X ONCE 10/09/20 05:00 10/09/20 05:59 10/09/20 04:50 1,000 MLS/HR Allergies: Allergies: Allergies Coded Allergies Type Severity Reaction Last Updated Verified sulfamethoxazole Allergy Intermediate 07/14/19 Yes trimethoprim Allergy Intermediate 07/14/19 Yes Physical Exam: PE: Constitutional: With active nonbloody nonbilious emesis in ED, afebrile HENT: Normocephalic, atraumatic, dry mucous membranes Eyes: EOMI, conjunctiva normal, no discharge. Neck: Normal range of motion, supple, Cardiovascular: S1/2 present, tachycardic Lungs & Thorax: Speaking in full sentences, bilateral equal chest rise, no tachypnea or increased work of breathing Abdomen: soft, diffuse, nonlocalized tenderness, worse in epigastric region and periumbilical with no rigidity or guarding, no pain at McBurney's point or Rovsing sign Skin: Warm, dry, no erythema, no rash. [] Back: No tenderness, no CVA tenderness. [] Extremities: No tenderness, no cyanosis, no edema Neurologic: Alert and oriented X 3, normal motor function, normal sensory function, no focal deficits noted. [] Psychologic: Affect normal, judgement normal, mood normal. [] Current Patient Data: Labs: Laboratory Tests Test 10/09/20 03:10 10/09/20 04:45 White Blood Count 7.7 x10^3/uL (4.0-11.0) Red Blood Count 4.14 x10^6/uL (3.50-5.40) Hemoglobin 9.7 g/dL (12.0-15.5) L Hematocrit 30.7 % (36.0-47.0) L Mean Corpuscular Volume 74 fL (79-100) L Mean Corpuscular Hemoglobin 23 pg (25-35) L Mean Corpuscular Hemoglobin Concent 32 g/dL (31-37) Red Cell Distribution Width 15.5 % (11.5-14.5) H Platelet Count 221 x10^3/uL (140-400) Neutrophils (%) (Auto) 87 % (31-73) H Lymphocytes (%) (Auto) 10 % (24-48) L Monocytes (%) (Auto) 3 % (0-9) Eosinophils (%) (Auto) 0 % (0-3) Basophils (%) (Auto) 1 % (0-3) Neutrophils # (Auto) 6.7 x10^3/uL (1.8-7.7) Lymphocytes # (Auto) 0.8 x10^3/uL (1.0-4.8) L Monocytes # (Auto) 0.2 x10^3/uL (0.0-1.1) Eosinophils # (Auto) 0.0 x10^3/uL (0.0-0.7) Basophils # (Auto) 0.0 x10^3/uL (0.0-0.2) Platelet Estimate Pending Sodium Level 144 mmol/L (136-145) Potassium Level 3.9 mmol/L (3.5-5.1) Chloride Level 105 mmol/L (98-107) Carbon Dioxide Level 25 mmol/L (21-32) Anion Gap 14 (6-14) Blood Urea Nitrogen 27 mg/dL (7-20) H Creatinine 2.2 mg/dL (0.6-1.0) H Estimated GFR (Cockcroft-Gault) 29.3 Glucose Level 125 mg/dL (70-99) H Calcium Level 9.7 mg/dL (8.5-10.1) Magnesium Level 2.1 mg/dL (1.8-2.4) Lipase 55 U/L (73-393) L Laboratory Tests 10/09/20 03:10 Laboratory Tests 10/09/20 04:45 Vital Signs: Vital Signs Date Time Temp Pulse Resp B/P (MAP) Pulse Ox O2 Delivery O2 Flow Rate FiO2 10/09/20 03:30 95 18 142/87 (105) 98 Room Air 10/09/20 02:10 97.9 97.9 EKG: EKG: [] Radiology/Procedures: Radiology/Procedures: [] Course & Med Decision Making: Course & Med Decision Making Pertinent Labs and Imaging studies reviewed. (See chart for details) Concern for cannabinoid hyperemesis syndrome with acute kidney injury Initial labs were diluted-drawn near IV line while patient was receiving NS bolus. Reports her symptoms are chronic, no new characteristics to her abdominal pain, no diarrhea or severe pain out of proportion, abdominal exam not indicating need for emergent CT imaging. Abdominal pain and vomiting resolved shortly after receiving Haldol, had no improvement with Zofran. Pt on re-eval, calm, sleeping, no further pain. Labs with QUITA, no rhabdo. I educated patient on her risk of radiation induced malignancy with repeat ED visits and CT scans. I encourage patient to follow-up with her outpatient primary care physician and GI for recommended EGD and colonoscopy. We will also provide nephrology consult if renal function does not improve. Advised that patient discontinue any and all marijuana use. Will discharge home with strict ED return precautions were given for intractable nausea and vomiting with dehydration, severe pain, fever or syncope. Life-threatening processes were considered but are low suspicion at this time, given history, physical exam and ED workup. Pt was educated on all prescription medications and adverse effects. All patient's questions were answered and pt was stable at time of discharge. Life/limb-threatening differential includes but is not limited to, acute coronary syndrome/myocardial infarction, Boerhaave's, DKA, intracranial hemo rrhage, ischemic bowel, meningitis, sepsis, surgical abdomen (AAA), toxidrome (drug over/overdose/carbon monoxide, etc), ovarian/testicular torsion, trauma, or infection/sepsis. I spoken with the patient and her caregivers. I explained the patient's condition, diagnoses and treatment plan based on the information available to me at this time. I have answered the patient and her caregiver's questions and addressed any concerns. The patient and her caregivers have a good understanding of patient's diagnosis, condition and treatment plan as can be expected at this point. Vital signs have been stable. Patient's condition is stable and appropriate for discharge from the emergency department. Patient will pursue further outpatient evaluation with primary care physician or other designated or consulting physician as outlined in the discharge instructions. The patient and/or caregivers are agreeable to this plan of care and follow-up instructions have been explained in detail. The patient and/or caregivers have received these instructions in written form and have expressed an understanding of the discharge instructions. The patient and/or caregivers are aware that any significant change of condition or worsening of symptoms should prompt immediate return to this or the closest emergency department or call to 1. Earnest Disclaimer: Earnest Disclaimer: This electronic medical record was generated, in whole or in part, using a voice recognition dictation system. Departure Departure Impression: Primary Impression: QUITA (acute kidney injury) Additional Impressions: Cannabinoid hyperemesis syndrome Nausea and vomiting Disposition: 01 DC HOME SELF CARE/HOMELESS Condition: STABLE Referrals: NO PCP (PCP) FOLLOW UP WITH FAMILY MEDICINE: Family Medicine Address: [address] [place] [address] Patient Instructions: Marijuana Abuse and Chemical Dependency Additional Instructions: FOLLOW UP WITH GASTROENTEROLOGY: For 08/2020 recommends, outpatient EGD and colonoscopy with Dr. Trujillo [facility] Address: [address] [place] [address] FOLLOW UP WITH [facility]PH[facility]OLOGY: [facility] Address: [address] [place] [address] [address] EMERGENCY DEPARTMENT GENERAL DISCHARGE INSTRUCTIONS Thank you for coming to [facility] Emergency Department (ED) allison mcpherson and trusting us with you care. We trust that you had a positive experience in our Emergency Department. If you wish to speak to the department management, you may call the Director at [phone]. YOUR FOLLOW UP INSTRUCTIONS ARE FOLLOWS: 1. Do you have a private Doctor? If you do not have a private doctor, please ask for a resource list of physicians or clinics that may be able to assist you with follow up care. 2. The Emergency Physicain has interpreted your x-rays. The X-Ray specialist will also review them. If there is a change in the findings, you will be notified in 48 hours when at all possible. 3. A lab test or culture has been done, your results will be reviewed and you will be notified if you need a change in treatment. ADDITIONAL INSTRUCTIONS AND INFORMATION: 1. Your care today has been supervised by a physician who is specially trained in emergency care. Many problems require more than one evaluation for a complete diagnosis and treatment. We recommend that you schedule your follow up appointment as recommended to ensure complete treatment of you illness or injury. If you are unable to obtain follow up care and continue to have a problem, or if your condition worsens, we recommend that you return to the ED. 2. We are not able to safely determine your condition over the phone nor are we able to give sound medical advice over the phone. For these safety reasons, if you call for medical advice we will ask you to come to the ED for further evaluation. 3. If you have any questions regarding these discharge instructions please call the ED at [phone]. SAFETY INFORMATION: In the interest of safety, wellness, and injury prevention; we encourage you to wear your sealbelt, if you smoke; quite smoking, and we encourage family to use a protective helmet for bicycling and other sporting events that present an increased risk for head injury. IF YOUR SYMPTOMS WORSEN OR NEW SYMPTOMS DEVELOP, OR YOU HAVE CONCERNS ABOUT YOUR CONDITION; OR IF YOUR CONDITION WORSENS WHILE YOU ARE WAITING FOR YOUR FOLLOW UP APPOIN TMENT; EITHER CONTACT YOUR PRIMARY CARE DOCTOR, THE PHYSICIAN WHOSE NAME AND NUMBER YOU WERE GIVEN, OR RETURN TO THE ED IMMEDIATELY. Scripts Ondansetron (ONDANSETRON ODT) 4 Mg Tab.rapdis 1 TAB PO PRN Q6-8HRS, #20 TAB Prov: VARGAS KIM DO 10/09/20 Capsaicin (CAPSAICIN) 42.5 Gm Cream..g. 1 JULIET TP TID PRN for nausea/vomiting for 7 Days, #1 TUBE 0 Refills Apply to stomach. Prov: VARGAS KIM DO 10/09/20 VARGAS KIM DO Oct 09, 2020 05:47
[2020-10-09 06:37] LABS: BARBITURATES NEG (NEG); BENZODIAZEPINES NEG (NEG); CANNABINOIDS POS (NEG); COCAINE NEG (NEG); METHADONE NEG (NEG); OPIATES NEG (NEG); PHENCYCLIDINE NEG (NEG)
[2020-10-09 06:43] LABS: AMPHETAMINE/METHAMPHETAMINE NEG (NEG)
[2020-10-09 06:58] LABS: U PREG PATIENT NEGATIVE (NEG)
[2020-10-09 07:12] VITALS: BP 114/75
[2020-10-09 11:04] LABS: % LYMPHS 5 % (24-48); % MONOS 3 % (0-10); % SEGS 92 % (35-66); PLT ESTIMATE ADEQUATE (ADEQUATE)
[2020-10-09 11:05] LABS: ANISOCYTOSIS PRESENT; HYPOCHROMIA PRESENT; MICROCYTOSIS PRESENT
[2020-11-20] MEDS ORDERED: ONDA4TAB12 PO (11:44)
[2020-11-20] MEDS ORDERED: LORA-434 PO (11:44)
== END 2020-10-09 07:11 | disposition home or self-care (01) ==
LOC: ER 01:53
DX: N17.9 Acute kidney failure, unspecified (principal); R11.2 Nausea with vomiting, unspecified; R10.84 Generalized abdominal pain; G62.9 Polyneuropathy, unspecified; F12.90 Cannabis use, unspecified, uncomplicated; Z87.891 Personal history of nicotine dependence; Z90.49 Acquired absence of other specified parts of digestive tract; Z90.710 Acquired absence of both cervix and uterus; Z98.890 Other specified postprocedural states; Z88.2 Allergy status to sulfonamides; Z88.8 Allergy status to other drugs, medicaments and biological substances
CPT/HCPCS: 36415; 80048; 80307; 81025; 82550; 83690; 83735; 85007; 85025; 96361; 96374; 96375; 99285; J1630; J2765; J7030

== ENCOUNTER 2020-10-11 03:09 | Emergency (ER) | payer SELFPAY ==
[~2020-10-11] VITALS: Ht 172.7 cm; Wt 77.3 kg
[~2020-10-11 03:09] MED LIST changes: +CAPS42.514 TP
[2020-10-11] MEDS ORDERED: CAPSAICIN 0.025% TOPICAL CREAM 60GM TUBE. TP ONE (03:30)
[2020-10-11] MEDS ORDERED: HALOPERIDOL LACTATE 5 MG/ML VIAL. IM ONE (03:30)
[2020-10-11] MEDS ORDERED: KETOROLAC 15 MG/ML VIAL. ONE (03:39)
[2020-10-11] MEDS ORDERED: KETOROLAC 30 MG/ML VIAL. IVP ONE (03:45)
[2020-10-11] MEDS ORDERED: LIDO:MAALOX 1:1 20 ML SINGLE DOSE. SWSW ONE (03:45)
[2020-10-11] MEDS ORDERED: ONDANSETRON PF 4 MG/2 ML VIAL. IVP ONE (03:45)
[2020-10-11] MEDS ORDERED: PANTOPRAZOLE IV PUSH 40 MG VIAL. IVP ONE (03:45)
[2020-10-11] MEDS ORDERED: IV NORMAL SALINE 1000ML BAG 1,000 ML IV SCH (03:45)
[2020-10-11 03:47] LABS: BILIRUBIN,URINE SMALL (NEG); CLARITY,URINE CLEAR; COLOR,URINE AMBER; NITRITE,URINE NEGATIVE (NEG); PROTEIN,URINE 30 mg/dL (NEG-TRACE); UROBILINOGEN,URINE 0.2 mg/dL (0.2 mg/dL)
[2020-10-11 04:07] LABS: BASO % 1 % (0-3); EOS % 0 % (0-3); HEMATOCRIT 35.1 % (36.0-47.0); HEMOGLOBIN 11.1 g/dL (12.0-15.5); LYMPH # 1.3 x10^3/uL (1.0-4.8); LYMPH % 21 % (24-48); MEAN CORPUSCULAR HEMOGLOBIN 23 pg (25-35); MEAN CORPUSCULAR HGB CONC 32 g/dL (31-37); MEAN CORPUSCULAR VOLUME 74 fL (79-100); MONO # 0.5 x10^3/uL (0.0-1.1); MONO % 8 % (0-9); NEUT # 4.1 x10^3/uL (1.8-7.7); NEUT % 70 % (31-73); PLATELET COUNT 245 x10^3/uL (140-400); RED BLOOD COUNT 4.78 x10^6/uL (3.50-5.40); RED CELL DISTRIBUTION WIDTH 15.1 % (11.5-14.5); WHITE BLOOD COUNT 5.9 x10^3/uL (4.0-11.0)
[2020-10-11 04:18] LABS: AMPHETAMINE/METHAMPHETAMINE NEG (NEG); BARBITURATES NEG (NEG); BENZODIAZEPINES NEG (NEG); CANNABINOIDS POS (NEG); COCAINE NEG (NEG); METHADONE NEG (NEG); OPIATES POS (NEG); PHENCYCLIDINE NEG (NEG)
--- NOTE | 2020-10-11 04:20 | RAD ---
EXAM: XR ABDOMEN 1V 10/11/2020 3:33 AM CLINICAL INDICATION: Abdominal pain COMPARISON: Abdominal radiograph 09/02/[address] abdomen pelvis 07/26/2021 TECHNIQUE: AP supine view the abdomen FINDINGS: Bowel gas pattern is nonspecific and nonobstructive. Normal volume of stool. Cholecystecto my clips are noted. No acute osseous abnormality. IMPRESSION: No acute abnormality. Electronically signed by: Kelsey Briscoe MD (10/11/2020 4:18 AM) [id number]
[2020-10-11 04:27] LABS: ALBUMIN 3.8 g/dL (3.4-5.0); CALCIUM 9.2 mg/dL (8.5-10.1); CREATININE 0.9 mg/dL (0.6-1.0); DIRECT BILIRUBIN 0.1 mg/dL (0.0-0.2); GFR 82.3; TOTAL BILIRUBIN 0.7 mg/dL (0.2-1.0)
[2020-10-11 04:42] LABS: BACTERIA,URINE MOD /HPF (0-FEW)
[2020-10-11] MEDS ORDERED: ONDA4TAB7 PO (04:59)
--- NOTE | 2020-10-11 04:59 | PHYS DOC ---
Past Medical History Past Medical History: Other Additional Past Medical Histor: NEUROPATHY, gastroenteritis Past Surgical History: Cholecystectomy, Hysterectomy, Tonsillectomy, Other Additional Past Surgical Histo: HERNIA REPAIR Smoking Status: Former Smoker Alcohol Use: None Drug Use: Marijuana Adult General Chief Complaint Chief Complaint: NAUSEA/VOMITING/[facility] HPI Patient is a 45 year old female presenting the emergency department returning for nausea vomiting and abdominal pain. Of note patient was here 2 days ago during which time she was evaluated for similar symptoms. Patient had a work-up that was obtained and apparently became irritated with staff after not receiving narcotic pain medication. After reviewing the records, times of the patient has a history of noncompliance with medications as well as irritation in being unc ooperative with staff. There was some concern for malingering behavior at the time. 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 Also now complains of midepigastric abdominal pain. Denies any associated fevers, chills, chest pain. Review of Systems Review of Systems Constitutional: Denies fever or chills [] Eyes: Denies change in visual acuity, redness, or eye pain [] HENT: Denies nasal congestion or sore throat [] Respiratory: Denies cough or shortness of breath [] Cardiovascular: No additional information not addressed in HPI [] GI: Denies abdominal pain, nausea, vomiting, bloody stools or diarrhea [] : Denies dysuria or hematuria [] Musculoskeletal: Denies back pain or joint pain [] Integument: Denies rash or skin lesions [] Neurologic: Denies headache, focal weakness or sensory changes [] Endocrine: Denies polyuria or polydipsia [] All other systems were reviewed and found to be within normal limits, except as documented in this note. Current Medications Current Medications Current Medications Medications (Trade) Dose Ordered Sig/Campos Start Time Stop Time Status Last Admin Dose Admin Capsaicin (Zostrix) 1 brittany ONCE ONCE 10/11/20 03:30 10/11/20 03:31 DC 10/11/20 03:56 1 BRITTANY Haloperidol Lactate (Haldol Inj) 5 mg 1X ONCE 10/11/20 03:30 10/11/20 03:31 DC 10/11/20 03:56 5 MG Ketorolac Tromethamine (Toradol 15mg Vial) 15 mg STK-MED ONCE 10/11/20 03:39 10/11/20 03:40 DC Ketorolac Tromethamine (Toradol 30mg Vial) 30 mg 1X ONCE 10/11/20 03:45 10/11/20 03:46 DC 10/11/20 03:55 30 MG Multi-Ingredient Mouthwash/Gargle (Gi Cocktail) 20 ml 1X ONCE 10/11/20 03:45 10/11/20 03:46 DC 10/11/20 03:56 20 ML Ondansetron HCl (Zofran) 4 mg 1X ONCE 10/11/20 03:45 10/11/20 03:46 DC 10/11/20 03:50 4 MG Pantoprazole Sodium (PROTONIX VIAL for IV PUSH) 40 mg 1X ONCE 10/11/20 03:45 10/11/20 03:46 DC 10/11/20 03:54 40 MG Sodium Chloride 1,000 ml @ 1,000 mls/hr Q1H 10/11/20 03:45 10/11/20 04:44 DC 10/11/20 03:46 1,000 MLS/HR Allergies Allergies Allergies Coded Allergies Type Severity Reaction Last Updated Verified sulfamethoxazole Allergy Intermediate 07/14/19 Yes trimethoprim Allergy Intermediate 07/14/19 Yes Physical Exam Physical Exam Constitutional: Well developed, well nourished, no acute distress, non-toxic appearance. [] HENT: Normocephalic, atraumatic, bilateral external ears normal, oropharynx moist, no oral exudates, nose normal. [] Eyes: PERRLA, EOMI, conjunctiva normal, no discharge. [] Neck: Normal range of motion, no tenderness, supple, no stridor. [] Cardiovascular:Heart rate regular rhythm, no murmur [] Lungs & Thorax: Bilateral breath sounds clear to auscultation [] Abdomen: Bowel sounds normal, soft, moderate midepigastric tenderness, no masses, no pulsatile masses. [] Skin: Warm, dry, no erythema, no rash. [] Back: No tenderness, no CVA tenderness. [] Extremities: No tenderness, no cyanosis, no clubbing, ROM intact, no edema. [] Neurologic: Alert and oriented X 3, normal motor function, normal sensory function, no focal deficits noted. [] Psychologic: Affect normal, judgement normal, mood normal. [] Current Patient Data Lab Values Laboratory Tests Test 10/11/20 03:19 10/11/20 03:24 10/11/20 03:49 Urine Collection Type Unknown Urine Color Tatyana Urine Clarity Clear Urine pH 6.0 (<5.0-8.0) Urine Specific Agency >=1.030 (1.000-1.030) Urine Protein 30 mg/dL (NEG-TRACE) Urine Glucose (UA) Negative mg/dL (NEG) Urine Ketones (Stick) Trace mg/dL (NEG) Urine Blood Negative (NEG) Urine Nitrite Negative (NEG) Urine Bilirubin Small (NEG) Urine Urobilinogen Dipstick 0.2 mg/dL (0.2 mg/dL) Urine Leukocyte Esterase Negative (NEG) Urine RBC 1-2 /HPF (0-2) Urine WBC 1-4 /HPF (0-4) Urine Squamous Epithelial Cells Mod /LPF Urine Bacteria Mod /HPF (0-FEW) Urine Mucus Marked /LPF Urine Opiates Screen Pos (NEG) Urine Methadone Screen Neg (NEG) Urine Barbiturates Neg (NEG) Urine Phencyclidine Screen Neg (NEG) Urine Amphetamine/Methamphetamine Neg (NEG) Urine Benzodiazepines Screen Neg (NEG) Urine Cocaine Screen Neg (NEG) Urine Cannabinoids Screen Pos (NEG) Urine Ethyl Alcohol Neg (NEG) POC Urine HCG, Qualitative Borderline hcg level White Blood Count 5.9 x10^3/uL (4.0-11.0) Red Blood Count 4.78 x10^6/uL (3.50-5.40) Hemoglobin 11.1 g/dL (12.0-15.5) L Hematocrit 35.1 % (36.0-47.0) L Mean Corpuscular Volume 74 fL (79-100) L Mean Corpuscular Hemoglobin 23 pg (25-35) L Mean Corpuscular Hemoglobin Concent 32 g/dL (31-37) Red Cell Distribution Width 15.1 % (11.5-14.5) H Platelet Count 245 x10^3/uL (140-400) Neutrophils (%) (Auto) 70 % (31-73) Lymphocytes (%) (Auto) 21 % (24-48) L Monocytes (%) (Auto) 8 % (0-9) Eosinophils (%) (Auto) 0 % (0-3) Basophils (%) (Auto) 1 % (0-3) Neutrophils # (Auto) 4.1 x10^3/uL (1.8-7.7) Lymphocytes # (Auto) 1.3 x10^3/uL (1.0-4.8) Monocytes # (Auto) 0.5 x10^3/uL (0.0-1.1) Eosinophils # (Auto) 0.0 x10^3/uL (0.0-0.7) Basophils # (Auto) 0.0 x10^3/uL (0.0-0.2) Sodium Level 144 mmol/L (136-145) Potassium Level 4.0 mmol/L (3.5-5.1) Chloride Level 106 mmol/L (98-107) Carbon Dioxide Level 28 mmol/L (21-32) Anion Gap 10 (6-14) Blood Urea Nitrogen Pending Creatinine 0.9 mg/dL (0.6-1.0) Estimated GFR (Cockcroft-Gault) 82.3 Glucose Level 104 mg/dL (70-99) H Calcium Level 9.2 mg/dL (8.5-10.1) Total Bilirubin 0.7 mg/dL (0.2-1.0) Direct Bilirubin 0.1 mg/dL (0.0-0.2) Aspartate Amino Transferase (AST) 65 U/L (15-37) H Alanine Aminotransferase (ALT) 80 U/L (14-59) H Alkaline Phosphatase 99 U/L (46-116) Creatine Kinase 191 U/L (26-192) Total Protein 8.0 g/dL (6.4-8.2) Albumin 3.8 g/dL (3.4-5.0) Lipase 65 U/L (73-393) L Laboratory Tests 10/11/20 03:49 Laboratory Tests 10/11/20 03:49 EKG EKG [] Radiology/Procedures Radiology/Procedures [] Course & Med Decision Making Course & Med Decision Making Pertinent Labs and Imaging studies reviewed. (See chart for details) 45F present in the emergency department for midepigastric abdominal pain with nausea, vomiting and diarrhea. At this time the differential remains similar to her previous visits to the emergency department for does include cannabinoid hyperemesis syndrome, Crohn's disease or other chronic intestinal syndromes. At this time will attempt to treat the patient symptomatically for cannabinoid hyperemesis syndrome and obtain labs to make sure there is no significant underlying abnormality.. Of note the patient has had multiple repeat abdominal CT scans without any significant findings 04:56 -labs reviewed and unremarkable. No significant leukocytosis. Patient is now resting comfortably and states that her pain and symptoms are significantly relieved. At this time will discharge home. I spoken with the patient and her caregivers. I explained the patient's condition, diagnoses and treatment plan based on the information available to me at this time. I have answered the patient and her caregiver's questions and addressed any concerns. The patient and her caregivers have a good understanding of patient's diagnosis, condition and treatment plan as can be expected at this point. Vital signs have been stable. Patient's condition is stable and appropriate for discharge from the emergency department. Patient will pursue further outpatient evaluation with primary care physician or other designated or consulting physician as outlined in the discharge instructions. The patient and/or caregivers are agreeable to this plan of care and follow-up instructions have been explained in detail. The patient and/or ca regivers have received these instructions in written form and have expressed an understanding of the discharge instructions. The patient and/or caregivers are aware that any significant change of condition or worsening of symptoms should prompt immediate return to this or the closest emergency department or call to 911. Earnest Disclaimer Earnest Disclaimer This electronic medical record was generated, in whole or in part, using a voice recognition dictation system. Departure Departure Impression: Primary Impression: Cannabinoid hyperemesis syndrome Disposition: 01 DC HOME SELF CARE/HOMELESS Condition: GOOD Referrals: NO PCP (PCP) Patient Instructions: Nausea and Vomiting Additional Instructions: EMERGENCY DEPARTMENT GENERAL DISCHARGE INSTRUCTIONS Thank you for coming to [facility] Emergency Department (ED) today and trusting us with you care. We trust that you had a positive experience in our Emergency Department. If you wish to speak to the department management, you may call the Director at [phone]. YOUR FOLLOW UP INSTRUCTIONS ARE FOLLOWS: 1. Do you have a private Doctor? If you do not have a private doctor, please ask for a resource list of physicians or clinics that may be able to assist you with follow up care. 2. The Emergency Physicain has interpreted your x-rays. The X-Ray specialist will also review them. If there is a change in the findings, you will be notified in 48 hours when at all possible. 3. A lab test or culture has been done, your results will be reviewed and you will be notified if you need a change in treatment. ADDITIONAL INSTRUCTIONS AND INFORMATION: 1. Your care today has been supervised by a physician who is specially trained in emergency care. Many problems require more than one evaluation for a complete diagnosis and treatment. We recommend that you schedule your follow up appointment as recommended to ensure complete treatment of you illness or injury. If you are unable to obtain follow up care and continue to have a problem, or if your condition worsens, we recommend that you return to the ED. 2. We are not able to safely determine your condition over the phone nor are we able to give sound medical advice over the phone. For these safety reasons, if you call for medical advice we will ask you to come to the ED for further evaluation. 3. If you have any questions regarding these discharge instructions please call the ED at [phone]. SAFETY INFORMATION: In the interest of safety, wellness, and injury prevention; we encourage you to wear your sealbelt, if you smoke; quite smoking, and we encourage family to use a protective helmet for bicycling and other sporting events that present an increased risk for head injury. IF YOUR SYMPTOMS WORSEN OR NEW SYMPTOMS DEVELOP, OR YOU HAVE CONCERNS ABOUT YOUR CONDITION; OR IF YOUR CONDITION WORSENS WHILE YOU ARE WAITING FOR YOUR FOLLOW UP APPOINTMENT; EITHER CONTACT YOUR PRIMARY CARE DOCTOR, THE PHYSICIAN WHOSE NAME AND NUMBER YOU WERE GIVEN, OR RETURN TO THE ED IMMEDIATELY. Scripts Ondansetron Hcl (ZOFRAN) 4 Mg Tablet 1 TAB PO PRN Q6-8HRS for nausea, #12 TAB Prov: SHARIFA WASHINGTON MD 10/11/20 SHARIFA WASHINGTON MD Oct 11, 2020 04:59
[2020-10-11 05:18] VITALS: BP 126/78
[2020-11-20] MEDS ORDERED: ONDA4TAB12 PO (11:44)
[2020-11-20] MEDS ORDERED: LORA-434 PO (11:44)
== END 2020-10-11 05:35 | disposition home or self-care (01) ==
LOC: ER 03:09
DX: F12.188 Cannabis abuse with other cannabis-induced disorder (principal); R10.13 Epigastric pain; Z90.49 Acquired absence of other specified parts of digestive tract; Z90.710 Acquired absence of both cervix and uterus; Z87.891 Personal history of nicotine dependence; Z88.1 Allergy status to other antibiotic agents; Z88.2 Allergy status to sulfonamides
CPT/HCPCS: 36415; 74018; 80048; 80076; 80307; 81001; 81025; 82550; 83690; 84702; 85025; 96361; 96372; 96374; 96375; 99285; C9113; J1630; J1885; J2405; J7030

== ENCOUNTER 2020-11-21 11:03 | Emergency (ER) | payer SELFPAY ==
[~2020-11-21] VITALS: Ht 167.6 cm; Wt 65.0 kg
[~2020-11-21 11:03] MED LIST changes: +LORA-434 PO
[2020-11-21 11:17] VITALS: BP 128/70
--- NOTE | 2020-11-21 11:31 | ED.ADGEN ---
Past Medical History Past Medical History: Other Additional Past Medical Histor: NEUROPATHY, gastroenteritis, THC hyperemesis Past Surgical History: Cholecystectomy, Hysterectomy, Tonsillectomy, Other Additional Past Surgical Histo: HERNIA REPAIR Smoking Status: Current Every Day Smoker Alcohol Use: None Drug Use: Marijuana General Adult EDM: Chief Complaint: ABDOMINAL PAIN HPI: HPI: Patient is a 45 year old female who presents emergency department with complaints of nausea, vomiting, and diarrhea since 6:00 this morning. Patient reports that she was just discharged from the hospital yesterday after being admitted for similar complaints. Patient reports she has had at least 4 episodes of vomiting and 4 episodes of diarrhea since the symptoms began this morning. She complains of pain below her bellybutton that radiates through to her back, she denies any pain to palpation of her abdomen. Patient denies any fever, cough, chest pain, shortness of breath, palpitations, dysuria, hematuria, increased urinary frequency, body aches, fatigue, or rash. She reports that she tried taking Zofran as prescribed but was not able to keep it down. She currently rates her pain 8 out of 10 on the pain scale, she denies any alleviating factors. Patient states she has not smoked marijuana since being discharged home yesterday. Review of Systems: Review of Systems: Complete ROS is negative unless otherwise noted in HPI. Current Medications: Current Medications Medications (Trade) Dose Ordered Sig/[facility] Start Time Stop Time Status Last Admin Dose Admin Diphenhydramine HCl (Benadryl) 25 mg 1X ONCE 11/21/20 12:00 11/21/20 12:01 DC 11/21/20 12:19 25 MG Metoclopramide HCl (Reglan Vial) 5 mg 1X ONCE 11/21/20 12:00 11/21/20 12:01 DC 11/21/20 12:19 5 MG Sodium Chloride 1,000 ml @ 1,000 mls/hr 1X ONCE 11/21/20 12:00 11/21/20 12:59 DC 11/21/20 12:20 1,000 MLS/HR Allergies: Allergies: Allergies Coded Allergies Type Severity Reaction Last Updated Verified prochlorperazine Allergy Severe 11/17/20 Yes sulfamethoxazole Allergy Intermediate 07/14/19 Yes trimethoprim Allergy Intermediate 07/14/19 Yes Physical Exam: PE: See Above Constitutional: Well developed, well nourished, no acute distress, non-toxic appearance. [] HENT: Normocephalic, atraumatic, bilateral external ears normal, nose normal. [] Eyes: PERRLA, EOMI, conjunctiva normal, no discharge. [] Neck: Normal range of motion, no stridor. [] Cardiovascular:Heart rate regular rhythm Lungs & Thorax: Respirations even and unlabored, no retractions, no respiratory distress Abdomen: soft, nontender to palpation of all 4 quadrants, no palpable mass, no pulsatile mass, Back: No CVA tenderness Skin: Warm, dry, no erythema, no rash. [] Extremities: No cyanosis, ROM intact, no edema. [] Neurologic: Alert and oriented X 3, no focal deficits noted. [] Psychologic: Affect normal, judgement normal, mood normal. [] Current Patient Data: Labs: Laboratory Tests Test 11/21/20 11:35 11/21/20 11:36 Urine Collection Type Unknown Urine Color Tatyana Urine Clarity Clear Urine pH 5.5 (<5.0-8.0) Urine Specific [place] 1.020 (1.000-1.030) Urine Protein 30 mg/dL (NEG-TRACE) Urine Glucose (UA) Negative mg/dL (NEG) Urine Ketones (Stick) Trace mg/dL (NEG) Urine Blood Small (NEG) Urine Nitrite Negative (NEG) Urine Bilirubin Small (NEG) Urine Urobilinogen Dipstick 0.2 mg/dL (0.2 mg/dL) Urine Leukocyte Esterase Negative (NEG) Urine RBC Occ /HPF (0-2) Urine WBC 1-4 /HPF (0-4) Urine Squamous Epithelial Cells Few /LPF Urine Bacteria Few /HPF (0-FEW) Urine Mucus Marked /LPF White Blood Count 6.2 x10^3/uL (4.0-11.0) Red Blood Count 4.91 x10^6/uL (3.50-5.40) Hemoglobin 11.4 g/dL (12.0-15.5) L Hematocrit 35.5 % (36.0-47.0) L Mean Corpuscular Volume 72 fL (79-100) L Mean Corpuscular Hemoglobin 23 pg (25-35) L Mean Corpuscular Hemoglobin Concent 32 g/dL (31-37) Red Cell Distribution Width 15.3 % (11.5-14.5) H Platelet Count 246 x10^3/uL (140-400) Neutrophils (%) (Auto) 79 % (31-73) H Lymphocytes (%) (Auto) 13 % (24-48) L Monocytes (%) (Auto) 7 % (0-9) Eosinophils (%) (Auto) 1 % (0-3) Basophils (%) (Auto) 1 % (0-3) Neutrophils # (Auto) 4.9 x10^3/uL (1.8-7.7) Lymphocytes # (Auto) 0.8 x10^3/uL (1.0-4.8) L Monocytes # (Auto) 0.4 x10^3/uL (0.0-1.1) Eosinophils # (Auto) 0.1 x10^3/uL (0.0-0.7) Basophils # (Auto) 0.0 x10^3/uL (0.0-0.2) Sodium Level 143 mmol/L (136-145) Potassium Level 3.5 mmol/L (3.5-5.1) Chloride Level 106 mmol/L (98-107) Carbon Dioxide Level 25 mmol/L (21-32) Anion Gap 12 (6-14) Blood Urea Nitrogen 4 mg/dL (7-20) L Creatinine 0.9 mg/dL (0.6-1.0) Estimated GFR (Cockcroft-Gault) 82.3 BUN/Creatinine Ratio 4 (6-20) L Glucose Level 128 mg/dL (70-99) H Calcium Level 9.0 mg/dL (8.5-10.1) Magnesium Level 2.0 mg/dL (1.8-2.4) Total Bilirubin 0.5 mg/dL (0.2-1.0) Aspartate Amino Transferase (AST) 28 U/L (15-37) Alanine Aminotransferase (ALT) 54 U/L (14-59) Alkaline Phosphatase 101 U/L (46-116) Total Protein 7.7 g/dL (6.4-8.2) Albumin 3.7 g/dL (3.4-5.0) Albumin/Globulin Ratio 0.9 (1.0-1.7) L Lipase 81 U/L (73-393) Laboratory Tests 11/21/20 11:36 Laboratory Tests 11/21/20 11:36 Vital Signs: Vital Signs Date Time Temp Pulse Resp B/P (MAP) Pulse Ox O2 Delivery O2 Flow Rate FiO2 11/21/20 12:56 104 16 151/104 (120) 98 Room Air 11/21/20 11:17 98.2 98.2 EKG: EKG: [] Heart Score: C/O Chest Pain: No Risk Factors: Risk Factors: DM, Current or recent (<one month) smoker, HTN, HLP, family history of CAD, obesity. Risk Scores: Score 0 - 3: 2.5% MACE over next 6 weeks - Discharge Home Score 4 - 6: 20.3% MACE over next 6 weeks - Admit for Clinical Observation Score 7 - 10: 72.7% MACE over next 6 weeks - Early Invasive Strategies Radiology/Procedures: Radiology/Procedures: [] Course & Med Decision Making: Course & Med Decision Making Pertinent Labs and Imaging studies reviewed. (See chart for details) 45-year-old female presented to the emergency department with complaints of nausea, vomiting, and diarrhea. Patient's abdomen is nontender on exam. CBC was unremarkable; CMP was also unremarkable. Urinalysis was unremarkable, the patient was given a liter of fluid, 25 mg of IV Benadryl, and 5 mg of IV Reglan. She reported feeling better after these medications. Her vital signs are stable throughout the emergency department stay. I encouraged the patient to drink frequent small amounts of fluid today, prescription written for Reglan to take at home for nausea. I reminded the patient that smoking marijuana can increase her vomiting and encouraged her to follow-up with her primary care doctor. Patient verbalized an understanding of home care, medications, follow-up, and return to ED instructions and was in agreement with the plan of care. [] Dragon Disclaimer: Dragon Disclaimer: This electronic medical record was generated, in whole or in part, using a voice recognition dictation system. Departure Departure Impression: Primary Impression: Nausea vomiting and diarrhea Disposition: 01 DC HOME SELF CARE/HOMELESS Condition: STABLE Referrals: UNKNOWN PCP NAME (PCP) Patient Instructions: Diarrhea, [id number], Diet for Diarrhea, Adult, Nausea and Vomiting, [id number] Additional Instructions: Fill prescriptions and use them as directed. Recommend frequent small amounts of clear fluids for the next 24 hours. Then you may advance to bland foods such as bananas, rice, applesauce, and dry toast. Follow-up with your primary care do ctor in the next 1-2 days. Return to the emergency room if your symptoms worsen or if fever develops. [facility] [address] [place] [address] [facility] [address] [place] [address] [facility] [address] [facility] [place] [address] [facility] [address] [place] [address] [facility] [address] [place] [address] [address] [place] [address] [facility] [address] [place] [address] [facility] [address] [place] [address] [facility] [address] [place] [address] [facility] [address] [place] [address] Scripts Metoclopramide Hcl (REGLAN) 10 Mg Tablet 1 TAB PO QID PRN for NAUSEA for 7 Days, #28 TAB 0 Refills before food and bedtime Prov: BRO VIERA APRN 11/21/20 BRO VIERA APRN Nov 21, 2020 11:31
[2020-11-21 11:52] LABS: BASO % 1 % (0-3); EOS # 0.1 x10^3/uL (0.0-0.7); EOS % 1 % (0-3); HEMATOCRIT 35.5 % (36.0-47.0); HEMOGLOBIN 11.4 g/dL (12.0-15.5); LYMPH # 0.8 x10^3/uL (1.0-4.8); LYMPH % 13 % (24-48); MEAN CORPUSCULAR HEMOGLOBIN 23 pg (25-35); MEAN CORPUSCULAR HGB CONC 32 g/dL (31-37); MEAN CORPUSCULAR VOLUME 72 fL (79-100); MONO # 0.4 x10^3/uL (0.0-1.1); MONO % 7 % (0-9); NEUT # 4.9 x10^3/uL (1.8-7.7); NEUT % 79 % (31-73); PLATELET COUNT 246 x10^3/uL (140-400); RED BLOOD COUNT 4.91 x10^6/uL (3.50-5.40); RED CELL DISTRIBUTION WIDTH 15.3 % (11.5-14.5); WHITE BLOOD COUNT 6.2 x10^3/uL (4.0-11.0)
[2020-11-21 11:56] LABS: BILIRUBIN,URINE SMALL (NEG); CLARITY,URINE CLEAR; COLOR,URINE AMBER; NITRITE,URINE NEGATIVE (NEG); PH,URINE 5.5 (<5.0-8.0); PROTEIN,URINE 30 mg/dL (NEG-TRACE); UROBILINOGEN,URINE 0.2 mg/dL (0.2 mg/dL)
[2020-11-21 11:58] LABS: CREATININE 0.9 mg/dL (0.6-1.0); GFR 82.3; POTASSIUM 3.5 mmol/L (3.5-5.1)
[2020-11-21] MEDS ORDERED: METOCLOPRAMIDE HCL 10 MG/2 ML VIAL. IVP ONE (12:00)
[2020-11-21] MEDS ORDERED: IV NORMAL SALINE 1000ML BAG 1,000 ML IV ONE (12:00)
[2020-11-21] MEDS ORDERED: diphenhydrAMINE 50 MG/ML VIAL IVP ONE (12:00)
[2020-11-21 12:05] LABS: ALBUMIN 3.7 g/dL (3.4-5.0); ALBUMIN/GLOBULIN RATIO 0.9 (1.0-1.7); TOTAL BILIRUBIN 0.5 mg/dL (0.2-1.0); TOTAL PROTEIN 7.7 g/dL (6.4-8.2)
[2020-11-21 12:16] LABS: BACTERIA,URINE FEW /HPF (0-FEW); RBC,URINE OCC /HPF (0-2)
[2020-11-21] MEDS ORDERED: METO10TA81 PO (13:14)
== END 2020-11-21 13:20 | disposition home or self-care (01) ==
LOC: ER 11:03
DX: R11.2 Nausea with vomiting, unspecified (principal); R19.7 Diarrhea, unspecified; R10.9 Unspecified abdominal pain; F17.200 Nicotine dependence, unspecified, uncomplicated; Z90.49 Acquired absence of other specified parts of digestive tract; Z90.710 Acquired absence of both cervix and uterus; Z98.890 Other specified postprocedural states; Z88.1 Allergy status to other antibiotic agents; Z88.2 Allergy status to sulfonamides; Z88.8 Allergy status to other drugs, medicaments and biological substances
CPT/HCPCS: 36415; 80053; 81001; 83690; 83735; 85025; 96361; 96374; 96375; 99284; J1200; J2765; J7030

== ENCOUNTER 2020-12-21 05:07 | Emergency (ER) | payer SELFPAY ==
[~2020-12-21] VITALS: Ht 172.7 cm; Wt 77.3 kg
[~2020-12-21 05:07] MED LIST changes: +METO10TA81 PO
[2020-12-21 05:45] VITALS: BP 131/77
[2020-12-21] MEDS ORDERED: ONDANSETRON PF 4 MG/2 ML VIAL. IVP ONE ×2 (05:45→07:00)
[2020-12-21] MEDS ORDERED: IV NORMAL SALINE 1000ML BAG 1,000 ML IV ONE ×2 (05:45→09:00)
[2020-12-21 06:48] LABS: CALCIUM 10.5 mg/dL (8.5-10.1); GFR 32.8; POTASSIUM 4.8 mmol/L (3.5-5.1)
[2020-12-21 06:51] LABS: BASO % 0 % (0-3); EOS % 0 % (0-3); HEMATOCRIT 46.4 % (36.0-47.0); HEMOGLOBIN 14.5 g/dL (12.0-15.5); LYMPH # 0.9 x10^3/uL (1.0-4.8); LYMPH % 9 % (24-48); MEAN CORPUSCULAR HEMOGLOBIN 23 pg (25-35); MEAN CORPUSCULAR HGB CONC 31 g/dL (31-37); MEAN CORPUSCULAR VOLUME 73 fL (79-100); MONO # 0.3 x10^3/uL (0.0-1.1); MONO % 3 % (0-9); NEUT # 8.7 x10^3/uL (1.8-7.7); NEUT % 88 % (31-73); PLATELET COUNT 318 x10^3/uL (140-400); RED BLOOD COUNT 6.33 x10^6/uL (3.50-5.40); RED CELL DISTRIBUTION WIDTH 16.8 % (11.5-14.5); WHITE BLOOD COUNT 9.9 x10^3/uL (4.0-11.0)
[2020-12-21 06:54] LABS: ALBUMIN 4.6 g/dL (3.4-5.0); ALBUMIN/GLOBULIN RATIO 0.9 (1.0-1.7); TOTAL BILIRUBIN 0.5 mg/dL (0.2-1.0); TOTAL PROTEIN 9.9 g/dL (6.4-8.2)
[2020-12-21] MEDS ORDERED: fentaNYL PF VIAL 100 MCG/2 ML VIAL IV ONE (07:00)
[2020-12-21] MEDS ORDERED: FAMOTIDINE 20 MG/2 ML VIAL IVP ONE (07:00)
--- NOTE | 2020-12-21 07:33 | EKG ---
[facility] [address] [place] [address] Test Date: 2020-12-21 Test Time: 07:13:48 Pat Name: SACHA ARMENTA Department: Room: Gender: F Counter Intelligence Agent: : [id number] Requested By: MARAH SAMUEL Order Number: [id number] Reading MD: Measurements Intervals [place] Rate: 71 P: 39 [place]: 150 QRS: 34 QRSD: 68 T: 24 QT: 378 QTc: 415 Interpretive Statements SINUS RHYTHM OTHERWISE NORMAL ECG RI6.02 No previous ECG available for comparison
[2020-12-21 07:59] LABS: CREATINE KINASE 92 U/L (26-192)
--- NOTE | 2020-12-21 08:08 | RAD ---
CT chest abdomen and pelvis without contrast: History: Chest pain and abdominal pain nausea and vomiting Axial helical images of the chest, abdomen and pelvis were obtained without IV contrast. Comparison: November 17, 2020 CT the abdomen and pelvis without contrast Findings: There is no mediastinal lymphadenopathy or hematoma. There is no hilar lymphadenopathy. There is a 2 x 4 mm pulmonary nodule along the fissure on the left that is likely a noncalcified gran uloma. Impression: No acute findings. End Impression CT SCAN OF THE ABDOMEN without IV CONTRAST. Findings: There is been prior cholecystectomy. The appendix is normal. The colon is collapsed limiting its eval uation. Liver: Unremarkable Spleen: Unremarkable Pancreas: Unremarkable Adrenal Glands: Unremarkable Kidneys: Unremarkable Evaluation of stomach and bowel is limited without oral contrast. Evaluation of solid organs is limit ed without IV contrast. There is no mass or lymphadenopathy. There is no free air. There is no free fluid. Impression: No acute findings. End Impression CT of pelvis without contrast: There is no lymphadenopathy or free fluid. The bladder appears normal. There is no pericolonic inflam mation. Impression: No acute findings. End impression PQRS Compliance Statement: One or more of the following individualized dose reduction techniques were utilized for this examinat ion: 1. Automated exposure control 2. Adjustment of the mA and/or kV according to patient size 3. Use of iterative reconstruction technique Electronically signed by: Juan Farris III, MD (12/21/2020 8:06 AM) [facility]
[2020-12-21] MEDS ORDERED: MORPHINE SULFATE 4 MG/ML VIAL. IV ONE (08:30)
--- NOTE | 2020-12-21 10:45 | PHYS DOC ---
Past Medical History Past Medical History: Other Additional Past Medical Histor: NEUROPATHY, gastroenteritis, THC hyperemesis Past Surgical History: Cholecystectomy, Hysterectomy, Tonsillectomy, Other Additional Past Surgical Histo: HERNIA REPAIR Smoking Status: Current Every Day Smoker Alcohol Use: None Drug Use: Marijuana General Adult EDM: Chief Complaint: NAUSEA/VOMITING/DIARRHEA HPI: HPI: Patient is a 45 year old [f__sex] who presents with [] Review of Systems: Review of Systems: Constitutional: Denies fever or chills Eyes: Denies redness or eye pain HENT: Denies nasal congestion or sore throat Respiratory: Denies cough or shortness of breath Cardiovascular: Denies chest pain or palpitations GI: Denies abdominal pain, nausea, or vomiting : Denies dysuria or hematuria Musculoskeletal: Denies back pain or joint pain Integument: Denies rash or skin lesions Neurologic: Denies headache, focal weakness or sensory changes Complete systems were reviewed and found to be within normal limits, except as documented in this note. Heart Score: C/O Chest Pain: N/A Current Medications: Current Medications Medications (Trade) Dose Ordered Sig/Campos Start Time Stop Time Status Last Admin Dose Admin Famotidine (Pepcid Vial) 20 mg 1X ONCE 12/21/20 07:00 12/21/20 07:05 DC 12/21/20 07:32 20 MG Fentanyl Citrate (Fentanyl 2ml Vial) 50 mcg 1X ONCE 12/21/20 07:00 12/21/20 07:05 DC 12/21/20 07:32 50 MCG Morphine Sulfate (Morphine Sulfate) 4 mg 1X ONCE 12/21/20 08:30 12/21/20 08:31 DC 12/21/20 08:44 4 MG Ondansetron HCl (Zofran) 4 mg 1X ONCE 12/21/20 07:00 12/21/20 07:05 DC 12/21/20 08:43 4 MG Sodium Chloride 1,000 ml @ 1,000 mls/hr 1X ONCE 12/21/20 09:00 12/21/20 09:59 DC 12/21/20 09:02 1,000 MLS/HR Allergies: Allergies: Allergies Coded Allergies Type Severity Reaction Last Updated Verified prochlorperazine Allergy Severe 11/17/20 Yes sulfamethoxazole Allergy Intermediate 07/14/19 Yes trimethoprim Allergy Intermediate 07/14/19 Yes Physical Exam: PE: Constitutional: Well developed, well nourished, no acute distress, non-toxic appearance HENT: Normocephalic, atraumatic Eyes: PERRL, EOMI, conjunctiva normal, no discharge Neck: Normal range of motion, no tenderness, supple Lungs & Thorax: No respiratory distress, equal chest rise and fall Abdomen: Soft, no tenderness Skin: Warm, dry, no erythema, no rash Back: No tenderness, no CVA tenderness Extremities: No tenderness, ROM intact, no edema Neurologic: Alert and oriented X 3, normal motor function, normal sensory function, no focal deficits noted Psychologic: Affect normal, judgment normal Current Patient Data: Labs: Laboratory Tests Test 12/21/20 05:58 12/21/20 06:30 Lipase 94 U/L (73-393) White Blood Count 9.9 x10^3/uL (4.0-11.0) Red Blood Count 6.33 x10^6/uL (3.50-5.40) H Hemoglobin 14.5 g/dL (12.0-15.5) Hematocrit 46.4 % (36.0-47.0) Mean Corpuscular Volume 73 fL (79-100) L Mean Corpuscular Hemoglobin 23 pg (25-35) L Mean Corpuscular Hemoglobin Concent 31 g/dL (31-37) Red Cell Distribution Width 16.8 % (11.5-14.5) H Platelet Count 318 x10^3/uL (140-400) Neutrophils (%) (Auto) 88 % (31-73) H Lymphocytes (%) (Auto) 9 % (24-48) L Monocytes (%) (Auto) 3 % (0-9) Eosinophils (%) (Auto) 0 % (0-3) Basophils (%) (Auto) 0 % (0-3) Neutrophils # (Auto) 8.7 x10^3/uL (1.8-7.7) H Lymphocytes # (Auto) 0.9 x10^3/uL (1.0-4.8) L Monocytes # (Auto) 0.3 x10^3/uL (0.0-1.1) Eosinophils # (Auto) 0.0 x10^3/uL (0.0-0.7) Basophils # (Auto) 0.0 x10^3/uL (0.0-0.2) Sodium Level 140 mmol/L (136-145) Potassium Level 4.8 mmol/L (3.5-5.1) Chloride Level 103 mmol/L (98-107) Carbon Dioxide Level 19 mmol/L (21-32) L Anion Gap 18 (6-14) H Blood Urea Nitrogen 15 mg/dL (7-20) Creatinine 2.0 mg/dL (0.6-1.0) H Estimated GFR (Cockcroft-Gault) 32.8 BUN/Creatinine Ratio 8 (6-20) Glucose Level 234 mg/dL (70-99) H Calcium Level 10.5 mg/dL (8.5-10.1) H Total Bilirubin 0.5 mg/dL (0.2-1.0) Aspartate Amino Transferase (AST) 20 U/L (15-37) Alanine Aminotransferase (ALT) 23 U/L (14-59) Alkaline Phosphatase 120 U/L (46-116) H Creatine Kinase 92 U/L (26-192) Creatine Kinase MB (Mass) < 0.5 ng/mL (0.0-3.6) Creatine Kinase MB Relative Index % (0-4) Troponin I Quantitative < 0.017 ng/mL (0.000-0.055) Total Protein 9.9 g/dL (6.4-8.2) H Albumin 4.6 g/dL (3.4-5.0) Albumin/Globulin Ratio 0.9 (1.0-1.7) L Laboratory Tests 12/21/20 06:30 Laboratory Tests 12/21/20 06:30 Vital Signs: Vital Signs Date Time Temp Pulse Resp B/P (MAP) Pulse Ox O2 Delivery O2 Flow Rate FiO2 12/21/20 05:45 98.5 93 18 131/77 (95) 99 Room Air 98.5 EKG: EKG: @0713 NSR at 71bpm, NO ST elevation, QRS 68ms, QT/QTc 378/415ms Radiology/Procedures: Radiology/Procedures: PROCEDURE: CT CHEST ABDOMEN PELVIS WO CT chest abdomen and pelvis without contrast: History: Chest pain and abdominal pain nausea and vomiting Axial helical images of the chest, abdomen and pelvis were obtained without IV contrast. Comparison: November 17, 2020 CT the abdomen and pelvis without contrast Findings: There is no mediastinal lymphadenopathy or hematoma. There is no hilar lymphadenopathy. There is a 2 x 4 mm pulmonary nodule along the fissure on the left that is likely a noncalcified granuloma. Impression: No acute findings. End Impression CT SCAN OF THE ABDOMEN without IV CONTRAST. Findings: There is been prior cholecystectomy. The appendix is normal. The colon is collapsed limiting its evaluation. Liver: Unremarkable Spleen: Unremarkable Pancreas: Unremarkable Adrenal Glands: Unremarkable Kidneys: Unremarkable Evaluation of stomach and bowel is limited without oral contrast. Evaluation of solid organs is limited without IV contrast. There is no mass or lymphadenopathy. There is no free air. There is no free fluid. Impression: No acute findings. End Impression CT of pelvis without contrast: There is no lymphadenopathy or free fluid. The bladder appears normal. There is no pericolonic inflammation. Impression: No acute findings. End impression PQRS Compliance Statement: One or more of the following individualized dose reduction techniques were utilized for this examination: 1. Automated exposure control 2. Adjustment of the mA and/or kV according to patient size 3. Use of iterative reconstruction technique Electronically signed by: Juan Farris III, MD (12/21/2020 8:06 AM) [facility] Course & Med Decision Making: Course & Med Decision Making Pertinent Labs and Imaging studies reviewed. (See chart for details) [] Dragon Disclaimer: Dragmichelle Disclaimer: This electronic medical record was generated, in whole or in part, using a voice recognition dictation system. Departure Departure Impression: Primary Impression: Abdominal pain Qualified Codes: R10.9 - Unspecified abdominal pain Additional Impressions: Nausea vomiting and diarrhea Suspected 2018 novel coronavirus infection Disposition: 01 [place] HOME SELF CARE/HOMELESS Condition: IMPROVED Referrals: UNKNOWN PCP NAME (PCP) NANCIE RAY MD Patient Instructions: Abdominal Pain (Nonspecific), Diarrhea, [id number], Diet for Diarrhea, Adult, Nausea and Vomiting, [id number] Additional Instructions: You have been tested for or diagnosed with COVID-19. It is an infection caused by a new type of coronavirus. COVID-19 will cause cold-like or mild flu symptoms in most. It can cause more severe symptoms like problems breathing in some. There is no treatment for COVID-19. The body will clear the infection over time. Self-care will help to ease discomfort. Steps to Take: Self-Care Rest as needed. Healthy habits may help you feel better. Steps include: Choose healthy foods including fruits and vegetables. Drink water throughout the day. Get plenty of sleep each night. If you smoke, try to quit. It may ease breathing. Avoid alcohol. Keep Others Healthy The virus can spread to others. Droplets are released every time you sneeze or cough. The droplets can get into the mouth, nose, or eyes of people near you and lead to infection. To lower the chances of spreading COVID-19 to others: Stay at home until your doctor has said it is safe to leave. If you tested positive this will mean staying isolated until both of the following are true: At least 7 days have passed since the start of illness. You are free of fever for at least 72 hours without the use of medicine. During this time: - Avoid public areas, events, or transportation. Do not return to work or school until your doctor has said it is safe to do so. - Call ahead if you need to go to a medical center. Let them know you may have COVID-19. It will help them guide you where to go. They may also ask you to wear a facemask when you come to the office. - If you call for emergency medical services, let them know you may have COVID- 19. While at home: - Try to avoid close contact with others. Stay about 6 feet away. - If possible, spend most of your time in a separate room from others. - Use a face mask if you will be in close contact with others such as sharing a room or vehicle. - Have someone wipe down common surfaces in the home. Use household school manager every day on areas like doorknobs, counters, or sinks. - Cough or sneeze into a tissue. Throw the tissue away right after use. If a tissue is not available, cough or sneeze into your elbow. - Wash your hands often. Wash them after sneezing or coughing. Use soap and water and wash for at least 20 seconds. Alcohol based hand apron cleaner can be used if soap and water is not available. - Do not prepare food for others. Avoid sharing personal items like forks, spoons, or toothbrushes. - Avoid close contact with pets while you are sick. There is no evidence of the virus passing to pets. This is a safety step until more is known about this virus. Isolation can be frustrating. Social interaction can help. Keep in touch with friends and family through phone and tech options. You can still interact with others in your home, just keep a safe distance of about 6 feet. Follow-up: Your doctors office will check in with you to see if there are any changes in your health. You may be asked to keep track of symptoms to share with them. They will also let you know when you are clear to be in public again. Problems to Look Out For: Contact your doctor if your recovery is not going as you expect. Get emergency care if you have problems such as: - Trouble breathing - Nonstop chest pain or pressure - Changes in awareness, confusion, or problems waking - Lips or face have bluish color - Worsening of symptoms If you think you have an emergency, call for emergency medical services right away. [facility] Health Scripts Famotidine (PEPCID) 20 Mg Tablet 20 MG PO BID, #14 TAB Prov: MARAH SAMUEL DO 12/21/20 Hyoscyamine Sulfate (LEVSIN-SL) 0.125 Mg Tab.subl 0.125 MG SL Q4-6HRS PRN for PAIN, #14 TAB Prov: MARAH SAMUEL DO 12/21/20 Ondansetron (ONDANSETRON ODT) 4 Mg Tab.rapdis 1 TAB PO PRN Q6-8HRS PRN for NAUSEA, #16 TAB Prov: MARAH SAMUEL DO 12/21/20 MARAH SAMUEL DO Dec 21, 2020 10:45
[2020-12-21 10:57] LABS: BILIRUBIN,URINE SMALL (NEG); CLARITY,URINE CLOUDY; COLOR,URINE AMBER; NITRITE,URINE NEGATIVE (NEG); PROTEIN,URINE 100 mg/dL (NEG-TRACE); UROBILINOGEN,URINE 0.2 mg/dL (0.2 mg/dL)
[2020-12-21 11:00] LABS: BACTERIA,URINE FEW /HPF (0-FEW); HYALINE CASTS, URINE MANY /HPF; RBC,URINE 0 /HPF (0-2); WBC,URINE OCC /HPF (0-4)
[2020-12-21] MEDS ORDERED: HYOS0.1265 SL (13:31)
[2020-12-21] MEDS ORDERED: ONDA4TAB12 PO (13:31)
[2020-12-21] MEDS ORDERED: FAMO-63 PO (13:31)
== END 2020-12-21 14:08 | disposition home or self-care (01) ==
LOC: ER 05:07
DX: R10.9 Unspecified abdominal pain (principal); Z20.822 Contact with and (suspected) exposure to COVID-19; R11.2 Nausea with vomiting, unspecified; R19.7 Diarrhea, unspecified; F17.200 Nicotine dependence, unspecified, uncomplicated; F12.90 Cannabis use, unspecified, uncomplicated; Z90.49 Acquired absence of other specified parts of digestive tract; Z90.710 Acquired absence of both cervix and uterus; Z98.890 Other specified postprocedural states; Z88.2 Allergy status to sulfonamides; Z88.8 Allergy status to other drugs, medicaments and biological substances
CPT/HCPCS: 36415; 71250; 74176; 80053; 81001; 82553; 83690; 84484; 85025; 93005; 96361; 96374; 96375; 96376; 99285; C9803; J2270; J2405; J3010; J3490; J7030; U0003; U0005

== ENCOUNTER 2021-01-03 12:11 | Emergency (ER) | payer SELFPAY ==
[~2021-01-03] VITALS: Ht 172.7 cm; Wt 80.0 kg
[2021-01-03 14:41] LABS: BASO % 1 % (0-3); EOS % 0 % (0-3); HEMOGLOBIN 12.8 g/dL (12.0-15.5); LYMPH % 11 % (24-48); MEAN CORPUSCULAR HEMOGLOBIN 23 pg (25-35); MEAN CORPUSCULAR HGB CONC 32 g/dL (31-37); MEAN CORPUSCULAR VOLUME 72 fL (79-100); MONO # 0.4 x10^3/uL (0.0-1.1); MONO % 4 % (0-9); NEUT # 7.6 x10^3/uL (1.8-7.7); NEUT % 84 % (31-73); PLATELET COUNT 325 x10^3/uL (140-400); RED BLOOD COUNT 5.53 x10^6/uL (3.50-5.40); RED CELL DISTRIBUTION WIDTH 16.3 % (11.5-14.5); WHITE BLOOD COUNT 9.1 x10^3/uL (4.0-11.0)
[2021-01-03] MEDS ORDERED: IV NORMAL SALINE 1000ML BAG 1,000 ML IV SCH (14:45)
[2021-01-03] MEDS ORDERED: ONDANSETRON PF 4 MG/2 ML VIAL. IVP ONE (14:45)
[2021-01-03 14:49] LABS: CREATININE 1.2 mg/dL (0.6-1.0); GFR 59.1; POTASSIUM 3.7 mmol/L (3.5-5.1)
[2021-01-03 14:55] LABS: ALBUMIN 4.6 g/dL (3.4-5.0); MAGNESIUM 2.4 mg/dL (1.8-2.4); TOTAL BILIRUBIN 0.5 mg/dL (0.2-1.0)
[2021-01-03 15:23] LABS: BILIRUBIN,URINE MODERATE (NEG); CLARITY,URINE TURBID; NITRITE,URINE NEGATIVE (NEG); PH,URINE 5.5 (<5.0-8.0); PROTEIN,URINE 100 mg/dL (NEG-TRACE); UROBILINOGEN,URINE 0.2 mg/dL (0.2 mg/dL)
[2021-01-03 15:27] LABS: COLOR,URINE DK YELLOW
[2021-01-03 15:29] LABS: BARBITURATES NEG (NEG); BENZODIAZEPINES NEG (NEG); CANNABINOIDS POS (NEG); COCAINE NEG (NEG); HYALINE CASTS, URINE MODERATE /HPF; METHADONE NEG (NEG); OPIATES NEG (NEG); PHENCYCLIDINE NEG (NEG)
[2021-01-03 15:30] LABS: AMPHETAMINE/METHAMPHETAMINE NEG (NEG)
[2021-01-03 15:31] LABS: BACTERIA,URINE FEW /HPF (0-FEW)
[2021-01-03 15:32] LABS: RBC,URINE 0 /HPF (0-2)
[2021-01-03] MEDS ORDERED: MORPHINE SULFATE 4 MG/ML VIAL. IV ONE (15:45)
[2021-01-03] MEDS ORDERED: MORPHINE SULFATE 4 MG/ML VIAL. ONE (15:46)
--- NOTE | 2021-01-03 16:45 | PHYS DOC ---
Past Medical History Past Medical History: Other Additional Past Medical Histor: NEUROPATHY, gastroenteritis, THC hyperemesis Past Surgical History: Cholecystectomy, Hysterectomy, Tonsillectomy, Other Additional Past Surgical Histo: HERNIA REPAIR Smoking Status: Current Every Day Smoker Alcohol Use: None Drug Use: Marijuana Social History Narrative: Last smoke Marijuana 2 days ago. General Adult EDM: Chief Complaint: NAUSEA/VOMITING/DIARRHEA HPI: HPI: Patient is a 45 year old female who presented to ER due to nausea vomiting and abdominal pain. Symptoms started 2 days ago. Patient has been in and now here every month for the same problem, patient admitted abuse marijuana. Her last marijuana use it was 2 days ago. Patient denies any cough or fever. Patient denies chest pain. Patient was seen here on December 21, 2020 for the same problem. CT scan of her chest abdomen pelvis at that visit did not show any acute problem. Review of Systems: Review of Systems: Constitutional: Denies fever or chills. [] Eyes: Denies change in visual acuity. [] HENT: Denies nasal congestion or sore throat. [] Respiratory: Denies cough or shortness of breath. [] Cardiovascular: Denies chest pain or edema. [] GI: Positive for abdominal pain with nausea vomiting, no diarrhea. : Denies dysuria. [] Musculoskeletal: Denies back pain or joint pain. [] Integument: Denies rash. [] Neurologic: Denies headache, focal weakness or sensory changes. [] Endocrine: Denies polyuria or polydipsia. [] Lymphatic: Denies swollen glands. [] Psychiatric: Denies depression or anxiety. [] Heart Score: C/O Chest Pain: N/A Risk Factors: Risk Factors: DM, Current or recent (<one month) smoker, HTN, HLP, family history of CAD, obesity. Risk Scores: Score 0 - 3: 2.5% MACE over next 6 weeks - Discharge Home Score 4 - 6: 20.3% MACE over next 6 weeks - Admit for Clinical Observation Score 7 - 10: 72.7% MACE over next 6 weeks - Early Invasive Strategies Current Medications: Current Medications Medications (Trade) Dose Ordered Sig/Campos Start Time Stop Time Status Last Admin Dose Admin Morphine Sulfate (Morphine Sulfate) 4 mg STK-MED ONCE 01/03/21 15:46 01/03/21 15:47 DC Ondansetron HCl (Zofran) 4 mg 1X ONCE 01/03/21 14:45 01/03/21 14:46 DC 01/03/21 15:03 4 MG Sodium Chloride 1,000 ml @ 1,000 mls/hr Q1H 01/03/21 14:45 01/03/21 15:44 DC 01/03/21 15:03 1,000 MLS/HR Allergies: Allergies: Allergies Coded Allergies Type Severity Reaction Last Updated Verified prochlorperazine Allergy Severe 11/17/20 Yes sulfamethoxazole Allergy Intermediate 07/14/19 Yes trimethoprim Allergy Intermediate 07/14/19 Yes Physical Exam: PE: Constitutional: Well developed, well nourished, no acute distress, non-toxic appearance. [] HENT: Normocephalic, atraumatic, bilateral external ears normal, oropharynx moist, no oral exudates, nose normal. [] Eyes: PERRLA, EOMI, conjunctiva normal, no discharge. [] Neck: Normal range of motion, no tenderness, supple, no stridor. [] Cardiovascular:Heart rate regular rhythm, no murmur [] Lungs & Thorax: Bilateral breath sounds clear to auscultation [] Abdomen: Bowel sounds normal, soft, there was mild tenderness to palpation in the epigastric area , no masses, no pulsatile masses. [] Skin: Warm, dry, no erythema, no rash. [] Back: No tenderness, no CVA tenderness. [] Extremities: No tenderness, no cyanosis, no clubbing, ROM intact, no edema. [] Neurologic: Alert and oriented X 3, normal motor function, normal sensory function, no focal deficits noted. [] Psychologic: Affect normal, judgement normal, mood normal. [] Current Patient Data: Labs: Laboratory Tests Test 01/03/21 14:20 01/03/21 15:16 White Blood Count 9.1 x10^3/uL (4.0-11.0) Red Blood Count 5.53 x10^6/uL (3.50-5.40) H Hemoglobin 12.8 g/dL (12.0-15.5) Hematocrit 40.0 % (36.0-47.0) Mean Corpuscular Volume 72 fL (79-100) L Mean Corpuscular Hemoglobin 23 pg (25-35) L Mean Corpuscular Hemoglobin Concent 32 g/dL (31-37) Red Cell Distribution Width 16.3 % (11.5-14.5) H Platelet Count 325 x10^3/uL (140-400) Neutrophils (%) (Auto) 84 % (31-73) H Lymphocytes (%) (Auto) 11 % (24-48) L Monocytes (%) (Auto) 4 % (0-9) Eosinophils (%) (Auto) 0 % (0-3) Basophils (%) (Auto) 1 % (0-3) Neutrophils # (Auto) 7.6 x10^3/uL (1.8-7.7) Lymphocytes # (Auto) 1.0 x10^3/uL (1.0-4.8) Monocytes # (Auto) 0.4 x10^3/uL (0.0-1.1) Eosinophils # (Auto) 0.0 x10^3/uL (0.0-0.7) Basophils # (Auto) 0.0 x10^3/uL (0.0-0.2) Sodium Level 145 mmol/L (136-145) Potassium Level 3.7 mmol/L (3.5-5.1) Chloride Level 106 mmol/L (98-107) Carbon Dioxide Level 27 mmol/L (21-32) Anion Gap 12 (6-14) Blood Urea Nitrogen 14 mg/dL (7-20) Creatinine 1.2 mg/dL (0.6-1.0) H Estimated GFR (Cockcroft-Gault) 59.1 BUN/Creatinine Ratio 12 (6-20) Glucose Level 142 mg/dL (70-99) H Calcium Level 10.0 mg/dL (8.5-10.1) Magnesium Level 2.4 mg/dL (1.8-2.4) Total Bilirubin 0.5 mg/dL (0.2-1.0) Aspartate Amino Transferase (AST) 12 U/L (15-37) L Alanine Aminotransferase (ALT) 23 U/L (14-59) Alkaline Phosphatase 109 U/L (46-116) Total Protein 9.0 g/dL (6.4-8.2) H Albumin 4.6 g/dL (3.4-5.0) Albumin/Globulin Ratio 1.0 (1.0-1.7) Lipase 73 U/L (73-393) Urine Collection Type Unknown Urine Color Dk yellow Urine Clarity Turbid Urine pH 5.5 (<5.0-8.0) Urine Specific [place]field 1.025 (1.000-1.030) Urine Protein 100 mg/dL (NEG-TRACE) Urine Glucose (UA) Negative mg/dL (NEG) Urine Ketones (Stick) 15 mg/dL (NEG) Urine Blood Trace (NEG) Urine Nitrite Negative (NEG) Urine Bilirubin Moderate (NEG) Urine Urobilinogen Dipstick 0.2 mg/dL (0.2 mg/dL) Urine Leukocyte Esterase Trace (NEG) Urine RBC 0 /HPF (0-2) Urine WBC 1-4 /HPF (0-4) Urine Squamous Epithelial Cells Many /LPF Urine Bacteria Few /HPF (0-FEW) Urine Hyaline Casts Moderate /HPF Urine Mucus Marked /LPF Urine Opiates Screen Neg (NEG) Urine Methadone Screen Neg (NEG) Urine Barbiturates Neg (NEG) Urine Phencyclidine Screen Neg (NEG) Urine Amphetamine/Methamphetamine Neg (NEG) Urine Benzodiazepines Screen Neg (NEG) Urine Cocaine Screen Neg (NEG) Urine Cannabinoids Screen Pos (NEG) Urine Ethyl Alcohol Neg (NEG) Laboratory Tests 01/03/21 14:20 Laboratory Tests 01/03/21 14:20 Vital Signs: Vital Signs Date Time Temp Pulse Resp B/P (MAP) Pulse Ox O2 Delivery O2 Flow Rate FiO2 01/03/21 15:48 24 95 Room Air 01/03/21 15:28 98.7 89 134/89 (104) 98.7 EKG: EKG: [] Radiology/Procedures: Impression: [facility] [address] [place] [address] IMAGING REPORT Signed PATIENT: SACHA ARMENTA ACCOUNT: [id number] : 1975 LOCATION: ER AGE: 45 SEX: F EXAM STATUS: REG ER ORD. PHYSICIAN: PAT WIGGINS DO REASON: ABDOMINAL PAIN, NAUSEA, VOMITING 12 PROCEDURE: ACUTE ABDOMEN SERIES PA chest and AP upright supine abdomen x-rays HISTORY: Abdominal pain, nausea and vomiting. COMPARISON: CT abdomen and pelvis December 21, 2020. FINDINGS: Heart size normal. Mediastinal silhouette is normal. No pulmonary opacities or pleural effusions. No pneumoperitoneum. Cholecystectomy clips. There is mild gas within the stomach and large and small bowel. No dilated bowel loops or abnormal air-fluid levels. Bones and soft tissues are unremarkable. IMPRESSION: No acute process in the chest. No bowel obstruction evident. Electronically signed by: Bailey Carpenter MD (01/03/2021 4:45 PM) [id number] DICTATED and SIGNED BY: BAILEY CARPENTER MD DATE: 01/03/21 [id number] 0 Course & Med Decision Making: Course & Med Decision Making Pertinent Labs and Imaging studies reviewed. (See chart for details) Patient is a 45-year-old female who presented to ER due to nausea vomiting and abdominal pain due to marijuana abuse. Work-up in ER included lab work and x- ray her abdomen did not show any acute problem. Patient was given nausea me dication IV fluids and pain medication. Patient feel much better. Patient was discharged home in stable condition. Earnest Disclaimer: Earnest Disclaimer: This electronic medical record was generated, in whole or in part, using a voice recognition dictation system. Departure Departure Impression: Primary Impression: Nausea and vomiting Additional Impression: UNSPECIFIED ABDOMINAL PAIN Disposition: HOME / SELF CARE / HOMELESS Condition: IMPROVED Referrals: UNKNOWN PCP NAME (PCP) Please follow up with [facility] this week. [address], [address] [place] [address] Phone number: [phone] Patient Instructions: Abdominal Pain, Nausea and Vomiting Additional Instructions: Thank you for visiting our Emergency Department. We appreciate you trusting us with your care. If any additional problems come up don't hesitate to return to visit us. Please follow up with your primary care provider so they can plan additional care if needed and know about the problem that you had. If symptoms worsen come back to the Emergency Department. Any concerning symptoms that start such as chest pain, shortness of air, weakness or numbness on one side of the body, running high fevers or any other concerning symptoms return to the ER. Scripts Ondansetron Hcl (ZOFRAN) 4 Mg Tablet 1 TAB PO Q6HRS PRN for NAUSEA, #20 TAB Prov: PAT WIGGINS DO 01/03/21 PAT WIGGINS DO Jan 03, 2021 16:45
--- NOTE | 2021-01-03 16:48 | RAD ---
PA chest and AP upright supine abdomen x-rays HISTORY: Abdominal pain, nausea and vomiting. COMPARISON: CT abdomen and pelvis December 21, 2020. FINDINGS: Heart size normal. Mediastinal silhouette is normal. No pulmonary opacities or pleural effu sions. No pneumoperitoneum. Cholecystectomy clips. There is mild gas within the stomach and large and small bowel. No dilated bowel loops or abnormal air-fluid levels. Bones and soft tissues are unremar kable. IMPRESSION: No acute process in the chest. No bowel obstruction evident. Electronically signed by: Denton Carpenter MD (01/03/2021 4:45 PM) [id number]
[2021-01-03] MEDS ORDERED: ONDA4TAB7 PO (16:52)
[2021-01-03 17:29] VITALS: BP 121/85
[2021-01-03] MEDS ORDERED: AZITHROMYCIN 250 MG TABLET. ONE (23:29)
[2021-01-03] MEDS ORDERED: BENZONATATE 100 MG CAPSULE. PO ONE (23:29)
== END 2021-01-03 17:39 | disposition home or self-care (01) ==
LOC: ER 12:11
DX: R11.2 Nausea with vomiting, unspecified (principal); R10.9 Unspecified abdominal pain; G62.9 Polyneuropathy, unspecified; K52.9 Noninfective gastroenteritis and colitis, unspecified; F17.200 Nicotine dependence, unspecified, uncomplicated; F12.90 Cannabis use, unspecified, uncomplicated; Z90.49 Acquired absence of other specified parts of digestive tract; Z90.710 Acquired absence of both cervix and uterus; Z88.2 Allergy status to sulfonamides; Z88.8 Allergy status to other drugs, medicaments and biological substances
CPT/HCPCS: 36415; 74022; 80053; 80307; 81001; 83690; 83735; 85025; 87086; 96361; 96374; 96375; 99285; J2270; J2405; J7030

== ENCOUNTER 2022-02-11 12:34 | Emergency (ER) | payer SELFPAY ==
[~2022-02-11] VITALS: Ht 172.7 cm; Wt 76.8 kg
[~2022-02-11 12:34] MED LIST changes: +DICY20TA PO; -DICY20TA3 PO; +DOCU-148 PO; -DOCU-153 PO
[2022-02-11] MEDS ORDERED: IV NORMAL SALINE 1000ML BAG 1,000 ML IV ONE (12:45)
[2022-02-11] MEDS ORDERED: ONDANSETRON PF 4 MG/2 ML VIAL. IVP ONE (12:45)
[2022-02-11 13:10] LABS: BASO % 0 % (0-3); EOS % 0 % (0-3); HEMATOCRIT 31.7 % (36.0-47.0); HEMOGLOBIN 10.3 g/dL (12.0-15.5); LYMPH # 0.2 x10^3/uL (1.0-4.8); LYMPH % 3 % (24-48); MEAN CORPUSCULAR HEMOGLOBIN 23 pg (25-35); MEAN CORPUSCULAR HGB CONC 33 g/dL (31-37); MEAN CORPUSCULAR VOLUME 71 fL (79-100); MONO # 0.5 x10^3/uL (0.0-1.1); MONO % 10 % (0-9); NEUT % 86 % (31-73); PLATELET COUNT 198 x10^3/uL (140-400); RED BLOOD COUNT 4.49 x10^6/uL (3.50-5.40); WHITE BLOOD COUNT 4.7 x10^3/uL (4.0-11.0)
[2022-02-11 13:19] LABS: CALCIUM 9.2 mg/dL (8.5-10.1); CREATININE 1.1 mg/dL (0.6-1.0); POTASSIUM 3.9 mmol/L (3.5-5.1)
[2022-02-11 13:25] LABS: ALBUMIN 3.9 g/dL (3.4-5.0); TOTAL BILIRUBIN 0.5 mg/dL (0.2-1.0); TOTAL PROTEIN 7.8 g/dL (6.4-8.2)
[2022-02-11 13:28] LABS: BACTERIA,URINE MODERATE /HPF (0-FEW)
[2022-02-11 13:40] LABS: INFLUENZA A PATIENT NEGATIVE (NEGATIVE); INFLUENZA B PATIENT NEGATIVE (NEGATIVE)
[2022-02-11 14:06] VITALS: BP 113/76
[2022-02-11] MEDS ORDERED: KETOROLAC 30 MG/ML VIAL. IVP ONE (14:15)
[2022-02-11] MEDS ORDERED: ONDA4TAB12 PO (14:16)
--- NOTE | 2022-02-11 14:17 | PHYS DOC ---
Past Medical History Past Medical History: Other Additional Past Medical Histor: NEUROPATHY, gastroenteritis, THC hyperemesis (MARAH BELL APRN) Past Surgical History: Cholecystectomy, Hysterectomy, Tonsillectomy, Other Additional Past Surgical Histo: HERNIA REPAIR (MARAH BELL APRN) Smoking Status: Current Every Day Smoker Alcohol Use: None Drug Use: Marijuana (MARAH BELL APRN) General Adult EDM: Chief Complaint: NAUSEA/VOMITING/DIARRHEA HPI: HPI: Patient is a 46-year-old female presents to the emergency department with chief complaint of nausea vomiting and diarrhea since 5 AM. Patient denies seeing blood in her vomitus or in her stool. Patient reports no one else that ate the same food that she last night is ill. No one else is ill in the home. Patient reports since 5 AM she has had 4 bouts of diarrhea loose brown stool, and for bouts of vomiting noticing food particles. Patient states she has generalized abdominal discomfort, denies specific abdominal pain, denies chest pain, denies dizziness, denies syncopal or near syncopal episodes, denies fever or chills at home. Patient states she has not been vaccinated for the COVID virus or flu virus this season. Patient denies other physical complaints or physical concerns. (MARAH BELL APRN) Review of Systems: Review of Systems: 14 body systems of review of systems have been reviewed. See HPI for pertinent positives and negative responses, otherwise all other systems are negative, nonpertinent or noncontributory. Constitutional: Negative except as outlined in HPI above. Skin: Negative except as outlined in HPI above. Eyes: Negative except as outlined in HPI above. HENT: Negative except as outlined in HPI above. Respiratory: Negative except as outlined in HPI above. Cardiovascular: Negative except as outlined in HPI above. GI: Negative except as outlined in HPI above. : Negative except as outlined in HPI above. Musculoskeletal: Negative except as outlined in HPI above. Integument: Negative except as outlined in HPI above. Neurologic: Negative except as outlined in HPI above. Endocrine: Negative except as outlined in HPI above. Lymphatic: Negative except as outlined in HPI above. Psychiatric: Negative except as outlined in HPI above. (MARAH BELL APRN) Heart Score: C/O Chest Pain: No Risk Factors: Risk Factors: DM, Current or recent (<one month) smoker, HTN, HLP, family history of CAD, obesity. Risk Scores: Score 0 - 3: 2.5% MACE over next 6 weeks - Discharge Home Score 4 - 6: 20.3% MACE over next 6 weeks - Admit for Clinical Observation Score 7 - 10: 72.7% MACE over next 6 weeks - Early Invasive Strategies (MARAH BELL APRN) Current Medications: Current Medications Medications (Trade) Dose Ordered Sig/Campos Start Time Stop Time Status Last Admin Dose Admin Ondansetron HCl (Zofran) 4 mg 1X ONCE 02/11/22 12:45 02/11/22 12:56 DC 02/11/22 13:10 4 MG Sodium Chloride 1,000 ml @ 1,000 mls/hr 1X ONCE 02/11/22 12:45 02/11/22 13:44 DC 02/11/22 13:10 1,000 MLS/HR (MARAH BELL APRN) Allergies: Allergies: Allergies Coded Allergies Type Severity Reaction Last Updated Verified prochlorperazine Allergy Severe 11/17/20 Yes sulfamethoxazole Allergy Intermediate 07/14/19 Yes trimethoprim Allergy Intermediate 07/14/19 Yes (MARAH BELL APRN) Physical Exam: PE: Constitutional: Well developed, well nourished, no acute distress, non-toxic appearance. 46-year-old female appears uncomfortable otherwise in no apparent distress. HENT: Normocephalic, atraumatic. Oropharynx is moist, nonerythematous, no deep tissue infectious process appreciated. Eyes: Conjunctiva normal, no discharge. Neck: Normal range of motion, no stridor. There is no nuchal rigidity, no meningismus signs. Cardiovascular: No cyanosis appreciated, distal cap refill less than 2 seconds. Regular rate and rhythm, heart sounds S1-S2 auscultation. Lungs & Thorax: Patient is in no respiratory distress, no audible adventitious lung sounds appreciated. Lung sounds are clear to auscultation all lung mccain. Abdomen: No abnormalities of the abdomen noted, no tenderness to palpation, normal active bowel sounds all 4 quadrants. Skin: Warm, dry, no erythema, no rash. Back: No tenderness, no deformities. Extremities: No tenderness, no cyanosis, no clubbing, ROM intact, no edema. Neurologic: Alert and oriented X 3, normal motor function, normal sensory function, no focal deficits noted. Psychologic: Affect normal, judgement normal, mood normal. (MARAH BELL APRN) Current Patient Data: Labs: Laboratory Tests Test 02/11/22 12:44 02/11/22 13:01 02/11/22 13:10 White Blood Count 4.7 x10^3/uL (4.0-11.0) Red Blood Count 4.49 x10^6/uL (3.50-5.40) Hemoglobin 10.3 g/dL (12.0-15.5) L Hematocrit 31.7 % (36.0-47.0) L Mean Corpuscular Volume 71 fL (79-100) L Mean Corpuscular Hemoglobin 23 pg (25-35) L Mean Corpuscular Hemoglobin Concent 33 g/dL (31-37) Red Cell Distribution Width 15.0 % (11.5-14.5) H Platelet Count 198 x10^3/uL (140-400) Neutrophils (%) (Auto) 86 % (31-73) H Lymphocytes (%) (Auto) 3 % (24-48) L Monocytes (%) (Auto) 10 % (0-9) H Eosinophils (%) (Auto) 0 % (0-3) Basophils (%) (Auto) 0 % (0-3) Neutrophils # (Auto) 4.0 x10^3/uL (1.8-7.7) Lymphocytes # (Auto) 0.2 x10^3/uL (1.0-4.8) L Monocytes # (Auto) 0.5 x10^3/uL (0.0-1.1) Eosinophils # (Auto) 0.0 x10^3/uL (0.0-0.7) Basophils # (Auto) 0.0 x10^3/uL (0.0-0.2) Platelet Estimate Pending Sodium Level 142 mmol/L (136-145) Potassium Level 3.9 mmol/L (3.5-5.1) Chloride Level 106 mmol/L (98-107) Carbon Dioxide Level 23 mmol/L (21-32) Anion Gap 13 (6-14) Blood Urea Nitrogen 8 mg/dL (7-20) Creatinine 1.1 mg/dL (0.6-1.0) H Estimated GFR (Cockcroft-Gault) 65.0 BUN/Creatinine Ratio 7 (6-20) Glucose Level 105 mg/dL (70-99) H Calcium Level 9.2 mg/dL (8.5-10.1) Total Bilirubin 0.5 mg/dL (0.2-1.0) Aspartate Amino Transferase (AST) 31 U/L (15-37) Alanine Aminotransferase (ALT) 37 U/L (14-59) Alkaline Phosphatase 85 U/L (46-116) Total Protein 7.8 g/dL (6.4-8.2) Albumin 3.9 g/dL (3.4-5.0) Albumin/Globulin Ratio 1.0 (1.0-1.7) Lipase 40 U/L (73-393) L Urine Collection Type Unknown Urine Color (Auto) Yellow Urine Turbidity Hazy Urine pH (Auto) 8.0 (<5.0-8.0) Urine Specific [place] 1.021 (1.000-1.030) Urine Protein (Auto) Negative mg/dL (Negative) Urine Glucose (Auto)(UA) Negative mg/dL (Negative) Urine Ketones (Auto) 20 mg/dL (Negative) Urine Blood (Auto) Negative (Negative) Urine Nitrite Negative (Negative) Urine Bilirubin (Auto) Negative (Negative) Urine Urobilinogen (Auto) 2 mg/dL (Normal) Urine Leukocyte Esterase (Auto) Negative (Negative) Urine RBC 1-2 /HPF (0-2) Urine WBC 1-4 /HPF (0-4) Urine Squamous Epithelial Cells Many /LPF Urine Bacteria Moderate /HPF (0-FEW) Urine Mucus Marked /LPF Influenza Type A Antigen Negative (NEGATIVE) Influenza Type B Antigen Negative (NEGATIVE) SARS-CoV-2 Antigen (Rapid) Positive (NEGATIVE) *A Laboratory Tests 02/11/22 12:44 Laboratory Tests 02/11/22 12:44 Vital Signs: Vital Signs Date Time Temp Pulse Resp B/P (MAP) Pulse Ox O2 Delivery O2 Flow Rate FiO2 02/11/22 12:35 98.9 74 16 111/68 (82) 98 Room Air 98.9 (MARAH BELL APRN) EKG: EKG: [] (MARAH BELL APRN) Radiology/Procedures: Radiology/Procedures: [] (MARAH BELL APRN) Course & Med Decision Making: Course & Med Decision Making Pertinent Labs and Imaging studies reviewed. (See chart for details) 46-year-old female, vital signs reviewed, presents to the emergency department concerning nausea vomiting and diarrhea since 5 AM this morning. Physical examination is suspicious for gastritis/gastroenteritis, will I am suspicious for food poisoning, no one else that ate the same food if she is having the same symptoms and no one else is ill in the home. Will order COVID/flu testing, CBC, CMP, lipase, urinalysis assay, urine test, 1 L normal saline, Zofran for nausea, Toradol for pain and discomfort. Patient's serum labs are unremarkable, the patient's urine is not infected, there did show urine bacteria with squamous epithelia, there is 0-4 WBC, this is suspicious for a contaminated catch. There is no leukocyte esterase, no urine nitrates. No hematuria. The patient's rapid flu test is negative, the patient's rapid COVID test is positive. Discussed findings with patient, discussed COVID-19 isolation/quarantining at home, will give work excuse. Reviewed follow-up with primary care, return to ER precautions and concerns, will prescribe antinausea medication, discussed staying well-hydrated, Tylenol and/or Motrin for ongoing aches and pains, patient gave verbal understanding and is amenable to ED discharge planning. Discussed with the patient all findings and diagnostic testing as well as the need to follow-up with their primary care provider for further evaluation and treatment or return to the ED if any new or worsening symptoms. Strict return precautions were also discussed at length, the patient voiced understanding and agreement with the discharge planning. The patient was nontoxic in appearance, in no apparent distress, and hemodynamically stable at the time of disposition. (MARAH BELL APRN) Dragon Disclaimer: Dragon Disclaimer: This electronic medical record was generated, in whole or in part, using a voice recognition dictation system. (MARAH BELL APRN) Departure Departure Impression: Primary Impression: Nausea vomiting and diarrhea Disposition: HOME / SELF CARE / HOMELESS Condition: GOOD Referrals: UNKNOWN PCP NAME (PCP) Patient Instructions: Diarrhea, Nausea and Vomiting Additional Instructions: You were seen today in the emergency department for nausea vomiting and diarrhea. Your lab work showed that you have the COVID-19 virus. I have attached COVID-19 virus information to this document, please review. I have given you a work excuse for the next 2 weeks, please return to work as per your employer COVID-19 virus return to work protocols. Follow-up with your primary care physician soon, if you do not have a primary care physician I have attached a list of area healthcare providers and clinics for you to establish primary care with. Thank you for visiting our Emergency Department. It was a pleasure taking care of you today in the emergency department and we appreciate you trusting us with your care. If any additional problems come up don't hesitate to return to visit us. Please follow up with your primary care provider so they can plan additional care if needed and know about the problem that you had. If symptoms worsen come back to the Emergency Department. Any concerning symptoms that start such as chest pain, shortness of air, weakness or numbness on one side of the body, running high fevers or any other concerning symptoms return to the ER. As we discussed, I am prescribing you a antinausea medication, please use as directed/as needed for nausea, please keep well-hydrated. [facility] [address] [place] [address] [facility] [address] [place] [address] [facility] [address] [facility] [place] [place] [address] [facility] [[email or web address] [address] [place] [address] [facility] [address] [place] [address] [facility] [address] [place] [address] [facility] [address] [place] [address] [facility] [place] [address] [place] [address] [facility] [address] [place] [address] [facility] [address] [place] [address] Scripts Ondansetron (ONDANSETRON ODT) 4 Mg Tab.rapdis 1 TAB PO PRN Q6-8HRS, #16 TAB 0 Refills Prov: MARAH BELL APRN 02/11/22 Attending Signature I have participated in the care of this patient and I have reviewed and agree with all pertinent clinical information above including history, exam, and recommendations. (JO ANN MULLINS DO) MARAH BELL APRN February 11, 2022 14:17 JO ANN MULLINS DO February 11, 2022 14:54
[2022-02-11 15:35] LABS: % BANDS 7 % (0-9); % LYMPHS 3 % (24-48); % MONOS 9 % (0-10); % SEGS 81 % (35-66)
[2022-02-11 15:37] LABS: HYPOCHROMIA SLIGHT; MICROCYTOSIS MOD; PLT ESTIMATE ADEQUATE (ADEQUATE)
== END 2022-02-11 14:25 | disposition home or self-care (01) ==
LOC: ER 12:34
DX: U07.1 COVID-19 (principal); R11.2 Nausea with vomiting, unspecified; R19.7 Diarrhea, unspecified; R10.84 Generalized abdominal pain; F17.200 Nicotine dependence, unspecified, uncomplicated; Z90.49 Acquired absence of other specified parts of digestive tract; Z90.710 Acquired absence of both cervix and uterus; Z88.1 Allergy status to other antibiotic agents; Z88.2 Allergy status to sulfonamides; Z88.8 Allergy status to other drugs, medicaments and biological substances
CPT/HCPCS: 36415; 80053; 81001; 83690; 85007; 85025; 87086; 87428; 96361; 96374; 96375; 99284; J1885; J2405; J7030